=== PATIENT | male | born 1945 | race Caucasian/White ===

== ENCOUNTER 2022-09-16 14:06 | Emergency (ER) | payer OTHER ==
[2022-09-16] MEDS ORDERED: diltiaZEM INJ 5 MG/ML VIAL IVP STA (14:43)
[2022-09-16 14:46] LABS: BASOPHILS # (AUTO) 0.1 10^3/uL (0.0-0.1); BASOPHILS % (AUTO) 0.9 %; EOSINOPHILS # (AUTO) 0.1 10^3/uL (0.0-0.7); EOSINOPHILS % (AUTO) 0.7 %; HCT - HEMATOCRIT 30.3 % (42.0-52.0); HGB - HEMOGLOBIN 8.8 g/dL (14.0-18.0); LYMPHOCYTES # (AUTO) 0.6 10^3/uL (1.5-3.5); LYMPHOCYTES % (AUTO) 5.5 %; MEAN CORPUSCULAR HEMOGLOBIN 25.5 pg (27.0-31.0); MEAN CORPUSCULAR VOLUME 87.8 fL (80.0-94.0); MEAN PLATELET VOLUME 8.8 fL (7.4-11.4); MONOCYTES # (AUTO) 1.8 10^3/uL (0.0-1.0); MONOCYTES % (AUTO) 15.2 %; NEUTROPHILS % (AUTO) 76.7 %; PLT - PLATELET COUNT 378 10^3/uL (130-450); RED BLOOD COUNT 3.45 10^6/uL (4.70-6.10); RED CELL DISTRIBUTION WIDTH 20.2 % (12.0-15.0); WHITE BLOOD COUNT 11.7 x10^3/uL (4.8-10.8)
--- NOTE | 2022-09-16 14:46 | ED Physician Documentation ---
History of Present Illness - Stated complaint Stated Complaint: CP/SOA/ABD PX - Chief complaint Chief Complaint: Resp - Additonal information Additional information: 76-year-old male is brought to the emergency department for evaluation of chest pain and shortness of air. History is limited from the patient due to condition. He does report COPD and states he is always on oxygen. Somewhere between 2 and 6 L a minute. He had run out of oxygen by the time he arrived to the emergency department and his room air saturations were 80%. He was placed on 4 L nasal cannula now having saturations in the high 90s. However he remains labored. He does have with him some discharge paperwork from [facility] in [place]. It appears that he was admitted there from August 03 through August 12. There are some discharge diagnoses that include thrombocytopenia, COPD, heart failure. It also appears that he may have received a palliative care referral. Patient reports that he has been out of his albuterol, Advair and oral medica tions now for about 4 days. It looks to me as though he should be on diltiazem 240 mg daily, Jardiance 10 mg daily, Lasix 80 mg daily as well as albuterol and Advair. Patient denies any recent fevers but states he cannot breathe over the last 4 days. He is gasping for air. Review of Systems Constitutional: denies: Fever Cardiac: reports: Chest pain / pressure Respiratory: reports: Dyspnea, Cough, Wheezing GI: reports: Reviewed and negative : reports: Reviewed and negative PD PAST MEDICAL HISTORY - Present Medications Home Medications: Ambulatory Orders Medication Instructions Recorded Confirmed Albuterol Sulf [Ventolin Hfa 1 - 2 puffs INH Q4HR PRN #1 each 09/16/22 Inhaler] Empagliflozin [Jardiance] 10 mg PO DAILY 09/16/22 09/16/22 Empagliflozin [Jardiance] 10 mg PO DAILY #30 tablet 09/16/22 Fluticasone/Salmeterol [Advair 1 each IH DAILY #1 each 09/16/22 250-50 Diskus] Furosemide [Lasix] 80 mg PO DAILY 09/16/22 09/16/22 Furosemide [Lasix] 80 mg PO DAILY #30 tablet 09/16/22 Potassium Chloride [K-Dur] 20 meq PO DAILY #30 tablet 09/16/22 Potassium Chloride [K-Dur] 20 meq PO ONCE 09/16/22 09/16/22 dilTIAZem HCL [Diltiazem 24Hr ER 240 mg PO DAILY #30 cap 09/16/22 (Xr)] diltiaZEM CD [Cardizem Cd] 240 mg PO DAILY 09/16/22 09/16/22 - Allergies Allergies/Adverse Reactions: Allergies Allergy/AdvReac Type Severity Reaction Status Date / Time Penicillins Allergy Unknown Verified 09/16/22 14:16 PD ED PE EXPANDED - General General: Alert, In distress (Gasping for air. Tachypneic. 2-3 word sentences) - Cardiac Cardiac: Irregularly irregular, Murmur Present, Radial strong equal, Cap refill < 2 sec - Respiratory Respiratory: Other (Diminished breath sounds in the right middle and lower lobes. Generally clear in the left lung [place]. He is tachypneic, labored. On 4 L nasal cannula saturating 100%) - Abdomen Abdomen: Normal Bowel sounds, Distended. No: Tender to palpation - Derm Derm: Normal color, Warm and dry - Neuro Neuro: Alert and Oriented X 3, CNII-XII intact - GCS Eye Opening: Spontaneous Motor: Obeys Commands Verbal: Oriented Total: 15 Results - Vitals Vitals: Vital Signs - 24 hr 09/16/22 09/16/22 09/16/22 14:12 14:44 14:51 Temperature 37.2 C Heart Rate 114 H 113 H 117 H Respiratory 44 H 20 24 Rate Blood Pressure 123/63 117/87 H O2 Saturation 80 L 100 100 If not protocol 2 2 : Oxygen Flow, liters/minute 09/16/22 09/16/22 09/16/22 15:20 15:25 15:53 Temperature Heart Rate 103 H 88 Respiratory 21 22 Rate Blood Pressure 114/79 120/85 H O2 Saturation 100 100 If not protocol 2 2 2 : Oxygen Flow, liters/minute 09/16/22 09/16/22 09/16/22 16:05 16:22 16:54 Temperature Heart Rate 104 H 109 H Respiratory 22 28 H 22 Rate Blood Pressure 137/100 H O2 Saturation 99 If not protocol 2 2 : Oxygen Flow, liters/minute 09/16/22 09/16/22 09/16/22 17:16 18:11 18:33 Temperature Heart Rate 104 H 108 H 113 H Respiratory 32 H 23 18 Rate Blood Pressure 139/95 H 125/73 125/73 O2 Saturation 100 100 100 If not protocol 2 : Oxygen Flow, liters/minute Oxygen O2 Source Room air Oxygen Flow Rate 2 - EKG (time done) 1421 EKG releavant findings:: EKG personally interpreted by author of this note. Relevant findings are: Rate: Rate (enter#) (115) Rhythm: Atrial fibrillation Gamaliel: LAD Intervals: No: Prolonged QT Ischemia: Non specific changes Computer interpretation: Agree with computer - Labs Labs: Laboratory Tests 09/16/22 09/16/22 09/16/22 14:37 14:37 14:37 WBC 11.7 H RBC 3.45 L Hgb 8.8 L Hct 30.3 L MCV 87.8 MCH 25.5 L MCHC 29.0 L RDW 20.2 H Plt Count 378 MPV 8.8 Neut # (Auto) 9.0 H Lymph # (Auto) 0.6 L Douglas # (Auto) 1.8 H Eos # (Auto) 0.1 Baso # (Auto) 0.1 Absolute Nucleated RBC 0.00 Nucleated RBC % 0.0 Sodium 135 Potassium 4.5 Chloride 96 L Carbon Dioxide 30 Anion Gap 9.0 BUN 12 Creatinine 0.8 Estimated GFR (MDRD) 94 Glucose 112 H Calcium 8.7 Total Bilirubin 0.6 AST 24 ALT 15 Alkaline Phosphatase 79 Troponin I High Sens 7.0 B-Natriuretic Peptide Total Protein 7.0 Albumin 3.4 Globulin 3.6 Albumin/Globulin Ratio 0.9 L Lipase 40 Nasal Adenovirus (PCR) Nasal B. parapertussis DNA (PCR) Nasal Coronavir 229E PCR Nasal Coronavir HKU1 PCR Nasal Coronavir NL63 PCR Nasal Coronavir OC43 PCR Nasal Enterovir/Rhinovir PCR Nasal Influenza B PCR Nasal Influenza A PCR Nasal Parainfluen 1 PCR Nasal Parainfluen 2 PCR Nasal Parainfluen 3 PCR Nasal Parainfluen 4 PCR Nasal RSV (PCR) Nasal B.pertussis DNA PCR Nasal C.pneumoniae (PCR) Aj Human Metapneumo PCR Nasal M.pneumoniae (PCR) Nasal SARS-CoV-2 (PCR) 09/16/22 09/16/22 14:37 15:06 WBC RBC Hgb Hct MCV MCH MCHC RDW Plt Count MPV Neut # (Auto) Lymph # (Auto) Douglas # (Auto) Eos # (Auto) Baso # (Auto) Absolute Nucleated RBC Nucleated RBC % Sodium Potassium Chloride Carbon Dioxide Anion Gap BUN Creatinine Estimated GFR (MDRD) Glucose Calcium Total Bilirubin AST ALT Alkaline Phosphatase Troponin I High Sens B-Natriuretic Peptide 411 H Total Protein Albumin Globulin Albumin/Globulin Ratio Lipase Nasal Adenovirus (PCR) NOT DETECTED Nasal B. parapertussis DNA (PCR) NOT DETECTED Nasal Coronavir 229E PCR NOT DETECTED Nasal Coronavir HKU1 PCR NOT DETECTED Nasal Coronavir NL63 PCR NOT DETECTED Nasal Coronavir OC43 PCR NOT DETECTED Nasal Enterovir/Rhinovir PCR NOT DETECTED Nasal Influenza B PCR NOT DETECTED Nasal Influenza A PCR NOT DETECTED Nasal Parainfluen 1 PCR NOT DETECTED Nasal Parainfluen 2 PCR NOT DETECTED Nasal Parainfluen 3 PCR NOT DETECTED Nasal Parainfluen 4 PCR NOT DETECTED Nasal RSV (PCR) NOT DETECTED Nasal B.pertussis DNA PCR NOT DETECTED Nasal C.pneumoniae (PCR) NOT DETECTED Aj Human Metapneumo PCR NOT DETECTED Nasal M.pneumoniae (PCR) NOT DETECTED Nasal SARS-CoV-2 (PCR) NOT DETECTED - Rads (name of study) cxr Relevant Findings:: Final report received (Moderate likely right-sided pleural effusion with right basilar atelectasis, versus consolidation or mass. Given no priors consider CT chest for evaluation) CT chest/abd/pelvis Relevant Findings:: Final report received (Loculated large right pleural effusion without acute CT findings in the abdomen and pelvis.) PD Medical Decision Making - ED course Complexity details: reviewed results, re-evaluated patient, d/w patient ED course: 76-year-old male who has a history of COPD, heart failure, atrial fibrillation not on anticoagulation presents the emergency department for evaluation of shortness of breath. He moved to [facility] 2 weeks ago from the [facility]. He had a hospitalization in late July and early August for COPD and hypoxic respiratory failure. His partner at the bedside Anne-Marie indicates to me at that time he was newly diagnosed with a pleural effusion as well as atrial fibrillation. However he had low platelets during that hospitalization and he was not started on anticoagulation. For reasons that are unclear to me they decided to move to [facility] and the patient has not yet been able to access care. [facility] While in route to the emergency department for shortness of air the patient's oxygen tank ran out. When he arrived to the ER his room air saturations were 80%. Shortly thereafter he was placed on 2 L nasal cannula and after about 15 to 20 minutes his labored breathing appeared to be resolved. The patient stated to me he been out of most of his medications for about 4 to 5 days. I did obtain an initial chest x-ray which is interpreted by the radiologist showed a large right pleural effusion. A mass could not be excluded and based on this imaging a CT of the chest abdomen pelvis with contrast was completed. The only acute finding in any of this imaging was that again of a loculated right pleural effusion. I did obtain a CBC, electrolytes and a troponin all of which showed no worrisome findings though he does have some mild anemia. His BNP is mildly elevated at 400. The patient was administered Lasix IV here in the ER. Respiratory PCR is negative. Clinically it appears the patient is back to his baseline respirations saturating 100% on 2 L nasal cannula. Clinically he does not meet the requirements for admission. He does have a loculated pleural effusion but no acute management is warranted of this today. He initially presented in A-fib with a heart rate of 115. He been out of his diltiazem for several days. He was given a single dose of 10 mg IV and on reevaluation his heart rate is in the 80s but remains A-fib. I discussed with the patient and his partner at the bedside the findings of atrial fibrillation. We discussed his [id number] 2 score of 3 which puts him at about a 6% risk of developing a stroke over the next year but with the previous concerns of thrombocytopenia as well as the concerns of the pleural effusion that may need to be addressed in the upcoming weeks the decision was made not to start him on anticoagulation. His partner expressed difficulty in establishing with [facility] but I have indicated to her that it is critical he have a primary provider to help manage his long-term illnesses. We have also given her the phone number to contact the [facility] to help [facility]. He is going to be discharged home, now back to baseline. I have written a prescription for diltiazem, Jardiance, Lasix, albuterol and Advair. The usual emergent return precautions were discussed for worsening symptoms Departure - Departure Disposition: 01 Home, Self Care Clinical Impression: Pleural effusion, right COPD (chronic obstructive pulmonary disease) Qualifiers: COPD type: unspecified COPD Qualified Code(s): J44.9 - Chronic obstructive pulmonary disease, unspecified Atrial fibrillation Qualifiers: Atrial fibrillation type: unspecified Qualified Code(s): I48.91 - Unspecified atrial fibrillation Condition: Serious Record reviewed to determine appropriate education?: Yes Instructions: Effusion Pleural Prescriptions: Albuterol Sulf [Ventolin Hfa Inhaler] 1 - 2 puffs INH Q4HR PRN #1 each PRN Reason: Shortness Of Air/Wheezing Fluticasone/Salmeterol [Advair 250-50 Diskus] 1 each IH DAILY #1 each dilTIAZem HCL [Diltiazem 24Hr ER (Xr)] 240 mg PO DAILY #30 cap Empagliflozin [Jardiance] 10 mg PO DAILY #30 tablet Potassium Chloride [K-Dur] 20 meq PO DAILY #30 tablet Furosemide [Lasix] 80 mg PO DAILY #30 tablet Comments: Kush came to the emergency department because he has been having some increasing shortness of breath. He has been out of several of his medications for a few days. In route to the emergency department his oxygen tank ran out so he was very hypoxic when he arrived here however shortly after being started on oxygen his breathing improved. 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 This is something that needs to be followed closely by a primary doctor. You must get in contact with the [facility] to establish care as soon as possible. Imaging completed today in the emergency department shows that he has a large right pleural effusion. This is a development of fluid that overlies his lung. It can make breathing more difficult. It is often seen in COPD and atrial fibrillation both of which he has. In the long-term this is something that may need to be drained though it does not need to be drained today. He will be important to talk with his primary care doctor whether he should be placed on anticoagulation for the atrial fibrillation as he is at higher risk for strokes. Today I have refilled his diltiazem a medication to help control his heart rate and atrial fibrillation. I have also refilled his Lasix, a water pill that will help reduce the pleural effusion and improve his heart failure. I have also refilled his Jardiance, albuterol, Advair. These prescriptions have been sent to the [facility] in [place]. He should continue to wear oxygen at all times. Return to the ER if you find his symptoms are worsening
[2022-09-16 14:59] LABS: ALBUMIN 3.4 g/dL (3.2-5.5); ALBUMIN/GLOBULIN RATIO 0.9 (1.0-2.2); BILIRUBIN,TOTAL 0.6 mg/dL (0.2-1.0); CALCIUM 8.7 mg/dL (8.5-10.3); CREATININE 0.8 mg/dL (0.6-1.2); POTASSIUM 4.5 mmol/L (3.5-5.0)
--- NOTE | 2022-09-16 15:00 | XRAY Report ---
PROCEDURE: Chest 1 View X-Ray INDICATIONS: Chest Pain TECHNIQUE: One view of the chest was acquired. COMPARISON: None. FINDINGS: Surgical changes and devices: None. Lungs and pleura: Moderate loculated right-sided pleural effusion with right basilar atelectasis/con solidation/mass. Small left pleural effusion. Mediastinum: Mediastinal contours appear normal. Heart size is normal. Bones and chest wall: No suspicious bony lesions. Overlying soft tissues appear unremarkable. IMPRESSION: Moderate likely right-sided pleural effusion with right basilar atelectasis, versus consolidation or mass. Given no priors, consider chest CT for evaluation. Small left pleural effusion. Reviewed by: Jj Pink on 09/16/2022 2:58 PM PDT Approved by: Jj Pink on 09/16/2022 2:58 PM PDT Station ID: [id number]
[2022-09-16] MEDS ORDERED: methylPREDNISolone SUCCINATE 125 MG/2 ML VIAL IVP STA (15:07)
[2022-09-16] MEDS ORDERED: IPRATROPIUM/ALBUTEROL 3 ML NEB INH STA (15:07)
[2022-09-16] MEDS ORDERED: FUROSEMIDE 40 MG/4 ML VIAL IVP STA (15:37)
[2022-09-16] MEDS ORDERED: iohexoL-300 100 ML VIAL ONE (15:37)
[2022-09-16 17:03] LABS: B. PARAPERTUSSIS- RESP PCR PAN NOT DETECTED; B. PERTUSSIS- RESP PCR PANEL NOT DETECTED; C. PNEUMONIAE- RESP PCR PANEL NOT DETECTED; CORONAVIRUS 229E-RESP PCR NOT DETECTED; CORONAVIRUS HKU1-RESP PCR NOT DETECTED; CORONAVIRUS NL63-RESP PCR NOT DETECTED; CORONAVIRUS OC43-RESP PCR NOT DETECTED; HUMAN METAPNEUMOVIRUS NOT DETECTED; INFLUENZA A- RESP PCR PANEL NOT DETECTED; INFLUENZA B - RESP PCR PANEL NOT DETECTED; M. PNEUMONIAE- RESP PCR PANEL NOT DETECTED; PARAINFLUENZA VIRUS 1 NOT DETECTED; PARAINFLUENZA VIRUS 2 NOT DETECTED; PARAINFLUENZA VIRUS 3 NOT DETECTED; PARAINFLUENZA VIRUS 4 NOT DETECTED; RHINOVIRUS/ENTEROVIRUS NOT DETECTED; RSV- RESP PCR PANEL NOT DETECTED; SARS-CoV-2 -RESP PCR PANEL NOT DETECTED
--- NOTE | 2022-09-16 17:08 | CT Report ---
PROCEDURE: CT abdomen pelvis with contrast INDICATIONS: abd pain CONTRAST: Omni 300 100ml TECHNIQUE: After the administration of contrast, 5 mm thick sections acquired from the diaphragms to the symphys is. 5 mm thick coronal and sagittal reformats were acquired. For radiation dose reduction, the foll owing was used: automated exposure control, adjustment of mA and/or kV according to patient size. COMPARISON: None FINDINGS: Image quality: Excellent. Lung bases and heart: Large right pleural effusion Liver: No solid mass. Gallbladder and biliary tree: Spleen: No splenomegaly. Pancreas: No pancreatic ductal dilation. Adrenals: No adrenal nodule. Kidneys and ureters: No hydronephrosis. No renal cystic lesion which requires follow up. No solid mas s. Bowel and peritoneum: No bowel distension. No pathologic free fluid. Lymph nodes: No central or retroperitoneal adenopathy. Vessels: Aortic atherosclerotic vascular calcification without evidence of aneurysm PELVIS Reproductive organs: Unremarkable. Bladder: No abnormal wall thickening, accounting for underdistension. Pelvic lymph nodes: No pelvic adenopathy by size criteria. Bones: No aggressive osseous abnormality. Other: No significant ventral or inguinal hernia. IMPRESSION: Large right pleural effusion without acute CT findings in the abdomen and pelvis Reviewed by: Yoel Barnard MD on 09/16/2022 4:06 PM [place] Approved by: Yoel Barnard MD on 09/16/2022 4:06 PM [place] Station ID: [id number]
--- NOTE | 2022-09-16 17:13 | CT Report ---
PROCEDURE: CT angiogram chest with contrast INDICATIONS: pleaural effusion; r/o mass; r/o PE CONTRAST: Omni 300 100ml TECHNIQUE: After the administration of intravenous contrast, 2 mm axial images were acquired from the pulmonary apices to the posterior costophrenic angles during the arterial phase. In addition, 1 mm lung kernel and 5 mm soft tissue kernel reconstructions were performed. 3-dimensional coronal oblique maximum int ensity projection (MIP) reformats, 8 mm axial MIP, and 5 mm coronal and sagittal MPR reformats were t hen performed through the thorax. For radiation dose reduction, the following was used: automated exp osure control, adjustment of mA and/or kV according to patient size. COMPARISON: FINDINGS: Image quality: Excellent. Large vessels: No filling defects within the opacified pulmonary arteries, accounting for motion and contrast timing. No evidence of acute aortic syndrome or aortic aneurysm. Lungs and pleura: Moderate right-sided pleural effusion is at least partially loculated. Associated c ompressive atelectasis mild adjacent infiltrative change present as well. Moderate diffuse pulmonary emphysema with apical predominance and septal thickening present apically Mediastinum: Heart size is normal. No pericardial effusions. No mediastinal adenopathy by size criter ia. Chest wall and lower neck: Thyroid is unremarkable. No axillary or supraclavicular adenopathy by size . Bones: No aggressive osseous abnormality. Upper Abdomen: Unremarkable. IMPRESSION: No evidence of pulmonary embolism, aortic dissection or aneurysm. Loculated right-sided pleural effusion. Consider short-term follow-up to exclude developing empyema. Moderate pulmonary emphysema Reviewed by: Yoel Barnard MD on 09/16/2022 4:12 PM [place] Approved by: Yoel Barnard MD on 09/16/2022 4:12 PM [place] Station ID: [id number]
[2022-09-16] MEDS ORDERED: iohexoL-300 100 ML VIAL IVP ONE (17:25)
[2022-09-16 18:13] VITALS: BP 125/73
[2022-09-16] MEDS ORDERED: diltiaZEM CD 120 MG CAPSULE PO STA (18:24)
== END 2022-09-16 18:45 | disposition home or self-care (01) ==
LOC: ED 14:06
DX: J90 Pleural effusion, not elsewhere classified (principal); J44.9 Chronic obstructive pulmonary disease, unspecified; I48.91 Unspecified atrial fibrillation; I50.9 Heart failure, unspecified; Z20.822 Contact with and (suspected) exposure to COVID-19; Z99.81 Dependence on supplemental oxygen; Z79.51 Long term (current) use of inhaled steroids; Z79.899 Other long term (current) drug therapy; Z79.84 Long term (current) use of oral hypoglycemic drugs
CPT/HCPCS: 36415; 71045; 71275; 74177; 80053; 83690; 83880; 84484; 85025; 87633; 93005; 94640; 94664; 96374; 96375; 99284; 99285; A9270; Q9967

== ENCOUNTER 2022-11-25 11:32 | Inpatient (IN) | payer OTHER ==
--- NOTE | 2022-11-25 11:44 | ED Physician Documentation ---
PD HPI ALTERED MENTAL STATUS - Stated complaint Stated Complaint: UNRESPONSIVE - Chief complaint Chief Complaint: Resp - History obtained from History obtained from: EMS - History of Present Illness Timing - onset: Unknown - Additional information Additional information: 77-year-old male with history of COPD on chronic O2, congestive heart failure, cho-gzbbqwy-dclqjslcf diabetes, A-fib on diltiazem presents intubated by EMS from home for altered mental status. History is obtained entirely by EMS. EMS states that called because she could not wake the patient out of bed. She told EMS that the patient went to bed in his usual state of health last night but she could not wake him up today and she called 911. EMS stated that when they arrived the patient was snoring, unresponsive to even painful stimuli and so he was intubated with etomidate and succinylcholine for airway protection. Per EMS patient was given veccuronium for continued sedation en route Patient arrived intubated, paralyzed, sedated. Review of Systems Unable to obtain: Intubated PD PAST MEDICAL HISTORY - Past Medical History Past Medical History: Yes Cardiovascular: Congestive heart failure, Hypertension Respiratory: COPD Neuro: None Endocrine/Autoimmune: None GI: None : Benign prostate hypertrophy HEENT: None Psych: None Musculoskeletal: None Derm: None - Past Surgical History Past Surgical History: Yes General: Other - Present Medications Home Medications: Ambulatory Orders Medication Instructions Recorded Confirmed Albuterol Sulf [Ventolin Hfa 1 - 2 puffs INH Q4HR PRN #1 each 09/16/22 Inhaler] Empagliflozin [Jardiance] 10 mg PO DAILY 09/16/22 09/16/22 Empagliflozin [Jardiance] 10 mg PO DAILY #30 tablet 09/16/22 Fluticasone/Salmeterol [Advair 1 each IH DAILY #1 each 09/16/22 250-50 Diskus] Furosemide [Lasix] 80 mg PO DAILY 09/16/22 09/16/22 Furosemide [Lasix] 80 mg PO DAILY #30 tablet 09/16/22 Potassium Chloride [K-Dur] 20 meq PO DAILY #30 tablet 09/16/22 Potassium Chloride [K-Dur] 20 meq PO ONCE 09/16/22 09/16/22 dilTIAZem HCL [Diltiazem 24Hr ER 240 mg PO DAILY #30 cap 09/16/22 (Xr)] diltiaZEM CD [Cardizem Cd] 240 mg PO DAILY 09/16/22 09/16/22 - Allergies Allergies/Adverse Reactions: Allergies Allergy/AdvReac Type Severity Reaction Status Date / Time Penicillins Allergy Unknown Verified 11/25/22 11:42 - Social History Does the pt smoke?: No Smoking Status: Never smoker Does the pt drink ETOH?: No Does the pt have substance abuse?: No - Immunizations Immunizations are current?: Yes - POLST Patient has POLST: No PD ED PE NORMAL - Vitals Vital signs reviewed: Yes - General General: Other (appears chronically unwell) - HEENT HEENT: Atraumatic, PERRL, EOMI, Other (7.[address]) - Cardiac Cardiac: No murmur, Other (irregularly irregular) - Respiratory Respiratory: Other (intubated, bilateral inspiratory crackles. Decreased breath sounds R lung [place]) - Abdomen Abdomen: Soft, Non tender, Non distended - Derm Derm: Normal color, Warm and dry, No rash - Extremities Extremities: No deformity, Other (trace pitting edema to nknees bilaterally) - Neuro Neuro: Other (intubated, sedated) Results - Vitals Vitals: Vital Signs - 24 hr 11/25/22 11/25/22 11/25/22 11:35 11:42 11:56 Temperature 36.5 C 34.9 C L Heart Rate 101 H 94 92 Respiratory 20 18 Rate Blood Pressure 143/100 H 157/94 H O2 Saturation 90 L 85 L 11/25/22 11/25/22 11/25/22 12:11 12:15 12:30 Temperature 35.6 C L 35.6 C L Heart Rate 112 H 108 H 95 Respiratory 20 20 20 Rate Blood Pressure 150/88 H 141/88 H 151/80 H O2 Saturation 100 98 100 11/25/22 11/25/22 11/25/22 12:45 13:00 13:15 Temperature 35.8 C L 35.8 C L Heart Rate 95 89 93 Respiratory 18 18 18 Rate Blood Pressure 144/95 H 118/79 121/60 O2 Saturation 96 93 94 11/25/22 11/25/22 11/25/22 13:30 13:45 14:00 Temperature 35.8 C L 36 C L 36.5 C Heart Rate 88 85 85 Respiratory 18 18 18 Rate Blood Pressure 106/82 H 83/56 L 88/66 L O2 Saturation 100 100 97 11/25/22 11/25/22 14:15 14:30 Temperature 36.5 C Heart Rate 82 74 Respiratory 18 18 Rate Blood Pressure 77/56 L 86/59 L O2 Saturation 97 Oxygen O2 Source Room air - Labs Labs: Laboratory Tests 11/25/22 11/25/22 11/25/22 11:40 11:40 11:40 WBC 9.9 RBC 3.22 L Hgb 8.7 L Hct 31.7 L MCV 98.4 H MCH 27.0 MCHC 27.4 L RDW 21.9 H Plt Count 162 MPV 9.2 Neut # (Auto) 7.9 H Lymph # (Auto) 0.2 L Mcclain # (Auto) 1.7 H Eos # (Auto) 0.0 Baso # (Auto) 0.0 Absolute Nucleated RBC 0.00 Nucleated RBC % 0.0 Manual Slide Review Indicated PT 12.7 H INR 1.2 Bld Gas Analysis Time Sample Site ABG pH ABG pCO2 ABG pO2 ABG HCO3 ABG Total CO2 ABG O2 Saturation ABG Base Excess Valentin Test Respiration Rate O2 Delivery Device Vent Mode FiO2 Tidal Volume PEEP Pressure Support Vent Sodium 136 Potassium 5.5 H Chloride 95 L Carbon Dioxide 38 H Anion Gap 3.0 L BUN 23 H Creatinine 1.5 H Estimated GFR (MDRD) 46 L Glucose 122 H Lactic Acid Calcium 8.8 Phosphorus 5.8 Magnesium 2.3 Total Bilirubin 0.5 AST 13 ALT < 10 L Alkaline Phosphatase 78 Ammonia Troponin I High Sens Total Protein 6.7 Albumin 3.3 Globulin 3.4 Albumin/Globulin Ratio 1.0 Lipase 13 Urine Color Urine Clarity Urine pH Ur Specific Langley Urine Protein Urine Glucose (UA) Urine Ketones Urine Occult Blood Urine Nitrite Urine Bilirubin Urine Urobilinogen Ur Leukocyte Esterase Ur Microscopic Review Urine Culture Comments Nasal Adenovirus (PCR) Nasal B. parapertussis DNA (PCR) Nasal Coronavir 229E PCR Nasal Coronavir HKU1 PCR Nasal Coronavir NL63 PCR Nasal Coronavir OC43 PCR Nasal Enterovir/Rhinovir PCR Nasal Influenza B PCR Nasal Influenza A PCR Nasal Parainfluen 1 PCR Nasal Parainfluen 2 PCR Nasal Parainfluen 3 PCR Nasal Parainfluen 4 PCR Nasal RSV (PCR) Nasal B.pertussis DNA PCR Nasal C.pneumoniae (PCR) Aj Human Metapneumo PCR Nasal M.pneumoniae (PCR) Nasal SARS-CoV-2 (PCR) Salicylates < 1.5 Urine Opiates Screen Ur Oxycodone Screen Urine Methadone Screen Ur Propoxyphene Screen Acetaminophen 1.0 L Ur Barbiturates Screen Ur Tricyclics Screen Ur Phencyclidine Scrn Ur Amphetamine Screen U Methamphetamines Scrn U Benzodiazepines Scrn Urine Cocaine Screen U Cannabinoids Screen Ethyl Alcohol < 10.0 Blood Type Blood Type Recheck Antibody Screen 11/25/22 11/25/22 11/25/22 11:40 11:40 11:42 WBC RBC Hgb Hct MCV MCH MCHC RDW Plt Count MPV Neut # (Auto) Lymph # (Auto) Mcclain # (Auto) Eos # (Auto) Baso # (Auto) Absolute Nucleated RBC Nucleated RBC % Manual Slide Review PT INR Bld Gas Analysis Time Sample Site ABG pH ABG pCO2 ABG pO2 ABG HCO3 ABG Total CO2 ABG O2 Saturation ABG Base Excess Valentin Test Respiration Rate O2 Delivery Device Vent Mode FiO2 Tidal Volume PEEP Pressure Support Vent Sodium Potassium Chloride Carbon Dioxide Anion Gap BUN Creatinine Estimated GFR (MDRD) Glucose Lactic Acid 1.0 Calcium Phosphorus Magnesium Total Bilirubin AST ALT Alkaline Phosphatase Ammonia 24.9 Troponin I High Sens 11.6 Total Protein Albumin Globulin Albumin/Globulin Ratio Lipase Urine Color Urine Clarity Urine pH Ur Specific [place] Urine Protein Urine Glucose (UA) Urine Ketones Urine Occult Blood Urine Nitrite Urine Bilirubin Urine Urobilinogen Ur Leukocyte Esterase Ur Microscopic Review Urine Culture Comments Nasal Adenovirus (PCR) Nasal B. parapertussis DNA (PCR) Nasal Coronavir 229E PCR Nasal Coronavir HKU1 PCR Nasal Coronavir NL63 PCR Nasal Coronavir OC43 PCR Nasal Enterovir/Rhinovir PCR Nasal Influenza B PCR Nasal Influenza A PCR Nasal Parainfluen 1 PCR Nasal Parainfluen 2 PCR Nasal Parainfluen 3 PCR Nasal Parainfluen 4 PCR Nasal RSV (PCR) Nasal B.pertussis DNA PCR Nasal C.pneumoniae (PCR) Aj Human Metapneumo PCR Nasal M.pneumoniae (PCR) Nasal SARS-CoV-2 (PCR) Salicylates Urine Opiates Screen Ur Oxycodone Screen Urine Methadone Screen Ur Propoxyphene Screen Acetaminophen Ur Barbiturates Screen Ur Tricyclics Screen Ur Phencyclidine Scrn Ur Amphetamine Screen U Methamphetamines Scrn U Benzodiazepines Scrn Urine Cocaine Screen U Cannabinoids Screen Ethyl Alcohol Blood Type A NEGATIVE Blood Type Recheck Antibody Screen NEGATIVE 11/25/22 11/25/22 11/25/22 11:51 11:51 12:32 WBC RBC Hgb Hct MCV MCH MCHC RDW Plt Count MPV Neut # (Auto) Lymph # (Auto) Mcclain # (Auto) Eos # (Auto) Baso # (Auto) Absolute Nucleated RBC Nucleated RBC % Manual Slide Review PT INR Bld Gas Analysis Time 1232 Sample Site RIGHT RADIAL ABG pH 7.46 H ABG pCO2 44 ABG pO2 424 H* ABG HCO3 30.6 H ABG Total CO2 31.9 H ABG O2 Saturation 100 H ABG Base Excess 6.0 H Valentin Test POSITIVE Respiration Rate 20 O2 Delivery Device VENTILATOR Vent Mode SIMV FiO2 100.00 Tidal Volume 500 PEEP 5 Pressure Support Vent 12 Sodium Potassium Chloride Carbon Dioxide Anion Gap BUN Creatinine Estimated GFR (MDRD) Glucose Lactic Acid Calcium Phosphorus Magnesium Total Bilirubin AST ALT Alkaline Phosphatase Ammonia Troponin I High Sens Total Protein Albumin Globulin Albumin/Globulin Ratio Lipase Urine Color DARK YELLOW Urine Clarity CLEAR Urine pH 5.5 Ur Specific [place]y 1.020 Urine Protein TRACE Urine Glucose (UA) >=1000 H Urine Ketones NEGATIVE Urine Occult Blood NEGATIVE Urine Nitrite NEGATIVE Urine Bilirubin NEGATIVE Urine Urobilinogen 0.2 (NORMAL) Ur Leukocyte Esterase NEGATIVE Ur Microscopic Review NOT INDICATED Urine Culture Comments NOT INDICATED Nasal Adenovirus (PCR) NOT DETECTED Nasal B. parapertussis DNA (PCR) NOT DETECTED Nasal Coronavir 229E PCR NOT DETECTED Nasal Coronavir HKU1 PCR NOT DETECTED Nasal Coronavir NL63 PCR NOT DETECTED Nasal Coronavir OC43 PCR NOT DETECTED Nasal Enterovir/Rhinovir PCR NOT DETECTED Nasal Influenza B PCR NOT DETECTED Nasal Influenza A PCR NOT DETECTED Nasal Parainfluen 1 PCR NOT DETECTED Nasal Parainfluen 2 PCR NOT DETECTED Nasal Parainfluen 3 PCR NOT DETECTED Nasal Parainfluen 4 PCR NOT DETECTED Nasal RSV (PCR) NOT DETECTED Nasal B.pertussis DNA PCR NOT DETECTED Nasal C.pneumoniae (PCR) NOT DETECTED Aj Human Metapneumo PCR NOT DETECTED Nasal M.pneumoniae (PCR) NOT DETECTED Nasal SARS-CoV-2 (PCR) NOT DETECTED Salicylates Urine Opiates Screen NEGATIVE Ur Oxycodone Screen NEGATIVE Urine Methadone Screen NEGATIVE Ur Propoxyphene Screen NEGATIVE Acetaminophen Ur Barbiturates Screen NEGATIVE Ur Tricyclics Screen NEGATIVE Ur Phencyclidine Scrn NEGATIVE Ur Amphetamine Screen NEGATIVE U Methamphetamines Scrn NEGATIVE U Benzodiazepines Scrn NEGATIVE Urine Cocaine Screen NEGATIVE U Cannabinoids Screen NEGATIVE Ethyl Alcohol Blood Type Blood Type Recheck Antibody Screen 11/25/22 11/25/22 11/25/22 12:53 13:46 14:01 WBC RBC Hgb Hct MCV MCH MCHC RDW Plt Count MPV Neut # (Auto) Lymph # (Auto) Mcclain # (Auto) Eos # (Auto) Baso # (Auto) Absolute Nucleated RBC Nucleated RBC % Manual Slide Review PT INR Bld Gas Analysis Time Sample Site ABG pH ABG pCO2 ABG pO2 ABG HCO3 ABG Total CO2 ABG O2 Saturation ABG Base Excess Valentin Test Respiration Rate O2 Delivery Device Vent Mode FiO2 Tidal Volume PEEP Pressure Support Vent Sodium Potassium Chloride Carbon Dioxide Anion Gap BUN Creatinine Estimated GFR (MDRD) Glucose Lactic Acid 2.6 H Calcium Phosphorus Magnesium Total Bilirubin AST ALT Alkaline Phosphatase Ammonia Troponin I High Sens Total Protein Albumin Globulin Albumin/Globulin Ratio Lipase Urine Color Urine Clarity Urine pH Ur Specific [place] Urine Protein Urine Glucose (UA) Urine Ketones Urine Occult Blood Urine Nitrite Urine Bilirubin Urine Urobilinogen Ur Leukocyte Esterase Ur Microscopic Review Urine Culture Comments Nasal Adenovirus (PCR) Nasal B. parapertussis DNA (PCR) Nasal Coronavir 229E PCR Nasal Coronavir HKU1 PCR Nasal Coronavir NL63 PCR Nasal Coronavir OC43 PCR Nasal Enterovir/Rhinovir PCR Nasal Influenza B PCR Nasal Influenza A PCR Nasal Parainfluen 1 PCR Nasal Parainfluen 2 PCR Nasal Parainfluen 3 PCR Nasal Parainfluen 4 PCR Nasal RSV (PCR) Nasal B.pertussis DNA PCR Nasal C.pneumoniae (PCR) Aj Human Metapneumo PCR Nasal M.pneumoniae (PCR) Nasal SARS-CoV-2 (PCR) Salicylates Urine Opiates Screen Ur Oxycodone Screen Urine Methadone Screen Ur Propoxyphene Screen Acetaminophen Ur Barbiturates Screen Ur Tricyclics Screen Ur Phencyclidine Scrn Ur Amphetamine Screen U Methamphetamines Scrn U Benzodiazepines Scrn Urine Cocaine Screen U Cannabinoids Screen Ethyl Alcohol < 10.0 Blood Type Blood Type Recheck A NEGATIVE Antibody Screen PD Medical Decision Making - ED course Complexity details: reviewed old records, reviewed results, re-evaluated payton ent, considered differential, d/w family, d/w client support consultant Reviewed Lab Results: reviewed ED course: Respiratory failure at home requiring intubation by EMS. Patient arrived intubated, on ventilator. Patient previously at [facility] in September 2022 for shortness of breath, found to have right-sided pleural effusion. Will continue sedation with propofol. Grant, restraints, NG tube placement ordered. Laboratory work reviewed. Patient has chronic anemia, relatively unchanged from baseline. ABG reviewed and ventilator settings adjusted accordingly. CXR wtih vascular congestion, cannot rule out infectious/inflammatory etiology. Due to patient's presentation and normal wbc count suspect pulmonary edema, however will empirically cover with rocephin/azithromycin. Will diurese with lasix. Patient remains intubated, sedated. head CT normal. Will admit to ICU for further treatment. Departure - Departure Disposition: 66 [facility] DC/Xfer Condition: Serious
[2022-11-25 11:57] LABS: BASOPHILS % (AUTO) 0.3 %; EOSINOPHILS % (AUTO) 0.4 %; HCT - HEMATOCRIT 31.7 % (42.0-52.0); HGB - HEMOGLOBIN 8.7 g/dL (14.0-18.0); LYMPHOCYTES # (AUTO) 0.2 10^3/uL (1.5-3.5); LYMPHOCYTES % (AUTO) 1.6 %; MEAN CORPUSCULAR HGB CONC 27.4 g/dL (32.0-36.0); MEAN CORPUSCULAR VOLUME 98.4 fL (80.0-94.0); MEAN PLATELET VOLUME 9.2 fL (7.4-11.4); MONOCYTES # (AUTO) 1.7 10^3/uL (0.0-1.0); NEUTROPHILS # (AUTO) 7.9 10^3/uL (1.5-6.6); NEUTROPHILS % (AUTO) 79.8 %; PLT - PLATELET COUNT 162 10^3/uL (130-450); RED BLOOD COUNT 3.22 10^6/uL (4.70-6.10); RED CELL DISTRIBUTION WIDTH 21.9 % (12.0-15.0); WHITE BLOOD COUNT 9.9 x10^3/uL (4.8-10.8)
[2022-11-25 11:58] LABS: MUDS CUTOFF CONCENTRATIONS CUTOFF CONC BELOW:
[2022-11-25 11:58] LABS: SLIDE REVIEW? Indicated
[2022-11-25 12:00] LABS: INR 1.2 (0.8-1.2); PT - PROTHROMBIN TIME 12.7 secs (9.9-12.6)
[2022-11-25 12:04] LABS: BILIRUBIN,URINE NEGATIVE (NEGATIVE); GLUCOSE, URINE (UA) >=1000 mg/dL (NEGATIVE); KETONES,URINE (UA) NEGATIVE (NEGATIVE); LEUKOCYTE ESTERASE, URINE NEGATIVE (NEGATIVE); NITRITE,URINE NEGATIVE (NEGATIVE); OCCULT BLOOD,URINE NEGATIVE (NEGATIVE); PH,URINE 5.5 PH (5.0-7.5); PROTEIN,URINE TRACE mg/dL (NEGATIVE); UROBILINOGEN,URINE 0.2 (NORMAL) E.U./dL (NORMAL)
[2022-11-25 12:05] LABS: CLARITY,URINE CLEAR (CLEAR)
--- NOTE | 2022-11-25 12:07 | XRAY Report ---
PROCEDURE: Chest 1 View X-Ray INDICATIONS: AMS/RESPIRATORY FAILURE S/P INTUBATION TECHNIQUE: One view of the chest was acquired. COMPARISON: Chest x-ray 09/16/22 FINDINGS: Surgical changes and devices: Endotracheal tube is present approximately 3.8 cm superior to the elida na. Nasogastric tube is present with distal tip not included within the [id number]. Lungs and pleura: Significant diffuse increased pulmonary vascularity. Mild bilateral effusions. Mediastinum: Mediastinal contours appear normal. Heart size is enlarged Bones and chest wall: No s uspicious bony lesions. Overlying soft tissues appear unremarkable. IMPRESSION: Significant increased vascularity and effusions consistent with edema. Underlying areas of airspace d isease such as pneumonia and/or atelectasis cannot be excluded. Reviewed by: Marion Mcdonnell MD on 11/25/2022 12:05 PM PDT Approved by: Marion Mcdonnell MD on 11/25/2022 12:05 PM PDT Station ID: [id number]
[2022-11-25 12:14] LABS: TROPONIN I HIGH SENSITIVITY 11.6 ng/L (2.3-19.7)
[2022-11-25 12:18] LABS: AMPHETAMINE SCREEN,URINE NEGATIVE (NEGATIVE); BARBITURATE SCREEN,UR NEGATIVE (NEGATIVE); BENZODIAZEPINES SCREEN, URINE NEGATIVE (NEGATIVE); COCAINE SCREEN URINE NEGATIVE (NEGATIVE); METHADONE SCREEN, URINE NEGATIVE (NEGATIVE); METHAMPHETAMINES SCREEN, URINE NEGATIVE (NEGATIVE); OPIATE SCREEN, URINE NEGATIVE (NEGATIVE); OXYCODONE SCREEN, URINE NEGATIVE (NEGATIVE); PROPOXYPHENE SCREEN, URINE NEGATIVE (NEGATIVE); THC CANNABINOID SCREEN, URINE NEGATIVE (NEGATIVE); TRICYCLIC ANTIDEPRESSANT,URINE NEGATIVE (NEGATIVE)
[2022-11-25] MEDS ORDERED: PROPOFOL 1000 MG/100 ML 1,000 MG/100 ML BOTTLE IV ONE (12:32)
[2022-11-25 12:34] LABS: ALBUMIN 3.3 g/dL (3.2-5.5); ALKALINE PHOSPHATASE 78 IU/L (42-121); ALT ALANINE AMINOTRANSFERASE < 10 IU/L (10-60); AST ASPARTATE AMINOTRANSFERASE 13 IU/L (10-42); BILIRUBIN,TOTAL 0.5 mg/dL (0.2-1.0); BUN - BLOOD UREA NITROGEN 23 mg/dL (6-20); CALCIUM 8.8 mg/dL (8.5-10.3); CARBON DIOXIDE - CO2 38 mmol/L (21-32); CHLORIDE 95 mmol/L (101-111); CREATININE 1.5 mg/dL (0.6-1.3); GFR - MDRD 46 (>89); GLUCOSE 122 mg/dL (74-104); LIPASE 13 U/L (11-82); MAGNESIUM 2.3 mg/dL (1.7-2.3); PHOSPHORUS 5.8 mg/dL (3.7-7.2); POTASSIUM 5.5 mmol/L (3.5-4.5); SODIUM 136 mmol/L (135-145); TOTAL PROTEIN 6.7 g/dL (6.4-8.9)
[2022-11-25 12:35] LABS: AMMONIA 24.9 umol/L (7-35); SALICYLATE < 1.5 mg/dL
[2022-11-25 12:41] LABS: ABG PCO2 44 mmHg (34-45); ABG PH 7.46 (7.35-7.45)
[2022-11-25 12:42] LABS: ABG HCO3 30.6 mmol/L (22.0-26.0); ABG MODE OF VENTILATION SIMV; ABG OXYGEN SATURATION 100 % (94-98); ABG RESPIRATORY RATE 20 b/min; ABG TCO2 31.9 MMOL/L (21.0-29.0); ALLEN TEST POSITIVE
[2022-11-25 12:43] LABS: ABG PO2 424 mmHg (80-100)
[2022-11-25] MEDS ORDERED: AZITHROMYCIN INJ 500 MG in SODIUM CHLORIDE 0.9% 250 ML IV STA (12:43)
[2022-11-25] MEDS ORDERED: cefTRIAXone 1 GM in SODIUM CHLORIDE 0.9% MINIBAG 100 ML IV STA (12:43)
[2022-11-25] MEDS ORDERED: FUROSEMIDE 40 MG/4 ML VIAL IVP STA (12:47)
--- NOTE | 2022-11-25 12:51 | CT Report ---
PROCEDURE: HEAD WO INDICATIONS: AMS TECHNIQUE: Noncontrast 4.5 mm thick angled axial sections acquired from the foramen magnum to the vertex. For r adiation dose reduction, the following was used: automated exposure control, adjustment of mA and/or kV according to patient size. COMPARISON: None. FINDINGS: Image quality: Excellent. The ventricular system and cortical sulci demonstrate atrophy, consistent for patient's stated age. There are areas of hypodensity in the periventricular and subcortical white matter. There is no acut e intra or extra-axial fluid collection. No acute hemorrhage, mass lesion or midline shift. Brainst em is unremarkable. Globes are symmetrical. Sinuses demonstrate mucosal thickening. Osseous structures are intact. IMPRESSION: 1. No acute intracranial process. 2. Moderate atrophy and chronic microvascular ischemic changes. Reviewed by: Marion Mcdonnell MD on 11/25/2022 12:50 PM PDT Approved by: Marion Mcdonnell MD on 11/25/2022 12:50 PM PDT Station ID: [id number]
[2022-11-25 12:59] LABS: B. PARAPERTUSSIS- RESP PCR PAN NOT DETECTED; B. PERTUSSIS- RESP PCR PANEL NOT DETECTED; C. PNEUMONIAE- RESP PCR PANEL NOT DETECTED; CORONAVIRUS 229E-RESP PCR NOT DETECTED; CORONAVIRUS HKU1-RESP PCR NOT DETECTED; CORONAVIRUS NL63-RESP PCR NOT DETECTED; CORONAVIRUS OC43-RESP PCR NOT DETECTED; HUMAN METAPNEUMOVIRUS NOT DETECTED; INFLUENZA A- RESP PCR PANEL NOT DETECTED; INFLUENZA B - RESP PCR PANEL NOT DETECTED; M. PNEUMONIAE- RESP PCR PANEL NOT DETECTED; PARAINFLUENZA VIRUS 1 NOT DETECTED; PARAINFLUENZA VIRUS 2 NOT DETECTED; PARAINFLUENZA VIRUS 3 NOT DETECTED; PARAINFLUENZA VIRUS 4 NOT DETECTED; RHINOVIRUS/ENTEROVIRUS NOT DETECTED; RSV- RESP PCR PANEL NOT DETECTED; SARS-CoV-2 -RESP PCR PANEL NOT DETECTED
[2022-11-25] MEDS ORDERED: PROPOFOL 1000 MG/100 ML 1,000 MG/100 ML BOTTLE IV SCH (13:00)
[2022-11-25] MEDS ORDERED: ONDANSETRON 4 MG/2 ML VIAL IVP PRN (14:33)
[2022-11-25 14:53] LABS: ETOH - ETHANOL < 10.0 mg/dL
[2022-11-25] MEDS: PROPOFOL 1000 MG/100 ML 1,000 MG/100 ML BOTTLE IV SCH ×2 (16:06→21:02)
[2022-11-25] MEDS: DEXMEDETOMIDINE 400 MCG/100 ML 100 ML IV SCH ×2 (16:07→23:28)
--- NOTE | 2022-11-25 16:26 | HISTORY & PHYSICAL EXAMINATION ---
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 The patient lived on [facility] many years ago then moved to [place] for several years then to [facility] for several years, and just moved back to [facility] about 8 weeks ago. He presented to our ER 6 weeks ago with complaints of severe shortness of breath, he was gasping for air, he said he had run out of his COPD medications, and had run out of his oxygen in the tank. He brought with him some discharge paperwork from [facility] in [place]. It appears that he was admitted there from August 03 through August 12, 2022. There were some discharge diagnoses that included thrombocytopenia, COPD, and heart failure. It also appears that he may have received a Palliative Care referral. In our ER, he was stabilized then, all his meds were refilled and he was able to be discharged home. He was strongly urged to establish care with a primary care provider and because of being a he wanted [facility] be with [facility]. He did have a visit with his new PCP: Dr. Suhas Francois at the [facility] about a month ago. His medications were adjusted then, according to his significant other, and he has been compliant with his medicines. He also wears his oxygen 2 L/min continuously, increases it only slightly if there is worsening shortness of breath. His significant other reports to me that for the last 1 month he has been very immobile from feeling weak, stays in bed all day, watches TV or sleeps and only gets up to go to the bathroom. She now brings him his meals in bed. He was his usual self last night. This morning she went to wake him and heard him snoring, but he did not respond to her voice or to touch. An ambulance was called. The ambulance run sheet shows that he had a heart rate of 70 and a blood pressure of 137/69, and he was "snoring" but no respiratory rate was documented. EMS told our ER that the pt had O2 saturations at the scene of 30 to 60%. He was intubated at the scene using succinylcholine. In the ER, he was put on the ventilator and iv Propofol was started. His ABG shows a pH of 7.4, PCO2 44, PO2 420. White blood count normal, hemoglobin 8.7, lactic acid 2.6. He had a chest x-ray showing CHF. Sputum culture was obtained. He was given IV Lasix, IV Ceftriaxone and IV Zithromax. The ER provider called me and we spoke about this patient. He will be admitted to the ICU, intubated, on the ventilator, for treating acute respiratory failure. I reached out to the patient's significant other, Anne-Marie, and she gave me all the above information. She says that he is a DNR and that Dr. Francois has a POLST form at the [facility]. Anne-Marie said that she and Kin talk freely about their poor medical conditions and that they are becoming older and closer to end-of-life and they realized this. The patient has voiced recently that he has a poor quality of life and does not want to live like this. I questioned Anne-Marie whether he would have wanted to be on the ventilator and she said they never talked about that. History - Past Medical History Cardiovascular: reports: Congestive heart failure, Hypertension, Atrial fibrillation Respiratory: reports: COPD Neuro: reports: None Endocrine/Autoimmune: reports: None GI: reports: None : reports: Benign prostate hypertrophy HEENT: reports: None Psych: reports: None Musculoskeletal: reports: None Derm: reports: None MRSA Hx?: No - Family & Social History Family History Comment/Other: He has a brother in [place] and a daughter in [facility]. His significant other Anne-Marie has been with him for 11 years. The pt has said that he wants Anne-Marie to "speak for him", but she is not the DPOA. Anne-Marie does not know if there is a DPOA. Living arrangement: At home (He lives in a trailer) Living Situation: With spouse/s.o. Social History Notes: He was a smoker from age 19 to age 75. He quit smoking 2 years ago. He has been on oxygen continuously for managing his COPD, for unknown amount of years. He hardly ever drinks alcohol, is SO said. - Substance History Use: Uses substance without health or social issues: NONE - POLST Patient has POLST: No Meds/Allgy - Home Medications Home Medications: Ambulatory Orders Medication Instructions Recorded Confirmed Furosemide [Lasix] 80 mg PO DAILY #30 tablet 09/16/22 11/25/22 Potassium Chloride [K-Dur] 20 meq PO DAILY #30 tablet 09/16/22 11/25/22 diltiaZEM CD [Cardizem Cd] 240 mg PO DAILY 09/16/22 11/25/22 Albuterol Sulf [Ventolin Hfa 2 puffs INH QID PRN 11/25/22 11/25/22 Inhaler] Empagliflozin [Jardiance] 1 tab PO DAILY 11/25/22 11/25/22 Ferrous Sulfate 2 tab PO DAILY 11/25/22 11/25/22 Fluticasone Propion/Salmeterol 1 puffs PO BID 11/25/22 11/25/22 [Wixela 500-50 Inhub] Tiotropium Sullivan [Spiriva 2 puffs PO DAILY 11/25/22 11/25/22 Respimat] - Allergies Allergies/Adverse Reactions: Allergies Allergy/AdvReac Type Severity Reaction Status Date / Time Penicillins Allergy Unknown Verified 11/25/22 11:42 Review of Systems - Constitutional Constitutional: reports: Fatigue, Weakness - Eyes Eyes: reports: Vision loss - Respiratory Respiratory: reports: Cough, Sputum production, SOB at rest, SOB with exertion - Neurological Neurological: reports: General weakness - All Other Systems All Other Systems: reports: Reviewed and negative (I asked Anne-Marie, his signi ficant other, by phone the ROS re: the pt.) Exam - Vital Signs Reviewed Vital Signs: Yes Vital Signs: Vital Signs x48h Temp Pulse Resp BP Pulse Ox 11/25/22 15:00 36.8 C 86 18 93/57 L 100 11/25/22 14:45 36.6 C 92 18 101/77 99 11/25/22 14:30 36.5 C 74 18 86/59 L 97 11/25/22 14:15 82 18 77/56 L 11/25/22 14:00 36.5 C 85 18 88/66 L 97 11/25/22 13:45 36 C L 85 18 83/56 L 100 11/25/22 13:30 35.8 C L 88 18 106/82 H 100 11/25/22 13:15 35.8 C L 93 18 121/60 94 11/25/22 13:00 89 18 118/79 93 11/25/22 12:45 35.8 C L 95 18 144/95 H 96 11/25/22 12:30 35.6 C L 95 20 151/80 H 100 11/25/22 12:15 108 H 20 141/88 H 98 11/25/22 12:11 35.6 C L 112 H 20 150/88 H 100 11/25/22 11:56 34.9 C L 92 18 157/94 H 85 L 11/25/22 11:42 94 11/25/22 11:35 36.5 C 101 H 20 143/100 H 90 L - Physical Exam General Appearance: positive: Other (Sedated, on the vent, has NG tube in place. Has long hair and long arredondo, is poorly kempt.) Eyes Bilateral: positive: No lid inflammation ENT: positive: No signs of dehydration Neck: positive: Nml inspection, No JVD Respiratory: positive: Wheezes (wheezes heard in all lung rowland), Rhonchi Cardiovascular: positive: Irregularly irregular, Other (Distant heart sounds (due to air trapping from COPD). Has barrel-shaped chest and prominent ribs.) Abdomen: positive: No distention Skin: positive: Warm, Dry, Pallor Extremities: positive: Other (2+ pitting edema to the upper thighs) Neurologic/Psychiatric: positive: Other (Currently sedated on IV sedatives) Conclusion/Plan - Problem List (1) Acute respiratory failure with hypoxia Conclusion/Plan: The patient is on chronic O2 at home at 2 L/min, to treat his COPD. There was no recent progression of his typical shortness of breath and he always has a cough. This morning he was "snoring" but would not awaken and ambulance found him to have saturations of 30 to 60% when they arrived at the scene. He was intubated. Plan: Continue with supplemental O2 and ventilator support. I will order scheduled nebulizer treatments We will continue with empiric IV antibiotics Will order continued iv Propofol and add iv Precedex for sedation while he is on the ventilator. Pepcid 20 mg IV twice daily will be ordered for stress ulcer prophylaxis. NG tube for administering meds or suction will be ordered and Grant will be ordered for closely monitoring his I's and O's I updated Anne-Marie about his diagnoses and my plans by phone today (2) On mechanically assisted ventilation Conclusion/Plan: Plan: Continue with IV sedatives while he is on the ventilator We will treat CHF and COPD and then begin titrating down the sedatives to assess his ventilation on CPAP before he will be tried to be extubated (3) COPD exacerbation Conclusion/Plan: According to his significant other, he has been extremely debilitated for the last month, too short of breath to get out of bed except to go to the bathroom. He wears his oxygen 30/11 Plan: We will use scheduled nebs, IV steroids, continue with O2 and ventilator support, mechanically assisted Target O2 sats can be 89% or above for the COPD-er We will cont empiric IV antibiotics (4) CHF exacerbation Conclusion/Plan: CHF is as per history, obtained from our ED providers and chart review. We do not know if he has systolic or diastolic heart failure. His medication list shows that he is on diuretics and [id number], no B- jessee, MILA or Spironolactone. His blood pressure is "soft" in the ICU, around 90 systolic, after getting iv Lasix in the ER. Plan: I will obtain a set of troponins to rule out an acute AZ We will obtain an Echocardiogram to evaluate LV and RV function which will help determine proper IV fluid administration vs diuretic use (5) Atrial fibrillation Conclusion/Plan: His admission EKG shows atrial fib, rate 115. The old records do indicate that he has a Hx of A-fib and that no antiplatelet or anticoagulant was used during his admission in [facility] due to thrombocytopenia then. All labs were reviewed. He is not currently thrombocytopenic and he was not thrombocytopenic 2 months ago. His [facility] doctor does not have him on an anticoagulant or aspirin for unknown reason. Plan: Remain on telemetry We will resume any meds he is on for rate control, once the medication list is reconciled by pharmacy If he is now on anticoagulants, now that his platelet count is normal, these will be resumed as well, for stroke prophylaxis. Until his meds are reconciled, will use SCDs for DVT prophylaxis. We will ask for his office visit record [facility]. Qualifiers: Atrial fibrillation type: unspecified Qualified Code(s): I48.91 - Unspecified atrial fibrillation (6) Anemia Conclusion/Plan: His admission hemoglobin is 8.7. 2 months ago at the ER visit the hemoglobin was 8.8. This anemia produces even more stress regarding his LV function and pulmonary status, since he is does not have the typical compensatory increased hemoglobin that is seen in COPD-ers. Of note, he no longer has the thrombocytopenia that was reported when he was hospitalized in [facility] this Spring. Plan: I will order a check of his B12 level, folate level, and iron stores and replace if low Follow hemoglobin daily, plan would be for transfusion if hemoglobin goes under 8 in this patient with acute pulmonary symptoms/CHF and COPDS exacerbation (7) CLARK (acute kidney injury) Conclusion/Plan: His admission creatinine is 1.5 (all labs were reviewed). 2 months ago he had a creatinine of 0.9. He also has mild hyperkalemia with a K of 5.5. His med list shows that he was taking a diuretic and also potassium replacement. Unknown if this is CLARK from prerenal azotemia or from venous overload due to his heart failure. In addition, his blood pressure is "soft" in the ICU, around 90 systolic after getting iv Lasix in the ER. Plan: Avoid nephrotoxins Follow BMP daily We have yet to confirm if he needs fluids for hydration, or whether he needs diuresis, for treating his renal dysfunction. - Lab Results Fish Bones: 11/25/22 11:40 11/25/22 11:40 - Diagnostic Imaging Results Diagnostic Imaging Results: positive: Final report reviewed - Other Other Results/Comments: Attestation: This patient is expected to be hospitalized for greater than 2 midnights, and is expected to be discharged or transferred to another facility within 96 hours: Yes.
[2022-11-25] MEDS ORDERED: SODIUM CHLORIDE 0.9% 500 ML IV ONE (16:43)
--- NOTE | 2022-11-25 16:55 | PHARMACY PROGRESS NOTE ---
- Best Possible Medication History Admit Date and Time: 11/25/22 1430 Processed by: Pharmacy Medication History completed: Yes Patient Interview: Completed Secondary Source(s): Spouse/Significant other, Pharmacy records As the person ultimately responsible for medication therapy, providers are able to order a medication from an existing home medication list in [facility] via the "Reconcile Routine" prior to Confirmation of that medication by media production support manager. Such practice is discouraged except when the physician, in their clinical judgment, deems that a medical need exists for a medication without regard to previous use.
[2022-11-25] MEDS: SODIUM CHLORIDE FLUSH 0.9% 10 ML SYRINGE IVP SCH ×2 (17:01→23:12)
[2022-11-25] MEDS: diltiaZEM 30 MG TABLET PO SCH ×2 (17:49→23:12)
[2022-11-25] MEDS: IPRATROPIUM/ALBUTEROL 3 ML NEB INH SCH (19:00)
--- NOTE | 2022-11-25 19:02 | XRAY Report ---
PROCEDURE: Chest for Line Placement INDICATIONS: check ng tube placement TECHNIQUE: One view of the chest was acquired. COMPARISON: Films performed earlier the same day. FINDINGS: Surgical changes and devices: Nasogastric tube is present. The tip and sidehole are just below the l eft hemidiaphragm. The endotracheal tube appears a bit low with the tip at the arslan. Lungs and pleura: Diffuse interstitial thickening and lateral the right lung opacity has seen previo usly. Small left pleural effusion. No pneumothorax. Mediastinum: Stable cardiomediastinal contour with congested central vasculature. Bones and chest wall: No suspicious bony lesions. Overlying soft tissues appear unremarkable. IMPRESSION: 1. The NG tube sidehole is now below the level of the diaphragm. 2. There is been interval advancement of endotracheal tube which is now at the level of the arslan an d could be withdrawn about 2 cm. 3. Stable findings of diffuse interstitial thickening, central vascular congestion, and bilateral ple ural effusions. There is likely right sided atelectasis. Underlying infection cannot be excluded. Reviewed by: Lady Velasquez MD on 11/25/2022 7:00 PM PDT Approved by: Lady Velasquez MD on 11/25/2022 7:00 PM PDT Station ID: [id number]
[2022-11-25] MEDS: CHLORHEXIDINE GLUCONATE 15 ML UDC PO SCH (20:20)
[2022-11-25] MEDS: FAMOTIDINE 20 MG/2 ML VIAL IVP SCH (20:20)
[2022-11-25] MEDS: methylPREDNISolone SUCCINATE 40 MG/ML VIAL IVP SCH (21:02)
--- NOTE | 2022-11-25 21:32 | XRAY Report ---
PROCEDURE: Chest for Line Placement INDICATIONS: ET tube repositioned TECHNIQUE: One view of the chest was acquired. COMPARISON: Prior study from 11/25/2022. FINDINGS: The left hemithorax is incompletely included on the current study. Surgical changes and devices: There is interval withdrawal of the endotracheal tube with the tip drew roximately 3.5 cm from the arslan. A nasogastric tube is redemonstrated extending to the stomach. Lungs and pleura: There is a persistent moderate right pleural effusion with loculation laterally. P ersistent pulmonary edema demonstrated in the visualized lungs. Bibasilar opacities consistent with a telectasis or consolidation. Mediastinum: Mediastinal contours appear unchanged. Heart is incompletely included. Bones and chest wall: No suspicious bony lesions. Overlying soft tissues appear unremarkable. IMPRESSION: 1. Interval withdrawal of the endotracheal tube with the tip 3.5 cm from the arslan. 2. Moderate loculated right pleural effusion. 3. Persistent pulmonary edema and bibasilar atelectasis or consolidation. Reviewed by: Edward Shannon MD on 11/25/2022 9:31 PM PDT Approved by: Edward Shannon MD on 11/25/2022 9:31 PM PDT Station ID: [id number]
[2022-11-26] MEDS: DEXMEDETOMIDINE 400 MCG/100 ML 100 ML IV SCH (04:54)
[2022-11-26] MEDS: PROPOFOL 1000 MG/100 ML 1,000 MG/100 ML BOTTLE IV SCH ×2 (04:54→09:56)
[2022-11-26 05:09] LABS: BASOPHILS % (AUTO) 0.2 %; HCT - HEMATOCRIT 32.1 % (42.0-52.0); HGB - HEMOGLOBIN 9.1 g/dL (14.0-18.0); LYMPHOCYTES # (AUTO) 0.2 10^3/uL (1.5-3.5); LYMPHOCYTES % (AUTO) 1.8 %; MEAN CORPUSCULAR HEMOGLOBIN 26.1 pg (27.0-31.0); MEAN CORPUSCULAR HGB CONC 28.3 g/dL (32.0-36.0); MEAN CORPUSCULAR VOLUME 92.2 fL (80.0-94.0); MEAN PLATELET VOLUME 10.2 fL (7.4-11.4); MONOCYTES # (AUTO) 0.2 10^3/uL (0.0-1.0); MONOCYTES % (AUTO) 2.1 %; NEUTROPHILS # (AUTO) 7.8 10^3/uL (1.5-6.6); NEUTROPHILS % (AUTO) 95.3 %; PLT - PLATELET COUNT 160 10^3/uL (130-450); RED BLOOD COUNT 3.48 10^6/uL (4.70-6.10); RED CELL DISTRIBUTION WIDTH 22.5 % (12.0-15.0); WHITE BLOOD COUNT 8.2 x10^3/uL (4.8-10.8)
[2022-11-26 05:12] LABS: SLIDE REVIEW? Indicated
[2022-11-26 05:13] LABS: CALCIUM, IONIZED 1.06 mmol/L (1.15-1.33); VBG PH 7.467 (7.31-7.41)
[2022-11-26 05:21] LABS: MAGNESIUM 2.1 mg/dL (1.7-2.3); PHOSPHORUS 3.8 mg/dL (3.7-7.2)
[2022-11-26 05:28] LABS: RBC MORPHOLOGY (MULTIPLE) 2+ ANISOCYTOSIS (NORMAL)
[2022-11-26 05:29] LABS: PLATELET ESTIMATE, MANUAL NORMAL (130-450,000) (NORMAL); PLATELET MORPHOLOGY NORMAL APPEARANCE (NORMAL); WBC MORPHOLOGY (MULTIPLE) NORMAL APPEARANCE (NORMAL)
[2022-11-26 05:45] LABS: CALCIUM 8.7 mg/dL (8.5-10.3); CREATININE 1.4 mg/dL (0.6-1.3)
[2022-11-26] MEDS: diltiaZEM 30 MG TABLET PO SCH ×4 (05:51→23:12)
[2022-11-26] MEDS: methylPREDNISolone SUCCINATE 40 MG/ML VIAL IVP SCH ×3 (05:52→21:41)
[2022-11-26] MEDS: IPRATROPIUM/ALBUTEROL 3 ML NEB INH SCH ×4 (05:55→19:00)
[2022-11-26 06:17] LABS: ABG BASE EXCESS 5.6 mmol/L (-2.0-3.0); ABG HCO3 28.1 mmol/L (22.0-26.0); ABG MODE OF VENTILATION SIMV; ABG OXYGEN SATURATION 99 % (94-98); ABG PCO2 33 mmHg (34-45); ABG PH 7.54 (7.35-7.45); ABG PO2 105 mmHg (80-100); ABG RESPIRATORY RATE 18 b/min; ABG TCO2 29.1 MMOL/L (21.0-29.0); ALLEN TEST POSITIVE
[2022-11-26] MEDS: cefTRIAXone 2 GM in SODIUM CHLORIDE 0.9% MINIBAG 100 ML IV SCH (08:20)
[2022-11-26] MEDS: AZITHROMYCIN INJ 500 MG in SODIUM CHLORIDE 0.9% 250 ML IV SCH (09:02)
[2022-11-26] MEDS: FAMOTIDINE 20 MG/2 ML VIAL IVP SCH ×2 (09:06→21:41)
[2022-11-26] MEDS: FERROUS SULFATE 325 MG TABLET PO SCH (09:06)
[2022-11-26] MEDS: CHLORHEXIDINE GLUCONATE 15 ML UDC PO SCH ×2 (09:06→20:28)
[2022-11-26] MEDS: SODIUM CHLORIDE FLUSH 0.9% 10 ML SYRINGE IVP SCH ×2 (09:07→17:30)
--- NOTE | 2022-11-26 11:02 | XRAY Report ---
PROCEDURE: Chest 1 View X-Ray INDICATIONS: F/U CHF TECHNIQUE: One view of the chest was acquired. COMPARISON: None. FINDINGS: Surgical changes and devices: Endotracheal tube tip projects over the midthoracic trachea. Feeding t ube tip and side-port project over the stomach. Lungs and pleura: Stable loculated moderate right-sided pleural effusion. Stable diffuse interstitia l opacities. Stable layering left pleural effusion, which is small. Mediastinum: Mediastinal contours appear normal. Heart size is normal. Bones and chest wall: No suspicious bony lesions. Overlying soft tissues appear unremarkable. IMPRESSION: Devices project over the appropriate positions. Stable moderate to severe pulmonary edema. Stable moderate loculated right and small layering left pleural effusions. Reviewed by: Jj Pink on 11/26/2022 11:01 AM PDT Approved by: Jj Pink on 11/26/2022 11:01 AM PDT Station ID: [id number]
[2022-11-26 12:00] LABS: ESTIMATED AVERAGE GLUCOSE 108 mg/dL (70-100); HEMOGLOBIN A1c% 5.4 % (4.27-6.07)
[2022-11-26] MEDS: CALCIUM CARBONATE CHEW 500 MG TABLET PO SCH ×2 (12:03→14:32)
[2022-11-26 13:38] LABS: % IRON SATURATION 9 % (20-50); IRON 25 ug/dL (45-182); TOTAL IRON BINDING CAPACITY 263 ug/dL (250-450); TRANSFERRIN 188 mg/dL (180-329)
--- NOTE | 2022-11-26 13:54 | PROVIDER PROGRESS NOTE ---
Subjective - Subjective Pt reports feeling: Improved (I saw the patient several times during the day. In the morning he was having a CPAP trial, was able to follow nurses commands. He was then put back on the vent, afternoon CPAP trial went well and he was extubated) Objective - Vital Signs/Intake & Output Vital Signs: Vital Signs Temp Pulse Pulse Resp BP BP Pulse Ox 11/26/22 13:00 37.1 C 95 17 81/53 L 100 11/26/22 12:30 90/58 L 11/26/22 12:21 96 18 11/26/22 12:00 37.1 C 90 18 90/58 L 100 11/26/22 11:22 98 11/26/22 11:00 37.1 C 98 31 H 102/60 100 11/26/22 10:52 95 18 11/26/22 10:23 94 11/26/22 10:00 36.9 C 18 104/59 L 100 11/26/22 09:52 72 Intake & Output: Intake & Output 11/23/22 11/24/22 11/25/22 11/26/22 23:59 23:59 23:59 23:59 Intake Total 1061.798 812.603 Output Total 590 405 Balance 471.798 407.603 - Objective General Appearance: positive: No acute distress, Other (Long kumar hair and long poorly kempt arredondo and mustache) Eyes Bilateral: positive: Normal inspection, EOMI ENT: positive: No signs of dehydration, Other (Edentulous. His long mustache covers upper and lower lips) Neck: positive: Other (Positive JVP at an 80 degree upright angle and positive large V waves) Respiratory: positive: Other (Patient on the vent, had wheezing this morning, clear lung rowland later, tolerated CPAP, was extubated in the afternoon) Cardiovascular: positive: No murmur, Irregularly irregular Abdomen: positive: Nml bowel sounds, No distention Skin: positive: Warm, Dry Extremities: positive: Non-tender, No pedal edema Neurologic/Psychiatric: positive: Other (Sedated this morning, following directions in the afternoon as he was extubated) - Lab Results Fish Bones: 11/26/22 04:48 11/26/22 04:48 Other Labs: Lab Results x24hrs 11/26/22 11/26/22 11/26/22 Range/Units 12:01 11:15 11:15 WBC (4.8-10.8) x10^3/uL RBC (4.70-6.10) 10^6/uL Hgb (14.0-18.0) g/dL Hct (42.0-52.0) % MCV (80.0-94.0) fL MCH (27.0-31.0) pg MCHC (32.0-36.0) g/dL RDW (12.0-15.0) % Plt Count (130-450) 10^3/uL MPV (7.4-11.4) fL Neut # (Auto) (1.5-6.6) 10^3/uL Lymph # (Auto) (1.5-3.5) 10^3/uL [place] # (Auto) (0.0-1.0) 10^3/uL Eos # (Auto) (0.0-0.7) 10^3/uL Baso # (Auto) (0.0-0.1) 10^3/uL Absolute Nucleated RBC x10^3/uL Nucleated RBC % /100WBC Manual Slide Review WBC Morphology (NORMAL) Platelet Estimate (NORMAL) Platelet Morphology (NORMAL) RBC Morph Micro Appear (NORMAL) Bld Gas Analysis Time Sample Site ABG pH (7.35-7.45) ABG pCO2 (34-45) mmHg ABG pO2 (80-100) mmHg ABG HCO3 (22.0-26.0) mmol/L ABG Total CO2 (21.0-29.0) MMOL/L ABG O2 Saturation (94-98) % ABG Base Excess (-2.0-3.0) mmol/L Valentin Test VBG pH (7.31-7.41) Ionized Calcium (1.15-1.33) mmol/L Respiration Rate b/min O2 Delivery Device Vent Mode FiO2 Tidal Volume mL PEEP cmH2O Pressure Support Vent cmH2O Sodium (135-145) mmol/L Potassium (3.5-4.5) mmol/L Chloride (101-111) mmol/L Carbon Dioxide (21-32) mmol/L Anion Gap (6-13) BUN (6-20) mg/dL Creatinine (0.6-1.3) mg/dL Estimated GFR (MDRD) (>89) Glucose (74-104) mg/dL POC Whole Bld Glucose 106 H (70 - 100) mg/dL Estimat Average Glucose 108 H (70-100) mg/dL Hemoglobin A1c % 5.4 (4.27-6.07) % Lactic Acid (0.5-2.2) mmol/L Calcium (8.5-10.3) mg/dL Phosphorus (3.7-7.2) mg/dL Magnesium (1.7-2.3) mg/dL Iron (45-182) ug/dL TIBC (250-450) ug/dL % Saturation (20-50) % Transferrin (180-329) mg/dL Troponin I High Sens (2.3-19.7) ng/L Folate 8.3 (5.90 - >24.8) ng/mL Nasal Screen MRSA (PCR) (NEGATIVE) Ethyl Alcohol mg/dL Blood Type Recheck 11/26/22 11/26/22 11/26/22 Range/Units 11:15 05:55 04:48 WBC (4.8-10.8) x10^3/uL RBC (4.70-6.10) 10^6/uL Hgb (14.0-18.0) g/dL Hct (42.0-52.0) % MCV (80.0-94.0) fL MCH (27.0-31.0) pg MCHC (32.0-36.0) g/dL RDW (12.0-15.0) % Plt Count (130-450) 10^3/uL MPV (7.4-11.4) fL Neut # (Auto) (1.5-6.6) 10^3/uL Lymph # (Auto) (1.5-3.5) 10^3/uL [place] # (Auto) (0.0-1.0) 10^3/uL Eos # (Auto) (0.0-0.7) 10^3/uL Baso # (Auto) (0.0-0.1) 10^3/uL Absolute Nucleated RBC x10^3/uL Nucleated RBC % /100WBC Manual Slide Review WBC Morphology (NORMAL) Platelet Estimate (NORMAL) Platelet Morphology (NORMAL) RBC Morph Micro Appear (NORMAL) Bld Gas Analysis Time 0608 Sample Site RIGHT RADIAL ABG pH 7.54 H (7.35-7.45) ABG pCO2 33 L (34-45) mmHg ABG pO2 105 H (80-100) mmHg ABG HCO3 28.1 H (22.0-26.0) mmol/L ABG Total CO2 29.1 H (21.0-29.0) MMOL/L ABG O2 Saturation 99 H (94-98) % ABG Base Excess 5.6 H (-2.0-3.0) mmol/L Valentin Test POSITIVE VBG pH 7.467 H (7.31-7.41) Ionized Calcium 1.06 L (1.15-1.33) mmol/L Respiration Rate 18 b/min O2 Delivery Device VENTILATOR Vent Mode SIMV FiO2 40.00 Tidal Volume 400 mL PEEP 5 cmH2O Pressure Support Vent 12 cmH2O Sodium (135-145) mmol/L Potassium (3.5-4.5) mmol/L Chloride (101-111) mmol/L Carbon Dioxide (21-32) mmol/L Anion Gap (6-13) BUN (6-20) mg/dL Creatinine (0.6-1.3) mg/dL Estimated GFR (MDRD) (>89) Glucose (74-104) mg/dL POC Whole Bld Glucose (70 - 100) mg/dL Estimat Average Glucose (70-100) mg/dL Hemoglobin A1c % (4.27-6.07) % Lactic Acid (0.5-2.2) mmol/L Calcium (8.5-10.3) mg/dL Phosphorus (3.7-7.2) mg/dL Magnesium (1.7-2.3) mg/dL Iron 25 L (45-182) ug/dL TIBC 263 (250-450) ug/dL % Saturation 9 L (20-50) % Transferrin 188 (180-329) mg/dL Troponin I High Sens (2.3-19.7) ng/L Folate (5.90 - >24.8) ng/mL Nasal Screen MRSA (PCR) (NEGATIVE) Ethyl Alcohol mg/dL Blood Type Recheck 11/26/22 11/26/22 11/25/22 Range/Units 04:48 04:48 23:33 WBC 8.2 (4.8-10.8) x10^3/uL RBC 3.48 L (4.70-6.10) 10^6/uL Hgb 9.1 L (14.0-18.0) g/dL Hct 32.1 L (42.0-52.0) % MCV 92.2 (80.0-94.0) fL MCH 26.1 L (27.0-31.0) pg MCHC 28.3 L (32.0-36.0) g/dL RDW 22.5 H (12.0-15.0) % Plt Count 160 (130-450) 10^3/uL MPV 10.2 (7.4-11.4) fL Neut # (Auto) 7.8 H (1.5-6.6) 10^3/uL Lymph # (Auto) 0.2 L (1.5-3.5) 10^3/uL [place] # (Auto) 0.2 (0.0-1.0) 10^3/uL Eos # (Auto) 0.0 (0.0-0.7) 10^3/uL Baso # (Auto) 0.0 (0.0-0.1) 10^3/uL Absolute Nucleated RBC 0.00 x10^3/uL Nucleated RBC % 0.0 /100WBC Manual Slide Review Indicated WBC Morphology NORMAL APPEARANCE (NORMAL) Platelet Estimate NORMAL (130-450,000) (NORMAL) Platelet Morphology NORMAL APPEARANCE (NORMAL) RBC Morph Micro Appear 2+ ANISOCYTOSIS (NORMAL) Bld Gas Analysis Time Sample Site ABG pH (7.35-7.45) ABG pCO2 (34-45) mmHg ABG pO2 (80-100) mmHg ABG HCO3 (22.0-26.0) mmol/L ABG Total CO2 (21.0-29.0) MMOL/L ABG O2 Saturation (94-98) % ABG Base Excess (-2.0-3.0) mmol/L Valentin Test VBG pH (7.31-7.41) Ionized Calcium (1.15-1.33) mmol/L Respiration Rate b/min O2 Delivery Device Vent Mode FiO2 Tidal Volume mL PEEP cmH2O Pressure Support Vent cmH2O Sodium 138 (135-145) mmol/L Potassium 5.0 H (3.5-4.5) mmol/L Chloride 97 L (101-111) mmol/L Carbon Dioxide 30 (21-32) mmol/L Anion Gap 11.0 (6-13) BUN 27 H (6-20) mg/dL Creatinine 1.4 H (0.6-1.3) mg/dL Estimated GFR (MDRD) 49 L (>89) Glucose 101 (74-104) mg/dL POC Whole Bld Glucose 99 (70 - 100) mg/dL Estimat Average Glucose (70-100) mg/dL Hemoglobin A1c % (4.27-6.07) % Lactic Acid (0.5-2.2) mmol/L Calcium 8.7 (8.5-10.3) mg/dL Phosphorus 3.8 (3.7-7.2) mg/dL Magnesium 2.1 (1.7-2.3) mg/dL Iron (45-182) ug/dL TIBC (250-450) ug/dL % Saturation (20-50) % Transferrin (180-329) mg/dL Troponin I High Sens (2.3-19.7) ng/L Folate (5.90 - >24.8) ng/mL Nasal Screen MRSA (PCR) (NEGATIVE) Ethyl Alcohol mg/dL Blood Type Recheck 11/25/22 11/25/22 11/25/22 Range/Units 17:36 17:35 16:12 WBC (4.8-10.8) x10^3/uL RBC (4.70-6.10) 10^6/uL Hgb (14.0-18.0) g/dL Hct (42.0-52.0) % MCV (80.0-94.0) fL MCH (27.0-31.0) pg MCHC (32.0-36.0) g/dL RDW (12.0-15.0) % Plt Count (130-450) 10^3/uL MPV (7.4-11.4) fL Neut # (Auto) (1.5-6.6) 10^3/uL Lymph # (Auto) (1.5-3.5) 10^3/uL [place] # (Auto) (0.0-1.0) 10^3/uL Eos # (Auto) (0.0-0.7) 10^3/uL Baso # (Auto) (0.0-0.1) 10^3/uL Absolute Nucleated RBC x10^3/uL Nucleated RBC % /100WBC Manual Slide Review WBC Morphology (NORMAL) Platelet Estimate (NORMAL) Platelet Morphology (NORMAL) RBC Morph Micro Appear (NORMAL) Bld Gas Analysis Time Sample Site ABG pH (7.35-7.45) ABG pCO2 (34-45) mmHg ABG pO2 (80-100) mmHg ABG HCO3 (22.0-26.0) mmol/L ABG Total CO2 (21.0-29.0) MMOL/L ABG O2 Saturation (94-98) % ABG Base Excess (-2.0-3.0) mmol/L Valentin Test VBG pH (7.31-7.41) Ionized Calcium (1.15-1.33) mmol/L Respiration Rate b/min O2 Delivery Device Vent Mode FiO2 Tidal Volume mL PEEP cmH2O Pressure Support Vent cmH2O Sodium (135-145) mmol/L Potassium (3.5-4.5) mmol/L Chloride (101-111) mmol/L Carbon Dioxide (21-32) mmol/L Anion Gap (6-13) BUN (6-20) mg/dL Creatinine (0.6-1.3) mg/dL Estimated GFR (MDRD) (>89) Glucose (74-104) mg/dL POC Whole Bld Glucose 91 (70 - 100) mg/dL Estimat Average Glucose (70-100) mg/dL Hemoglobin A1c % (4.27-6.07) % Lactic Acid (0.5-2.2) mmol/L Calcium (8.5-10.3) mg/dL Phosphorus (3.7-7.2) mg/dL Magnesium (1.7-2.3) mg/dL Iron (45-182) ug/dL TIBC (250-450) ug/dL % Saturation (20-50) % Transferrin (180-329) mg/dL Troponin I High Sens 11.7 (2.3-19.7) ng/L Folate (5.90 - >24.8) ng/mL Nasal Screen MRSA (PCR) NEGATIVE (NEGATIVE) Ethyl Alcohol mg/dL Blood Type Recheck 11/25/22 11/25/22 11/25/22 Range/Units 14:01 13:46 11:40 WBC (4.8-10.8) x10^3/uL RBC (4.70-6.10) 10^6/uL Hgb (14.0-18.0) g/dL Hct (42.0-52.0) % MCV (80.0-94.0) fL MCH (27.0-31.0) pg MCHC (32.0-36.0) g/dL RDW (12.0-15.0) % Plt Count (130-450) 10^3/uL MPV (7.4-11.4) fL Neut # (Auto) (1.5-6.6) 10^3/uL Lymph # (Auto) (1.5-3.5) 10^3/uL [place] # (Auto) (0.0-1.0) 10^3/uL Eos # (Auto) (0.0-0.7) 10^3/uL Baso # (Auto) (0.0-0.1) 10^3/uL Absolute Nucleated RBC x10^3/uL Nucleated RBC % /100WBC Manual Slide Review WBC Morphology (NORMAL) Platelet Estimate (NORMAL) Platelet Morphology (NORMAL) RBC Morph Micro Appear (NORMAL) Bld Gas Analysis Time Sample Site ABG pH (7.35-7.45) ABG pCO2 (34-45) mmHg ABG pO2 (80-100) mmHg ABG HCO3 (22.0-26.0) mmol/L ABG Total CO2 (21.0-29.0) MMOL/L ABG O2 Saturation (94-98) % ABG Base Excess (-2.0-3.0) mmol/L Valentin Test VBG pH (7.31-7.41) Ionized Calcium (1.15-1.33) mmol/L Respiration Rate b/min O2 Delivery Device Vent Mode FiO2 Tidal Volume mL PEEP cmH2O Pressure Support Vent cmH2O Sodium (135-145) mmol/L Potassium (3.5-4.5) mmol/L Chloride (101-111) mmol/L Carbon Dioxide (21-32) mmol/L Anion Gap (6-13) BUN (6-20) mg/dL Creatinine (0.6-1.3) mg/dL Estimated GFR (MDRD) (>89) Glucose (74-104) mg/dL POC Whole Bld Glucose (70 - 100) mg/dL Estimat Average Glucose (70-100) mg/dL Hemoglobin A1c % (4.27-6.07) % Lactic Acid 2.6 H (0.5-2.2) mmol/L Calcium (8.5-10.3) mg/dL Phosphorus (3.7-7.2) mg/dL Magnesium (1.7-2.3) mg/dL Iron (45-182) ug/dL TIBC (250-450) ug/dL % Saturation (20-50) % Transferrin (180-329) mg/dL Troponin I High Sens (2.3-19.7) ng/L Folate (5.90 - >24.8) ng/mL Nasal Screen MRSA (PCR) (NEGATIVE) Ethyl Alcohol < 10.0 mg/dL Blood Type Recheck A NEGATIVE Assessment/Plan - Problem List (1) Acute respiratory failure with hypoxia Impression: The patient is on chronic O2 at home at 2 L/min, to treat his COPD. There was no description of recent worsening symptoms, then on the morning of 11/25, he was "snoring" but would not awaken when his SO tried to awaken him. The ambulance personnel found him to have O2 saturations of 30-60% when they arrived at the scene. He was intubated at the scene. He was admitted to our ICU. Plan: Continue with supplemental O2 and will try weaning him off the ventilator support. Cont scheduled nebulizer treatments, As he is awakening I can hear more wheezing so I will also add as needed nebs We will continue with empiric IV antibiotics. Treat the pulm edema Cont Pepcid 20 mg IV twice daily for stress ulcer prophylaxis. Cont Rudy for closely monitoring his I's and O's (2) On mechanically assisted ventilation Conclusion/Plan: Plan: Continue with IV sedatives while he is on the ventilator. I ordered 2 CPAP trials today, in anticipation of extubation, if parameters are good. He was extubated at 1550 today Cont to treat CHF and COPD (3) COPD exacerbation Conclusion/Plan: According to his significant other, he has been extremely debilitated for the last month, too short of breath to get out of bed except to go to the bathroom. He wears his oxygen 24/ Plan: We will use scheduled nebs, IV steroids, continue with O2 suppl Target O2 sats can be 89% or above for the COPD-er We will cont empiric IV antibiotics (4) CHF exacerbation Conclusion/Plan: CHF is as per history, obtained from our ED providers and chart review. We do not know if he has systolic or diastolic heart failure. His medication list shows that he is on diuretics and [id number], no B- jessee, MILA or Spironolactone. His blood pressure is "soft" in the ICU, around 90 systolic, after getting iv Lasix in the ER. Two troponins were "flat, so he ruled out for acute MD He had an Echocardiogram done 11/25, this showed a small LV, invaginated by a large RV. LV function normal, severely depressed RV function. Plan: We will continue his IV Lasix to treat the pulmonary edema (5) Cor Pulmonale He had an Echocardiogram done 11/25, which a showed a small LV, invaginated by a large RV. LV function normal, severely depressed RV function. Plan: He needs IV Lasix to treat his pulmonary edema but that Lasix decreases his blood pressure. This will be a difficult management where the patient has a very narrow perfect volume, where he will not be overloaded to create pulmonary edema, but not volume depleted to create RV collapse and hypotension. (6) Chronic Atrial fibrillation Conclusion/Plan: His admission EKG shows atrial fib, rate 115. Today we obtained records from the [facility], CARLA Lyons is his PCP. Records show a Hx of A-fib and that no antiplatelet or anticoagulant was used during his admission in [facility] due to thrombocytopenia then, plt count was 50. All labs were reviewed. He is not currently thrombocytopenic and he was not thrombocytopenic 2 months ago. [facility] does not have him on an antic oagulant or aspirin for unknown reason. Plan: Remain on telemetry He was on Cardizem CD 240 mg daily, that dose is too excessive to use now because his blood pressure is "soft" running 90 systolic. I ordered Cardizem 30 mg per NG every 6 hours. After extubation, HR still > 100, will order a gentle Cardizem drip. I will discuss w/ SO why he is not on ASA or anticoagulants now. I suspect it is because the thrombocytopenia was so recent (4 mos ago). (7) Anemia Conclusion/Plan: His admission hemoglobin is 8.7. 2 months ago at the ER visit the hemoglobin wa s 8.8. This anemia produces even more stress regarding his LV function and pulmonary status, since he is does not have the typical compensatory increased hemoglobin that is seen in COPD-ers. [facility] CARLA Lyons is his PCP. Records show he has an iron deficiency anemia and was supposed to be on twice daily iron. Of note, he no longer has the thrombocytopenia that was reported when he was hospitalized in [facility] this [facility]. Plan: I will resume his iron replacement Follow hemoglobin daily, plan would be for transfusion if hemoglobin goes under 8 in this patient with acute pulmonary symptoms/CHF and COPD exacerbation (8) CLARK (acute kidney injury) Conclusion/Plan: His admission creatinine is 1.5 (all labs were reviewed). 2 months ago he had a creatinine of 0.9. He also has mild hyperkalemia with a K of 5.5. His med list shows that he was taking a diuretic and also potassium replacement. In addition, his blood pressure is "soft" in the ICU, around 90 systolic after getting iv Lasix in the ER. Plan: Avoid nephrotoxins Follow BMP daily Unknown if this is CLARK from prerenal azotemia or from venous overload due to his heart failure. Clinically he is volume overloaded with tense leg edema and pulmonary edema seen on chest x-ray therefore will continue with IV Lasix.
[2022-11-26] MEDS ORDERED: FUROSEMIDE 40 MG/4 ML VIAL IVP SCH (14:00)
[2022-11-26] MEDS: FUROSEMIDE 40 MG/4 ML VIAL IVP SCH (15:19)
[2022-11-26] MEDS: diltiaZEM INJ 125 MG in DEXTROSE 5% 100 ML IV SCH (17:30)
[2022-11-26 18:05] LABS: CALCIUM, IONIZED 0.99 mmol/L (1.15-1.33); VBG PH 7.478 (7.31-7.41)
[2022-11-26] MEDS ORDERED: CALCIUM GLUCONATE IN NS 0.9% 2,000 MG/100 ML BAG IV ONE (18:22)
[2022-11-27] MEDS: diltiaZEM INJ 125 MG in DEXTROSE 5% 100 ML IV SCH (01:51)
[2022-11-27] MEDS ORDERED: DEXTROSE 5% 100 ML IV ONE (01:55)
[2022-11-27] MEDS ORDERED: diltiaZEM INJ 5 MG/ML VIAL ONE (01:56)
[2022-11-27] MEDS ORDERED: IPRATROPIUM/ALBUTEROL 3 ML NEB INH PRN (02:10)
--- NOTE | 2022-11-27 02:13 | PROVIDER PROGRESS NOTE ---
Tie Bucker Note - Tie Bucker Note Tie Bucker Note: RN paged to report patient tachypneic and tachycardic. Just extubated cover with B[facility] and prn diana Schumacher Ma DO Internal Medicine [employer] B[employer]
[2022-11-27 04:55] LABS: MONOCYTES % (AUTO) 9.3 %; PLT - PLATELET COUNT 216 10^3/uL (130-450)
[2022-11-27 04:57] LABS: BASOPHILS % (AUTO) 0.1 %; HCT - HEMATOCRIT 29.4 % (42.0-52.0); HGB - HEMOGLOBIN 8.8 g/dL (14.0-18.0); LYMPHOCYTES # (AUTO) 0.1 10^3/uL (1.5-3.5); LYMPHOCYTES % (AUTO) 0.9 %; MEAN CORPUSCULAR HEMOGLOBIN 27.2 pg (27.0-31.0); MEAN CORPUSCULAR HGB CONC 29.9 g/dL (32.0-36.0); MEAN CORPUSCULAR VOLUME 90.7 fL (80.0-94.0); MEAN PLATELET VOLUME 9.9 fL (7.4-11.4); MONOCYTES # (AUTO) 1.1 10^3/uL (0.0-1.0); NEUTROPHILS # (AUTO) 10.5 10^3/uL (1.5-6.6); NEUTROPHILS % (AUTO) 88.9 %; RED BLOOD COUNT 3.24 10^6/uL (4.70-6.10); RED CELL DISTRIBUTION WIDTH 22.6 % (12.0-15.0); WHITE BLOOD COUNT 11.8 x10^3/uL (4.8-10.8)
[2022-11-27 05:00] LABS: SLIDE REVIEW? Indicated
[2022-11-27 05:01] LABS: CALCIUM, IONIZED 1.09 mmol/L (1.15-1.33); VBG PH 7.481 (7.31-7.41)
[2022-11-27 05:07] LABS: CALCIUM 9.1 mg/dL (8.5-10.3); CREATININE 1.8 mg/dL (0.6-1.3); MAGNESIUM 2.2 mg/dL (1.7-2.3); PHOSPHORUS 4.9 mg/dL (3.7-7.2); POTASSIUM 4.7 mmol/L (3.5-4.5)
[2022-11-27 05:41] LABS: PLATELET ESTIMATE, MANUAL NORMAL (130-450,000) (NORMAL); RBC MORPHOLOGY (MULTIPLE) 2+ ANISOCYTOSIS (NORMAL)
[2022-11-27] MEDS: diltiaZEM 30 MG TABLET PO SCH ×5 (05:51→23:07)
[2022-11-27] MEDS: SODIUM CHLORIDE FLUSH 0.9% 10 ML SYRINGE IVP SCH ×3 (06:12→17:26)
[2022-11-27] MEDS: FUROSEMIDE 40 MG/4 ML VIAL IVP SCH ×2 (06:13→14:23)
[2022-11-27] MEDS: methylPREDNISolone SUCCINATE 40 MG/ML VIAL IVP SCH ×3 (06:13→21:06)
[2022-11-27] MEDS: IPRATROPIUM/ALBUTEROL 3 ML NEB INH SCH ×4 (06:17→20:25)
[2022-11-27] MEDS ORDERED: CALCIUM GLUC 1,000MG/50ML-NACL 1,000 MG/50 ML BAG IV ONE (07:28)
--- NOTE | 2022-11-27 08:49 | PROVIDER PROGRESS NOTE ---
Subjective - Subjective Pt reports feeling: Improved Subjective: He was extubated yesterday afternoon. Overnight he went from being on nasal cannula to Oxymizer to BiPAP when respiratory rate was in the 40s. This morning he is not tachypneic on BIPAP, then de-escalated back to oxymizer. He was able to swallow a.m. meds. Objective - Vital Signs/Intake & Output Vital Signs: Vital Signs Temp Pulse Pulse Resp BP BP Pulse Ox 11/27/22 08:00 37.2 C 103 H 18 122/75 96 11/27/22 07:42 11/27/22 07:38 130/91 H 11/27/22 07:27 93 11/27/22 07:00 37.2 C 100 30 H 126/69 93 11/27/22 06:00 37.4 C 91 104 H 32 H 113/77 100 11/27/22 05:00 37.5 C 85 23 120/78 98 O2 Flow Rate 11/27/22 08:00 11/27/22 07:42 4 11/27/22 07:38 11/27/22 07:27 11/27/22 07:00 11/27/22 06:00 11/27/22 05:00 Intake & Output: Intake & Output 11/24/22 11/25/22 11/26/22 11/27/22 23:59 23:59 23:59 23:59 Intake Total 1061.798 930.322 480.0 Output Total 590 785 330 Balance 471.798 145.322 150.0 - Objective General Appearance: positive: No acute distress, Alert Eyes Bilateral: positive: Normal inspection, EOMI ENT: positive: No signs of dehydration, Other (Wearing Oxymizer nasal cannula, is edentulous, voice is normal today (was whispering with hoarseness yesterday after extubation)) Neck: positive: Other (Has a large arredondo that makes evaluation of his neck difficult. He has positive JVD. He has positive V waves, while sitting at 80 degrees upright in bed.) Respiratory: positive: No respiratory distress, Wheezes, Rales, Other (Increased AP diameter. Thin, with prominent ribs.) Cardiovascular: positive: Regular rate & rhythm, No murmur Abdomen: positive: Non-tender, No distention Skin: positive: Warm, Dry, Pallor Extremities: positive: Non-tender, Other (3+ edema to the mid thighs) Neurologic/Psychiatric: positive: Motor nml, Disoriented to place, Disoriented to time - Lab Results Fish Bones: 11/27/22 04:25 11/27/22 04:25 Other Labs: Lab Results x24hrs 11/27/22 11/27/22 11/27/22 Range/Units 06:12 04:25 04:25 WBC (4.8-10.8) x10^3/uL RBC (4.70-6.10) 10^6/uL Hgb (14.0-18.0) g/dL Hct (42.0-52.0) % MCV (80.0-94.0) fL MCH (27.0-31.0) pg MCHC (32.0-36.0) g/dL RDW (12.0-15.0) % Plt Count (130-450) 10^3/uL MPV (7.4-11.4) fL Neut # (Auto) (1.5-6.6) 10^3/uL Lymph # (Auto) (1.5-3.5) 10^3/uL Kenedy # (Auto) (0.0-1.0) 10^3/uL Eos # (Auto) (0.0-0.7) 10^3/uL Baso # (Auto) (0.0-0.1) 10^3/uL Absolute Nucleated RBC x10^3/uL Nucleated RBC % /100WBC Manual Slide Review Platelet Estimate (NORMAL) RBC Morph Micro Appear (NORMAL) VBG pH 7.481 H (7.31-7.41) Ionized Calcium 1.09 L (1.15-1.33) mmol/L Sodium (135-145) mmol/L Potassium (3.5-4.5) mmol/L Chloride (101-111) mmol/L Carbon Dioxide (21-32) mmol/L Anion Gap (6-13) BUN (6-20) mg/dL Creatinine (0.6-1.3) mg/dL Estimated GFR (MDRD) (>89) Glucose (74-104) mg/dL POC Whole Bld Glucose 160 H (70 - 100) mg/dL Estimat Average Glucose (70-100) mg/dL Hemoglobin A1c % (4.27-6.07) % Calcium (8.5-10.3) mg/dL Phosphorus 4.9 (3.7-7.2) mg/dL Magnesium 2.2 (1.7-2.3) mg/dL Iron (45-182) ug/dL TIBC (250-450) ug/dL % Saturation (20-50) % Transferrin (180-329) mg/dL Vitamin B12 (180-914) pg/mL Folate (5.90 - >24.8) ng/mL 11/27/22 11/27/22 11/27/22 Range/Units 04:25 04:25 00:05 WBC 11.8 H (4.8-10.8) x10^3/uL RBC 3.24 L (4.70-6.10) 10^6/uL Hgb 8.8 L (14.0-18.0) g/dL Hct 29.4 L (42.0-52.0) % MCV 90.7 (80.0-94.0) fL MCH 27.2 (27.0-31.0) pg MCHC 29.9 L (32.0-36.0) g/dL RDW 22.6 H (12.0-15.0) % Plt Count 216 (130-450) 10^3/uL MPV 9.9 (7.4-11.4) fL Neut # (Auto) 10.5 H (1.5-6.6) 10^3/uL Lymph # (Auto) 0.1 L (1.5-3.5) 10^3/uL Kenedy # (Auto) 1.1 H (0.0-1.0) 10^3/uL Eos # (Auto) 0.0 (0.0-0.7) 10^3/uL Baso # (Auto) 0.0 (0.0-0.1) 10^3/uL Absolute Nucleated RBC 0.00 x10^3/uL Nucleated RBC % 0.0 /100WBC Manual Slide Review Indicated Platelet Estimate NORMAL (130-450,000) (NORMAL) RBC Morph Micro Appear 2+ ANISOCYTOSIS (NORMAL) VBG pH (7.31-7.41) Ionized Calcium (1.15-1.33) mmol/L Sodium 137 (135-145) mmol/L Potassium 4.7 H (3.5-4.5) mmol/L Chloride 96 L (101-111) mmol/L Carbon Dioxide 32 (21-32) mmol/L Anion Gap 9.0 (6-13) BUN 44 H (6-20) mg/dL Creatinine 1.8 H (0.6-1.3) mg/dL Estimated GFR (MDRD) 37 L (>89) Glucose 175 H (74-104) mg/dL POC Whole Bld Glucose 140 H (70 - 100) mg/dL Estimat Average Glucose (70-100) mg/dL Hemoglobin A1c % (4.27-6.07) % Calcium 9.1 (8.5-10.3) mg/dL Phosphorus (3.7-7.2) mg/dL Magnesium (1.7-2.3) mg/dL Iron (45-182) ug/dL TIBC (250-450) ug/dL % Saturation (20-50) % Transferrin (180-329) mg/dL Vitamin B12 (180-914) pg/mL Folate (5.90 - >24.8) ng/mL 11/26/22 11/26/22 11/26/22 Range/Units 18:48 17:59 12:01 WBC (4.8-10.8) x10^3/uL RBC (4.70-6.10) 10^6/uL Hgb (14.0-18.0) g/dL Hct (42.0-52.0) % MCV (80.0-94.0) fL MCH (27.0-31.0) pg MCHC (32.0-36.0) g/dL RDW (12.0-15.0) % Plt Count (130-450) 10^3/uL MPV (7.4-11.4) fL Neut # (Auto) (1.5-6.6) 10^3/uL Lymph # (Auto) (1.5-3.5) 10^3/uL Kenedy # (Auto) (0.0-1.0) 10^3/uL Eos # (Auto) (0.0-0.7) 10^3/uL Baso # (Auto) (0.0-0.1) 10^3/uL Absolute Nucleated RBC x10^3/uL Nucleated RBC % /100WBC Manual Slide Review Platelet Estimate (NORMAL) RBC Morph Micro Appear (NORMAL) VBG pH 7.478 H (7.31-7.41) Ionized Calcium 0.99 L (1.15-1.33) mmol/L Sodium (135-145) mmol/L Potassium (3.5-4.5) mmol/L Chloride (101-111) mmol/L Carbon Dioxide (21-32) mmol/L Anion Gap (6-13) BUN (6-20) mg/dL Creatinine (0.6-1.3) mg/dL Estimated GFR (MDRD) (>89) Glucose (74-104) mg/dL POC Whole Bld Glucose 97 106 H (70 - 100) mg/dL Estimat Average Glucose (70-100) mg/dL Hemoglobin A1c % (4.27-6.07) % Calcium (8.5-10.3) mg/dL Phosphorus (3.7-7.2) mg/dL Magnesium (1.7-2.3) mg/dL Iron (45-182) ug/dL TIBC (250-450) ug/dL % Saturation (20-50) % Transferrin (180-329) mg/dL Vitamin B12 (180-914) pg/mL Folate (5.90 - >24.8) ng/mL 11/26/22 11/26/22 11/26/22 Range/Units 11:15 11:15 11:15 WBC (4.8-10.8) x10^3/uL RBC (4.70-6.10) 10^6/uL Hgb (14.0-18.0) g/dL Hct (42.0-52.0) % MCV (80.0-94.0) fL MCH (27.0-31.0) pg MCHC (32.0-36.0) g/dL RDW (12.0-15.0) % Plt Count (130-450) 10^3/uL MPV (7.4-11.4) fL Neut # (Auto) (1.5-6.6) 10^3/uL Lymph # (Auto) (1.5-3.5) 10^3/uL Kenedy # (Auto) (0.0-1.0) 10^3/uL Eos # (Auto) (0.0-0.7) 10^3/uL Baso # (Auto) (0.0-0.1) 10^3/uL Absolute Nucleated RBC x10^3/uL Nucleated RBC % /100WBC Manual Slide Review Platelet Estimate (NORMAL) RBC Morph Micro Appear (NORMAL) VBG pH (7.31-7.41) Ionized Calcium (1.15-1.33) mmol/L Sodium (135-145) mmol/L Potassium (3.5-4.5) mmol/L Chloride (101-111) mmol/L Carbon Dioxide (21-32) mmol/L Anion Gap (6-13) BUN (6-20) mg/dL Creatinine (0.6-1.3) mg/dL Estimated GFR (MDRD) (>89) Glucose (74-104) mg/dL POC Whole Bld Glucose (70 - 100) mg/dL Estimat Average Glucose 108 H (70-100) mg/dL Hemoglobin A1c % 5.4 (4.27-6.07) % Calcium (8.5-10.3) mg/dL Phosphorus (3.7-7.2) mg/dL Magnesium (1.7-2.3) mg/dL Iron 25 L (45-182) ug/dL TIBC 263 (250-450) ug/dL % Saturation 9 L (20-50) % Transferrin 188 (180-329) mg/dL Vitamin B12 509 (180-914) pg/mL Folate 8.3 (5.90 - >24.8) ng/mL - Diagnostic Imaging Diagnostic Imaging Results: positive: Final report reviewed Assessment/Plan - Problem List (1) Acute and chronic respiratory failure with hypoxia Impression: The patient is on chronic O2 at home at 2 L/min, to treat his COPD. There was no description of recent worsening symptoms, then on the morning of 11/25, he was "snoring" but would not awaken when his SO tried to awaken him. The ambulance personnel found him to have O2 saturations of 30-60% when they arrived at the scene. He was intubated at the scene. He was admitted to our ICU. He was started on treatment for a COPD exacerbation and treated for pulmonary edema. His vent settings were decreased, he had several CPAP trials and then was successfully extubated yesterday 11/26/22. After extubation, overnight his respiratory rate went from 28-30 up to 40-48. His nasal cannula was changed to oxymizer nasal cannula and FiO2 was increased to 30%. Then the telemedicine night doctor ordered him to be put on BiPAP. With that he is tachypnea improved slowly and this morning respiratory rate is 18. On FiO2 of 30%, he is saturating 99%. Back on oximizer, sats are also 99%. Today he is talkative but confused, said that he was at the [facility]. He did not recall any recent new events, no fever, and said he was compliant with meds and inhalers and O2 use. Plan: Continue with supplemental O2 Remain in the ICU. Cont scheduled and prn nebulizer bronchodilator treatments. Continue IV steroids, Solu-Medrol 80 mg IV 3 times daily. I will also add nebulized Pulmicort twice daily We will continue with empiric IV antibiotics. Continue IV Lasix to treat the pulm edema (2) Pleural effusion, right Conclusion/Plan: His chest x-ray showed a moderate pleural effusion on the right side, small on the left. This is adding to his dyspnea I ordered a thoracentesis be done by IR under ultrasound guidance. 1100 cc was removed by IR. The post-tap CXR showed a small pneumothorax, and a repeat CXR was advised to be done in 2 hours>> unchanged size of PTX. Plan: Remain in ICU We will order PT and OT after the pneumothorax resolves (3) Pneumothorax Conclusion/Plan: The Interventional Radiologist called me after the 2nd CXR, which was read as having unchanged PTX size, along the R lateral rib cage. He advised to monitor resps and repeat CXR tomorrow. Plan: Will not start PT and OT today. Will get CXR tomorrow a.m., or get a CXR sooner if he has worsening resp distress. (4) CHF exacerbation Conclusion/Plan: CHF is as per history. His medication list shows that he was on Lasix and [id number], no B-jessee, MILA or Spironolactone. Two troponins were "flat, so he ruled out for acute AL He had an Echocardiogram done 11/25, this showed a small LV, invaginated by a large RV. LV function was normal, but he has severely depressed RV function. I suspect that either A-fib with RVR put him in a heart failure exacerbation, or dietary indiscretion caused his leg edema and pulmonary edema. Today he is communicative and I asked him if he uses salt and he said he does. I told him salt is not allowed and he said he has "heard that before". He asked if pepper was okay which it is. Plan: Continue IV Lasix to treat the pulmonary edema We will assure he is on a low-salt diet. We will order nutrition consult for CHF teaching for him and his SO>> Economic Development Coordinator Lisa spoke to the SO by phone and SO said she thought he needed salt because his "blood tests showed low sodium". Lisa said she instructed her that pt is actually waterlogged when his serum sodium is low. He and she need more CHF education. Continue to work on rate control of his A-fib Cont Grant for closely monitoring his I's and O's (5) Atrial fibrillation with RVR Conclusion/Plan: His admission EKG showed atrial fib, rate 115. When he was sedated on the vent the heart rate was improved. After extubation yesterday heart rate was as high as 1 28-1 30. He was put on a Cardizem drip briefly for rate control. This morning he can swallow and he took an oral Cardizem dose; I changes Cardizem CD 240 daily to spread out due to "soft BPs and ordered Cardizem 30 mg p.o. every 6 hours. We obtained records yesterday from the [place] [facility], CARLA Lyons is his PCP, which I reviewed. Records show a Hx of A-fib and that he was on Cardizem CD 240 mg daily, but no antiplatelet or anticoagulant was being used. Also, during his Spring admission in [facility], the summary said no anticoags were being used due to thrombocytopenia then, plt count was 50. Today he was able to give me some details that he had 2 severe nosebleeds which happened around the time that he had those low platelets. All labs were reviewed. He is not currently thrombocytopenic and he was not thrombocytopenic 2 months ago when in our ER. [facility] does not have him o n an anticoagulant or aspirin now, for unknown reason. I suspect it is because the thrombocytopenia and nose bleeds were so recent (4 mos ago). Plan: Remain on telemetry Cont Cardizem 30 mg po 6 hours. I will cancel the iv Cardizem drip. I will start check a stool guaic and if neg, I will offer to him to start on Eliquis (6) CLARK (acute kidney injury) Conclusion/Plan: His admission creatinine was 1.5 (all labs were reviewed). 2 months ago he had a creatinine of 0.9. I have him on IV Lasix here because of pulmonary edema on chest x-ray. All labs were reviewed. On Lasix, his creatinine has risen from 1.5>> 1.4 yesterday>>< 1.8 today. He also had mild hyperkalemia on admission, with a K of 5.5. And his med list shows that he was taking a potassium replacement. That K is on hold. Plan: Clinically he is volume overloaded with tense leg edema and pulmonary edema seen on chest x-ray, therefore will continue with IV Lasix. Avoid any other nephrotoxins Remain off suppl KCl Follow BMP daily (7) COPD exacerbation Conclusion/Plan: According to his significant other, he has been extremely debilitated for the last month, too weak to get out of bed except to go to the bathroom. He wears his oxygen 30/11. She had to bring him his meals in his bed. Today he is communicative and tells me that the reason he was not getting OOB was because he was "told not to get out of bed on his own. at the last hospitalization" which was at [facility] 4 mos ago, not 1 mo ago. Plan: Cont scheduled and prn nebulizer bronchodilator treatments. Continue IV steroids, Solu-Medrol 80 mg IV 3 times daily. I will also add nebulized Pulmicort twice daily Target O2 sats can be 89% or above for the COPD-er We will cont empiric IV antibiotics (8) Cor Pulmonale He had an Echocardiogram done here on 11/25, which a showed a small LV, invaginated by a large RV. LV function normal. Severely depressed RV function. Cor pulmonale with "soft" BPs, bodes very poor prognosis for him, less than 1 year to live. He already is so debilitated that he is mostly bedbound at home. Plan: He needs IV Lasix to treat his pulmonary edema but that Lasix decreases his blood pressure and may be adding to CLARK. This will be a difficult management situation, where the patient has a very narrow perfect volume to achieve where h e will not be volume overloaded to create pulmonary edema, but not volume depleted to create RV collapse and hypotension. The records stated that palliative care was ordered to see him when he was in [facility] hospitalized in the spring. I discussed with him about ordering Hospice to meet him, and he agreed. (9) History of alcohol abuse In the [facility] records it said that he used to be an alcoholic but has stopped drinking. Today he told his nurse that he drinks 1 shot per day. Plan: Start po Thiamine and pre-lizzette vit daily Today is day 3 of hospitalization, so no CIWA protocol needed (10) Anemia Conclusion/Plan: His admission hemoglobin is 8.7. 2 months ago at the ER visit the hemoglobin was 8.8. This anemia produces even more stress regarding his LV function and pulmonary status, since he is does not have the typical compensatory increased hemoglobin that is seen in COPD-ers. The records we obtained from the [facility], and [employer] [facility], which I reviewed, show he has an iron deficiency anemia and was supposed to be on twice daily iron. His med list here showed he was taking iron just once daily. Of note, he no longer has the thrombocytopenia that was reported when he was hospitalized in [facility] this Spring. Plan: I will increase his iron replacement from daily to BID. Watch for constipation. Follow hemoglobin daily, plan would be for transfusion, followed by iv Lasix, if hemoglobin goes under 8, in this patient with acute pulmonary edema and COPD exacerbation (11) Poor memory Today he is awake and alert and we spoke and he thought he was in a hospital in [facility] on [facility]. He thought he was admitted here due to a nose bleed. He claimed the reason he did not get OOB for the last 1 month was that the rehab ladies told him not to get OOB alone. (Since the hospitalization at [facility], he was ambulating and [place] jenna pearson told that). I suspect he may have some lingering effects of the IV sedatives that were used while he was on a ventilator Or this may be his baseline poor memory, given his history of alcohol abuse Plan: I will confirm what his baseline is, with his SO, Anne-Marie, when we are next in contact. (12) On mechanically assisted ventilation Conclusion/Plan: RESOLVED The patient was extubated successfully yesterday 11/26 around 1500 The told me that the patient and she never talked about what he would want as far as being on a vent. He has stated many times however he wants no CPR or resuscitation. Today I spoke to the patient who said he would agree to go back on the ventilator if needed again Plan: I will order a diet to start and change Pepcid 20 mg IV twice daily to oral doses
[2022-11-27] MEDS: AZITHROMYCIN INJ 500 MG in SODIUM CHLORIDE 0.9% 250 ML IV SCH (08:51)
[2022-11-27] MEDS: FERROUS SULFATE 325 MG TABLET PO SCH ×2 (09:12→17:26)
[2022-11-27] MEDS: FAMOTIDINE 20 MG TABLET PO SCH ×2 (09:13→21:04)
[2022-11-27] MEDS: guaiFENesin 600 MG TABLET PO SCH ×2 (09:13→21:04)
[2022-11-27] MEDS: polyethylene glycoL 3350 17 GM PACKET PO SCH (09:25)
[2022-11-27] MEDS ORDERED: MIN OIL/DIMETHICON/COCONUT OIL 92 GM TUBE TOP PRN (09:40)
[2022-11-27] MEDS: BUDESONIDE 0.5 MG/2 ML NEB INH SCH ×2 (09:51→20:25)
[2022-11-27] MEDS: cefTRIAXone 2 GM in SODIUM CHLORIDE 0.9% MINIBAG 100 ML IV SCH (09:55)
[2022-11-27] MEDS ORDERED: LIDOCAINE-MPF 1% 5 ML VIAL ONE (10:25)
--- NOTE | 2022-11-27 11:21 | XRAY Report ---
PROCEDURE: Post Thoracentesis 1V CXR INDICATIONS: POST THORACENTESIS TECHNIQUE: One view of the chest was acquired. COMPARISON: 11/26/2022 FINDINGS: Surgical changes and devices: None. Lungs and pleura: Post thoracentesis x-ray demonstrates a right pneumothorax at the costophrenic ang le. Diffuse interstitial opacities are seen. Mediastinum: Mediastinal contours appear normal. Heart size is enlarged. Bones and chest wall: No suspicious bony lesions. Overlying soft tissues appear unremarkable. IMPRESSION: Post thoracentesis x-ray demonstrates a right pneumothorax at the costophrenic angle. Rec ommend repeat x-ray in 2 hours. Reviewed by: Donato Soni on 11/27/2022 11:19 AM PDT Approved by: Donato Soni on 11/27/2022 11:19 AM PDT Station ID: [id number]
--- NOTE | 2022-11-27 11:22 | Ultrasound Report ---
PROCEDURE: Thoracentesis Puncture INDICATIONS: Therapeutic thoracentesis TECHNIQUE: The indications, alternatives, benefits, risks, and complications of the procedure were explained to the patient. Written informed consent was obtained and placed in the chart. The chest was examined sonographically, and an appropriate site was chosen for thoracentesis. The skin was prepared and elizabeth ped in the usual sterile fashion, and 1% lidocaine was infiltrated from the skin down through the ple ural surface. A 19-gauge catheter-covered needle was then introduced into the pleural space, the cat heter was advanced and the needle was withdrawn, and thereafter pleural fluid was aspirated. The cat heter was then removed and a dressing was applied. COMPARISON: None. FINDINGS: Access site: Right hemithorax. Needle: One-Step centesis catheter with introducer needle. Fluid volume and description: 1000 mL Fluid sent for diagnostic testing: No Medications: 1% lidocaine for local anaesthesia. Complications: Postprocedure x-ray demonstrates a pneumothorax. IMPRESSION: Thoracentesis was performed with 1000 mL of evacuate it. Postprocedure x-ray demonstrates a pneumothorax. Repeat x-ray will be performed in 2 hours. Reviewed by: Donato Soni on 11/27/2022 11:20 AM PDT Approved by: Donato Soni on 11/27/2022 11:20 AM PDT Station ID: [id number]
[2022-11-27] MEDS: ACETAMINOPHEN 325 MG TABLET PO PRN ×3 (12:16→21:04)
[2022-11-27 13:14] LABS: CALCIUM, IONIZED 1.12 mmol/L (1.15-1.33); VBG PH 7.343 (7.31-7.41)
--- NOTE | 2022-11-27 13:16 | XRAY Report ---
PROCEDURE: Post Thoracentesis 1V CXR INDICATIONS: F/U pneumothorax from thoracentesis TECHNIQUE: One view of the chest was acquired. COMPARISON: 11/26/2022 FINDINGS: Surgical changes and devices: None. Lungs and pleura: Post thoracentesis x-ray demonstrates a right pneumothorax at the costophrenic ang le. Diffuse interstitial opacities are seen. Mediastinum: Mediastinal contours appear normal. Heart size is enlarged. Bones and chest wall: No suspicious bony lesions. Overlying soft tissues appear unremarkable. IMPRESSION: Post thoracentesis x-ray demonstrates a right pneumothorax at the costophrenic angle. Thi s is unchanged compared to the prior x-ray 2 hours ago. Recommend follow-up x-ray tomorrow unless cli nical change. Reviewed by: Donato Soni on 11/27/2022 1:14 PM PDT Approved by: Donato Soni on 11/27/2022 1:14 PM PDT Station ID: [id number]
[2022-11-27] MEDS: PRENATAL VITAMIN TABLET PO SCH (14:23)
[2022-11-27] MEDS ORDERED: LIDOCAINE-MPF 1% 5 ML VIAL TD ONE (17:00)
[2022-11-27] MEDS: INSULIN LISPRO 300 UNIT/3 ML PEN SUBQ SCH ×4 (17:25→21:07)
[2022-11-27] MEDS ORDERED: COD LIVER OIL/ZINC OXIDE 113 GM TUBE TOP PRN (22:20)
[2022-11-28] MEDS: ACETAMINOPHEN 325 MG TABLET PO PRN ×2 (03:47→16:34)
[2022-11-28] MEDS: SODIUM CHLORIDE FLUSH 0.9% 10 ML SYRINGE IVP SCH ×4 (03:48→23:53)
[2022-11-28] MEDS ORDERED: ZINC OXIDE 20% OINT 30 GM TUBE TOP PRN (03:52)
[2022-11-28 05:53] LABS: BASOPHILS % (AUTO) 0.1 %; HCT - HEMATOCRIT 28.9 % (42.0-52.0); HGB - HEMOGLOBIN 8.5 g/dL (14.0-18.0); LYMPHOCYTES # (AUTO) 0.1 10^3/uL (1.5-3.5); LYMPHOCYTES % (AUTO) 1.3 %; MEAN CORPUSCULAR HGB CONC 29.4 g/dL (32.0-36.0); MEAN CORPUSCULAR VOLUME 91.7 fL (80.0-94.0); MEAN PLATELET VOLUME 9.7 fL (7.4-11.4); MONOCYTES # (AUTO) 0.7 10^3/uL (0.0-1.0); MONOCYTES % (AUTO) 6.6 %; NEUTROPHILS # (AUTO) 9.5 10^3/uL (1.5-6.6); NEUTROPHILS % (AUTO) 91.5 %; PLT - PLATELET COUNT 182 10^3/uL (130-450); RED BLOOD COUNT 3.15 10^6/uL (4.70-6.10); RED CELL DISTRIBUTION WIDTH 21.8 % (12.0-15.0); WHITE BLOOD COUNT 10.4 x10^3/uL (4.8-10.8)
[2022-11-28 06:05] LABS: SLIDE REVIEW? Indicated
[2022-11-28 06:06] LABS: CREATININE 1.9 mg/dL (0.6-1.3); MAGNESIUM 2.2 mg/dL (1.7-2.3); PHOSPHORUS 5.5 mg/dL (3.7-7.2); POTASSIUM 4.6 mmol/L (3.5-4.5)
[2022-11-28 06:25] LABS: CALCIUM, IONIZED 1.11 mmol/L (1.15-1.33); VBG PH 7.376 (7.31-7.41)
[2022-11-28 06:31] LABS: PLATELET ESTIMATE, MANUAL NORMAL (130-450,000) (NORMAL)
[2022-11-28] MEDS: diltiaZEM 30 MG TABLET PO SCH ×4 (06:50→23:51)
[2022-11-28] MEDS: methylPREDNISolone SUCCINATE 40 MG/ML VIAL IVP SCH ×3 (06:54→22:22)
[2022-11-28] MEDS: FUROSEMIDE 40 MG/4 ML VIAL IVP SCH (06:54)
[2022-11-28] MEDS: BUDESONIDE 0.5 MG/2 ML NEB INH SCH ×2 (07:06→19:11)
[2022-11-28] MEDS: IPRATROPIUM/ALBUTEROL 3 ML NEB INH SCH ×4 (07:06→19:11)
--- NOTE | 2022-11-28 08:04 | XRAY Report ---
PROCEDURE: Chest 1 View X-Ray INDICATIONS: F/U PTX post-thoracentesis done 11/27/22 TECHNIQUE: One view of the chest was acquired. COMPARISON: Chest radiographs dated 11/27/2022 FINDINGS: Surgical changes and devices: None. Lungs and pleura: Previously seen small right pneumothorax at the right costophrenic angle now appea rs to be fluid-filled. There may be trace residual apical pneumothorax. Diffuse bilateral reticular o pacities that appear significantly changed. Small left pleural effusion. Mediastinum: Mild enlargement of the cardiac silhouette. Bones and chest wall: No suspicious bony lesions. Overlying soft tissues appear unremarkable. IMPRESSION: 1.Recurrent small right pleural effusion. Previously seen right pneumothorax has significantly decrea sed in size, with possible trace residual pneumothorax at the right lung apex. 2.Cardiomegaly and bilateral reticular opacities are suspicious for pulmonary edema. 3.Small left pleural effusion. Reviewed by: Eric Ly MD on 11/28/2022 8:03 AM PDT Approved by: Eric Ly MD on 11/28/2022 8:03 AM PDT Station ID: [id number]
[2022-11-28] MEDS: INSULIN LISPRO 300 UNIT/3 ML PEN SUBQ SCH ×4 (08:15→20:41)
[2022-11-28] MEDS: PRENATAL VITAMIN TABLET PO SCH (08:19)
[2022-11-28] MEDS: FERROUS SULFATE 325 MG TABLET PO SCH ×2 (08:19→16:34)
[2022-11-28] MEDS: guaiFENesin 600 MG TABLET PO SCH ×2 (08:19→20:41)
[2022-11-28] MEDS: PANTOPRAZOLE 40 MG TABLET PO SCH ×2 (08:19→20:41)
[2022-11-28] MEDS: cefTRIAXone 2 GM in SODIUM CHLORIDE 0.9% MINIBAG 100 ML IV SCH (08:20)
[2022-11-28] MEDS: polyethylene glycoL 3350 17 GM PACKET PO SCH (08:20)
--- NOTE | 2022-11-28 08:43 | PROVIDER PROGRESS NOTE ---
Assessment/Plan - Problem List (1) Acute and chronic respiratory failure with hypoxia Assessment/Plan: The patient is on chronic O2 at home at 2 L/min, to treat his COPD. There was no description of recent worsening symptoms, then on the morning of 11/25, he was "snoring" but would not awaken when his SO tried to awaken him. The ambulance personnel found him to have O2 saturations of 30-60% when they arrived at the scene. He was intubated at the scene. He was admitted to our ICU. He was started on treatment for a COPD exacerbation and treated for pulmonary edema. He was extubatedon 11/26. After extubation, he needed BiPAP then oxymizer. For a day, he has now been back on his O2 via nasal cannula, sats are also 99%. Today he is again talkative but confused about the last 3-4 mos. Plan: Continue with supplemental O2 Transfer out of the ICU today to [facility] telemetry. Cont to treat his COPD, bronchitis, and CHF (2) CLARK (acute kidney injury) Conclusion/Plan: His admission creatinine was 1.5 (all labs were reviewed). 2 months ago he had a creatinine of 0.9. He is on iv Lasix to treat his pulmonary edema. All labs were reviewed. His creatinine has risen from 1.5>> 1.4>> 1.8>> 1.9 today. Plan: Clinically he is still somewhat volume overloaded with some leg edema and the CHF on CXR, and got a dose of IV Lasix this morning. But I will stop iv Lasix, change to p o LAsix starting tomorrow. Avoid any other nephrotoxins Remain off suppl [facility] Follow BMP daily (3) Infection due to Enterobacter cloacae Given his COPD exacerbation, a sputum culture was sent off and he was started on empiric Zithromax and Ceftriaxone. He is already finished Zithromax. The sputum culture is growing Enterobacter. The sensitivities are available and it is not sensitive to ceftriaxone. He likely had bronchitis, but no one here met him before he was intubated, which was done by paramedics at the scene. Plan: We will stop iv Ceftriaxone. I will start him on oral Levaquin, not IV Levaquin, in order to decrease fluids. I will plan a 5-day course of Levaquin (4) Pleural effusion, right Conclusion/Plan: His chest x-ray showed a moderate pleural effusion on the right side, small on the left. This is adding to his dyspnea I ordered a thoracentesis be done by IR under ultrasound guidance. 1100 cc was removed by IR yesterday 11/27. The post-tap CXR showed a small pneumothorax, and a repeat CXR unchanged size of PTX. Plan: Continue gentle diuresis (5) Pneumothorax Conclusion/Plan: IMPROVED The Interventional Radiologist called me after the 2nd CXR, which was read as having unchanged PTX size, along the R lateral rib cage. He advised to monitor resps and repeat CXR tomorrow. Plan: Will start PT and OT today. (6) CHF exacerbation Conclusion/Plan: CHF is as per history. His medication list shows that he was on Lasix and [id number]-tugvrwbo, no B-jessee, MILA or Spironolactone. Two troponins were "flat, so he ruled out for acute SD He had an Echocardiogram done 11/25, this showed a small LV, invaginated by a large RV. LV function was normal, but he has severely depressed RV function. I suspect that either A-fib with RVR put him in a heart failure exacerbation, or dietary indiscretion caused his leg edema and pulmonary edema. Since yesterday he is communicative and when I told him salt is not allowed and he said he has "heard that before". Morning Show Host Lisa spoke to the SO by phone and SO said she thought he needed salt because his "blood tests showed low sodium". Lisa said she instructed her that pt is actually waterlogged when his serum sodium is low. Plan: Will change IV to PO Lasix to treat the pulmonary edema Continue to work on rate control of his A-fib Will D/C the Rudy (7) COPD exacerbation with bronchitis Conclusion/Plan: According to his significant other, he has been extremely debilitated for the last month, too weak to get out of bed except to go to the bathroom. He wears his oxygen 24/. She had to bring him his meals in his bed. Since yesterday he has been communicative and told me that the reason he was not getting OOB was because he was "told not to get out of bed on his own. at the last hospitalization" which was at [facility] 4 mos ago, not 1 mo ago. Plan: Given his COPD exacerbation, sputum culture is growing Enterobacter, so will change his empiric antibx to oral Levaquin. Cont suppl O2, with target O2 sats can be 89% or above for the COPD-er Cont iv steroids and I will start tapering the dose down. Cont nebs. (8) Heme pos stool Because of his anemia, guaiac stool was sent off. It came back positive Plan: I will stop his Pepcid BID ulcer prophylaxis med, and change it to Protonix 40 twice daily. He will need W/U of this after DCh (9) Anemia, iron deficiency Conclusion/Plan: His admission hemoglobin is 8.7. 2 months ago at the ER visit the hemoglobin was 8.8. This anemia produces even more stress regarding his LV function and pulmonary status, since he is does not have the typical compensatory increased hemoglobin that is seen in COPD-ers. The records we obtained from the [facility], and CARLA Lyons, which I reviewed, show he has an iron deficiency anemia and was supposed to be on twice daily iron. His med list here showed he was taking iron just once daily. Of note, he no longer has the thrombocytopenia that was reported when he was hospitalized in [facility] this Spring. Plan: Cont his iron replacement BID. Watch for constipation. Follow hemoglobin daily, plan would be for transfusion, followed by iv Lasix, if hemoglobin goes under 8, in this patient with acute pulmonary edema and COPD exacerbation (10) Atrial fibrillation with RVR Conclusion/Plan: IMPROVING His admission EKG showed atrial fib, rate 115. When he was sedated on the vent the heart rate was improved. After extubation yesterday heart rate was as high as 1 28-1 30. He was put on a Cardizem drip briefly for rate control. This morning he can swallow and he took an oral Cardizem dose; I changes Cardizem CD 240 daily to spread out due to "soft BPs and ordered Cardizem 30 mg p.o. every 6 hours. We obtained records yesterday from the [facility], CARLA Lyons is his PCP, which I reviewed. Records show a Hx of A-fib and that he was on Cardizem CD 240 mg daily, but no antiplatelet or anticoagulant was being used. Also, during his Spring admission in [facility], the summary said no anticoags were being used due to thrombocytopenia then, plt count was 50. Today he was able to give me some details that he had 2 severe nosebleeds which happened around the time that he had those low platelets. All labs were reviewed. He is not currently thrombocytopenic and he was not thrombocytopenic 2 months ago when in our ER. His [facility] doctor does not have him on an anticoagulant or aspirin now, for unknown reason. I suspect it is because the thrombocytopenia and nose bleeds were recent (4 mos ago). Plan: Remain on telemetry Cont Cardizem 30 mg po 6 hours. Since his stool is guaic pos, I will not start him on Eliquis I would discussed with him and the SRO whether there were any contraindications to using antiplatelet agents (11) Cor Pulmonale He had an Echocardiogram done here on 11/25, which a showed a small LV, invaginated by a large RV. LV function normal. Severely depressed RV function. Cor pulmonale with "soft" BPs, bodes very poor prognosis for him, less than 1 year to live. He already is so debilitated that he is mostly bedbound at home. His leg edema has decreased significant since getting iv Lasix Plan: He needs IV Lasix to treat his pulmonary edema but that Lasix decreases his blood pressure and may be adding to CLARK. This will be a difficult management situation, where the patient has a very narrow perfect volume to achieve where he will not be volume overloaded to create pulmonary edema, but not volume depleted to create RV collapse and hypotension. The records stated that palliative care was ordered to see him when he was in [facility] hospitalized in the spring. I discussed with him on 11/27 about ordering Hospice to meet him, and he agreed. (12) Hyperglycemia Patient's medication list showed that he was on Jardiance. Unknown if he was put on this 1 month ago by the [facility] provider to decrease cardiac risk in a patient with known CAD or if he has DM. His glucose values by fingersticks have risen over 200, ever since IV steroids and high-dose have been started. I think the steroids are causing the current hyperglycemia. His A1c came back at 5.4, possibly this is so low from having been on Jardiance The records that I reviewed from the [place] [facility], Paul Lyons NP, do not describe him as being a diabetic Plan: I will start a sliding scale insulin coverage order for him, institute hypoglycemia protocol I will ask his SO Anne-Marie, about his history when we are next in contact (13) History of alcohol abuse In the [facility] records it said that he used to be an alcoholic but has stopped drinking. Today he told his nurse that he drinks 1 shot per day. Plan: Start po Thiamine and pre- vit daily Today is day 4 of hospitalization, so no CIWA protocol needed (11) Poor memory Today he is awake and alert and we spoke and he thought he was in a hospital in [facility] on [facility]. He thought he was admitted here due to a nose bleed. He claimed the reason he did not get OOB for the last 1 month was that the rehab ladies told him not to get OOB alone. (Since the hospitalization at [facility], he was ambulating and [place] being told that[place] I suspect he may have some lingering effects of the IV sedatives that were used while he was on a ventilator Or this may be his baseline poor memory, given his history of alcohol abuse Plan: I will confirm what his baseline is, with his SO, Anne-Marie, when we are next in contact. (14) On mechanically assisted ventilation Conclusion/Plan: RESOLVED The patient was extubated successfully on 11/26 around 1500 The SO told me that the patient and she never talked about being on a vent. He has stated repeatedly to her, that he wants no CPR or resuscitation. I spoke to the patient regarding being on a vent, on 11/27, and he said he would go back on the ventilator if needed - Current Meds Current Meds: Current Medications Generic Name Dose Route Start Last Admin Trade Name Freq PRN Reason Stop Dose Admin Acetaminophen 650 mg 11/27/22 11:13 11/28/22 03:47 Acetaminophen 325 Mg Tablet PO 650 mg Q4HR PRN Administration Pain or Fever > 38C (100.4F) Albuterol/Ipratropium 3 ml 11/25/22 19:00 11/28/22 07:06 Ipratropium/Albuterol 3 Ml Neb INH 3 ml RTQID FRANCISCO Administration Albuterol/Ipratropium 3 ml 11/27/22 02:10 11/27/22 02:43 Ipratropium/Albuterol 3 Ml Neb INH 3 ml Q4HR PRN Administration Shortness of Air/Wheezing Budesonide 0.5 mg 11/27/22 08:48 11/28/22 07:06 Budesonide 0.5 Mg/2 Ml Neb INH 0.5 mg RTBID FRANCISCO Administration Diltiazem HCl 30 mg 11/25/22 18:00 11/28/22 06:50 Diltiazem 30 Mg Tablet PO 30 mg Q6HR FRANCISCO Administration Ferrous Sulfate 650 mg 11/27/22 17:00 11/28/22 08:19 Ferrous Sulfate 325 Mg Tablet PO 650 mg BIDWM FRANCISCO Administration Guaifenesin 600 mg 11/27/22 09:00 11/28/22 08:19 Guaifenesin 600 Mg Tablet PO 600 mg BID FRANCISCO Administration Insulin Human Lispro 1 - 5 unit 11/27/22 15:20 11/28/22 08:15 Insulin Lispro 300 Unit/3 Ml Pen SUBQ 1 unit 0800,1200,1700,2100 FRANCISCO Administration Protocol Methylprednisolone 80 mg 11/25/22 22:00 11/28/22 06:54 Methylprednisolone Succinate 40 Mg/Ml Vial IVP 80 mg TID FRANCISCO Administration Mineral Oil 1 applic 11/27/22 09:40 11/27/22 10:21 Min Oil/Dimethicon/Coconut Oil 92 Gm Tube TOP 1 applic PRN PRN Administration Skin Care Pantoprazole Sodium 40 mg 11/28/22 09:00 11/28/22 08:19 Pantoprazole 40 Mg Tablet PO 40 mg BID FRANCISCO Administration Polyethylene Glycol 17 gm 11/27/22 10:00 11/28/22 08:20 Polyethylene Glycol 3350 17 Gm Packet PO 17 gm DAILY FRANCISCO Administration Multivit/Folic Acid/Iron 1 tab 11/27/22 13:00 11/28/22 08:19 Vitamin Tablet PO 1 tab DAILYWM FRANCISCO Administration Sodium Chloride 10 ml 11/25/22 17:00 11/28/22 08:29 Sodium Chloride Flush 0.9% 10 Ml Syringe IVP 10 ml 0100,0900,1700 FRANCISCO Administration - Lab Result Fish Bone Diagrams: 11/28/22 05:14 11/28/22 05:14 - Additional Planning My Orders: My Active Orders 11/27/22 08:48 Resp Teach Nebulizer/MDI [RC] .ONCE Budesonide [Pulmicort] 0.5 mg INH RTBID 11/27/22 09:00 guaiFENesin [Mucinex] 600 mg PO BID 11/27/22 09:40 Min Oil/Dimeth/Coconut Oil Crm [Cavilon] 1 applic TOP PRN PRN 11/27/22 10:00 polyethylene glycoL 3350 [Miralax] 17 gm PO DAILY 11/27/22 11:13 Acetaminophen [Tylenol] 650 mg PO Q4HR PRN 11/27/22 11:56 Miscellaenous Nursing Order [RC] QSHIFT 11/27/22 12:55 Nutrition Consult [CONS] Routine 11/27/22 13:00 Vitamin [Trinatal Rx 1] 1 tab PO DAILYWM 11/27/22 15:20 Insulin Lispro [Humalog Kwikpen U-100] 1 - 5 unit SUBQ 0800,1200,1700,2100 11/27/22 Dinner Dysphagia - Minced and Moist [DIET] 11/27/22 17:00 Ferrous Sulfate [Feosol] 650 mg PO BIDWM 11/27/22 17:04 Blood Glucose Checks - Eating [RC] 0800,1200,1700,2100 Initiate Hypoglycemia Protocol [RC] .protocol 11/27/22 22:20 Cod Liver Oil/Zinc Oxide [Desitin] 113 gm TOP PRN PRN 11/28/22 Evaluate and Treat OT [OT] Routine Evaluate and Treat PT [PT] Routine 11/28/22 03:52 Zinc Oxide 20% Oint [Zinc Oxide] 1 applic TOP PRN PRN 11/28/22 08:08 Miscellaenous Nursing Order [RC] QSHIFT 11/28/22 08:25 Transfer [Admit \\ Transfer \\ Status] [RC] .ONCE 11/28/22 08:26 Telemetry- [RC] Q4HR 11/28/22 08:27 Shower [RC] ONCE 11/28/22 09:00 Pantoprazole [Protonix] 40 mg PO BID levoFLOXacin [Levaquin] 750 mg PO DAILY polyethylene glycoL 3350 [Miralax] 17 gm PO DAILY 11/29/22 05:00 BMP - BASIC METABOLIC PANEL [CHEM] DAILYLAB CBC - COMP BLD CT W/AUTO DIFF [HEME] DAILYLAB 11/30/22 05:00 BMP - BASIC METABOLIC PANEL [CHEM] DAILYLAB CBC - COMP BLD CT W/AUTO DIFF [HEME] DAILYLAB 12/01/22 05:00 BMP - BASIC METABOLIC PANEL [CHEM] DAILYLAB HGB - HEMOGLOBIN [HEME] DAILYLAB 12/02/22 05:00 BMP - BASIC METABOLIC PANEL [CHEM] DAILYLAB HGB - HEMOGLOBIN [HEME] DAILYLAB 12/03/22 05:00 HGB - HEMOGLOBIN [HEME] DAILYLAB 12/04/22 05:00 HGB - HEMOGLOBIN [HEME] DAILYLAB Subjective - Subjective Patient Reports: Feeling Better (He is alert, talkative, reports that his leg edema has significantly decreased. He is comfortable on his supplemental O2 via nasal cannula) Objective Vital Signs: Vital Signs - 24 hr 11/27/22 11/27/22 11/27/22 09:00 09:52 10:00 Temperature 37.2 C Heart Rate 78 Heart Rate [ 106 H 109 H Monitoring electrodes] Respiratory 34 H 18 18 Rate Blood Pressure Blood Pressure 128/77 121/72 [Right Brachial artery] O2 Saturation 93 95 If not protocol 4 4 4 : Oxygen Flow, liters/minute 11/27/22 11/27/22 11/27/22 10:36 10:42 10:48 Temperature 37.2 C 37.2 C Heart Rate Heart Rate [ 98 98 100 Monitoring electrodes] Respiratory 24 18 18 Rate Blood Pressure Blood Pressure 96/74 117/66 110/76 [Right Brachial artery] O2 Saturation 93 97 100 If not protocol 4 4 4 : Oxygen Flow, liters/minute 11/27/22 11/27/22 11/27/22 10:55 11:04 11:13 Temperature 37.2 C 37.2 C Heart Rate 78 Heart Rate [ 95 94 Monitoring electrodes] Respiratory 20 19 28 H Rate Blood Pressure Blood Pressure 107/70 107/75 [Right Brachial artery] O2 Saturation 92 100 If not protocol 4 4 4 : Oxygen Flow, liters/minute 11/27/22 11/27/22 11/27/22 12:00 12:15 13:00 Temperature 37.1 C 37.2 C Heart Rate Heart Rate [ 106 H 98 Monitoring electrodes] Respiratory 20 24 Rate Blood Pressure 117/67 Blood Pressure 102/85 H [Right Brachial artery] O2 Saturation 93 95 If not protocol 2 2 : Oxygen Flow, liters/minute 11/27/22 11/27/22 11/27/22 14:00 15:00 15:48 Temperature 37.1 C 37 C Heart Rate 101 H Heart Rate [ 90 93 Monitoring electrodes] Respiratory 26 H 29 H 19 Rate Blood Pressure Blood Pressure 117/71 120/82 H [Right Brachial artery] O2 Saturation 97 95 If not protocol 2 2 3 : Oxygen Flow, liters/minute 11/27/22 11/27/22 11/27/22 16:00 17:00 17:26 Temperature 36.8 C Heart Rate Heart Rate [ 126 H 116 H Monitoring electrodes] Respiratory 22 30 H Rate Blood Pressure 121/78 Blood Pressure 122/84 H 121/75 [Right Brachial artery] O2 Saturation 86 L 92 If not protocol 2 2 : Oxygen Flow, liters/minute 11/27/22 11/27/22 11/27/22 18:00 19:00 20:00 Temperature 37.0 C 37.0 C 36.9 C Heart Rate Heart Rate [ 101 H 97 107 H Monitoring electrodes] Respiratory 28 H 33 H 36 H Rate Blood Pressure Blood Pressure 129/91 H 138/81 H 126/87 H [Right Brachial artery] O2 Saturation 94 94 97 If not protocol 3 3 3 : Oxygen Flow, liters/minute 11/27/22 11/27/22 11/27/22 20:25 20:33 21:00 Temperature 37.0 C Heart Rate 99 Heart Rate [ 107 H Monitoring electrodes] Respiratory 20 32 H Rate Blood Pressure Blood Pressure 153/91 H [Right Brachial artery] O2 Saturation 96 If not protocol 4 4 3 : Oxygen Flow, liters/minute 11/27/22 11/27/22 11/27/22 22:00 23:00 23:07 Temperature 36.7 C Heart Rate Heart Rate [ 112 H 98 Monitoring electrodes] Respiratory 26 H 29 H Rate Blood Pressure 131/84 H Blood Pressure 131/84 H 127/85 H [Right Brachial artery] O2 Saturation 96 97 If not protocol 3 3 : Oxygen Flow, liters/minute 11/28/22 11/28/22 11/28/22 00:00 01:00 02:00 Temperature 36.7 C 36.6 C 36.6 C Heart Rate Heart Rate [ 104 H 104 H 109 H Monitoring electrodes] Respiratory 23 22 29 H Rate Blood Pressure Blood Pressure 130/86 H 153/95 H 130/84 H [Right Brachial artery] O2 Saturation 97 95 95 If not protocol 3 3 2 : Oxygen Flow, liters/minute 11/28/22 11/28/22 11/28/22 03:00 04:00 05:00 Temperature 36.3 C L 36.2 C L 36.1 C L Heart Rate Heart Rate [ 93 92 100 Monitoring electrodes] Respiratory 20 24 22 Rate Blood Pressure Blood Pressure 129/83 H 121/88 H 130/83 H [Right Brachial artery] O2 Saturation 92 95 92 If not protocol 2 2 2 : Oxygen Flow, liters/minute 11/28/22 11/28/22 11/28/22 06:00 06:50 07:00 Temperature 36.2 C L 36.3 C L Heart Rate Heart Rate [ 92 105 H Monitoring electrodes] Respiratory 22 26 H Rate Blood Pressure 136/92 H Blood Pressure 136/92 H 126/79 [Right Brachial artery] O2 Saturation 94 94 If not protocol 4 3 : Oxygen Flow, liters/minute 11/28/22 11/28/22 07:07 08:00 Temperature 36.3 C L Heart Rate 98 Heart Rate [ 106 H Monitoring electrodes] Respiratory 18 24 Rate Blood Pressure Blood Pressure 108/61 [Right Brachial artery] O2 Saturation 91 L If not protocol 3 3 : Oxygen Flow, liters/minute Oxygen O2 Source Nasal cannula I&O (Last 24 Hrs): Intake and Output Totals x24h 11/26/22 11/27/22 11/28/22 23:59 23:59 23:59 Intake Total 038.242 1548.0 Output Total 785 3290 735 Balance 145.322 -1650.0 -735 General: Alert, Oriented x3, No acute distress, Other (Thin elderly male. His long arredondo has been shaved off, he got a haircut in the shower, appears clean and well kempt) HEENT: Mucous membr. moist/pink, Other (Edentulous. Wearing O2 via an. See) Neck: Supple, No JVD Neuro: Alert, Non Focal, Other (Poor memory) Cardiovascular: No murmurs Respiratory: No respiratory distress, Breath sounds nml (Poor air mvm, but no wheezing or rales.) Abdomen: Normal bowel sounds, Soft Extremities: No clubbing, Other (1+ edema to above the knees, no longer tense) - Results Results: Laboratory Results WBC 10.4 x10^3/uL (4.8-10.8) 11/28/22 05:14 RBC 3.15 10^6/uL (4.70-6.10) L 11/28/22 05:14 Hgb 8.5 g/dL (14.0-18.0) L 11/28/22 05:14 Hct 28.9 % (42.0-52.0) L 11/28/22 05:14 MCV 91.7 fL (80.0-94.0) 11/28/22 05:14 MCH 27.0 pg (27.0-31.0) 11/28/22 05:14 MCHC 29.4 g/dL (32.0-36.0) L 11/28/22 05:14 RDW 21.8 % (12.0-15.0) H 11/28/22 05:14 Plt Count 182 10^3/uL (130-450) 11/28/22 05:14 MPV 9.7 fL (7.4-11.4) 11/28/22 05:14 Neut # (Auto) 9.5 10^3/uL (1.5-6.6) H 11/28/22 05:14 Lymph # (Auto) 0.1 10^3/uL (1.5-3.5) L 11/28/22 05:14 [place] # (Auto) 0.7 10^3/uL (0.0-1.0) 11/28/22 05:14 Eos # (Auto) 0.0 10^3/uL (0.0-0.7) 11/28/22 05:14 Baso # (Auto) 0.0 10^3/uL (0.0-0.1) 11/28/22 05:14 Absolute Nucleated RBC 0.00 x10^3/uL 11/28/22 05:14 Nucleated RBC % 0.0 /100WBC 11/28/22 05:14 Manual Slide Review Indicated 11/28/22 05:14 WBC Morphology NORMAL APPEARANCE (NORMAL) 11/26/22 04:48 Platelet Estimate NORMAL (130-450,000) (NORMAL) 11/28/22 05:14 Platelet Morphology NORMAL APPEARANCE (NORMAL) 11/26/22 04:48 RBC Morph Micro Appear 1+ ANISOCYTOSIS (NORMAL) 1+ HYPOCHROMASIA (NORMAL) 1+ OVALOCYTES (NORMAL) 11/28/22 05:14 RBC Morph Micro Appear 1+ ANISOCYTOSIS (NORMAL) 1+ HYPOCHROMASIA (NORMAL) 1+ OVALOCYTES (NORMAL) 11/28/22 05:14 RBC Morph Micro Appear 1+ ANISOCYTOSIS (NORMAL) 1+ HYPOCHROMASIA (NORMAL) 1+ OVALOCYTES (NORMAL) 11/28/22 05:14 PT 12.7 secs (9.9-12.6) H 11/25/22 11:40 INR 1.2 (0.8-1.2) 11/25/22 11:40 Bld Gas Analysis Time 0608 11/26/22 05:55 Sample Site RIGHT RADIAL 11/26/22 05:55 ABG pH 7.54 (7.35-7.45) H 11/26/22 05:55 ABG pCO2 33 mmHg (34-45) L 11/26/22 05:55 ABG pO2 105 mmHg (80-100) H 11/26/22 05:55 ABG HCO3 28.1 mmol/L (22.0-26.0) H 11/26/22 05:55 ABG Total CO2 29.1 MMOL/L (21.0-29.0) H 11/26/22 05:55 ABG O2 Saturation 99 % (94-98) H 11/26/22 05:55 ABG Base Excess 5.6 mmol/L (-2.0-3.0) H 11/26/22 05:55 Valentin Test POSITIVE 11/26/22 05:55 VBG pH 7.376 (7.31-7.41) 11/28/22 05:14 Ionized Calcium 1.11 mmol/L (1.15-1.33) L 11/28/22 05:14 Respiration Rate 18 b/min 11/26/22 05:55 O2 Delivery Device VENTILATOR 11/26/22 05:55 Vent Mode SIMV 11/26/22 05:55 FiO2 40.00 11/26/22 05:55 Tidal Volume 400 mL 11/26/22 05:55 PEEP 5 cmH2O 11/26/22 05:55 Pressure Support Vent 12 cmH2O 11/26/22 05:55 Sodium 135 mmol/L (135-145) 11/28/22 05:14 Potassium 4.6 mmol/L (3.5-4.5) H 11/28/22 05:14 Chloride 95 mmol/L (101-111) L 11/28/22 05:14 Carbon Dioxide 33 mmol/L (21-32) H 11/28/22 05:14 Anion Gap 7.0 (6-13) 11/28/22 05:14 BUN 56 mg/dL (6-20) H 11/28/22 05:14 Creatinine 1.9 mg/dL (0.6-1.3) H 11/28/22 05:14 Estimated GFR (MDRD) 35 (>89) L 11/28/22 05:14 Glucose 168 mg/dL (74-104) H 11/28/22 05:14 POC Whole Bld Glucose 170 mg/dL (70 - 100) H 11/28/22 07:41 Estimat Average Glucose 108 mg/dL (70-100) H 11/26/22 11:15 Hemoglobin A1c % 5.4 % (4.27-6.07) 11/26/22 11:15 Lactic Acid 2.6 mmol/L (0.5-2.2) H 11/25/22 14:01 Calcium 9.0 mg/dL (8.5-10.3) 11/28/22 05:14 Phosphorus 5.5 mg/dL (3.7-7.2) 11/28/22 05:14 Magnesium 2.2 mg/dL (1.7-2.3) 11/28/22 05:14 Iron 25 ug/dL (45-182) L 11/26/22 11:15 TIBC 263 ug/dL (250-450) 11/26/22 11:15 % Saturation 9 % (20-50) L 11/26/22 11:15 Transferrin 188 mg/dL (180-329) 11/26/22 11:15 Total Bilirubin 0.5 mg/dL (0.2-1.0) 11/25/22 11:40 AST 13 IU/L (10-42) 11/25/22 11:40 ALT < 10 IU/L (10-60) L 11/25/22 11:40 Alkaline Phosphatase 78 IU/L (42-121) 11/25/22 11:40 Ammonia 24.9 umol/L (7-35) 11/25/22 11:40 Troponin I High Sens 11.7 ng/L (2.3-19.7) 11/25/22 17:35 Total Protein 6.7 g/dL (6.4-8.9) 11/25/22 11:40 Albumin 3.3 g/dL (3.2-5.5) 11/25/22 11:40 Globulin 3.4 g/dL (2.1-4.2) 11/25/22 11:40 Albumin/Globulin Ratio 1.0 (1.0-2.2) 11/25/22 11:40 Lipase 13 U/L (11-82) 11/25/22 11:40 Vitamin B12 509 pg/mL (180-914) 11/26/22 11:15 Folate 8.3 ng/mL (5.90 - >24.8) 11/26/22 11:15 Urine Color DARK YELLOW 11/25/22 11:51 Urine Clarity CLEAR (CLEAR) 11/25/22 11:51 Urine pH 5.5 PH (5.0-7.5) 11/25/22 11:51 Ur Specific [place] 1.020 (1.002-1.030) 11/25/22 11:51 Urine Protein TRACE mg/dL (NEGATIVE) 11/25/22 11:51 Urine Glucose (UA) >=1000 mg/dL (NEGATIVE) H 11/25/22 11:51 Urine Ketones NEGATIVE mg/dL (NEGATIVE) 11/25/22 11:51 Urine Occult Blood NEGATIVE (NEGATIVE) 11/25/22 11:51 Urine Nitrite NEGATIVE (NEGATIVE) 11/25/22 11:51 Urine Bilirubin NEGATIVE (NEGATIVE) 11/25/22 11:51 Urine Urobilinogen 0.2 (NORMAL) E.U./dL (NORMAL) 11/25/22 11:51 Ur Leukocyte Esterase NEGATIVE (NEGATIVE) 11/25/22 11:51 Ur Microscopic Review NOT INDICATED 11/25/22 11:51 Urine Culture Comments NOT INDICATED 11/25/22 11:51 Nasal Adenovirus (PCR) NOT DETECTED 11/25/22 11:51 Nasal B. parapertussis DNA (PCR) NOT DETECTED 11/25/22 11:51 Nasal Coronavir 229E PCR NOT DETECTED 11/25/22 11:51 Nasal Coronavir HKU1 PCR NOT DETECTED 11/25/22 11:51 Nasal Coronavir NL63 PCR NOT DETECTED 11/25/22 11:51 Nasal Coronavir OC43 PCR NOT DETECTED 11/25/22 11:51 Nasal Enterovir/Rhinovir PCR NOT DETECTED 11/25/22 11:51 Nasal Influenza B PCR NOT DETECTED 11/25/22 11:51 Nasal Influenza A PCR NOT DETECTED 11/25/22 11:51 Nasal Parainfluen 1 PCR NOT DETECTED 11/25/22 11:51 Nasal Parainfluen 2 PCR NOT DETECTED 11/25/22 11:51 Nasal Parainfluen 3 PCR NOT DETECTED 11/25/22 11:51 Nasal Parainfluen 4 PCR NOT DETECTED 11/25/22 11:51 Nasal RSV (PCR) NOT DETECTED 11/25/22 11:51 Nasal Screen MRSA (PCR) NEGATIVE (NEGATIVE) 11/25/22 16:12 Nasal B.pertussis DNA PCR NOT DETECTED 11/25/22 11:51 Nasal C.pneumoniae (PCR) NOT DETECTED 11/25/22 11:51 Aj Human Metapneumo PCR NOT DETECTED 11/25/22 11:51 Nasal M.pneumoniae (PCR) NOT DETECTED 11/25/22 11:51 Nasal SARS-CoV-2 (PCR) NOT DETECTED 11/25/22 11:51 Salicylates < 1.5 mg/dL 11/25/22 11:40 Urine Opiates Screen NEGATIVE (NEGATIVE) 11/25/22 11:51 Ur Oxycodone Screen NEGATIVE (NEGATIVE) 11/25/22 11:51 Urine Methadone Screen NEGATIVE (NEGATIVE) 11/25/22 11:51 Ur Propoxyphene Screen NEGATIVE (NEGATIVE) 11/25/22 11:51 Acetaminophen 1.0 ug/mL (10-30) L 11/25/22 11:40 Ur Barbiturates Screen NEGATIVE (NEGATIVE) 11/25/22 11:51 Ur Tricyclics Screen NEGATIVE (NEGATIVE) 11/25/22 11:51 Ur Phencyclidine Scrn NEGATIVE (NEGATIVE) 11/25/22 11:51 Ur Amphetamine Screen NEGATIVE (NEGATIVE) 11/25/22 11:51 U Methamphetamines Scrn NEGATIVE (NEGATIVE) 11/25/22 11:51 U Benzodiazepines Scrn NEGATIVE (NEGATIVE) 11/25/22 11:51 Urine Cocaine Screen NEGATIVE (NEGATIVE) 11/25/22 11:51 U Cannabinoids Screen NEGATIVE (NEGATIVE) 11/25/22 11:51 Ethyl Alcohol < 10.0 mg/dL 11/25/22 12:53 Blood Type A NEGATIVE 11/25/22 11:42 Blood Type Recheck A NEGATIVE 11/25/22 13:46 Antibody Screen NEGATIVE 11/25/22 11:42
[2022-11-28] MEDS: levoFLOXacin 250 MG TABLET PO SCH (08:53)
[2022-11-28] MEDS ORDERED: polyethylene glycoL 3350 17 GM PACKET PO SCH (09:00)
[2022-11-28] MEDS: THIAMINE 100 MG TABLET PO SCH (14:13)
[2022-11-28] MEDS: SODIUM CHLORIDE FLUSH 0.9% 10 ML SYRINGE IVP PRN (22:22)
[2022-11-29] MEDS: ACETAMINOPHEN 325 MG TABLET PO PRN ×2 (02:08→11:05)
[2022-11-29 05:19] LABS: BASOPHILS % (AUTO) 0.1 %; HGB - HEMOGLOBIN 8.3 g/dL (14.0-18.0); LYMPHOCYTES # (AUTO) 0.1 10^3/uL (1.5-3.5); LYMPHOCYTES % (AUTO) 0.9 %; MEAN CORPUSCULAR HEMOGLOBIN 26.7 pg (27.0-31.0); MEAN CORPUSCULAR HGB CONC 28.6 g/dL (32.0-36.0); MEAN CORPUSCULAR VOLUME 93.2 fL (80.0-94.0); MEAN PLATELET VOLUME 9.6 fL (7.4-11.4); MONOCYTES # (AUTO) 0.6 10^3/uL (0.0-1.0); MONOCYTES % (AUTO) 5.8 %; NEUTROPHILS # (AUTO) 9.9 10^3/uL (1.5-6.6); NEUTROPHILS % (AUTO) 92.6 %; PLT - PLATELET COUNT 149 10^3/uL (130-450); RED BLOOD COUNT 3.11 10^6/uL (4.70-6.10); RED CELL DISTRIBUTION WIDTH 21.5 % (12.0-15.0); WHITE BLOOD COUNT 10.7 x10^3/uL (4.8-10.8)
[2022-11-29] MEDS: diltiaZEM 30 MG TABLET PO SCH (05:25)
[2022-11-29] MEDS: methylPREDNISolone SUCCINATE 40 MG/ML VIAL IVP SCH ×3 (05:26→21:22)
[2022-11-29 05:27] LABS: SLIDE REVIEW? Indicated
[2022-11-29 05:34] LABS: CREATININE 1.6 mg/dL (0.6-1.3)
[2022-11-29 06:18] LABS: PLATELET ESTIMATE, MANUAL NORMAL (130-450,000) (NORMAL)
[2022-11-29] MEDS: BUDESONIDE 0.5 MG/2 ML NEB INH SCH ×2 (07:07→19:25)
[2022-11-29] MEDS: IPRATROPIUM/ALBUTEROL 3 ML NEB INH SCH ×4 (07:07→19:25)
--- NOTE | 2022-11-29 07:59 | PROVIDER PROGRESS NOTE ---
Assessment/Plan - Problem List (1) Acute and chronic respiratory failure with hypoxia Assessment/Plan: The patient is on chronic O2 at home at 2 L/min, to treat his COPD. There was no description of recent worsening symptoms, then on the morning of 11/25, he was "snoring" but would not awaken when his SO tried to awaken him. The ambulance personnel found him to have O2 saturations of 30-60% when they arrived at the scene. He was intubated at the scene. He was admitted to our ICU. He was started on treatment for a COPD exacerbation and treated for pulmonary edema. He was extubated on 11/26. After extubation, he needed BiPAP then oxymizer for a day. He has now been back on his O2 via nasal cannula, sats are >90%. He is now talkative and not SOB at rest, back on his suppl O2 at 2L Plan: Continue with supplemental O2 Cont to treat his COPD, bronchitis, and CHF (2) CLARK (acute kidney injury) Conclusion/Plan: His admission creatinine was 1.5 (all labs were reviewed). 2 months ago he had a creatinine of 0.9. He is on iv Lasix to treat his pulmonary edema. All labs were reviewed. His creatinine has risen from 1.5>> 1.4>> 1.8>> 1.9 yesterday, and I stopped his iv Lasix. Today creat improved to 1.6. Plan: Clinically he is still somewhat volume overloaded with some leg edema and the CHF on CXR, continue daily po Lasix, which started today. Avoid any other nephrotoxins Remain off suppl KCl Follow BMP daily (3) Infection due to Enterobacter cloacae Given his COPD exacerbation, a sputum culture was sent off and he was started on empiric Zithromax and Ceftriaxone. He is already finished Zithromax. The sputum culture is growing Enterobacter. The sensitivities are available and it is not sensitive to Ceftriaxone. He likely had bronchitis, but no one here met him before he was intubated, to get a description of his cough. yesterday I stopped the iv Ceftriaxone and started him on oral Levaquin, not IV Levaquin, in order to decrease fluids. Plan: Cont po Levaquin. I will plan a 5-day course of Levaquin (4) CHF exacerbation Conclusion/Plan: CHF is as per history. His medication list shows that he was on Lasix and Kj-sgxmuks-rnctzifr, no B-jessee, MILA or Spironolactone. Two troponins were "flat, so he ruled out for acute [place] He had an Echocardiogram done 11/25, this showed a small LV, invaginated by a large RV. LV function was normal, but he has severely depressed RV function. I suspect that either A-fib with RVR put him in a heart failure exacerbation, or dietary indiscretion caused his leg edema and pulmonary edema. He is communicative and when I told him salt is not allowed and he said he "has heard that before". General Freight Agent Lisa spoke to the SO by phone and SO said she thought he needed salt because his "blood tests showed low sodium". Lisa said she instructed her that pt is actually waterlogged when his serum sodium is low. Plan: Cont PO Lasix to treat the pulmonary edema and leg edema Continue Cardizem for rate control of his A-fib (5) COPD exacerbation with bronchitis Conclusion/Plan: According to his significant other, he has been extremely debilitated for the last month, too weak to get out of bed except to go to the bathroom. He wears his oxygen 24/7. She had to bring him his meals in his bed. He has been communicative and told me that the reason he was not getting OOB was because he was "told not to get out of bed on his own at the last hospitalization" which was at [facility] 4 mos ago, not 1 mo ago. Given his COPD exacerbation, a spt was sent for cx and his sputum culture is growing Enterobacter, so I changed his empiric antibx to oral Levaquin, based on sensitivities. Plan: Cont suppl O2, with target O2 sats can be 89% or above for the COPD-er Cont iv steroids and I will cont tapering the steroid dose down. Cont antibx Cont nebs. (6) Heme pos stool Because of his anemia, guaiac stool was sent off. It came back positive I stopped his Pepcid BID ulcer prophylaxis med, and changed it to Protonix 40 twice daily. Plan: Cont new Protonix He will need W/U of this after [facility] (7) Anemia, iron deficiency Conclusion/Plan: His admission hemoglobin is 8.7. 2 months ago at the ER visit the hemoglobin was 8.8. This anemia produces even more stress regarding his LV function and pulmonary status, since he is does not have the typical compensatory increased hemoglobin that is seen in COPD-ers. The records we obtained from the [facility], and [facility] Lyons, which I reviewed, show he has an iron deficiency anemia and was supposed to be on twice daily iron. His med list here showed he was taking iron just once daily. Of note, he no longer has the thrombocytopenia that was reported when he was hospitalized in [facility] this Spring. Plan: Cont his iron replacement BID. Watch for constipation. Follow hemoglobin daily, plan would be for transfusion, followed by iv Lasix, if hemoglobin goes under 8, in this patient with acute pulmonary edema and COPD exacerbation (8) Atrial fibrillation with RVR Conclusion/Plan: IMPROVING His admission EKG showed atrial fib, rate 115. When he was sedated on the vent the heart rate was improved. After extubation yesterday heart rate was as high as 128-130. He was put on a Cardizem drip briefly for rate control. This morning he can swallow and he took an oral Cardizem dose; I changes Cardizem CD 240 daily to spread out due to "soft" BPs and ordered Cardizem 30 mg p.o. every 6 hours. [facility] is his [facility], which I reviewed. Records show a Hx of A-fib and that he was on Cardizem CD 240 mg daily, but no antiplatelet or anticoagulant was being used. Also, during his Spring admission in [facility], the summary said no anticoags were being used due to thrombocytopenia then, plt count was 50. He was able to give me some details that he had 2 severe nosebleeds which happened around the time that he had those low platelets. All labs were reviewed. He is not currently thrombocytopenic and he was not thrombocytopenic 2 months ago when in our ER. His CT doctor does not have him on an anticoagulant or aspirin now, for unknown reason. I suspect it is because the thrombocytopenia and nose bleeds were recent (4 mos ago). Plan: Remain on telemetry I will change the Cardizem 30 mg po 6 hours to Cardizem CD 120 mg BID Since his stool is guaic pos, I will not start him on Eliquis. Since he had recent thrombocytopenia, I will not start him on ASA (9) Cor Pulmonale He had an Echocardiogram done here on 11/25, which a showed a small LV, invaginated by a large RV. LV function normal. Severely depressed RV function. Cor pulmonale with "soft" BPs, bodes very poor prognosis for him, less than 1 year to live. He already is so debilitated that he is mostly bedbound at home. His leg edema has decreased significant since getting iv Lasix Plan: He needs IV Lasix to treat his pulmonary edema but that Lasix decreases his blood pressure and may be adding to CLARK. This will be a difficult management situation, where the patient has a very narrow perfect volume to achieve where he will not be volume overloaded to create pulmonary edema, but not volume depleted to create RV collapse and hypotension. The records stated that palliative care was ordered to see him when he was in [facility] hospitalized in the spring. I discussed with him on 11/27 about ordering Hospice to meet him, and he agreed. (10) Hyperglycemia Patient's medication list showed that he was on Jardiance. Unknown if he was put on this [facility] by the [facility] to decrease cardiac risk in a patient with possible CHF or CAD, or if he has DM. His glucose values by fingersticks have risen over 200, ever since IV steroids at high-doses have been started. I think the steroids are causing the current hyperglycemia. His A1c came back at 5.4, possibly this is so low from having been on Jardiance The records that I reviewed from the [facility] [place], Paul Lyons, CARLA, do not describe him as being a diabetic. Yesterday Anne-Marie confirmed that he is on Jardiance for "cardiac protection" not because of being a diabetic. She said "Dr. Francois started Jardiance because he was diagnosed with A-fib". Plan: Cont sliding scale insulin coverage order for him, institute hypoglycemia protocol. Remain off Jardiance. This patient does not have an indication to be on Jardiance, since he does not have an LVEF less than 40%, nor is he a type 2 diabetic with known cardiovascular disease (CAD, PVD). (11) History of alcohol abuse In the [facility] records it said that he used to be an alcoholic but has stopped drinking. He stated that he drinks 1 shot of whiskey per day now. Plan: Cont po Thiamine and pre- vit daily (12) Poor memory After extubation and his sedatives wore off, we spoke and he thought he was in a hospital in [facility] on [facility]. He thought he was admitted here due to a nose bleed. He claimed the reason he did not get OOB for the last 1 month was that the rehab ladies told him not to get OOB alone. (Since the hospitalization at [facility], he was ambulating and [place] since being told that). I first suspected he had some lingering effects of the IV sedatives that were used while he was on a ventilator The SO thinks he is so forgetful regarding the last 4 months is that he was probably chronically hypoxic: when driving through the [employer] [place],000 [place] elevation in August, he was hypoxic, because whenever the car was turned off there was no power to go to his oxygen generator, that caused hypoxia. He had the other documented episode of hypoxia when his tank ran out and he came to this ER 1 month. Or this may be his baseline poor memory, given his history of alcohol abuse. Plan: Continue to work with PT and OT (13) Pleural effusion, right Conclusion/Plan: At admission his chest x-ray showed a moderate pleural effusion on the right side, small on the left. This was adding to his dyspnea I ordered a thoracentesis be done by IR under ultrasound guidance. 1100 cc was removed by IR on 11/27. The post-tap CXR showed a small pneumothorax, and a 2-hour repeat CXR unchanged size of PTX. By the following day that PTX had resolved. Plan: Continue gentle diuresis (14) Pneumothorax Conclusion/Plan: RESOLVED The Interventional Radiologist called me after the 2nd CXR, which was read as having unchanged PTX size, along the R lateral rib cage. He advised to monitor resps and repeat CXR tomorrow. Plan: Will start PT and OT today. (15) On mechanically assisted ventilation Conclusion/Plan: RESOLVED Extubated on 11/26 - Current Meds Current Meds: Current Medications Generic Name Dose Route Start Last Admin Trade Name Freq PRN Reason Stop Dose Admin Acetaminophen 650 mg 11/27/22 11:13 11/29/22 02:08 Acetaminophen 325 Mg Tablet PO 650 mg Q4HR PRN Administration Pain or Fever > 38C (100.4F) Albuterol/Ipratropium 3 ml 11/25/22 19:00 11/29/22 07:07 Ipratropium/Albuterol 3 Ml Neb INH 3 ml RTQID FRANCISCO Administration Albuterol/Ipratropium 3 ml 11/27/22 02:10 11/27/22 02:43 Ipratropium/Albuterol 3 Ml Neb INH 3 ml Q4HR PRN Administration Shortness of Air/Wheezing Budesonide 0.5 mg 11/27/22 08:48 11/29/22 07:07 Budesonide 0.5 Mg/2 Ml Neb INH 0.5 mg RTBID FRANCISCO Administration Ferrous Sulfate 650 mg 11/27/22 17:00 11/28/22 16:34 Ferrous Sulfate 325 Mg Tablet PO 650 mg BIDWM FRANCISCO Administration Guaifenesin 600 mg 11/27/22 09:00 11/28/22 20:41 Guaifenesin 600 Mg Tablet PO 600 mg BID FRANCISCO Administration Insulin Human Lispro 1 - 5 unit 11/27/22 15:20 11/28/22 20:41 Insulin Lispro 300 Unit/3 Ml Pen SUBQ 1 unit 0800,1200,1700,2100 FRANCISCO Administration Protocol Levofloxacin 750 mg 11/28/22 09:00 11/28/22 08:53 Levofloxacin 250 Mg Tablet PO 750 mg DAILY FRANCISCO Administration Methylprednisolone 80 mg 11/25/22 22:00 11/29/22 05:26 Methylprednisolone Succinate 40 Mg/Ml Vial IVP 80 mg TID FRANCISCO Administration Mineral Oil 1 applic 11/27/22 09:40 11/27/22 10:21 Min Oil/Dimethicon/Coconut Oil 92 Gm Tube TOP 1 applic PRN PRN Administration Skin Care Pantoprazole Sodium 40 mg 11/28/22 09:00 11/28/22 20:41 Pantoprazole 40 Mg Tablet PO 40 mg BID FRANCISCO Administration Polyethylene Glycol 17 gm 11/27/22 10:00 11/28/22 08:20 Polyethylene Glycol 3350 17 Gm Packet PO 17 gm DAILY FRANCISCO Administration Polyethylene Glycol 17 gm 11/28/22 09:00 11/28/22 11:29 Polyethylene Glycol 3350 17 Gm Packet PO Not Given DAILY FRANCISCO Multivit/Folic Acid/Iron 1 tab 11/27/22 13:00 11/28/22 08:19 Vitamin Tablet PO 1 tab DAILYWM FRANCISCO Administration Sodium Chloride 10 ml 11/25/22 17:00 11/28/22 23:53 Sodium Chloride Flush 0.9% 10 Ml Syringe IVP 10 ml 0100,0900,1700 FRANCISCO Administration Sodium Chloride 10 ml 11/25/22 14:33 11/28/22 22:22 Sodium Chloride Flush 0.9% 10 Ml Syringe IVP 10 ml PRN PRN Administration NEEDED PER PROVIDER ORDERS Thiamine HCl 100 mg 11/28/22 13:00 11/28/22 14:13 Thiamine 100 Mg Tablet PO 100 mg DAILY FRANCISCO Administration - Lab Result Fish Bone Diagrams: 11/29/22 04:31 11/29/22 04:31 - Additional Planning My Orders: My Active Orders 11/28/22 08:08 Miscellaenous Nursing Order [RC] QSHIFT 11/28/22 09:00 Pantoprazole [Protonix] 40 mg PO BID levoFLOXacin [Levaquin] 750 mg PO DAILY polyethylene glycoL 3350 [Miralax] 17 gm PO DAILY 11/28/22 13:00 Thiamine [Vitamin B-1] 100 mg PO DAILY 11/29/22 09:00 [id number] CD [Cardizem Cd] 120 mg PO DAILY 11/30/22 05:00 BMP - BASIC METABOLIC PANEL [CHEM] DAILYLAB CBC - COMP BLD CT W/AUTO DIFF [HEME] DAILYLAB 12/01/22 05:00 BMP - BASIC METABOLIC PANEL [CHEM] DAILYLAB HGB - HEMOGLOBIN [HEME] DAILYLAB 12/02/22 05:00 BMP - BASIC METABOLIC PANEL [CHEM] DAILYLAB HGB - HEMOGLOBIN [HEME] DAILYLAB 12/03/22 05:00 HGB - HEMOGLOBIN [HEME] DAILYLAB 12/04/22 05:00 HGB - HEMOGLOBIN [HEME] DAILYLAB Subjective - Subjective Patient Reports: Feeling Better, No Complaints Objective Vital Signs: Vital Signs - 24 hr 11/28/22 11/28/22 11/28/22 08:00 09:00 11:19 Temperature 36.3 C L Heart Rate 106 H Heart Rate [ Activity] Heart Rate [ Brachial] Heart Rate [ 106 H 96 Monitoring electrodes] Heart Rate [ Sitting] Respiratory 24 28 H 22 Rate Blood Pressure Blood Pressure [Activity] Blood Pressure 108/61 126/77 [Right Brachial artery] Blood Pressure [Sitting] O2 Saturation 91 L 91 L If not protocol 3 3 2 : Oxygen Flow, liters/minute 11/28/22 11/28/22 11/28/22 12:01 12:43 13:00 Temperature Heart Rate Heart Rate [ 106 H Activity] Heart Rate [ Brachial] Heart Rate [ 102 H Monitoring electrodes] Heart Rate [ 110 H Sitting] Respiratory 22 Rate Blood Pressure 109/93 H Blood Pressure 114/64 [Activity] Blood Pressure 114/64 [Right Brachial artery] Blood Pressure 129/87 H [Sitting] O2 Saturation 98 If not protocol 2 : Oxygen Flow, liters/minute 11/28/22 11/28/22 11/28/22 15:56 16:03 18:11 Temperature 36.3 C L Heart Rate 90 Heart Rate [ Activity] Heart Rate [ 97 Brachial] Heart Rate [ Monitoring electrodes] Heart Rate [ Sitting] Respiratory 20 20 Rate Blood Pressure 117/65 Blood Pressure [Activity] Blood Pressure 142/76 H [Right Brachial artery] Blood Pressure [Sitting] O2 Saturation 98 If not protocol 3 : Oxygen Flow, liters/minute 11/28/22 11/28/22 11/28/22 19:12 20:32 23:51 Temperature 36.4 C L Heart Rate 100 Heart Rate [ Activity] Heart Rate [ 95 Brachial] Heart Rate [ Monitoring electrodes] Heart Rate [ Sitting] Respiratory 16 24 Rate Blood Pressure 116/75 Blood Pressure [Activity] Blood Pressure 133/74 H [Right Brachial artery] Blood Pressure [Sitting] O2 Saturation 98 If not protocol 3.5 4 : Oxygen Flow, liters/minute 11/29/22 11/29/22 11/29/22 00:05 05:20 05:25 Temperature 36.9 C 36.9 C Heart Rate Heart Rate [ Activity] Heart Rate [ 97 Brachial] Heart Rate [ 110 H Monitoring electrodes] Heart Rate [ Sitting] Respiratory 16 18 Rate Blood Pressure 134/82 H Blood Pressure [Activity] Blood Pressure 116/75 134/82 H [Right Brachial artery] Blood Pressure [Sitting] O2 Saturation 97 92 If not protocol 2 2 : Oxygen Flow, liters/minute 11/29/22 11/29/22 07:09 07:25 Temperature 36.5 C Heart Rate 98 Heart Rate [ Activity] Heart Rate [ 89 Brachial] Heart Rate [ Monitoring electrodes] Heart Rate [ Sitting] Respiratory 18 20 Rate Blood Pressure Blood Pressure [Activity] Blood Pressure 130/84 H [Right Brachial artery] Blood Pressure [Sitting] O2 Saturation 97 If not protocol 3 4 : Oxygen Flow, liters/minute Oxygen O2 Source Nasal cannula I&O (Last 24 Hrs): Intake and Output Totals x24h 11/27/22 11/28/22 11/29/22 23:59 23:59 23:59 Intake Total 1640.0 988.01 Output Total 3290 2385 600 Balance -1650.0 -1396.99 -600 General: Alert, Oriented x3 HEENT: Mucous membr. moist/pink, Other (Edentulous) Neck: Supple, Other ((+) JVD) Neuro: Alert, Non Focal, Other (Poor memory) Cardiovascular: No murmurs (Distant heart sounds) Respiratory: No respiratory distress, Other (Poor air mvm in all lung firlds) Abdomen: Soft, No tenderness Extremities: No clubbing, Other (1+ edema to knees) - Results Results: Laboratory Results WBC 10.7 x10^3/uL (4.8-10.8) 11/29/22 04:31 RBC 3.11 10^6/uL (4.70-6.10) L 11/29/22 04:31 Hgb 8.3 g/dL (14.0-18.0) L 11/29/22 04:31 Hct 29.0 % (42.0-52.0) L 11/29/22 04:31 MCV 93.2 fL (80.0-94.0) 11/29/22 04:31 MCH 26.7 pg (27.0-31.0) L 11/29/22 04:31 MCHC 28.6 g/dL (32.0-36.0) L 11/29/22 04:31 RDW 21.5 % (12.0-15.0) H 11/29/22 04:31 Plt Count 149 10^3/uL (130-450) 11/29/22 04:31 MPV 9.6 fL (7.4-11.4) 11/29/22 04:31 Neut # (Auto) 9.9 10^3/uL (1.5-6.6) H 11/29/22 04:31 Lymph # (Auto) 0.1 10^3/uL (1.5-3.5) L 11/29/22 04:31 [place] # (Auto) 0.6 10^3/uL (0.0-1.0) 11/29/22 04:31 Eos # (Auto) 0.0 10^3/uL (0.0-0.7) 11/29/22 04:31 Baso # (Auto) 0.0 10^3/uL (0.0-0.1) 11/29/22 04:31 Absolute Nucleated RBC 0.00 x10^3/uL 11/29/22 04:31 Nucleated RBC % 0.0 /100WBC 11/29/22 04:31 Manual Slide Review Indicated 11/29/22 04:31 WBC Morphology NORMAL APPEARANCE (NORMAL) 11/26/22 04:48 Platelet Estimate NORMAL (130-450,000) (NORMAL) 11/29/22 04:31 Platelet Morphology NORMAL APPEARANCE (NORMAL) 11/26/22 04:48 RBC Morph Micro Appear 1+ ANISOCYTOSIS (NORMAL) 1+ HYPOCHROMASIA (NORMAL) 1+ OVALOCYTES (NORMAL) 11/29/22 04:31 RBC Morph Micro Appear 1+ ANISOCYTOSIS (NORMAL) 1+ HYPOCHROMASIA (NORMAL) 1+ OVALOCYTES (NORMAL) 11/29/22 04:31 RBC Morph Micro Appear 1+ ANISOCYTOSIS (NORMAL) 1+ HYPOCHROMASIA (NORMAL) 1+ OVALOCYTES (NORMAL) 11/29/22 04:31 PT 12.7 secs (9.9-12.6) H 11/25/22 11:40 INR 1.2 (0.8-1.2) 11/25/22 11:40 Bld Gas Analysis Time 0608 11/26/22 05:55 Sample Site RIGHT RADIAL 11/26/22 05:55 ABG pH 7.54 (7.35-7.45) H 11/26/22 05:55 ABG pCO2 33 mmHg (34-45) L 11/26/22 05:55 ABG pO2 105 mmHg (80-100) H 11/26/22 05:55 ABG HCO3 28.1 mmol/L (22.0-26.0) H 11/26/22 05:55 ABG Total CO2 29.1 MMOL/L (21.0-29.0) H 11/26/22 05:55 ABG O2 Saturation 99 % (94-98) H 11/26/22 05:55 ABG Base Excess 5.6 mmol/L (-2.0-3.0) H 11/26/22 05:55 Valentin Test POSITIVE 11/26/22 05:55 VBG pH 7.376 (7.31-7.41) 11/28/22 05:14 Ionized Calcium 1.11 mmol/L (1.15-1.33) L 11/28/22 05:14 Respiration Rate 18 b/min 11/26/22 05:55 O2 Delivery Device VENTILATOR 11/26/22 05:55 Vent Mode SIMV 11/26/22 05:55 FiO2 40.00 11/26/22 05:55 Tidal Volume 400 mL 11/26/22 05:55 PEEP 5 cmH2O 11/26/22 05:55 Pressure Support Vent 12 cmH2O 11/26/22 05:55 Sodium 135 mmol/L (135-145) 11/29/22 04:31 Potassium 5.0 mmol/L (3.5-4.5) H 11/29/22 04:31 Chloride 95 mmol/L (101-111) L 11/29/22 04:31 Carbon Dioxide 35 mmol/L (21-32) H 11/29/22 04:31 Anion Gap 5.0 (6-13) L 11/29/22 04:31 BUN 54 mg/dL (6-20) H 11/29/22 04:31 Creatinine 1.6 mg/dL (0.6-1.3) H 11/29/22 04:31 Estimated GFR (MDRD) 42 (>89) L 11/29/22 04:31 Glucose 162 mg/dL (74-104) H 11/29/22 04:31 POC Whole Bld Glucose 143 mg/dL (70 - 100) H 11/29/22 07:24 Estimat Average Glucose 108 mg/dL (70-100) H 11/26/22 11:15 Hemoglobin A1c % 5.4 % (4.27-6.07) 11/26/22 11:15 Lactic Acid 2.6 mmol/L (0.5-2.2) H 11/25/22 14:01 Calcium 9.0 mg/dL (8.5-10.3) 11/29/22 04:31 Phosphorus 5.5 mg/dL (3.7-7.2) 11/28/22 05:14 Magnesium 2.2 mg/dL (1.7-2.3) 11/28/22 05:14 Iron 25 ug/dL (45-182) L 11/26/22 11:15 TIBC 263 ug/dL (250-450) 11/26/22 11:15 % Saturation 9 % (20-50) L 11/26/22 11:15 Transferrin 188 mg/dL (180-329) 11/26/22 11:15 Total Bilirubin 0.5 mg/dL (0.2-1.0) 11/25/22 11:40 AST 13 IU/L (10-42) 11/25/22 11:40 ALT < 10 IU/L (10-60) L 11/25/22 11:40 Alkaline Phosphatase 78 IU/L (42-121) 11/25/22 11:40 Ammonia 24.9 umol/L (7-35) 11/25/22 11:40 Troponin I High Sens 11.7 ng/L (2.3-19.7) 11/25/22 17:35 Total Protein 6.7 g/dL (6.4-8.9) 11/25/22 11:40 Albumin 3.3 g/dL (3.2-5.5) 11/25/22 11:40 Globulin 3.4 g/dL (2.1-4.2) 11/25/22 11:40 Albumin/Globulin Ratio 1.0 (1.0-2.2) 11/25/22 11:40 Lipase 13 U/L (11-82) 11/25/22 11:40 Vitamin B12 509 pg/mL (180-914) 11/26/22 11:15 Folate 8.3 ng/mL (5.90 - >24.8) 11/26/22 11:15 Urine Color DARK YELLOW 11/25/22 11:51 Urine Clarity CLEAR (CLEAR) 11/25/22 11:51 Urine pH 5.5 PH (5.0-7.5) 11/25/22 11:51 Ur Specific [place] 1.020 (1.002-1.030) 11/25/22 11:51 Urine Protein TRACE mg/dL (NEGATIVE) 11/25/22 11:51 Urine Glucose (UA) >=1000 mg/dL (NEGATIVE) H 11/25/22 11:51 Urine Ketones NEGATIVE mg/dL (NEGATIVE) 11/25/22 11:51 Urine Occult Blood NEGATIVE (NEGATIVE) 11/25/22 11:51 Urine Nitrite NEGATIVE (NEGATIVE) 11/25/22 11:51 Urine Bilirubin NEGATIVE (NEGATIVE) 11/25/22 11:51 Urine Urobilinogen 0.2 (NORMAL) E.U./dL (NORMAL) 11/25/22 11:51 Ur Leukocyte Esterase NEGATIVE (NEGATIVE) 11/25/22 11:51 Ur Microscopic Review NOT INDICATED 11/25/22 11:51 Urine Culture Comments NOT INDICATED 11/25/22 11:51 Nasal Adenovirus (PCR) NOT DETECTED 11/25/22 11:51 Nasal B. parapertussis DNA (PCR) NOT DETECTED 11/25/22 11:51 Nasal Coronavir 229E PCR NOT DETECTED 11/25/22 11:51 Nasal Coronavir HKU1 PCR NOT DETECTED 11/25/22 11:51 Nasal Coronavir NL63 PCR NOT DETECTED 11/25/22 11:51 Nasal Coronavir OC43 PCR NOT DETECTED 11/25/22 11:51 Nasal Enterovir/Rhinovir PCR NOT DETECTED 11/25/22 11:51 Nasal Influenza B PCR NOT DETECTED 11/25/22 11:51 Nasal Influenza A PCR NOT DETECTED 11/25/22 11:51 Nasal Parainfluen 1 PCR NOT DETECTED 11/25/22 11:51 Nasal Parainfluen 2 PCR NOT DETECTED 11/25/22 11:51 Nasal Parainfluen 3 PCR NOT DETECTED 11/25/22 11:51 Nasal Parainfluen 4 PCR NOT DETECTED 11/25/22 11:51 Nasal RSV (PCR) NOT DETECTED 11/25/22 11:51 Nasal Screen MRSA (PCR) NEGATIVE (NEGATIVE) 11/25/22 16:12 Nasal B.pertussis DNA PCR NOT DETECTED 11/25/22 11:51 Nasal C.pneumoniae (PCR) NOT DETECTED 11/25/22 11:51 Aj Human Metapneumo PCR NOT DETECTED 11/25/22 11:51 Nasal M.pneumoniae (PCR) NOT DETECTED 11/25/22 11:51 Nasal SARS-CoV-2 (PCR) NOT DETECTED 11/25/22 11:51 Salicylates < 1.5 mg/dL 11/25/22 11:40 Urine Opiates Screen NEGATIVE (NEGATIVE) 11/25/22 11:51 Ur Oxycodone Screen NEGATIVE (NEGATIVE) 11/25/22 11:51 Urine Methadone Screen NEGATIVE (NEGATIVE) 11/25/22 11:51 Ur Propoxyphene Screen NEGATIVE (NEGATIVE) 11/25/22 11:51 Acetaminophen 1.0 ug/mL (10-30) L 11/25/22 11:40 Ur Barbiturates Screen NEGATIVE (NEGATIVE) 11/25/22 11:51 Ur Tricyclics Screen NEGATIVE (NEGATIVE) 11/25/22 11:51 Ur Phencyclidine Scrn NEGATIVE (NEGATIVE) 11/25/22 11:51 Ur Amphetamine Screen NEGATIVE (NEGATIVE) 11/25/22 11:51 U Methamphetamines Scrn NEGATIVE (NEGATIVE) 11/25/22 11:51 U Benzodiazepines Scrn NEGATIVE (NEGATIVE) 11/25/22 11:51 Urine Cocaine Screen NEGATIVE (NEGATIVE) 11/25/22 11:51 U Cannabinoids Screen NEGATIVE (NEGATIVE) 11/25/22 11:51 Ethyl Alcohol < 10.0 mg/dL 11/25/22 12:53 Blood Type A NEGATIVE 11/25/22 11:42 Blood Type Recheck A NEGATIVE 11/25/22 13:46 Antibody Screen NEGATIVE 11/25/22 11:42
[2022-11-29] MEDS: polyethylene glycoL 3350 17 GM PACKET PO SCH (08:09)
[2022-11-29] MEDS: PANTOPRAZOLE 40 MG TABLET PO SCH ×2 (08:09→21:20)
[2022-11-29] MEDS: levoFLOXacin 250 MG TABLET PO SCH (08:09)
[2022-11-29] MEDS: THIAMINE 100 MG TABLET PO SCH (08:10)
[2022-11-29] MEDS: INSULIN LISPRO 300 UNIT/3 ML PEN SUBQ SCH ×4 (08:10→21:20)
[2022-11-29] MEDS: guaiFENesin 600 MG TABLET PO SCH ×2 (08:10→21:20)
[2022-11-29] MEDS: FERROUS SULFATE 325 MG TABLET PO SCH ×2 (08:10→17:01)
[2022-11-29] MEDS: PRENATAL VITAMIN TABLET PO SCH (08:10)
[2022-11-29] MEDS: SODIUM CHLORIDE FLUSH 0.9% 10 ML SYRINGE IVP SCH ×2 (08:11→17:01)
[2022-11-29] MEDS ORDERED: diltiaZEM CD 120 MG CAPSULE PO SCH (09:00)
[2022-11-29] MEDS: SACCHAROMYCES BOULARDII 250 MG CAPSULE PO SCH (17:01)
[2022-11-29] MEDS: diltiaZEM CD 120 MG CAPSULE PO SCH (18:06)
[2022-11-29] MEDS: SODIUM CHLORIDE FLUSH 0.9% 10 ML SYRINGE IVP PRN (21:21)
[2022-11-29] MEDS ORDERED: SIMETHICONE CHEW 80 MG TABLET PO ONE (21:23)
[2022-11-29] MEDS: SIMETHICONE CHEW 80 MG TABLET PO PRN (23:42)
[2022-11-30] MEDS: ACETAMINOPHEN 325 MG TABLET PO PRN ×3 (00:09→18:29)
[2022-11-30] MEDS: SODIUM CHLORIDE FLUSH 0.9% 10 ML SYRINGE IVP SCH ×3 (00:15→17:01)
[2022-11-30 05:33] LABS: BASOPHILS % (AUTO) 0.1 %; HGB - HEMOGLOBIN 8.5 g/dL (14.0-18.0); LYMPHOCYTES # (AUTO) 0.1 10^3/uL (1.5-3.5); LYMPHOCYTES % (AUTO) 0.9 %; MEAN CORPUSCULAR HGB CONC 29.3 g/dL (32.0-36.0); MEAN CORPUSCULAR VOLUME 92.1 fL (80.0-94.0); MEAN PLATELET VOLUME 10.1 fL (7.4-11.4); MONOCYTES # (AUTO) 0.6 10^3/uL (0.0-1.0); MONOCYTES % (AUTO) 5.3 %; NEUTROPHILS # (AUTO) 10.8 10^3/uL (1.5-6.6); NEUTROPHILS % (AUTO) 93.1 %; PLT - PLATELET COUNT 152 10^3/uL (130-450); RED BLOOD COUNT 3.15 10^6/uL (4.70-6.10); RED CELL DISTRIBUTION WIDTH 21.3 % (12.0-15.0); WHITE BLOOD COUNT 11.6 x10^3/uL (4.8-10.8)
[2022-11-30 05:48] LABS: SLIDE REVIEW? Indicated
[2022-11-30 05:50] LABS: CALCIUM 8.9 mg/dL (8.5-10.3); CREATININE 1.3 mg/dL (0.6-1.3); POTASSIUM 4.8 mmol/L (3.5-4.5)
[2022-11-30 06:07] LABS: PLATELET ESTIMATE, MANUAL NORMAL (130-450,000) (NORMAL); PLATELET MORPHOLOGY NORMAL APPEARANCE (NORMAL); WBC MORPHOLOGY (MULTIPLE) NORMAL APPEARANCE (NORMAL)
[2022-11-30] MEDS: methylPREDNISolone SUCCINATE 40 MG/ML VIAL IVP SCH ×3 (06:13→21:21)
[2022-11-30] MEDS: IPRATROPIUM/ALBUTEROL 3 ML NEB INH SCH ×4 (07:41→18:20)
[2022-11-30] MEDS: BUDESONIDE 0.5 MG/2 ML NEB INH SCH ×2 (07:41→18:20)
[2022-11-30] MEDS: INSULIN LISPRO 300 UNIT/3 ML PEN SUBQ SCH ×4 (07:43→21:22)
[2022-11-30] MEDS: FERROUS SULFATE 325 MG TABLET PO SCH (08:22)
[2022-11-30] MEDS: SACCHAROMYCES BOULARDII 250 MG CAPSULE PO SCH ×2 (08:22→17:01)
[2022-11-30] MEDS: diltiaZEM CD 120 MG CAPSULE PO SCH ×2 (08:22→18:19)
[2022-11-30] MEDS: PRENATAL VITAMIN TABLET PO SCH (08:22)
[2022-11-30] MEDS: polyethylene glycoL 3350 17 GM PACKET PO SCH (09:30)
[2022-11-30] MEDS: THIAMINE 100 MG TABLET PO SCH (09:30)
[2022-11-30] MEDS: levoFLOXacin 250 MG TABLET PO SCH (09:30)
[2022-11-30] MEDS: guaiFENesin 600 MG TABLET PO SCH ×2 (09:30→21:21)
[2022-11-30] MEDS ORDERED: MORPHINE 2 MG/ML CARPUJECT IVP PRN (14:40)
--- NOTE | 2022-11-30 14:59 | XRAY Report ---
PROCEDURE: Chest 1 View X-Ray INDICATIONS: Worsening of shortness of breath x1 day TECHNIQUE: One view of the chest was acquired. COMPARISON: None. FINDINGS: Moderate right pleural effusion present. Heart size is enlarged, there is aortic vascular consults ca lcification and moderate vascular congestion. Osseous structures demineralized. IMPRESSION: Cardiomegaly, moderate vascular congestion and right pleural effusion Reviewed by: Yoel Barnard MD on 11/30/2022 1:58 PM AKDT Approved by: Yoel Barnard MD on 11/30/2022 1:58 PM AKDT Station ID: [id number]
--- NOTE | 2022-11-30 15:10 | PROVIDER PROGRESS NOTE ---
Assessment/Plan - Problem List (1) Acute and chronic respiratory failure with hypoxia Assessment/Plan: The patient is on chronic O2 at home at 2 L/min, to treat his COPD. There was no description of recent worsening symptoms, then on the morning of 11/25, he was "snoring" but would not awaken when his SO tried to awaken him. The ambulance personnel found him to have O2 saturations of 30-60% when they arrived at the scene. He was intubated at the scene. He was admitted to our ICU. He was started on treatment for a COPD exacerbation and treated for pulmonary edema. He was extubated on 11/26. After extubation, he needed BiPAP then oxymizer for a day. He has now been back on his O2 via nasal cannula, sats are >90%. He has been transferred out of the ICU. He is now talkative and not SOB at rest, back on his suppl O2 at 2L Plan: Continue with supplemental O2 Cont to treat his COPD, bronchitis, CHF and will re-tap the reaccumulated pleural fluid (see #2) (2) Pleural effusion, right Conclusion/Plan: At admission, his chest x-ray showed a moderate pleural effusion on the right side, likely adding to his dyspnea. Thoracentesis was done on 11/27, and 1.1 L wa s removed Today he had more tachypnea at rest per the RT, and a repeat chest x-ray was done. This again shows a moderate pleural effusion on the right Plan: I will order another thoracentesis under ultrasound guidance. With this pleural fluid tap, I will send it off for culture and for cytology (Lab was called) Continue gentle diuresis (3) CLARK (acute kidney injury) Conclusion/Plan: His admission creatinine was 1.5 (all labs were reviewed). 2 months ago he had a creatinine of 0.9. He is on iv Lasix to treat his pulmonary edema. All labs were reviewed. His creatinine has risen from 1.5>> 1.4>> 1.8>> 1.9 yesterday, and I changed his iv Lasix to po Lasix, then creat improved to 1.6 yesterday. Today creat improved to 1.3. Plan: Continue daily po Lasix Avoid any other nephrotoxins Remain off suppl KCl Follow BMP daily (4) Infection due to Enterobacter cloacae Given his COPD exacerbation, a sputum culture was sent off and he was started on empiric Zithromax and Ceftriaxone. He is already finished Zithromax. The sputum culture is growing Enterobacter. The sensitivities are available and it is not sensitive to Ceftriaxone. He likely had bronchitis, but no one here met him before he was intubated, to get a description of his cough. yesterday I stopped the iv Ceftriaxone and started him on oral Levaquin, not IV Levaquin, in order to decrease fluids. Plan: Cont po Levaquin. I will plan a 5-day course of Levaquin (5) CHF exacerbation Conclusion/Plan: CHF is as per history. His medication list shows that he was on Lasix and Fl-[id number], no B-jessee, MILA or Spironolactone. Two troponins were "flat, so he ruled out for acute TX He had an Echocardiogram done 11/25, this showed a small LV, invaginated by a large RV. LV function was normal, but he has severely depressed RV function. I suspect that either A-fib with RVR put him in a heart failure exacerbation, or dietary indiscretion caused his leg edema and pulmonary edema. He is communicative and when I told him salt is not allowed and he said he "has heard that before". Roller Leveler Lisa spoke to the SO by phone and SO said she thought he needed salt because his "blood tests showed low sodium". Lisa said she instructed her that pt is actually waterlogged when his serum sodium is low. Plan: Cont PO Lasix to treat the pulmonary edema and leg edema Continue Cardizem for rate control of his A-fib (6) COPD exacerbation with bronchitis Conclusion/Plan: According to his significant other, he has been extremely debilitated for the last month, too weak to get out of bed except to go to the bathroom. He wears his oxygen 24/. She had to bring him his meals in his bed. He has been communicative and told me that the reason he was not getting OOB was because he was "told not to get out of bed on his own at the last hospitalization" which was at [facility] [place] 4 mos ago, not 1 mo ago. Given his COPD exacerbation, a spt was sent for cx and his sputum culture is growing Enterobacter, so I changed his empiric antibx to oral Levaquin, based on sensitivities. Plan: Cont suppl O2, with target O2 sats can be 89% or above for the COPD-er Cont iv steroids and I will cont tapering the steroid dose down. Cont antibx Cont nebs. (7) Heme pos stool Because of his anemia, guaiac stool was sent off. It came back positive I stopped his Pepcid BID ulcer prophylaxis med, and changed it to Protonix 40 twice daily. Plan: Cont new Protonix He will need W/U of this after DCh (8) Anemia, iron deficiency Conclusion/Plan: His admission hemoglobin is 8.7. 2 months ago at the ER visit the hemoglobin was 8.8. This anemia produces even more stress regarding his LV function and pulmonary status, since he is does not have the typical compensatory increased hemoglobin that is seen in COPD-ers. [facility] and [facility]LA Lyons, which I reviewed, show he has an iron deficiency anemia and was supposed to be on twice daily iron. His med list here showed he was taking iron just once daily. Of note, he no longer has the thrombocytopenia that was reported when he was hospitalized in [facility] [place] this Spring. Plan: Cont his iron replacement BID. Watch for constipation. Follow hemoglobin daily, plan would be for transfusion, followed by iv Lasix, if hemoglobin goes under 8, in this patient with acute pulmonary edema and COPD exacerbation (9) Atrial fibrillation with RVR Conclusion/Plan: IMPROVING His admission EKG showed atrial fib, rate 115. When he was sedated on the vent the heart rate was improved. After extubation yesterday heart rate was as high as 128-130. He was put on a Cardizem drip briefly for rate control. This morning he can swallow and he took an oral Cardizem dose; I changes Cardizem CD 240 daily to spread out due to "soft" BPs and ordered Cardizem 30 mg p.o. every 6 hours. [facility] Ly[facility] is his [facility]CP, which I reviewed. Records show a Hx of A-fib and that he was on Cardizem CD 240 mg daily, but no antiplatelet or anticoagulant was being used. Also, during his Spring admission in [facility] [place], the summary said no anticoags were being used due to thrombocytopenia then, plt count was 50. He was able to give me some details that he had 2 severe nosebleeds which happened around the time that he had those low platelets. All labs were reviewed. He is not currently thrombocytopenic and he was not thrombocytopenic 2 months ago when in our ER. His [facility] doctor does not have him on an anticoagulant or aspirin now, for unknown reason. I suspect it is because the thrombocytopenia and nose bleeds were recent (4 mos ago). I changed the Cardizem 30 mg po 6 hours to Cardizem CD 120 mg BID, which has his HR under better control (90-100). Plan: Remain on telemetry Since his stool is guaic pos, I will not start him on Eliquis. Since he had recent thrombocytopenia, I will not start him on ASA (10) Cor Pulmonale He had an Echocardiogram done here on 11/25, which a showed a small LV, invaginated by a large RV. LV function normal. Severely depressed RV function. Cor pulmonale with "soft" BPs, bodes very poor prognosis for him, less than 1 year to live. He already is so debilitated that he is mostly bedbound at home. His leg edema has decreased significant since getting iv Lasix Plan: He needs IV Lasix to treat his pulmonary edema but that Lasix decreases his blood pressure and may be adding to CLARK. This will be a difficult management situation, where the patient has a very narrow perfect volume to achieve where he will not be volume overloaded to create pulmonary edema, but not volume depleted to create RV collapse and hypotension. The records stated that palliative care was ordered to see him when he was in [facility] [place] hospitalized in the spring. I discussed with him on 11/27 about ordering Hospice to meet him in the future, and he agreed. (11) Hyperglycemia Patient's medication list showed that he was on Jardiance. Unknown if he was put on this 1 month ago by the [facility] provider to decrease cardiac risk in a patient with possible CHF or CAD, or if he has DM. His glucose values by fingersticks have risen over 200, ever since IV steroids at high-doses have been started. I think the steroids are causing the current hyperglycemia. His A1c came back at 5.4, possibly this is so low from having been on Jardiance The records that I reviewed from the [place] [facility], Paul Lyons NP, do not describe him as being a diabetic. Yesterday Anne-Marie confirmed that he is on Jardiance for "cardiac protection" not because of being a diabetic. She said "Dr. Francois started Jardiance because he was diagnosed with A-fib". Plan: Cont sliding scale insulin coverage order for him, institute hypoglycemia protocol. Remain off Jardiance. This patient does not have an indication to be on Jardiance, since he does not have an LVEF less than 40%, nor is he a type 2 diabetic with known cardiovascular disease (CAD, PVD). (12) History of alcohol abuse In the [facility] [place] records it said that he used to be an alcoholic but has stopped drinking. He stated that he drinks 1 shot of whiskey per day now. Plan: Cont po Thiamine and pre-lizzette vit daily (13) Poor memory After extubation and his sedatives wore off, we spoke and he thought he was in a hospital in [facility] [place] on [facility]. He thought he was admitted here due to a nose bleed. He claimed the reason he did not get OOB for the last 1 month was that the rehab ladies told him not to get OOB alone. (Since the hospitalization at [facility], he was ambulating and he even moved [place] since being told that). I first suspected he had some lingering effects of the IV sedatives that were used while he was on a ventilator The SO thinks he is so forgetful regarding the last 4 months is that he was probably chronically hypoxic: when driving [place] the [place], he was hypoxic, because whenever the car was turned off there was no power to go to his oxygen generator, that caused hypoxia. He had the other documented episode of hypoxia when his tank ran out and he came to this ER 1 month. Or this may be his baseline poor memory, given his history of alcohol abuse. Plan: Continue to work with PT and OT (14) Pneumothorax Conclusion/Plan: RESOLVED The Interventional Radiologist called me after the 2nd CXR, which was read as having unchanged PTX size, along the R lateral rib cage. He advised to monitor resps and repeat CXR the next day, when the PTX was nearly resolved. (15) On mechanically assisted ventilation Conclusion/Plan: RESOLVED. He was extubated on 11/26 - Current Meds Current Meds: Current Medications Generic Name Dose Route Start Last Admin Trade Name Freq PRN Reason Stop Dose Admin Acetaminophen 650 mg 11/27/22 11:13 11/30/22 10:18 Acetaminophen 325 Mg Tablet PO 650 mg Q4HR PRN Administration Pain or Fever > 38C (100.4F) Albuterol/Ipratropium 3 ml 11/25/22 19:00 11/30/22 14:32 Ipratropium/Albuterol 3 Ml Neb INH 3 ml RTQID FRANCISCO Administration Albuterol/Ipratropium 3 ml 11/27/22 02:10 11/27/22 02:43 Ipratropium/Albuterol 3 Ml Neb INH 3 ml Q4HR PRN Administration Shortness of Air/Wheezing Budesonide 0.5 mg 11/27/22 08:48 11/30/22 07:41 Budesonide 0.5 Mg/2 Ml Neb INH 0.5 mg RTBID FRANCISCO Administration Diltiazem HCl 120 mg 11/29/22 18:00 11/30/22 08:22 Diltiazem Cd 120 Mg Capsule PO 120 mg 0800,1800 FRANCISCO Administration Guaifenesin 600 mg 11/27/22 09:00 11/30/22 09:30 Guaifenesin 600 Mg Tablet PO 600 mg BID FRANCISCO Administration Insulin Human Lispro 1 - 5 unit 11/27/22 15:20 11/30/22 11:56 Insulin Lispro 300 Unit/3 Ml Pen SUBQ 1 unit 0800,1200,1700,2100 FRANCISCO Administration Protocol Levofloxacin 750 mg 11/28/22 09:00 11/30/22 09:30 Levofloxacin 250 Mg Tablet PO 12/03/22 00:01 750 mg DAILY FRANCISCO Administration Methylprednisolone 40 mg 11/29/22 14:10 11/30/22 14:36 Methylprednisolone Succinate 40 Mg/Ml Vial IVP 40 mg TID FRANCISCO Administration Mineral Oil 1 applic 11/27/22 09:40 11/27/22 10:21 Min Oil/Dimethicon/Coconut Oil 92 Gm Tube TOP 1 applic PRN PRN Administration Skin Care Polyethylene Glycol 17 gm 11/27/22 10:00 11/30/22 09:30 Polyethylene Glycol 3350 17 Gm Packet PO 17 gm DAILY FRANCISCO Administration Multivit/Folic Acid/Iron 1 tab 11/27/22 13:00 11/30/22 08:22 Vitamin Tablet PO 1 tab DAILYWM FRANCISCO Administration Saccharomyces Boulardii 250 mg 11/29/22 17:00 11/30/22 08:22 Saccharomyces Boulardii 250 Mg Capsule PO 250 mg BIDWM FRANCISCO Administration Simethicone 80 mg 11/29/22 21:46 11/29/22 23:42 Simethicone Chew 80 Mg Tablet PO 80 mg Q6HR PRN Administration Gas Sodium Chloride 10 ml 11/25/22 17:00 11/30/22 09:30 Sodium Chloride Flush 0.9% 10 Ml Syringe IVP 10 ml 0100,0900,1700 FRANCISCO Administration Sodium Chloride 10 ml 11/25/22 14:33 11/29/22 21:21 Sodium Chloride Flush 0.9% 10 Ml Syringe IVP 10 ml PRN PRN Administration NEEDED PER PROVIDER ORDERS Thiamine HCl 100 mg 11/28/22 13:00 11/30/22 09:30 Thiamine 100 Mg Tablet PO 100 mg DAILY FRANCISCO Administration Zinc Oxide 113 gm 11/27/22 22:20 11/29/22 21:23 Cod Liver Oil/Zinc Oxide 113 Gm Tube TOP 1 applic PRN PRN Administration Skin Care - Lab Result Fish Bone Diagrams: 11/30/22 04:56 11/30/22 04:56 - Additional Planning My Orders: My Active Orders 11/29/22 14:10 methylPREDNISolone SUCCINATE [SOLU-Medrol (40MG VIAL)] 40 mg IVP TID 11/29/22 17:00 Saccharomyces Boulardii [Florastor] 250 mg PO BIDWM 11/29/22 18:00 diltiaZEM CD [Cardizem Cd] 120 mg PO 0800,1800 11/30/22 CUL,BODY FLUID(AEROBIC) [RM] Stat 11/30/22 14:40 Morphine Inj (Carpuject) [Morphine (Carpuject)] 2 mg IVP Q4HR PRN 11/30/22 15:03 Thoracentesis Puncture [US] Stat 11/30/22 15:05 Miscellaneous Laboratory Order [LAB] Urgent 11/30/22 22:00 Pantoprazole [Protonix] 40 mg PO 0700,2200 12/01/22 05:00 BMP - BASIC METABOLIC PANEL [CHEM] DAILYLAB HGB - HEMOGLOBIN [HEME] DAILYLAB 12/01/22 08:00 Ferrous Sulfate [Feosol] 325 mg PO BIDWM 12/02/22 05:00 BMP - BASIC METABOLIC PANEL [CHEM] DAILYLAB HGB - HEMOGLOBIN [HEME] DAILYLAB 12/03/22 05:00 HGB - HEMOGLOBIN [HEME] DAILYLAB 12/04/22 05:00 HGB - HEMOGLOBIN [HEME] DAILYLAB Subjective - Subjective Patient Reports: Resting Comfortably, No Complaints Objective Vital Signs: Vital Signs - 24 hr 11/29/22 11/29/22 11/29/22 15:44 16:02 19:25 Temperature 36.6 C Heart Rate 92 123 H Heart Rate [ Activity] Heart Rate [ 100 Brachial] Heart Rate [ Monitoring electrodes] Heart Rate [ Sitting] Respiratory 18 20 20 Rate Blood Pressure [Activity] Blood Pressure 129/84 H [Right Brachial artery] Blood Pressure [Sitting] O2 Saturation 98 If not protocol 2 2 2 : Oxygen Flow, liters/minute 11/29/22 11/30/22 11/30/22 20:38 00:17 06:19 Temperature 36.8 C 36.6 C 36.8 C Heart Rate Heart Rate [ Activity] Heart Rate [ 109 H 95 Brachial] Heart Rate [ 110 H Monitoring electrodes] Heart Rate [ Sitting] Respiratory 24 12 20 Rate Blood Pressure [Activity] Blood Pressure 133/71 H 126/76 135/89 H [Right Brachial artery] Blood Pressure [Sitting] O2 Saturation 94 93 93 If not protocol 2 2 2 : Oxygen Flow, liters/minute 11/30/22 11/30/22 11/30/22 07:23 07:42 08:22 Temperature 36.3 C L Heart Rate 96 Heart Rate [ Activity] Heart Rate [ 94 110 H Brachial] Heart Rate [ Monitoring electrodes] Heart Rate [ Sitting] Respiratory 24 20 18 Rate Blood Pressure [Activity] Blood Pressure 130/75 [Right Brachial artery] Blood Pressure [Sitting] O2 Saturation 94 82 L If not protocol 2 2 : Oxygen Flow, liters/minute 11/30/22 11/30/22 11/30/22 11:03 12:57 14:35 Temperature 36.4 C L Heart Rate 96 Heart Rate [ 106 H Activity] Heart Rate [ 104 H Brachial] Heart Rate [ Monitoring electrodes] Heart Rate [ 110 H Sitting] Respiratory 20 22 Rate Blood Pressure 114/64 [Activity] Blood Pressure 124/71 [Right Brachial artery] Blood Pressure 129/87 H [Sitting] O2 Saturation 91 L If not protocol 2 : Oxygen Flow, liters/minute Oxygen O2 Source Nasal cannula I&O (Last 24 Hrs): Intake and Output Totals x24h 11/28/22 11/29/22 11/30/22 23:59 23:59 23:59 Intake Total 988.01 2178 1100 Output Total 2385 850 Balance -1396.99 1328 1100 General: Alert, Oriented x3 HEENT: EOMI, Mucous membr. moist/pink, Other (wearing O2 via n.c.) Neuro: Alert, Non Focal, Other (LOWER ELWHA. Poor memory) Cardiovascular: No murmurs (Distant heart sounds due to COPD) Respiratory: Other (Diminished breath sounds in all lung [place]) Abdomen: Soft, No tenderness Extremities: No clubbing, Other (1+ edema to above the knee) - Results Results: Laboratory Results WBC 11.6 x10^3/uL (4.8-10.8) H 11/30/22 04:56 RBC 3.15 10^6/uL (4.70-6.10) L 11/30/22 04:56 Hgb 8.5 g/dL (14.0-18.0) L 11/30/22 04:56 Hct 29.0 % (42.0-52.0) L 11/30/22 04:56 MCV 92.1 fL (80.0-94.0) 11/30/22 04:56 MCH 27.0 pg (27.0-31.0) 11/30/22 04:56 MCHC 29.3 g/dL (32.0-36.0) L 11/30/22 04:56 RDW 21.3 % (12.0-15.0) H 11/30/22 04:56 Plt Count 152 10^3/uL (130-450) 11/30/22 04:56 MPV 10.1 fL (7.4-11.4) 11/30/22 04:56 Neut # (Auto) 10.8 10^3/uL (1.5-6.6) H 11/30/22 04:56 Lymph # (Auto) 0.1 10^3/uL (1.5-3.5) L 11/30/22 04:56 [place] # (Auto) 0.6 10^3/uL (0.0-1.0) 11/30/22 04:56 Eos # (Auto) 0.0 10^3/uL (0.0-0.7) 11/30/22 04:56 Baso # (Auto) 0.0 10^3/uL (0.0-0.1) 11/30/22 04:56 Absolute Nucleated RBC 0.00 x10^3/uL 11/30/22 04:56 Nucleated RBC % 0.0 /100WBC 11/30/22 04:56 Manual Slide Review Indicated 11/30/22 04:56 WBC Morphology NORMAL APPEARANCE (NORMAL) 11/30/22 04:56 Platelet Estimate NORMAL (130-450,000) (NORMAL) 11/30/22 04:56 Platelet Morphology NORMAL APPEARANCE (NORMAL) 11/30/22 04:56 RBC Morph Micro Appear 1+ ANISOCYTOSIS (NORMAL) 1+ HYPOCHROMASIA (NORMAL) 1+ OVALOCYTES (NORMAL) 11/30/22 04:56 RBC Morph Micro Appear 1+ ANISOCYTOSIS (NORMAL) 1+ HYPOCHROMASIA (NORMAL) 1+ OVALOCYTES (NORMAL) 11/30/22 04:56 RBC Morph Micro Appear 1+ ANISOCYTOSIS (NORMAL) 1+ HYPOCHROMASIA (NORMAL) 1+ OVALOCYTES (NORMAL) 11/30/22 04:56 PT 12.7 secs (9.9-12.6) H 11/25/22 11:40 INR 1.2 (0.8-1.2) 11/25/22 11:40 Bld Gas Analysis Time 0608 11/26/22 05:55 Sample Site RIGHT RADIAL 11/26/22 05:55 ABG pH 7.54 (7.35-7.45) H 11/26/22 05:55 ABG pCO2 33 mmHg (34-45) L 11/26/22 05:55 ABG pO2 105 mmHg (80-100) H 11/26/22 05:55 ABG HCO3 28.1 mmol/L (22.0-26.0) H 11/26/22 05:55 ABG Total CO2 29.1 MMOL/L (21.0-29.0) H 11/26/22 05:55 ABG O2 Saturation 99 % (94-98) H 11/26/22 05:55 ABG Base Excess 5.6 mmol/L (-2.0-3.0) H 11/26/22 05:55 Valentin Test POSITIVE 11/26/22 05:55 VBG pH 7.376 (7.31-7.41) 11/28/22 05:14 Ionized Calcium 1.11 mmol/L (1.15-1.33) L 11/28/22 05:14 Respiration Rate 18 b/min 11/26/22 05:55 O2 Delivery Device VENTILATOR 11/26/22 05:55 Vent Mode SIMV 11/26/22 05:55 FiO2 40.00 11/26/22 05:55 Tidal Volume 400 mL 11/26/22 05:55 PEEP 5 cmH2O 11/26/22 05:55 Pressure Support Vent 12 cmH2O 11/26/22 05:55 Sodium 136 mmol/L (135-145) 11/30/22 04:56 Potassium 4.8 mmol/L (3.5-4.5) H 11/30/22 04:56 Chloride 96 mmol/L (101-111) L 11/30/22 04:56 Carbon Dioxide 36 mmol/L (21-32) H 11/30/22 04:56 Anion Gap 4.0 (6-13) L 11/30/22 04:56 BUN 43 mg/dL (6-20) H 11/30/22 04:56 Creatinine 1.3 mg/dL (0.6-1.3) 11/30/22 04:56 Estimated GFR (MDRD) 54 (>89) L 11/30/22 04:56 Glucose 130 mg/dL (74-104) H 11/30/22 04:56 POC Whole Bld Glucose 152 mg/dL (70 - 100) H 11/30/22 11:43 Estimat Average Glucose 108 mg/dL (70-100) H 11/26/22 11:15 Hemoglobin A1c % 5.4 % (4.27-6.07) 11/26/22 11:15 Lactic Acid 2.6 mmol/L (0.5-2.2) H 11/25/22 14:01 Calcium 8.9 mg/dL (8.5-10.3) 11/30/22 04:56 Phosphorus 5.5 mg/dL (3.7-7.2) 11/28/22 05:14 Magnesium 2.2 mg/dL (1.7-2.3) 11/28/22 05:14 Iron 25 ug/dL (45-182) L 11/26/22 11:15 TIBC 263 ug/dL (250-450) 11/26/22 11:15 % Saturation 9 % (20-50) L 11/26/22 11:15 Transferrin 188 mg/dL (180-329) 11/26/22 11:15 Total Bilirubin 0.5 mg/dL (0.2-1.0) 11/25/22 11:40 AST 13 IU/L (10-42) 11/25/22 11:40 ALT < 10 IU/L (10-60) L 11/25/22 11:40 Alkaline Phosphatase 78 IU/L (42-121) 11/25/22 11:40 Ammonia 24.9 umol/L (7-35) 11/25/22 11:40 Troponin I High Sens 11.7 ng/L (2.3-19.7) 11/25/22 17:35 Total Protein 6.7 g/dL (6.4-8.9) 11/25/22 11:40 Albumin 3.3 g/dL (3.2-5.5) 11/25/22 11:40 Globulin 3.4 g/dL (2.1-4.2) 11/25/22 11:40 Albumin/Globulin Ratio 1.0 (1.0-2.2) 11/25/22 11:40 Lipase 13 U/L (11-82) 11/25/22 11:40 Vitamin B12 509 pg/mL (180-914) 11/26/22 11:15 Folate 8.3 ng/mL (5.90 - >24.8) 11/26/22 11:15 Urine Color DARK YELLOW 11/25/22 11:51 Urine Clarity CLEAR (CLEAR) 11/25/22 11:51 Urine pH 5.5 PH (5.0-7.5) 11/25/22 11:51 Ur Specific [place] 1.020 (1.002-1.030) 11/25/22 11:51 Urine Protein TRACE mg/dL (NEGATIVE) 11/25/22 11:51 Urine Glucose (UA) >=1000 mg/dL (NEGATIVE) H 11/25/22 11:51 Urine Ketones NEGATIVE mg/dL (NEGATIVE) 11/25/22 11:51 Urine Occult Blood NEGATIVE (NEGATIVE) 11/25/22 11:51 Urine Nitrite NEGATIVE (NEGATIVE) 11/25/22 11:51 Urine Bilirubin NEGATIVE (NEGATIVE) 11/25/22 11:51 Urine Urobilinogen 0.2 (NORMAL) E.U./dL (NORMAL) 11/25/22 11:51 Ur Leukocyte Esterase NEGATIVE (NEGATIVE) 11/25/22 11:51 Ur Microscopic Review NOT INDICATED 11/25/22 11:51 Urine Culture Comments NOT INDICATED 11/25/22 11:51 Nasal Adenovirus (PCR) NOT DETECTED 11/25/22 11:51 Nasal B. parapertussis DNA (PCR) NOT DETECTED 11/25/22 11:51 Nasal Coronavir 229E PCR NOT DETECTED 11/25/22 11:51 Nasal Coronavir HKU1 PCR NOT DETECTED 11/25/22 11:51 Nasal Coronavir NL63 PCR NOT DETECTED 11/25/22 11:51 Nasal Coronavir OC43 PCR NOT DETECTED 11/25/22 11:51 Nasal Enterovir/Rhinovir PCR NOT DETECTED 11/25/22 11:51 Nasal Influenza B PCR NOT DETECTED 11/25/22 11:51 Nasal Influenza A PCR NOT DETECTED 11/25/22 11:51 Nasal Parainfluen 1 PCR NOT DETECTED 11/25/22 11:51 Nasal Parainfluen 2 PCR NOT DETECTED 11/25/22 11:51 Nasal Parainfluen 3 PCR NOT DETECTED 11/25/22 11:51 Nasal Parainfluen 4 PCR NOT DETECTED 11/25/22 11:51 Nasal RSV (PCR) NOT DETECTED 11/25/22 11:51 Nasal Screen MRSA (PCR) NEGATIVE (NEGATIVE) 11/25/22 16:12 Nasal B.pertussis DNA PCR NOT DETECTED 11/25/22 11:51 Nasal C.pneumoniae (PCR) NOT DETECTED 11/25/22 11:51 Aj Human Metapneumo PCR NOT DETECTED 11/25/22 11:51 Nasal M.pneumoniae (PCR) NOT DETECTED 11/25/22 11:51 Nasal SARS-CoV-2 (PCR) NOT DETECTED 11/25/22 11:51 Salicylates < 1.5 mg/dL 11/25/22 11:40 Urine Opiates Screen NEGATIVE (NEGATIVE) 11/25/22 11:51 Ur Oxycodone Screen NEGATIVE (NEGATIVE) 11/25/22 11:51 Urine Methadone Screen NEGATIVE (NEGATIVE) 11/25/22 11:51 Ur Propoxyphene Screen NEGATIVE (NEGATIVE) 11/25/22 11:51 Acetaminophen 1.0 ug/mL (10-30) L 11/25/22 11:40 Ur Barbiturates Screen NEGATIVE (NEGATIVE) 11/25/22 11:51 Ur Tricyclics Screen NEGATIVE (NEGATIVE) 11/25/22 11:51 Ur Phencyclidine Scrn NEGATIVE (NEGATIVE) 11/25/22 11:51 Ur Amphetamine Screen NEGATIVE (NEGATIVE) 11/25/22 11:51 U Methamphetamines Scrn NEGATIVE (NEGATIVE) 11/25/22 11:51 U Benzodiazepines Scrn NEGATIVE (NEGATIVE) 11/25/22 11:51 Urine Cocaine Screen NEGATIVE (NEGATIVE) 11/25/22 11:51 U Cannabinoids Screen NEGATIVE (NEGATIVE) 11/25/22 11:51 Ethyl Alcohol < 10.0 mg/dL 11/25/22 12:53 Blood Type A NEGATIVE 11/25/22 11:42 Blood Type Recheck A NEGATIVE 11/25/22 13:46 Antibody Screen NEGATIVE 11/25/22 11:42
[2022-11-30] MEDS: SIMETHICONE CHEW 80 MG TABLET PO PRN (19:41)
[2022-11-30] MEDS ORDERED: SIMETHICONE CHEW 80 MG TABLET PO PRN (21:02)
[2022-11-30] MEDS: PANTOPRAZOLE 40 MG TABLET PO SCH (21:21)
[2022-12-01] MEDS: SODIUM CHLORIDE FLUSH 0.9% 10 ML SYRINGE IVP SCH ×3 (00:05→17:05)
[2022-12-01] MEDS: ACETAMINOPHEN 325 MG TABLET PO PRN ×3 (00:44→21:20)
[2022-12-01] MEDS: SIMETHICONE CHEW 80 MG TABLET PO PRN ×4 (00:45→21:20)
[2022-12-01] MEDS: methylPREDNISolone SUCCINATE 40 MG/ML VIAL IVP SCH ×3 (05:16→21:20)
[2022-12-01] MEDS: PANTOPRAZOLE 40 MG TABLET PO SCH ×2 (05:16→21:20)
[2022-12-01] MEDS: BUDESONIDE 0.5 MG/2 ML NEB INH SCH ×2 (06:01→19:06)
[2022-12-01] MEDS: IPRATROPIUM/ALBUTEROL 3 ML NEB INH SCH ×4 (06:02→19:06)
[2022-12-01 06:24] LABS: CALCIUM 9.2 mg/dL (8.5-10.3); CREATININE 1.3 mg/dL (0.6-1.3); POTASSIUM 5.5 mmol/L (3.5-4.5)
[2022-12-01] MEDS: INSULIN LISPRO 300 UNIT/3 ML PEN SUBQ SCH ×4 (07:43→21:20)
[2022-12-01] MEDS: FERROUS SULFATE 325 MG TABLET PO SCH ×2 (07:55→17:05)
[2022-12-01] MEDS: diltiaZEM CD 120 MG CAPSULE PO SCH ×2 (07:55→17:05)
[2022-12-01] MEDS: SACCHAROMYCES BOULARDII 250 MG CAPSULE PO SCH ×2 (07:55→17:05)
[2022-12-01] MEDS: PRENATAL VITAMIN TABLET PO SCH (07:55)
[2022-12-01] MEDS: guaiFENesin 600 MG TABLET PO SCH ×2 (07:56→21:20)
[2022-12-01] MEDS: THIAMINE 100 MG TABLET PO SCH (07:56)
[2022-12-01] MEDS: levoFLOXacin 250 MG TABLET PO SCH (07:56)
[2022-12-01] MEDS: polyethylene glycoL 3350 17 GM PACKET PO SCH (07:56)
[2022-12-01] MEDS ORDERED: LIDOCAINE-MPF 1% 5 ML VIAL ONE (09:52)
--- NOTE | 2022-12-01 11:04 | XRAY Report ---
PROCEDURE: Post Thoracentesis 1V CXR INDICATIONS: POST THORACENTESIS TECHNIQUE: One view of the chest was acquired. COMPARISON: Multiple prior chest radiographs, most recently 11/30/2022 FINDINGS: Surgical changes and devices: None. Lungs and pleura: Small right pneumothorax at the location of the prior pleural effusion. This is si milar compared to post thoracentesis radiograph from 11/27/2022. Mild diffuse lung disease persists. Mediastinum: Heart size is at the upper limit of normal. Bones and chest wall: Unchanged degenerative and chronic findings. IMPRESSION: Small right pneumothorax at the location of prior pleural effusion, similar compared to postthoracent esis radiograph from 11/27/2022. Findings are compatible with trapped lung. This is expected to occur in future thoracentesis attempts due to inability for pleura to reexpand. Reviewed by: Philipp Alonso MD on 12/01/2022 11:03 AM PDT Approved by: Philipp Alonso MD on 12/01/2022 11:03 AM PDT Station ID: [id number]
--- NOTE | 2022-12-01 11:05 | Ultrasound Report ---
PROCEDURE: Thoracentesis Puncture INDICATIONS: Reaccumulated R pleural effusion TECHNIQUE: The indications, alternatives, benefits, risks, and complications of the procedure were explained to the patient. Written informed consent was obtained and placed in the chart. The chest was examined sonographically, and an appropriate site was chosen for thoracentesis. The skin was prepared and elizabeth ped in the usual sterile fashion, and 1% lidocaine was infiltrated from the skin down through the ple ural surface. A 19-gauge catheter-covered needle was then introduced into the pleural space, the cat heter was advanced and the needle was withdrawn, and thereafter pleural fluid was aspirated. The cat heter was then removed and a dressing was applied. COMPARISON: None. FINDINGS: Access site: Right hemithorax. Needle: One-Step centesis catheter with introducer needle. Fluid volume and description: Serous Fluid sent for diagnostic testing: Yes Medications: 1% lidocaine for local anaesthesia. Complications: None; post-procedural chest radiograph is pending to assess for pneumothorax. IMPRESSION: Successful ultrasound-guided thoracentesis. Post thoracentesis radiograph separately di ctated. Reviewed by: Philipp Alonso MD on 12/01/2022 11:03 AM PDT Approved by: Philipp Alonso MD on 12/01/2022 11:03 AM PDT Station ID: [id number]
[2022-12-01] MEDS ORDERED: LIDOCAINE-MPF 1% 5 ML VIAL TD ONE (15:25)
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
[2022-12-02] MEDS: SODIUM CHLORIDE FLUSH 0.9% 10 ML SYRINGE IVP SCH ×2 (00:15→09:05)
[2022-12-02 05:59] LABS: CALCIUM 8.9 mg/dL (8.5-10.3); POTASSIUM 5.3 mmol/L (3.5-4.5)
[2022-12-02] MEDS: BUDESONIDE 0.5 MG/2 ML NEB INH SCH (06:02)
[2022-12-02] MEDS: IPRATROPIUM/ALBUTEROL 3 ML NEB INH SCH ×2 (06:03→11:50)
[2022-12-02] MEDS: diltiaZEM CD 120 MG CAPSULE PO SCH (07:12)
[2022-12-02] MEDS: PRENATAL VITAMIN TABLET PO SCH (07:12)
[2022-12-02] MEDS: FERROUS SULFATE 325 MG TABLET PO SCH (07:12)
[2022-12-02] MEDS: SACCHAROMYCES BOULARDII 250 MG CAPSULE PO SCH (07:12)
[2022-12-02] MEDS: PANTOPRAZOLE 40 MG TABLET PO SCH (07:12)
[2022-12-02] MEDS: INSULIN LISPRO 300 UNIT/3 ML PEN SUBQ SCH ×2 (07:43→12:55)
[2022-12-02] MEDS ORDERED: methylPREDNISolone SUCCINATE 40 MG/ML VIAL IVP SCH (09:00)
[2022-12-02] MEDS: guaiFENesin 600 MG TABLET PO SCH (09:04)
[2022-12-02] MEDS: levoFLOXacin 250 MG TABLET PO SCH (09:05)
[2022-12-02] MEDS: THIAMINE 100 MG TABLET PO SCH (09:05)
[2022-12-02] MEDS: polyethylene glycoL 3350 17 GM PACKET PO SCH (09:05)
--- NOTE | 2022-12-02 12:34 | Discharge Plan ---
"Discharge Plan for SNF / [facility] - Discharge Plan And Transition Orders Problem Reviewed?: Yes Disposition: 03 SNF DC/Xfer Condition: Serious Allergies and Adverse Reactions: Allergies Allergy/AdvReac Type Severity Reaction Status Date / Time Penicillins Allergy Unknown Verified 11/25/22 11:42 Plan of Treatment: Continue COPD Treatment and management - SNF / [facility] Transition Orders Admit to (Facility): [facility] Medicare Certification Statement: I certify that [facility] nursing home care is medically necessary on a continuing basis for any of the conditions for which she/he is receiving care during hospitalization. Notify PCP of admission and forward orders to primary provider for signature. Weight on admission and: Weekly Other Notification Orders: Call PCP immediately if patient develops dyspnea, chest pain/tightness or edema. House Bowel Program: Yes Additional Bowel Program Orders: If no BM after 2 days, nurse may give M.O.M. 30ml PO PRN and/or ducolax Supp 1 MS and/or BEBE 250mg P.O., and/or senna 1-2 tabs PO. On day 3 nurse may give repeat above order until residents constipation is resolved. Annual Influenza Vaccine (between Jan 08 and August 07): Yes Two-step PPD per [facility] [phone] or approved exception documents: Yes Oxygen Orders: Maintain Oxygen > 88%, Currently 2L NC Medication Orders: PLEASE REFER TO THE DISCHARGE MEDICATION LIST. Insulin Orders?: Yes - Medications New Prescriptions: diltiaZEM CD [Cardizem Cd] 120 mg PO 0800,1800 #60 cap Potassium Chloride [K-Tab ER] 10 meq PO DAILY #30 tab Furosemide [Lasix] 40 mg PO DAILY #30 tablet predniSONE [Prednisone 21-tab dose pack] 5 mg PO UD #1 packet Pantoprazole [Protonix] 40 mg PO 0700,2200 #30 tab Thiamine [Vitamin B-1] 100 mg PO DAILY #30 tab - Diet Texture: Dysphagia [facility] May have monthly special meal: Yes - Therapies | Activity Therapy: Evaluation | Treat if indicated: PT, OT Rehabilitation Potential: Maximize functional status Activity: Activity as Tolerated Weight Bearing: Full Weight Insulin Orders - SNF Basal | Correction | Custom Orders: Diagnosis: Diabetes Initiate hypo and hyperglycemia protocols for BG <70 and BG >375. May check BG PRN for signs/symptoms of dysglycemia. Frequency of BG checks: [AC/Meal/HS] Basal Insulin: [] Lantus 100 units / ml inject subq as follows: [] [] Other: [] Correction Insulin: - Select the type of insulin below [Choose: Novolog/Humalog]100 units /ml insulin inject subq per orders indicate below [] LOW DOSE [] MODERATE DOSE [] MODERATE/HIGH DOSE [] HIGH DOSE GB UNITS GB UNITS GB UNITS GB UNITS 61-140 0 UNITS 61-140 0 UNITS 61-140 0 UNITS 61-140 0 UNITS 141-175 1 UNITS 141-175 1 UNITS 141-175 2 UNITS 141-175 3 UNITS 176-225 2 UNITS 176-225 3 UNITS 176-225 4 UNITS 176-225 5 UNITS 226-275 3 UNITS 226-275 5 UNITS 226-275 6 UNITS 226-275 7 UNITS 276-325 4 UNITS 276-325 7 UNITS 276-325 8 UNITS 276-325 9 UNITS 326-375 5 UNITS 326-375 9 UNITS 326-375 10 UNITS 326-375 11 UNITS >375 CONTACT MD >375 CONTACT MD >375 CONTACT MD >375 CONTACT MD Custom Dosing: [Choose: Novolog/Humalog] 100 units/ml Insulin inject subq as follows: GB Units 61-140 [] Units 141-175 [] Units 176-225 [] Units 226-275 [] Units 276-325 []Units 326-375 [] Units >375 Contact MD"
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
[2022-12-02 15:15] VITALS: BP 123/70
== END 2022-12-02 15:20 | DRG 208 ==
LOC: EDBD → EDUNIT# → ED 11:32 → ICU 14:33 → MS2 11-28 15:50
PROVIDERS: ADMIT Internal Medicine; ATTEND Family Medicine Sports Medicine
PROC: 5A1945Z Respiratory Ventilation, 24-96 Consecutive Hours (ICD-10-PCS; principal; 2022-11-25)
PROC: 0W993ZZ Drainage of Right Pleural Cavity, Percutaneous Approach (ICD-10-PCS; 2022-11-27)
DX: J96.21 Acute and chronic respiratory failure with hypoxia (principal); J90 Pleural effusion, not elsewhere classified; J44.1 Chronic obstructive pulmonary disease with (acute) exacerbation; K92.1 Melena; N17.9 Acute kidney failure, unspecified; I48.20 Chronic atrial fibrillation, unspecified; J95.811 Postprocedural pneumothorax; R41.3 Other amnesia; R53.1 Weakness; I50.9 Heart failure, unspecified; Z66 Do not resuscitate; I11.0 Hypertensive heart disease with heart failure; N40.0 Benign prostatic hyperplasia without lower urinary tract symptoms; E87.5 Hyperkalemia; I27.81 Cor pulmonale (chronic); D50.9 Iron deficiency anemia, unspecified; R00.0 Tachycardia, unspecified; J40 Bronchitis, not specified as acute or chronic; B96.89 Other specified bacterial agents as the cause of diseases classified elsewhere; I25.10 Atherosclerotic heart disease of native coronary artery without angina pectoris; R73.9 Hyperglycemia, unspecified; Z99.81 Dependence on supplemental oxygen; Z87.891 Personal history of nicotine dependence
CPT/HCPCS: 32555; 36415; 36600; 70450; 71045; 80048; 80053; 80306; 80307; 80320; 80329; 81003; 82140; 82272; 82330; 82607; 82746; 82803; 83036; 83540; 83605; 83690; 83735; 84100; 84466; 84484; 85018; 85025; 85610; 86850; 86900; 86901; 87040; 87070; 87077; 87150; 87181; 87205; 87633; 93005; 93306; 94002; 94003; 94640; 94660; 97163; 97166; 97530; 99285; A6250; A9270; J7626; 81001; 81599; 87086; 94770

== ENCOUNTER 2022-12-08 10:17 | Outpatient (CLI) | payer OTHER ==
[2022-12-08 10:23] LABS: BASOPHILS % (AUTO) 0.1 %; EOSINOPHILS # (AUTO) 0.2 10^3/uL (0.0-0.7); EOSINOPHILS % (AUTO) 1.1 %; HCT - HEMATOCRIT 32.1 % (42.0-52.0); LYMPHOCYTES # (AUTO) 0.5 10^3/uL (1.5-3.5); LYMPHOCYTES % (AUTO) 2.6 %; MEAN CORPUSCULAR HEMOGLOBIN 26.9 pg (27.0-31.0); MEAN CORPUSCULAR VOLUME 96.1 fL (80.0-94.0); MEAN PLATELET VOLUME 9.5 fL (7.4-11.4); MONOCYTES # (AUTO) 1.6 10^3/uL (0.0-1.0); MONOCYTES % (AUTO) 8.9 %; NEUTROPHILS # (AUTO) 15.1 10^3/uL (1.5-6.6); NEUTROPHILS % (AUTO) 86.3 %; PLT - PLATELET COUNT 443 10^3/uL (130-450); RED BLOOD COUNT 3.34 10^6/uL (4.70-6.10); RED CELL DISTRIBUTION WIDTH 20.4 % (12.0-15.0); SLIDE REVIEW? Indicated; WHITE BLOOD COUNT 17.5 x10^3/uL (4.8-10.8)
[2022-12-08 10:24] LABS: RBC MORPHOLOGY (MULTIPLE) 3+ ANISOCYTOSIS (NORMAL)
[2022-12-08 10:33] LABS: ALBUMIN 3.3 g/dL (3.2-5.5)
[2022-12-08 10:53] LABS: ALBUMIN/GLOBULIN RATIO 1.2 (1.0-2.2); BILIRUBIN,TOTAL 0.4 mg/dL (0.2-1.0); CALCIUM 8.3 mg/dL (8.5-10.3); CREATININE 0.8 mg/dL (0.6-1.3); POTASSIUM 4.1 mmol/L (3.5-4.5)
== END 2022-12-08 10:18 | disposition home or self-care (01) ==
LOC: LAB.R 10:17
PROVIDERS: ATTEND Registered Nurse
DX: R79.9 Abnormal finding of blood chemistry, unspecified (principal); Z13.228 Encounter for screening for other metabolic disorders
CPT/HCPCS: 80053; 85025

== ENCOUNTER 2022-12-09 11:49 | Outpatient (CLI) | payer MEDICARE, OTHER ==
--- NOTE | 2022-12-09 13:31 | XRAY Report ---
PROCEDURE: Chest 2 View X-Ray INDICATIONS: PNEUMONIA TECHNIQUE: 2 views of the chest were acquired. COMPARISON: 12/01/2022 FINDINGS: Surgical changes and devices: None. Lungs and pleura: Heart size enlarged, there is moderate vascular congestion present. Obscuration dirk th hemidiaphragms with blunting the costophrenic angles. Atherosclerotic vascular calcification noted in the aortic arch. Patient's mandible obscures the lung apices noted. No pneumothorax. Bones and chest wall: No suspicious bony lesions. Overlying soft tissues appear unremarkable. IMPRESSION: Cardiomegaly, moderate vascular congestion and lateral pleural effusions greater on the right. No res idual pneumothorax Reviewed by: Yoel Barnard MD on 12/09/2022 12:30 PM AKDT Approved by: Yoel Barnard MD on 12/09/2022 12:30 PM AKDT Station ID: [id number]
== END 2022-12-09 11:50 | disposition home or self-care (01) ==
LOC: DI 11:49
PROVIDERS: ATTEND Registered Nurse
DX: J90 Pleural effusion, not elsewhere classified (principal); I51.7 Cardiomegaly

== ENCOUNTER 2022-12-10 08:00 | Outpatient (CLI) | payer MEDICARE, OTHER ==
[2022-12-10 20:42] LABS: BILIRUBIN,URINE NEGATIVE (NEGATIVE); GLUCOSE, URINE (UA) NEGATIVE (NEGATIVE); KETONES,URINE (UA) NEGATIVE (NEGATIVE); LEUKOCYTE ESTERASE, URINE LARGE (NEGATIVE); NITRITE,URINE NEGATIVE (NEGATIVE); OCCULT BLOOD,URINE MODERATE (NEGATIVE); PH,URINE 6.5 PH (5.0-7.5); PROTEIN,URINE NEGATIVE (NEGATIVE); UROBILINOGEN,URINE 0.2 (NORMAL) E.U./dL (NORMAL)
[2022-12-10 20:52] LABS: CLARITY,URINE HAZY (CLEAR)
[2022-12-10 21:06] LABS: BACTERIA,URINE Moderate /HPF (None Seen); SQUAMOUS EPITHELIAL CELL,UR MOD Squamous (<= Few)
[2022-12-10 21:07] LABS: YEAST,URINE PRESENT
== END 2022-12-10 23:59 | disposition home or self-care (01) ==
LOC: LAB.R 08:00
PROVIDERS: ATTEND Registered Nurse
DX: N40.0 Benign prostatic hyperplasia without lower urinary tract symptoms (principal)
CPT/HCPCS: 81001; 87086

== ENCOUNTER 2022-12-11 08:00 | Outpatient (CLI) | payer MEDICARE, OTHER ==
[2022-12-11 19:03] LABS: BILIRUBIN,URINE NEGATIVE (NEGATIVE); GLUCOSE, URINE (UA) NEGATIVE (NEGATIVE); KETONES,URINE (UA) NEGATIVE (NEGATIVE); LEUKOCYTE ESTERASE, URINE TRACE (NEGATIVE); NITRITE,URINE NEGATIVE (NEGATIVE); OCCULT BLOOD,URINE NEGATIVE (NEGATIVE); PH,URINE 7.5 PH (5.0-7.5); PROTEIN,URINE NEGATIVE (NEGATIVE); UROBILINOGEN,URINE 0.2 (NORMAL) E.U./dL (NORMAL)
[2022-12-11 19:05] LABS: CLARITY,URINE CLEAR (CLEAR)
[2022-12-11 19:27] LABS: BACTERIA,URINE Rare /HPF (None Seen); RBC,URINE 0-5 /HPF (0-5); SQUAMOUS EPITHELIAL CELL,UR FEW Squamous (<= Few); YEAST,URINE PRESENT
== END 2022-12-11 23:59 | disposition home or self-care (01) ==
LOC: LAB.R 08:00
PROVIDERS: ATTEND Registered Nurse
DX: N39.0 Urinary tract infection, site not specified (principal)
CPT/HCPCS: 81001; 81003; 87077; 87086; 87181

== ENCOUNTER 2022-12-13 08:00 | Outpatient (CLI) | payer MEDICARE, OTHER ==
[2022-12-13 17:25] LABS: BASOPHILS % (AUTO) 0.4 %; EOSINOPHILS # (AUTO) 0.2 10^3/uL (0.0-0.7); EOSINOPHILS % (AUTO) 2.1 %; HCT - HEMATOCRIT 32.6 % (42.0-52.0); HGB - HEMOGLOBIN 9.1 g/dL (14.0-18.0); LYMPHOCYTES # (AUTO) 0.4 10^3/uL (1.5-3.5); LYMPHOCYTES % (AUTO) 3.7 %; MEAN CORPUSCULAR HEMOGLOBIN 27.1 pg (27.0-31.0); MEAN CORPUSCULAR HGB CONC 27.9 g/dL (32.0-36.0); MONOCYTES % (AUTO) 9.7 %; NEUTROPHILS # (AUTO) 8.4 10^3/uL (1.5-6.6); NEUTROPHILS % (AUTO) 83.6 %; PLT - PLATELET COUNT 236 10^3/uL (130-450); RED BLOOD COUNT 3.36 10^6/uL (4.70-6.10); RED CELL DISTRIBUTION WIDTH 20.1 % (12.0-15.0); WHITE BLOOD COUNT 10.1 x10^3/uL (4.8-10.8)
[2022-12-13 18:04] LABS: PLATELET ESTIMATE, MANUAL NORMAL (130-450,000) (NORMAL); PLATELET MORPHOLOGY NORMAL APPEARANCE (NORMAL); WBC MORPHOLOGY (MULTIPLE) NORMAL APPEARANCE (NORMAL)
== END 2022-12-13 23:59 | disposition home or self-care (01) ==
LOC: LAB.R 08:00
PROVIDERS: ATTEND Registered Nurse
DX: I10 Essential (primary) hypertension (principal); I48.20 Chronic atrial fibrillation, unspecified; D50.9 Iron deficiency anemia, unspecified
CPT/HCPCS: 80053; 85025

== ENCOUNTER 2022-12-17 01:54 | Outpatient (CLI) | payer OTHER | END 2022-12-17 01:55 | disposition critical access hospital (66) | LOC: EMS 01:54 | DX: R06.00 Dyspnea, unspecified (principal); Z99.81 Dependence on supplemental oxygen | CPT/HCPCS: A0425; A0429 ==

== ENCOUNTER 2022-12-17 01:59 | Inpatient (IN) | payer MEDICARE, OTHER ==
[2022-12-17 02:18] LABS: BASOPHILS % (AUTO) 0.4 %; EOSINOPHILS # (AUTO) 0.2 10^3/uL (0.0-0.7); EOSINOPHILS % (AUTO) 2.6 %; HCT - HEMATOCRIT 28.4 % (42.0-52.0); HGB - HEMOGLOBIN 8.2 g/dL (14.0-18.0); LYMPHOCYTES # (AUTO) 0.3 10^3/uL (1.5-3.5); LYMPHOCYTES % (AUTO) 4.3 %; MEAN CORPUSCULAR HEMOGLOBIN 27.7 pg (27.0-31.0); MEAN CORPUSCULAR HGB CONC 28.9 g/dL (32.0-36.0); MEAN CORPUSCULAR VOLUME 95.9 fL (80.0-94.0); MEAN PLATELET VOLUME 9.6 fL (7.4-11.4); MONOCYTES # (AUTO) 1.2 10^3/uL (0.0-1.0); MONOCYTES % (AUTO) 15.4 %; NEUTROPHILS % (AUTO) 76.9 %; PLT - PLATELET COUNT 136 10^3/uL (130-450); RED BLOOD COUNT 2.96 10^6/uL (4.70-6.10); RED CELL DISTRIBUTION WIDTH 19.9 % (12.0-15.0); WHITE BLOOD COUNT 7.8 x10^3/uL (4.8-10.8)
[2022-12-17] MEDS ORDERED: FUROSEMIDE 40 MG/4 ML VIAL IVP STA (02:33)
--- NOTE | 2022-12-17 02:34 | ED Physician Documentation ---
PD HPI DYSPNEA - Stated complaint Stated Complaint: SOA,WHEEZING - Chief complaint Chief Complaint: Resp - History obtained from History obtained from: Patient, EMS - Additional information Additional information: 77-year-old male with history of CHF, COPD, chronic oxygen dependence presents by EMS from his rehab facility for shortness of breath. Patient normally wears 2 L of oxygen, however EMS reports that he was saturating 85% on 4 L when they arrived. Discharged 2 weeks ago from the hospital for volume overload. Patient states that his shortness of breath is actually little bit better than it normally is today. Requesting pillows for his legs. Review of Systems Constitutional: denies: Fever, Chills PD PAST MEDICAL HISTORY - Past Medical History Cardiovascular: Congestive heart failure, Hypertension, Atrial fibrillation Respiratory: COPD Neuro: None Endocrine/Autoimmune: None GI: None : Benign prostate hypertrophy HEENT: None Psych: None Musculoskeletal: None Derm: None - Past Surgical History Past Surgical History: Yes General: Other - Present Medications Home Medications: Ambulatory Orders Medication Instructions Recorded Confirmed Albuterol Sulf [Ventolin Hfa 2 puffs INH QID PRN 11/25/22 12/17/22 Inhaler] Ferrous Sulfate 2 tab PO DAILY 11/25/22 12/17/22 Fluticasone Propion/Salmeterol 1 puffs PO BID 11/25/22 12/17/22 [Wixela 500-50 Inhub] Tiotropium [place] [Spiriva 2 puffs PO BID 11/25/22 12/17/22 Respimat] Acetaminophen [Tylenol] 650 mg PO Q4HR PRN tab 12/02/22 12/17/22 Budesonide [Pulmicort] 0.5 mg INH RTBID ml 12/02/22 12/17/22 Pantoprazole [Protonix] 40 mg PO 0700,2200 #30 tab 12/02/22 12/17/22 Potassium Chloride [K-Tab ER] 10 meq PO DAILY #30 tab 12/02/22 12/17/22 Thiamine [Vitamin B-1] 100 mg PO DAILY #30 tab 12/02/22 12/17/22 diltiaZEM CD [Cardizem Cd] 120 mg PO 0800,1800 #60 cap 12/02/22 12/17/22 Aspirin [Aspirin Regimen] 81 mg PO DAILY 12/17/22 12/17/22 Calcium Carb (Oyster Shell) 500 mg PO DAILY 12/17/22 12/17/22 [Oysco-500] Ipratropium/Albuterol [Duoneb] 3 ml INH Q4HR PRN 12/17/22 12/17/22 Miconazole Nitrate 1 applic TOP BID 12/17/22 12/17/22 Saccharomyces Boulardii 1 each PO DAILY 12/17/22 12/17/22 [Resistance Formula Probiotic] guaiFENesin [Guaifenesin ER] 600 mg PO BID 12/17/22 12/17/22 - Allergies Allergies/Adverse Reactions: Allergies Allergy/AdvReac Type Severity Reaction Status Date / Time Penicillins Allergy Unknown Verified 12/17/22 02:28 - Social History Does the pt smoke?: No Smoking Status: Never smoker Does the pt drink ETOH?: No Does the pt have substance abuse?: No - Immunizations Immunizations are current?: Yes - POLST Patient has POLST: No Results - Vitals Vitals: Vital Signs - 24 hr 12/17/22 12/17/22 12/17/22 02:20 02:30 03:00 Temperature 36.4 C L Heart Rate 91 90 85 Respiratory 40 H 32 H 30 H Rate Blood Pressure 130/75 126/72 121/74 O2 Saturation 93 93 99 If not protocol 4 4 : Oxygen Flow, liters/minute 12/17/22 12/17/22 04:41 05:00 Temperature Heart Rate 93 96 Respiratory 24 26 H Rate Blood Pressure 125/76 118/69 O2 Saturation 92 94 If not protocol 4 4 : Oxygen Flow, liters/minute Oxygen O2 Source Nasal cannula Oxygen Flow Rate 4 - Labs Labs: Laboratory Tests 12/17/22 12/17/22 12/17/22 02:14 02:14 02:14 WBC 7.8 RBC 2.96 L Hgb 8.2 L Hct 28.4 L MCV 95.9 H MCH 27.7 MCHC 28.9 L RDW 19.9 H Plt Count 136 MPV 9.6 Neut # (Auto) 6.0 Lymph # (Auto) 0.3 L Wilkin # (Auto) 1.2 H Eos # (Auto) 0.2 Baso # (Auto) 0.0 Absolute Nucleated RBC 0.00 Nucleated RBC % 0.0 Bld Gas Analysis Time Sample Site ABG pH ABG pCO2 ABG pO2 ABG HCO3 ABG Total CO2 ABG O2 Saturation ABG Base Excess Valentin Test O2 Delivery Device O2 Liters/Min FiO2 Sodium 144 Potassium 4.3 Chloride 103 Carbon Dioxide 37 H Anion Gap 4.0 L BUN 13 Creatinine 0.9 Estimated GFR (MDRD) 82 L Glucose 94 Calcium 8.8 Total Bilirubin 0.4 AST 16 ALT 11 Alkaline Phosphatase 67 Troponin I High Sens 10.2 B-Natriuretic Peptide Total Protein 6.1 L Albumin 3.4 Globulin 2.7 Albumin/Globulin Ratio 1.3 12/17/22 12/17/22 02:14 02:35 WBC RBC Hgb Hct MCV MCH MCHC RDW Plt Count MPV Neut # (Auto) Lymph # (Auto) Wilkin # (Auto) Eos # (Auto) Baso # (Auto) Absolute Nucleated RBC Nucleated RBC % Bld Gas Analysis Time 0241 Sample Site LEFT RADIAL ABG pH 7.41 ABG pCO2 53 H ABG pO2 67 L ABG HCO3 33.4 H ABG Total CO2 35.0 H ABG O2 Saturation 93 L ABG Base Excess 7.7 H Valentin Test POSITIVE O2 Delivery Device NASAL CANNULA O2 Liters/Min 4.00 FiO2 36.00 Sodium Potassium Chloride Carbon Dioxide Anion Gap BUN Creatinine Estimated GFR (MDRD) Glucose Calcium Total Bilirubin AST ALT Alkaline Phosphatase Troponin I High Sens B-Natriuretic Peptide 494 H Total Protein Albumin Globulin Albumin/Globulin Ratio PD Medical Decision Making - ED course Complexity details: reviewed old records, reviewed results, re-evaluated patient, considered differential, d/w patient ED course: Very chronically unwell appearing gentleman presenting for worsening oxygen saturations despite supplemental nasal cannula. Patient is on 4.5 L O2 saturating 93% on room air. No wheezing auscultated, record review shows that on patient's previous hospital stay he had recurrent pleural effusions that required thoracentesis. Suspect that patient might be volume overloaded again based on clinical presentation. No peripheral edema present at this time. Laboratory work is reviewed, no significant acute abnormalities. Patient has chronic anemia, this is roughly at his baseline. Troponins negative, BNP moderately elevated. Chest x-ray shows volume overload and reaccumulation of pleural effusion. X-ray is concerning for possible loculation of pleural effusion, will order CT scan for evaluation. Preliminary review of CT shows no loculations, however reaccumulation of pleural effusion. Patient resting comfortably in bed, his oxygen saturations are stable when patient is at rest, however even with speaking or minor exertion patient saturations dropped to the 80s. Will admit for further diuresis and treatment. Departure - Departure Disposition: [facility] Clinical Impression: Volume overload, Acute on chronic respiratory failure with hypoxemia Condition: Stable Discharge Date/Time: 12/17/22 06:15
[2022-12-17 02:35] LABS: ALBUMIN 3.4 g/dL (3.2-5.5)
[2022-12-17 02:40] LABS: ABG PCO2 53 mmHg (34-45); ABG PH 7.41 (7.35-7.45)
[2022-12-17 02:40] LABS: ALBUMIN/GLOBULIN RATIO 1.3 (1.0-2.2); BILIRUBIN,TOTAL 0.4 mg/dL (0.2-1.0); CALCIUM 8.8 mg/dL (8.5-10.3); CREATININE 0.9 mg/dL (0.6-1.3); POTASSIUM 4.3 mmol/L (3.5-4.5); TOTAL PROTEIN 6.1 g/dL (6.4-8.9)
[2022-12-17 02:41] LABS: ABG BASE EXCESS 7.7 mmol/L (-2.0-3.0); ABG HCO3 33.4 mmol/L (22.0-26.0); ABG OXYGEN SATURATION 93 % (94-98); ABG PO2 67 mmHg (80-100); ALLEN TEST POSITIVE
[2022-12-17] MEDS ORDERED: iohexoL-300 100 ML VIAL IVP ONE (04:40)
[2022-12-17] MEDS ORDERED: SODIUM CHLORIDE FLUSH 0.9% 10 ML SYRINGE IVP PRN (05:12)
[2022-12-17] MEDS ORDERED: IPRATROPIUM/ALBUTEROL 3 ML NEB INH PRN (05:18)
[2022-12-17] MEDS ORDERED: ALBUTEROL NEB 2.5 MG/3 ML INH PRN (05:56)
[2022-12-17] MEDS: PANTOPRAZOLE 40 MG TABLET PO SCH ×2 (06:12→21:45)
[2022-12-17] MEDS: FUROSEMIDE 40 MG/4 ML VIAL IVP SCH ×2 (06:12→14:40)
--- NOTE | 2022-12-17 06:15 | HISTORY & PHYSICAL EXAMINATION ---
History and Physical - History and Physical chief complaintI couldn't breathe HPI this is a 77 year old male history of heart failure and COPD hypertension atrial fibrillation who presented to the emergency room with chief complaint of shortness of breath dyspnea on exertion. Patient stated that this has been worsening he does take medications furosemide he had a recent admission known to have pleural effusion had thoracentesis apparently the previous admission it was very challenging to diuresis him. Patient also reports orthopnea and PND. Clinical patients on oxygen therapy at home with 2 L nasal cannula why he came he also showed of breath he was requiring over 4 L nasal cannula when I saw him patient appeared comfortable [place] was much better because he had received IV Lasix times one in the emergency room.patient denies any chest pain denies any palpitations no nausea no vomiting no headaches note dizziness he does report significant swelling in his lower extremities and vocational he does get swelling on the left upper extremity which is likely second to underlining procedure he had previously. He couldn't tell me how much weight he had gained recently. He stated that he does get significantly winded when he attempts to go today bathroom or walk around he does walk okay but yours requiring a walker.persistent of symptoms prompted the patient to seek medical attention came to the emergency room where he was evaluated patient was noted to be in volume overload was given diuresis patient improved and will quarter admitted for further management and diagnostic workup.in the emergency room he was noted to be hypertensive, hypoxic. Past medical history include, hypertension, congestive heart failure likely diastolic dysfunction,atrial fibrillation COPD former smoker surgical history hearts hernia surgery and blood clot removal family history father was born with a hole in the heart, hypertension hyp erlipidemia coronary artery disease Jennifer also had multiple medical issues. Social patient is an ex-smoker Marcelo spoke about one pack a day's last smoke was a year ago he does actively drink alcohol he states one drink of whiskey every day no other illicit medications. Review of systems total offenses and reviewed all negative other than those mentioned above. Medication list please review medication is in the chart physical exam general appearance patient appeared comfortable laying in bed awake and alert to speak in full sentences does not appear to be in any acute distress. HEENT normocephalic atraumatic lungs difficult to exam through the video appear to diminish was noted to be slightly wheezing no use of accessory muscles. Cardiovascular regular rate and rhythm G.I. soft no tenderness no distention extremities 2+ edema Skin he does have bedsore at the bottom which is superficial likely stage one neurological exam patient is awake and alert not confuse not agitated very clear in communication assessment and plan acute on chronic hypoxia make respiratory failure Acute on chronic bladder diastolic heart failure COPD Nettles exacerbation Hypertension Plan this is a 77 year old gentleman with above-mentioned medical problems as enumerated present awards shortness of breath volume overload hypoxia be admitted to medical service. Patient will be admitted and the hospital is team to [facility] with telemetry monitoring for acute on chronic heart failure exacerbation. Patients oral Lasix and start patient on Lasix 40 mg IV b.i.d. monitor i/o, daily weight patient may need another thoracentesis will deferred to the data team monitor electrolytes and replace accordingly currently on oxygen therapy with 4 L will continue and adjust accordingly and we into his baseline. Patient may need wound care evaluation PT OT evaluation case management as he may need some rehab or outpatients home health DVT prophylaxis with Lovenox 40 mg of acute acute day GI prophylaxis not clinical indicated that patient was ordered on Protonix at home which is being continued. ADVANCE CARE PLANNING DISCUSS PATIENT IS A FOUR CODE HIS STATEMENT WASN'T VERY CLEAR HIS po A [place] plan of care discussed the patient answered all his questions to the best of our ability the dating with [facility] care of this patient.
[2022-12-17] MEDS ORDERED: IPRATROPIUM 0.2 MG/ML NEB INH SCH (07:00)
--- NOTE | 2022-12-17 08:20 | XRAY Report ---
PROCEDURE: Chest 1 View X-Ray INDICATIONS: DYSPNEA TECHNIQUE: One view of the chest was acquired. COMPARISON: Same day chest CT. FINDINGS: Surgical changes and devices: None. Lungs and pleura: Stable loculated pleural effusions. Smooth interstitial thickening and peribronchi al cuffing. Mediastinum: Cardiomegaly. Bones and chest wall: No suspicious bony lesions. Overlying soft tissues appear unremarkable. IMPRESSION: Stable moderate pulmonary edema. Stable loculated pleural effusions. Reviewed by: Jj Pink on 12/17/2022 8:19 AM PDT Approved by: Jj Pink on 12/17/2022 8:19 AM PDT Station ID: [id number]
--- NOTE | 2022-12-17 08:23 | CT Report ---
PROCEDURE: CHEST W INDICATIONS: R PLEURAL EFFUSION EVALUATION CONTRAST: Omni 300 100ml TECHNIQUE: After the administration of intravenous contrast, 1 mm axial images were acquired from the pulmonary apices through the posterior costophrenic angles. Axial 5 mm soft tissue kernel reconstructions were performed as well as 8 mm axial MIP and coronal and sagittal 5 mm reformations. For radiation dose reduction, the following was used: automated exposure control, adjustment of mA and/or kV according to patient size. COMPARISON: None. FINDINGS: Image quality: Excellent. Lungs and pleura: Moderate to large loculated right-sided pleural effusion and small loculated left-s ided pleural effusion. Diffuse smooth interstitial thickening and peribronchial cuffing. Mediastinum: Heart size is enlarged. No pericardial effusion. No large vessel abnormality. No mediast inal adenopathy by size criteria. Chest wall and lower neck: Thyroid is unremarkable. No axillary or supraclavicular adenopathy by size . Bones: No aggressive osseous abnormality. Upper Abdomen: Small kidneys. IMPRESSION: Moderate to severe pulmonary edema. Moderate to large loculated right-sided pleural effusion and small loculated left-sided pleural effus ion. Findings are concordant with preliminary interpretation provided by [facility]. Reviewed by: Jj Pink on 12/17/2022 8:21 AM PDT Approved by: Jj Pink on 12/17/2022 8:21 AM PDT Station ID: [id number]
[2022-12-17] MEDS: IPRATROPIUM/ALBUTEROL 3 ML NEB INH SCH ×2 (08:42→15:23)
[2022-12-17] MEDS: BUDESONIDE 0.5 MG/2 ML NEB INH SCH (08:42)
[2022-12-17] MEDS ORDERED: FORMOTEROL FUMARATE NEB 20 MCG/2 ML INH SCH (09:00)
[2022-12-17] MEDS ORDERED: FERROUS SULFATE 325 MG TABLET PO SCH (09:00)
[2022-12-17] MEDS ORDERED: SACCHAROMYCES BOULARDII PO SCH (09:00)
[2022-12-17] MEDS ORDERED: BUDESONIDE 0.5 MG/2 ML NEB INH SCH (09:00)
[2022-12-17] MEDS: THIAMINE 100 MG TABLET PO SCH (09:08)
[2022-12-17] MEDS: POTASSIUM CHLORIDE 10 MEQ CAPSULE PO SCH (09:08)
[2022-12-17] MEDS: ACETAMINOPHEN 325 MG TABLET PO PRN ×3 (09:08→23:41)
[2022-12-17] MEDS: guaiFENesin 600 MG TABLET PO SCH ×2 (09:08→21:45)
[2022-12-17] MEDS: SODIUM CHLORIDE FLUSH 0.9% 10 ML SYRINGE IVP SCH ×2 (09:09→17:44)
[2022-12-17] MEDS: ASPIRIN EC 81 MG TABLET PO SCH (09:09)
[2022-12-17] MEDS: diltiaZEM CD 120 MG CAPSULE PO SCH ×2 (09:09→17:44)
[2022-12-17] MEDS: CHOLECALCIFEROL 25 MCG TABLET PO SCH (09:09)
[2022-12-17] MEDS: CALCIUM CARBONATE CHEW 500 MG TABLET PO SCH (09:09)
[2022-12-17] MEDS ORDERED: ZINC OXIDE 20% OINT 30 GM TUBE TOP PRN (09:31)
--- NOTE | 2022-12-17 12:03 | PHARMACY PROGRESS NOTE ---
- Best Possible Medication History Admit Date and Time: 12/17/22511 Processed by: Pharmacy Medication History completed: Yes Patient Interview: Pt unable to participate Secondary Source(s): Facility MAR as ONLY source As the person ultimately responsible for medication therapy, providers are able to order a medication from an existing home medication list in [facility] via the "Reconcile Routine" prior to Confirmation of that medication by senior administrative support. Such practice is discouraged except when the physician, in their clinical judgment, deems that a medical need exists for a medication without regard to previous use.
--- NOTE | 2022-12-17 14:38 | Ultrasound Report ---
PROCEDURE: Thoracentesis Puncture INDICATIONS: Large R pleural effusion, SOB TECHNIQUE: The indications, alternatives, benefits, risks, and complications of the procedure were explained to the patient. Written informed consent was obtained and placed in the chart. The chest was examined sonographically, and an appropriate site was chosen for thoracentesis. The skin was prepared and elizabeth ped in the usual sterile fashion, and 1% lidocaine was infiltrated from the skin down through the ple ural surface. A 19-gauge catheter-covered needle was then introduced into the pleural space, the cat heter was advanced and the needle was withdrawn, and thereafter pleural fluid was aspirated. The cat heter was then removed and a dressing was applied. COMPARISON: None. FINDINGS: Access site: Right hemithorax. Needle: One-Step centesis catheter with introducer needle. Fluid volume and description: 1000 mL Fluid sent for diagnostic testing: No Medications: 1% lidocaine for local anaesthesia. Complications: Chest x-ray performed after the procedure demonstrates a small pneumothorax. IMPRESSION: Successful ultrasound-guided thoracentesis. Postprocedural pneumothorax is noted. A rep eat x-ray will be performed in 2 hours again. Reviewed by: Donato Soni on 12/17/2022 2:37 PM PDT Approved by: Donato Soni on 12/17/2022 2:37 PM PDT Station ID: [id number]
[2022-12-17] MEDS: NYSTATIN POWDER 15 GM TOP SCH ×2 (14:40→21:45)
--- NOTE | 2022-12-17 14:40 | XRAY Report ---
PROCEDURE: Post Thoracentesis 1V CXR INDICATIONS: Right Sided Pleural Effusion/ Post Thoracentesis TECHNIQUE: One view of the chest was acquired. COMPARISON: 12/17/2022 FINDINGS: Surgical changes and devices: None. Lungs and pleura: A pneumothorax is seen. The volume of pneumothorax is less than previously seen pl eural effusion. Mediastinum: No mediastinal shift. Bones and chest wall: No suspicious bony lesions. Overlying soft tissues appear unremarkable. IMPRESSION: Post thoracentesis pneumothorax with the appearance of trapped lung. Repeat chest x-ray w ill be performed in 2 hours. Reviewed by: Donato Soni on 12/17/2022 2:38 PM PDT Approved by: Donato Soni on 12/17/2022 2:38 PM PDT Station ID: [id number]
--- NOTE | 2022-12-17 17:11 | XRAY Report ---
PROCEDURE: Post Thoracentesis 1V CXR INDICATIONS: POST THORACENTSIS TECHNIQUE: One view of the chest was acquired. COMPARISON: 12/01/2022 FINDINGS: Surgical changes and devices: None. Lungs and pleura: Right pneumothorax is smaller compared to the prior x-ray consistent with trapped lung. Diffuse airspace opacities bilaterally are unchanged. Mediastinum: No midline shift. Bones and chest wall: No suspicious bony lesions. Overlying soft tissues appear unremarkable. IMPRESSION: Pneumothorax is decreased in size. The appearance is consistent with trapped lung. Recomm end consideration for not performing thoracentesis in the future unless the pleural effusion is signi ficantly larger. Reviewed by: Donato Soni on 12/17/2022 5:10 PM PDT Approved by: Donato Soni on 12/17/2022 5:10 PM PDT Station ID: [id number]
[2022-12-18 05:05] LABS: BASOPHILS % (AUTO) 0.5 %; EOSINOPHILS # (AUTO) 0.3 10^3/uL (0.0-0.7); EOSINOPHILS % (AUTO) 4.3 %; HCT - HEMATOCRIT 27.4 % (42.0-52.0); LYMPHOCYTES # (AUTO) 0.4 10^3/uL (1.5-3.5); LYMPHOCYTES % (AUTO) 6.4 %; MEAN CORPUSCULAR HEMOGLOBIN 27.6 pg (27.0-31.0); MEAN CORPUSCULAR HGB CONC 29.2 g/dL (32.0-36.0); MEAN CORPUSCULAR VOLUME 94.5 fL (80.0-94.0); MEAN PLATELET VOLUME 9.5 fL (7.4-11.4); MONOCYTES # (AUTO) 1.1 10^3/uL (0.0-1.0); MONOCYTES % (AUTO) 17.5 %; NEUTROPHILS # (AUTO) 4.4 10^3/uL (1.5-6.6); NEUTROPHILS % (AUTO) 70.8 %; PLT - PLATELET COUNT 140 10^3/uL (130-450); RED CELL DISTRIBUTION WIDTH 20.1 % (12.0-15.0); WHITE BLOOD COUNT 6.2 x10^3/uL (4.8-10.8)
[2022-12-18 05:13] LABS: SLIDE REVIEW? Indicated
[2022-12-18 05:29] LABS: MAGNESIUM 1.7 mg/dL (1.7-2.3)
[2022-12-18 05:31] LABS: CALCIUM 8.5 mg/dL (8.5-10.3); POTASSIUM 3.4 mmol/L (3.5-4.5)
[2022-12-18 05:40] LABS: PLATELET ESTIMATE, MANUAL NORMAL (130-450,000) (NORMAL)
[2022-12-18] MEDS: FUROSEMIDE 40 MG/4 ML VIAL IVP SCH (06:16)
[2022-12-18] MEDS: PANTOPRAZOLE 40 MG TABLET PO SCH ×2 (06:16→20:16)
[2022-12-18] MEDS: SODIUM CHLORIDE FLUSH 0.9% 10 ML SYRINGE IVP SCH ×3 (06:17→17:47)
[2022-12-18] MEDS: BUDESONIDE 0.5 MG/2 ML NEB INH SCH ×3 (07:35→18:55)
[2022-12-18] MEDS: IPRATROPIUM/ALBUTEROL 3 ML NEB INH SCH ×5 (07:35→18:55)
[2022-12-18] MEDS: FERROUS SULFATE 325 MG TABLET PO SCH ×2 (08:34→17:47)
[2022-12-18] MEDS: POTASSIUM CHLORIDE 10 MEQ CAPSULE PO SCH (08:34)
[2022-12-18] MEDS: ASPIRIN EC 81 MG TABLET PO SCH (08:34)
[2022-12-18] MEDS: CALCIUM CARBONATE CHEW 500 MG TABLET PO SCH (08:35)
[2022-12-18] MEDS: CHOLECALCIFEROL 25 MCG TABLET PO SCH (08:35)
[2022-12-18] MEDS: guaiFENesin 600 MG TABLET PO SCH ×2 (08:35→20:12)
[2022-12-18] MEDS: diltiaZEM CD 120 MG CAPSULE PO SCH ×2 (08:35→17:46)
[2022-12-18] MEDS: THIAMINE 100 MG TABLET PO SCH (08:35)
[2022-12-18] MEDS: NYSTATIN POWDER 15 GM TOP SCH ×2 (08:35→20:12)
[2022-12-18] MEDS: PRENATAL VITAMIN TABLET PO SCH (08:35)
[2022-12-18] MEDS: ACETAMINOPHEN 325 MG TABLET PO PRN ×3 (08:42→20:12)
--- NOTE | 2022-12-18 14:46 | PROVIDER PROGRESS NOTE ---
Assessment/Plan - Problem List (1) Acute on chronic respiratory failure with hypoxemia Assessment/Plan: This was partly from volume overload (acute on chronic diastolic heart failure)since he was not on Lasix after the discharge 2 weeks ago. But mostly he had worsened hypoxia from reaccumulation of a large right pleural effusion. This was tapped yesterday. Plan: Continue with diuretics Continue with his supplemental oxygen which is now at 4 L/min continuously 24/7, not at 2L/min which he was on at home before the last admission. (2) Acute on chronic diastolic heart failure Assessment/Plan: As per Echo done on the last hospitalization just 3 weeks ago. Plan: Continue him on his usual cardiac meds Reiterating a low-salt diet is needed I will put him on daily Lasix now (3) Recurrent pleural effusion on right Assessment/Plan: He underwent thoracentesis yesterday. 1000 cc was removed. The IR indicated not to repeat this unless it is very large again. Plan: Continue with diuretics (4) COPD, severe Assessment/Plan: The patient did not have a COPD exacerbation this admission, does not have acute bronchitis. Plan: Continue on his usual inhalers and other meds Continue on supplemental O2 I will put him on nightly Montelukast now (5) Chronic atrial fibrillation Assessment/Plan: The heart rate has been controlled during this admission, on his meds Plan: Continue with present HR-meds When he left here 2 weeks ago he was not on aspirin or anticoagulants because of the heme positive stool and anemia. At admission now, he was on 1 baby aspirin daily, apparently started when he was a [facility]. He needs a work-up for a GI source of anemia before resuming his aspirin (6) Cor pulmonale Assessment/Plan: He had an Echocardiogram done here on 11/25, during the last admission, which a showed a small LV, invaginated by a large RV. LV function normal. Severely depressed RV function. Cor pulmonale with "soft" BPs, bodes very poor prognosis for him, less than 1 year to live. He already is so debilitated that he is mostly bedbound at home. (7) Anemia Qualifiers: Anemia type: iron deficiency Assessment/Plan: He had heme me pos stool on his last recent admission and needs an outpt Plan: I will stop the daily aspirin Cont Iron suppl (8) History of alcohol abuse He stated that he drank 1 shot of whiskey per day now, when he was ere at the last admission. Unknown if he gets any alcohol while he is at SNF Plan: Cont po Thiamine and pre-lizzette vit daily (9) Poor memory As per Hx - Current Meds Current Meds: Current Medications Generic Name Dose Route Start Last Admin Trade Name Cari PRN Reason Stop Dose Admin Acetaminophen 650 mg 12/17/22 05:18 12/18/22 12:55 Acetaminophen 325 Mg Tablet PO 650 mg Q4HR PRN Administration Pain or Fever > 38C (100.4F) Albuterol/Ipratropium 3 ml 12/17/22 11:00 12/18/22 11:42 Ipratropium/Albuterol 3 Ml Neb INH 3 ml RTQID FRANCISCO Administration Aspirin 81 mg 12/17/22 09:00 12/18/22 08:34 Aspirin Ec 81 Mg Tablet PO 81 mg DAILY FRANCISCO Administration Budesonide 0.5 mg 12/17/22 07:00 12/18/22 08:16 Budesonide 0.5 Mg/2 Ml Neb INH Not Given RTBID FRANCISCO Calcium Carbonate/Glycine 500 mg 12/17/22 09:00 12/18/22 08:35 Calcium Carbonate Chew 500 Mg Tablet PO 500 mg DAILY FRANCISCO Administration Cholecalciferol 25 mcg 12/17/22 09:00 12/18/22 08:35 Cholecalciferol 25 Mcg Tablet PO 25 mcg DAILY FRANCISCO Administration Diltiazem HCl 120 mg 12/17/22 08:00 12/18/22 08:35 Diltiazem Cd 120 Mg Capsule PO 120 mg 0800,1800 FRANCISCO Administration Ferrous Sulfate 325 mg 12/18/22 08:00 12/18/22 08:34 Ferrous Sulfate 325 Mg Tablet PO 325 mg BIDWM FRANCISCO Administration Guaifenesin 600 mg 12/17/22 09:00 12/18/22 08:35 Guaifenesin 600 Mg Tablet PO 600 mg BID FRANCISCO Administration Nystatin 1 applic 12/17/22 09:00 12/18/22 08:35 Nystatin Powder 15 Gm TOP 1 applic BID FRANCISCO Administration Pantoprazole Sodium 40 mg 12/17/22 07:00 12/18/22 06:16 Pantoprazole 40 Mg Tablet PO 40 mg 0700,2200 FRANCISCO Administration Potassium Chloride 10 meq 12/17/22 09:00 12/18/22 08:34 Potassium Chloride 10 Meq Capsule PO 10 meq DAILY FRANCISCO Administration Multivit/Folic Acid/Iron 1 tab 12/18/22 08:00 12/18/22 08:35 Vitamin Tablet PO 1 tab DAILYWM FRANCISCO Administration Sodium Chloride 10 ml 12/17/22 09:00 12/18/22 08:35 Sodium Chloride Flush 0.9% 10 Ml Syringe IVP 10 ml 0100,0900,1700 FRANCISCO Administration Thiamine HCl 100 mg 12/17/22 09:00 12/18/22 08:35 Thiamine 100 Mg Tablet PO 100 mg DAILY RFANCISCO Administration - Lab Result Fish Bone Diagrams: 12/18/22 04:44 12/18/22 04:44 - Additional Planning My Orders: My Active Orders 12/18/22 Evaluate and Treat OT [OT] Routine Evaluate and Treat PT [PT] Routine 12/18/22 08:00 Ferrous Sulfate [Feosol] 325 mg PO BIDWM Vitamin [Trinatal Rx 1] 1 tab PO DAILYWM 12/19/22 09:00 FUROSEMIDE INJ 40mg VIAL [LASIX INJ 40 mg VIAL] 40 mg IVP DAILY Subjective - Subjective Patient Reports: Feeling Better, Resting Comfortably Objective Vital Signs: Vital Signs - 24 hr 12/17/22 12/17/22 12/17/22 15:23 15:45 18:40 Temperature 36.6 C Heart Rate 86 100 Heart Rate [ 94 Brachial] Respiratory 12 24 20 Rate Blood Pressure 107/54 L [Left Brachial artery] Blood Pressure [Right Brachial artery] O2 Saturation 94 If not protocol 4 4 2 : Oxygen Flow, liters/minute 12/17/22 12/17/22 12/18/22 20:06 23:38 05:00 Temperature 36.7 C 36.6 C 36.6 C Heart Rate Heart Rate [ 93 90 91 Brachial] Respiratory 24 20 18 Rate Blood Pressure 108/55 L [Left Brachial artery] Blood Pressure 103/62 99/55 L [Right Brachial artery] O2 Saturation 99 94 96 If not protocol 4 4 4 : Oxygen Flow, liters/minute 12/18/22 12/18/22 12/18/22 07:17 07:20 07:37 Temperature 36.7 C Heart Rate 88 Heart Rate [ 92 Brachial] Respiratory 20 22 Rate Blood Pressure [Left Brachial artery] Blood Pressure 105/57 L [Right Brachial artery] O2 Saturation 94 If not protocol 4 4 4 : Oxygen Flow, liters/minute 12/18/22 12/18/22 11:25 11:43 Temperature Heart Rate 90 Heart Rate [ 90 Brachial] Respiratory 21 20 Rate Blood Pressure [Left Brachial artery] Blood Pressure 95/56 L [Right Brachial artery] O2 Saturation 90 L If not protocol 4 4 : Oxygen Flow, liters/minute Oxygen O2 Source Nasal cannula Oxygen Flow Rate 4 I&O (Last 24 Hrs): Intake and Output Totals x24h 12/16/22 12/17/22 12/18/22 23:59 23:59 23:59 Intake Total 1289 400 Output Total 2375 850 Balance -1086 -450 General: Alert, Oriented x3 HEENT: Mucous membr. moist/pink, Other (Edentulous) Neck: Supple, No JVD Neuro: Alert, Non Focal, Other (poor memory) Cardiovascular: Other (Irreg) Respiratory: No respiratory distress (on suppl O2 via n.c.) Abdomen: Soft Extremities: Other (Trace edema) - Results Results: Laboratory Results WBC 6.2 x10^3/uL (4.8-10.8) 12/18/22 04:44 RBC 2.90 10^6/uL (4.70-6.10) L 12/18/22 04:44 Hgb 8.0 g/dL (14.0-18.0) L 12/18/22 04:44 Hct 27.4 % (42.0-52.0) L 12/18/22 04:44 MCV 94.5 fL (80.0-94.0) H 12/18/22 04:44 MCH 27.6 pg (27.0-31.0) 12/18/22 04:44 MCHC 29.2 g/dL (32.0-36.0) L 12/18/22 04:44 RDW 20.1 % (12.0-15.0) H 12/18/22 04:44 Plt Count 140 10^3/uL (130-450) 12/18/22 04:44 MPV 9.5 fL (7.4-11.4) 12/18/22 04:44 Neut # (Auto) 4.4 10^3/uL (1.5-6.6) 12/18/22 04:44 Lymph # (Auto) 0.4 10^3/uL (1.5-3.5) L 12/18/22 04:44 Cassia # (Auto) 1.1 10^3/uL (0.0-1.0) H 12/18/22 04:44 Eos # (Auto) 0.3 10^3/uL (0.0-0.7) 12/18/22 04:44 Baso # (Auto) 0.0 10^3/uL (0.0-0.1) 12/18/22 04:44 Absolute Nucleated RBC 0.00 x10^3/uL 12/18/22 04:44 Nucleated RBC % 0.0 /100WBC 12/18/22 04:44 Manual Slide Review Indicated 12/18/22 04:44 Platelet Estimate NORMAL (130-450,000) (NORMAL) 12/18/22 04:44 RBC Morph Micro Appear 1+ ANISOCYTOSIS (NORMAL) 1+ HYPOCHROMASIA (NORMAL) 1+ OVALOCYTES (NORMAL) 12/18/22 04:44 RBC Morph Micro Appear 1+ ANISOCYTOSIS (NORMAL) 1+ HYPOCHROMASIA (NORMAL) 1+ OVALOCYTES (NORMAL) 12/18/22 04:44 RBC Morph Micro Appear 1+ ANISOCYTOSIS (NORMAL) 1+ HYPOCHROMASIA (NORMAL) 1+ OVALOCYTES (NORMAL) 12/18/22 04:44 Bld Gas Analysis Time 0241 12/17/22 02:35 Sample Site LEFT RADIAL 12/17/22 02:35 ABG pH 7.41 (7.35-7.45) 12/17/22 02:35 ABG pCO2 53 mmHg (34-45) H 12/17/22 02:35 ABG pO2 67 mmHg (80-100) L 12/17/22 02:35 ABG HCO3 33.4 mmol/L (22.0-26.0) H 12/17/22 02:35 ABG Total CO2 35.0 MMOL/L (21.0-29.0) H 12/17/22 02:35 ABG O2 Saturation 93 % (94-98) L 12/17/22 02:35 ABG Base Excess 7.7 mmol/L (-2.0-3.0) H 12/17/22 02:35 Valentin Test POSITIVE 12/17/22 02:35 O2 Delivery Device NASAL CANNULA 12/17/22 02:35 O2 Liters/Min 4.00 LPM 12/17/22 02:35 FiO2 36.00 12/17/22 02:35 Sodium 141 mmol/L (135-145) 12/18/22 04:44 Potassium 3.4 mmol/L (3.5-4.5) L 12/18/22 04:44 Chloride 97 mmol/L (101-111) L 12/18/22 04:44 Carbon Dioxide 39 mmol/L (21-32) H* 12/18/22 04:44 Anion Gap 5.0 (6-13) L 12/18/22 04:44 BUN 16 mg/dL (6-20) 12/18/22 04:44 Creatinine 1.0 mg/dL (0.6-1.3) 12/18/22 04:44 Estimated GFR (MDRD) 73 (>89) L 12/18/22 04:44 Glucose 107 mg/dL (74-104) H 12/18/22 04:44 Calcium 8.5 mg/dL (8.5-10.3) 12/18/22 04:44 Magnesium 1.7 mg/dL (1.7-2.3) 12/18/22 04:44 Total Bilirubin 0.4 mg/dL (0.2-1.0) 12/17/22 02:14 AST 16 IU/L (10-42) 12/17/22 02:14 ALT 11 IU/L (10-60) 12/17/22 02:14 Alkaline Phosphatase 67 IU/L (42-121) 12/17/22 02:14 Troponin I High Sens 10.2 ng/L (2.3-19.7) 12/17/22 02:14 B-Natriuretic Peptide 340 pg/mL (5-100) H 12/18/22 04:44 Total Protein 6.1 g/dL (6.4-8.9) L 12/17/22 02:14 Albumin 3.4 g/dL (3.2-5.5) 12/17/22 02:14 Globulin 2.7 g/dL (2.1-4.2) 12/17/22 02:14 Albumin/Globulin Ratio 1.3 (1.0-2.2) 12/17/22 02:14 - Procedures Procedures: Procedures DRAINAGE OF RIGHT PLEURAL CAVITY, PERCUTANEOUS APPROACH (11/25/22) RESPIRATORY VENTILATION, 24-96 CONSECUTIVE HOURS (11/25/22)
--- NOTE | 2022-12-18 14:49 | Discharge Plan ---
"Discharge Plan for SNF / [facility] - Discharge Plan And Transition Orders Problem Reviewed?: Yes Disposition: 03 [facility] DC/Xfer Condition: Fair Allergies and Adverse Reactions: Allergies Allergy/AdvReac Type Severity Reaction Status Date / Time Penicillins Allergy Unknown Verified 12/17/22 02:28 Health Concerns: The patient was hospitalized due to respiratory distress, from volume overload (CHF), and recurrence of a right pleural effusion. He was started on IV diuretics. He underwent right-sided thoracentesis (again). One L was removed. He was restarted with PT and OT. He is returning back to [facility] for further PT and OT rehab. Closer monitoring of his fluid intake is needed to prevent volume overload. Plan of Treatment: Resume PT and OT. Resume his supplemental O2, which she needs 30/11. Care Goals: Improvement in symptoms and stabilization are the goals. Assessment: Patient understands the plan. - SNF / [facility] Transition Orders Admit to (Facility): [facility] Under the care of (Name): Dr Beard Discharge Diagnosis: (1) Acute on chronic respiratory failure with hypoxemia (2) Acute on chronic diastolic heart failure (3) Recurrent pleural effusion on right S/P thoracentesis of 1L (4) COPD, severe Continue on supplemental O2 (5) Chronic atrial fibrillation When he left here 2 weeks ago he was not on aspirin or anticoagulants because of the heme positive stool and anemia. At admission now, he was on 1 baby aspirin daily, apparently started when he was a [facility] SN[facility]. He needs a work-up for a GI source of anemia before resuming his aspirin (6) Cor pulmonale He had an Echocardiogram done here on 11/25, during the last admission, which a showed a small LV, invaginated by a large RV. LV function normal. Severely depressed RV function. (7) Anemia, iron deficiency He had heme pos stool on his last recent admission and needs an outpt W/u with GI (8) History of alcohol abuse He stated that he drank 1 shot of whiskey per day now, before being at SNF. Plan: Cont po Thiamine and pre- vit daily (9) Poor memory As per Medicare Certification Statement: I certify that [facility] care is medically necessary on a continuing basis for any of the conditions for which she/he is receiving care during hospitalization. Notify PCP of admission and forward orders to primary provider for signature. Weight on admission and: Daily Call PCP immediately if weight increases by: 4 kg Other Notification Orders: Call PCP immediately if patient develops dyspnea, chest pain/tightness or edema. House Bowel Program: Yes Additional Bowel Program Orders: If no BM after 2 days, nurse may give M.O.M. 30ml PO PRN and/or ducolax Supp 1 MI and/or BEBE 250mg P.O., and/or senna 1-2 tabs PO. On day 3 nurse may give repeat above order until residents constipation is resolved. Annual Influenza Vaccine (between Jan 08 and August 07): Yes Two-step PPD per [facility] [id number] or approved exception documents: Yes Oxygen Orders: 4L/min continuously Medication Orders: PLEASE REFER TO THE DISCHARGE MEDICATION LIST. Insulin Orders?: No - Medications New Prescriptions: guaiFENesin [Guaifenesin ER] 600 mg PO BID PRN #10 tab PRN Reason: Cough Furosemide [Lasix] 40 mg PO DAILY #30 tablet - Diet Type: No added salt Texture: Mech soft Liquids: Thin May have monthly special meal: Yes - Therapies | Activity Therapy: Evaluation | Treat if indicated: PT, OT Rehabilitation Potential: Maximize functional status Activity: Activity as Tolerated Weight Bearing: Full Weight Assistance Devices: Walker Follow Up: See PCP after discharge from SNF."
[2022-12-19] MEDS: SODIUM CHLORIDE FLUSH 0.9% 10 ML SYRINGE IVP SCH ×3 (01:07→09:15)
[2022-12-19] MEDS: PANTOPRAZOLE 40 MG TABLET PO SCH (05:32)
[2022-12-19] MEDS: IPRATROPIUM/ALBUTEROL 3 ML NEB INH SCH (07:36)
[2022-12-19] MEDS: BUDESONIDE 0.5 MG/2 ML NEB INH SCH (07:36)
[2022-12-19] MEDS: ACETAMINOPHEN 325 MG TABLET PO PRN (08:02)
--- NOTE | 2022-12-19 08:33 | DISCHARGE SUMMARY ---
Discharge Summary Admit Date: 12/17/22 Discharge Date: 12/19/22 Discharging Provider: Dr Jess Rojas Primary Care Provider: Dr Jericho Beard Condition at Discharge: Fair Discharge Disposition: [address] [facility] DC/Xfer - HPI History of Present Illness: This is a 77 year old male history of diastolic heart failure, COPD hypertension, atrial fibrillation who presented to the emergency room with chief complaint of shortness of breath & dyspnea on exertion. Patient stated that this has been worsening for several days. He thought he was taking medication furosemide. He had a recent admission, is known to have pleural effusion, had thoracentesis and apparently the previous admission it was very challenging to diuresis him. Patient also reports orthopnea and PND. Clinically the patient is on oxygen therapy at home with 2 L nasal cannula. He came with marked shortness of breath he was requiring over 4 L nasal cannula. When I saw him patient appeared comfortable, felt much better because he had received IV Lasix times one in the emergency room. Patient denies any chest pain denies any palpitations no nausea no vomiting no headaches note dizziness, he does report significant swelling in his lower extremities and occasionally he does get swelling on the left upper extremity which is likely second to underlining procedure he had previously. He couldn't tell me how much weight he had gained recently. He stated that he does get significantly winded when he attempts to go to bathroom or walk around, he does walk okay but is requiring a walker. His persistence of symptoms prompted the patient to seek medical attention and he came to the emergency room where he was evaluated and was noted to be in volume overload. He was given diuresis and patient improved. We will admit him for further management and diagnostic workup. In the emergency room he was noted to be hypertensive, hypoxic. - HOSPITAL COURSE Hospital Course: (1) Acute on chronic respiratory failure with hypoxemia This was partly from volume overload (acute on chronic diastolic heart failure) since he was not on Lasix at the SNF. But mostly he had worsened hypoxia from reaccumulation of a large right pleural effusion. We continue with his s upplemental oxygen which is now set at 4 L/min continuously 24/, not at 2L/min which he was on at home before the last admission. (2) Acute on chronic diastolic heart failure As per Echo done on the last hospitalization just 3 weeks ago. We kept him on his usual cardiac meds and started new daily Lasix now. This gave him "soft" BPs of 90-100 systolic. Cor pulmonale with "soft" BPs, bodes a very poor prognosis for him, with less than 1 year to live. (3) Recurrent pleural effusion on right He underwent thoracentesis and 1000 cc was removed. His respiratory distress quickly improved. The Interventional Radiologist indicated not to repeat this again unless it is very large. (4) COPD, severe The patient did not have a COPD exacerbation this admission. We kept him on his scheduled and prn bronchodilators and inhaled steroids, and his suppl O2, now needing 4 L/min continuously. He was started on new nightly Montelukast and discharged on this (5) Chronic atrial fibrillation The heart rate was controlled during this admission, we kept him on his heart rate-slowing meds. When he left here 2 weeks ago, he was not on aspirin or anticoagulants because of the heme positive stool and anemia. At admission now, he was on 1 baby aspirin daily, apparently started at [facility]. The aspirin was stopped. He needs a work-up for a GI source of anemia before resuming his aspirin (6) Cor pulmonale He had an Echocardiogram done here on 11/25, during the last admission, which a showed a small LV, invaginated by a large RV. LV function normal. Severely depressed RV function. Cor pulmonale with "soft" BPs, bodes very poor prognosis for him, less than 1 year to live. He already is so debilitated that he was mostly bedbound at home, now is getting PT and OT rehab at [facility]. He does agree he needs to be connected with Hospice. (7) Anemia : iron deficiency Hgb was 8.2 at admission. He had heme pos stool at his last recent admission and needs an outpt work-up. Thus his daily baby aspirin was stopped. His iron suppl was continued. (8) History of alcohol abuse He drank 1 shot of whiskey per day at the last admission. Unknown if he gets any alcohol while he is at SNF. We continued his po Thiamine and pre- vit daily (9) Poor memory As per Hx - ALLERGIES Allergies/Adverse Reactions: Allergies Allergy/AdvReac Type Severity Reaction Status Date / Time Penicillins Allergy Unknown Verified 12/17/22 02:28 - MEDICATIONS Home Medications: Ambulatory Orders Medication Instructions Recorded Confirmed Albuterol Sulf [Ventolin Hfa 2 puffs INH QID PRN 11/25/22 12/17/22 Inhaler] Ferrous Sulfate 2 tab PO DAILY 11/25/22 12/17/22 Fluticasone Propion/Salmeterol 1 puffs PO BID 11/25/22 12/17/22 [Wixela 500-50 Inhub] Tiotropium Lorton [Spiriva 2 puffs PO BID 11/25/22 12/17/22 Respimat] Acetaminophen [Tylenol] 650 mg PO Q4HR PRN tab 12/02/22 12/17/22 Budesonide [Pulmicort] 0.5 mg INH RTBID ml 12/02/22 12/17/22 Pantoprazole [Protonix] 40 mg PO 0700,2200 #30 tab 12/02/22 12/17/22 Potassium Chloride [K-Tab ER] 10 meq PO DAILY #30 tab 12/02/22 12/17/22 Thiamine [Vitamin B-1] 100 mg PO DAILY #30 tab 12/02/22 12/17/22 diltiaZEM CD [Cardizem Cd] 120 mg PO 0800,1800 #60 cap 12/02/22 12/17/22 Calcium Carb (Oyster Shell) 500 mg PO DAILY 12/17/22 12/17/22 [Oysco-500] Ipratropium/Albuterol [Duoneb] 3 ml INH Q4HR PRN 12/17/22 12/17/22 Miconazole Nitrate 1 applic TOP BID 12/17/22 12/17/22 Furosemide [Lasix] 40 mg PO DAILY #30 tablet 12/18/22 guaiFENesin [Guaifenesin ER] 600 mg PO BID PRN #10 tab 12/18/22 Montelukast [Singulair] 10 mg PO QPM #30 tablet 12/19/22 methylPREDNISolone [Medrol Dose 1 each PO .PACKAGEINSTRUCTIONS 6 12/19/22 Pack] Days #1 each - PHYSICAL EXAM AT DISCHARGE General Appearance: positive: No acute distress, Other (Cushingoid appearing) Eyes Bilateral: positive: Normal inspection, No lid inflammation ENT: positive: No signs of dehydration, Other (Edentulous. Wearing O2 by nasal cannula.) Neck: positive: Other ((+) JVD) Respiratory: positive: Rhonchi (Right base rhonchi. Left base has clear lung sounds. No audible wheezing.) Cardiovascular: positive: Irregularly irregular (Distant heart sounds due to COPD) Abdomen: positive: Non-tender, Nml bowel sounds, No distention Skin: positive: Warm, Dry Extremities: positive: Non-tender, Other (1+ pretibial edema.) Neurologic/Psychiatric: positive: Oriented x3, Motor nml, Other (oor memory.) - LABS Result Diagrams: 12/18/22 04:44 12/18/22 04:44 - DIAGNOSTIC IMAGING Diagnostic Imaging Results: Final report reviewed - TIME SPENT Time Spent in Discharge (Minutes): 35
[2022-12-19] MEDS: PRENATAL VITAMIN TABLET PO SCH (08:49)
[2022-12-19] MEDS: ASPIRIN EC 81 MG TABLET PO SCH (08:49)
[2022-12-19] MEDS: CALCIUM CARBONATE CHEW 500 MG TABLET PO SCH (08:49)
[2022-12-19] MEDS: guaiFENesin 600 MG TABLET PO SCH (08:50)
[2022-12-19] MEDS: THIAMINE 100 MG TABLET PO SCH (08:50)
[2022-12-19] MEDS: FERROUS SULFATE 325 MG TABLET PO SCH (08:50)
[2022-12-19] MEDS: CHOLECALCIFEROL 25 MCG TABLET PO SCH (08:50)
[2022-12-19] MEDS: POTASSIUM CHLORIDE 10 MEQ CAPSULE PO SCH (08:50)
[2022-12-19] MEDS: NYSTATIN POWDER 15 GM TOP SCH (08:57)
[2022-12-19] MEDS ORDERED: polyethylene glycoL 3350 17 GM PACKET PO SCH (09:00)
[2022-12-19] MEDS ORDERED: FUROSEMIDE 40 MG/4 ML VIAL IVP SCH (09:00)
[2022-12-19] MEDS ORDERED: methylPREDNISolone SUCCINATE 40 MG/ML VIAL IVP STA (09:01)
[2022-12-19] MEDS ORDERED: diltiaZEM CD 120 MG CAPSULE PO SCH (10:02)
[2022-12-19 10:21] VITALS: BP 107/63; O2SAT 93
== END 2022-12-19 11:15 | DRG 291 ==
LOC: EDUNIT# → ED 01:59 → MS2 05:12
PROVIDERS: ADMIT Internal Medicine; ATTEND Internal Medicine
PROC: 0W993ZZ Drainage of Right Pleural Cavity, Percutaneous Approach (ICD-10-PCS; principal; 2022-12-17)
DX: I11.0 Hypertensive heart disease with heart failure (principal); I50.33 Acute on chronic diastolic (congestive) heart failure; J96.21 Acute and chronic respiratory failure with hypoxia; J90 Pleural effusion, not elsewhere classified; I48.20 Chronic atrial fibrillation, unspecified; J44.9 Chronic obstructive pulmonary disease, unspecified; I27.81 Cor pulmonale (chronic); D50.9 Iron deficiency anemia, unspecified; L89.301 Pressure ulcer of unspecified buttock, stage 1; R41.3 Other amnesia; Z87.891 Personal history of nicotine dependence; Z87.898 Personal history of other specified conditions
CPT/HCPCS: 32555; 36415; 36600; 71045; 71260; 80048; 80053; 82803; 83735; 83880; 84484; 85025; 93005; 94640; 96374; 97162; 97166; 97530; 99284; 99285; A9270; J7626; Q9967

== ENCOUNTER 2022-12-21 16:32 | Outpatient (CLI) | payer OTHER | END 2022-12-21 23:59 | disposition critical access hospital (66) | LOC: EMS 16:32 | DX: R06.02 Shortness of breath (principal); R53.1 Weakness | CPT/HCPCS: A0425; A0427 ==

== ENCOUNTER 2022-12-21 16:38 | Inpatient (IN) | payer OTHER ==
--- NOTE | 2022-12-21 17:04 | ED Physician Documentation ---
History of Present Illness - Stated complaint Stated Complaint: SOA - Chief complaint Chief Complaint: Resp - History obtained from History obtained from: Patient, EMS - History of Present Illness Timing: Today Pain level max: 0 Pain level now: 0 - Additonal information Additional information: Patient is a 77-year-old male longstanding history of COPD, steroid and oxygen dependent. Uses 2 L of home O2, now on 5L. Increased work of breathing today. 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 No fevers. No chills. EMS gave the patient 1 DuoNeb treatment. No chest pain. Does have shortness of breath. No nausea or vomiting. Review of Systems Constitutional: denies: Fever, Chills Cardiac: denies: Palpitations Respiratory: reports: Dyspnea, Cough, Wheezing GI: denies: Vomiting, Diarrhea Skin: denies: Rash Musculoskeletal: denies: Neck pain, Back pain Neurologic: denies: Headache PD PAST MEDICAL HISTORY - Past Medical History Cardiovascular: Congestive heart failure, Hypertension, Atrial fibrillation Respiratory: COPD Neuro: None Endocrine/Autoimmune: None GI: None : Benign prostate hypertrophy HEENT: None Psych: None Musculoskeletal: None Derm: None - Past Surgical History Past Surgical History: Yes General: Other - Present Medications Home Medications: Ambulatory Orders Medication Instructions Recorded Confirmed Albuterol Sulf [Ventolin Hfa 2 puffs INH QID PRN 11/25/22 12/17/22 Inhaler] Ferrous Sulfate 2 tab PO DAILY 11/25/22 12/17/22 Fluticasone Propion/Salmeterol 1 puffs PO BID 11/25/22 12/17/22 [Wixela 500-50 Inhub] Tiotropium [place] [Spiriva 2 puffs PO BID 11/25/22 12/17/22 Respimat] Acetaminophen [Tylenol] 650 mg PO Q4HR PRN tab 12/02/22 12/17/22 Budesonide [Pulmicort] 0.5 mg INH RTBID ml 12/02/22 12/17/22 Pantoprazole [Protonix] 40 mg PO 0700,2200 #30 tab 12/02/22 12/17/22 Potassium Chloride [K-Tab ER] 10 meq PO DAILY #30 tab 12/02/22 12/17/22 Thiamine [Vitamin B-1] 100 mg PO DAILY #30 tab 12/02/22 12/17/22 diltiaZEM CD [Cardizem Cd] 120 mg PO 0800,1800 #60 cap 12/02/22 12/17/22 Calcium Carb (Oyster Shell) 500 mg PO DAILY 12/17/22 12/17/22 [Oysco-500] Ipratropium/Albuterol [Duoneb] 3 ml INH Q4HR PRN 12/17/22 12/17/22 Miconazole Nitrate 1 applic TOP BID 12/17/22 12/17/22 Furosemide [Lasix] 40 mg PO DAILY #30 tablet 12/18/22 guaiFENesin [Guaifenesin ER] 600 mg PO BID PRN #10 tab 12/18/22 Montelukast [Singulair] 10 mg PO QPM #30 tablet 12/19/22 methylPREDNISolone [Medrol Dose 1 each PO .PACKAGEINSTRUCTIONS 6 12/19/22 Pack] Days #1 each - Allergies Allergies/Adverse Reactions: Allergies Allergy/AdvReac Type Severity Reaction Status Date / Time Penicillins Allergy Unknown Verified 12/21/22 16:47 - Social History Does the pt smoke?: No Smoking Status: Never smoker Does the pt drink ETOH?: No Does the pt have substance abuse?: No - Immunizations Immunizations are current?: Yes - POLST Patient has POLST: No PD ED PE NORMAL - Vitals Vital signs reviewed: Yes - General General: Alert and oriented X 3, Other (Patient is only able to speak in 1 word sentences at a time.) - HEENT HEENT: PERRL, Moist mucous membranes - Neck Neck: Supple, no meningeal sign - Cardiac Cardiac: RRR - Respiratory Respiratory: Other (Diminished breath sounds bilaterally with wheezing. Mild respiratory distress.) - Abdomen Abdomen: Soft, Non tender, Non distended - Derm Derm: Warm and dry, No rash - Extremities Extremities: No edema, No calf tenderness / cord - Neuro Neuro: Alert and oriented X 3 - Psych Psych: Normal mood, Normal affect Results - Vitals Vitals: Vital Signs - 24 hr 12/21/22 12/21/22 12/21/22 16:44 17:28 17:30 Temperature 36.7 C Heart Rate 102 H 96 102 H Respiratory 20 24 20 Rate Blood Pressure 125/95 H 145/95 H O2 Saturation 96 100 If not protocol : Oxygen Flow, liters/minute 12/21/22 12/21/22 12/21/22 18:27 18:46 19:27 Temperature Heart Rate 105 H 99 110 H Respiratory 18 18 22 Rate Blood Pressure 134/87 H 126/77 O2 Saturation 96 91 L If not protocol 4 : Oxygen Flow, liters/minute Oxygen O2 Source Nasal cannula Oxygen Flow Rate 8 - Labs Labs: Laboratory Tests 12/21/22 12/21/22 12/21/22 17:33 17:33 17:33 WBC 9.0 RBC 3.05 L Hgb 8.4 L Hct 29.1 L MCV 95.4 H MCH 27.5 MCHC 28.9 L RDW 19.1 H Plt Count 327 MPV 9.5 Neut # (Auto) 7.4 H Lymph # (Auto) 0.4 L [place] # (Auto) 1.0 Eos # (Auto) 0.0 Baso # (Auto) 0.0 Absolute Nucleated RBC 0.00 Nucleated RBC % 0.0 Sodium 134 L Potassium 5.0 H Chloride 92 L Carbon Dioxide 39 H* Anion Gap 3.0 L BUN 24 H Creatinine 0.9 Estimated GFR (MDRD) 82 L Glucose 101 Calcium 9.3 Phosphorus 2.6 Magnesium 2.0 Total Bilirubin 0.3 AST 17 ALT 19 Alkaline Phosphatase 73 Troponin I High Sens 10.1 B-Natriuretic Peptide Total Protein 7.1 Albumin 3.8 Globulin 3.3 Albumin/Globulin Ratio 1.2 Nasal Adenovirus (PCR) Nasal B. parapertussis DNA (PCR) Nasal Coronavir 229E PCR Nasal Coronavir HKU1 PCR Nasal Coronavir NL63 PCR Nasal Coronavir OC43 PCR Nasal Enterovir/Rhinovir PCR Nasal Influenza B PCR Nasal Influenza A PCR Nasal Parainfluen 1 PCR Nasal Parainfluen 2 PCR Nasal Parainfluen 3 PCR Nasal Parainfluen 4 PCR Nasal RSV (PCR) Nasal B.pertussis DNA PCR Nasal C.pneumoniae (PCR) Aj Human Metapneumo PCR Nasal M.pneumoniae (PCR) Nasal SARS-CoV-2 (PCR) 12/21/22 12/21/22 17:33 17:44 WBC RBC Hgb Hct MCV MCH MCHC RDW Plt Count MPV Neut # (Auto) Lymph # (Auto) [place] # (Auto) Eos # (Auto) Baso # (Auto) Absolute Nucleated RBC Nucleated RBC % Sodium Potassium Chloride Carbon Dioxide Anion Gap BUN Creatinine Estimated GFR (MDRD) Glucose Calcium Phosphorus Magnesium Total Bilirubin AST ALT Alkaline Phosphatase Troponin I High Sens B-Natriuretic Peptide 385 H Total Protein Albumin Globulin Albumin/Globulin Ratio Nasal Adenovirus (PCR) NOT DETECTED Nasal B. parapertussis DNA (PCR) NOT DETECTED Nasal Coronavir 229E PCR NOT DETECTED Nasal Coronavir HKU1 PCR NOT DETECTED Nasal Coronavir NL63 PCR NOT DETECTED Nasal Coronavir OC43 PCR NOT DETECTED Nasal Enterovir/Rhinovir PCR NOT DETECTED Nasal Influenza B PCR NOT DETECTED Nasal Influenza A PCR NOT DETECTED Nasal Parainfluen 1 PCR NOT DETECTED Nasal Parainfluen 2 PCR NOT DETECTED Nasal Parainfluen 3 PCR NOT DETECTED Nasal Parainfluen 4 PCR NOT DETECTED Nasal RSV (PCR) NOT DETECTED Nasal B.pertussis DNA PCR NOT DETECTED Nasal C.pneumoniae (PCR) NOT DETECTED Aj Human Metapneumo PCR NOT DETECTED Nasal M.pneumoniae (PCR) NOT DETECTED Nasal SARS-CoV-2 (PCR) NOT DETECTED - Rads (name of study) cxr Relevant Findings:: Final report received, See rad report PD Medical Decision Making - ED course Complexity details: reviewed results, re-evaluated patient, considered differential, d/w patient ED course: 77-year-old male with a history of COPD and CHF. He was given Lasix for elevated BNP with some mild pulmonary edema. Also given Solu-Medrol, albuterol and DuoNeb treatment. He is breathing easier, down to 4 L via nasal cannula. He is able to speak several words at the time but does become short of breath with movement. No fevers, no evidence of overt pneumonia, therefore antibiotics were held. The patient will require further care, therefore we will admit the patient for further care. Discussed the case with Dr. Garcia, hospitalist who accepts This document was made in part using voice recognition software. While efforts are made to proofread this document, sound alike and grammatical errors may occur. Patient's last echocardiogram was November 25 of this year. Mildly concentric LVH with normal systolic EF of 60%. Moderately dilated right ventricle with pulmonary pressures that are moderately elevated. Mildly sclerotic aortic and mitral valve. IMPRESSION: 1.Small right apical pneumothorax appears minimally decreased in size when compared to the radiographs from 12/17/2022. 2.Trace bilateral pleural effusions. 3.Mild diffuse interstitial prominence suggesting pulmonary edema. 4.Stable cardiomegaly. Departure - Departure Disposition: 66 [facility] DC/Xfer Clinical Impression: COPD exacerbation CHF (congestive heart failure) Qualifiers: Heart failure type: unspecified Heart failure chronicity: acute on chronic Qualified Code(s): I50.9 - Heart failure, unspecified Condition: Stable Discharge Date/Time: 12/21/22 20:57
[2022-12-21] MEDS ORDERED: methylPREDNISolone SUCCINATE 125 MG/2 ML VIAL IVP STA (17:15)
[2022-12-21] MEDS: ALBUTEROL NEB 2.5 MG/3 ML INH STA ×2 (17:18→18:46)
[2022-12-21 17:40] LABS: BASOPHILS % (AUTO) 0.2 %; EOSINOPHILS % (AUTO) 0.4 %; HCT - HEMATOCRIT 29.1 % (42.0-52.0); HGB - HEMOGLOBIN 8.4 g/dL (14.0-18.0); LYMPHOCYTES # (AUTO) 0.4 10^3/uL (1.5-3.5); LYMPHOCYTES % (AUTO) 4.2 %; MEAN CORPUSCULAR HEMOGLOBIN 27.5 pg (27.0-31.0); MEAN CORPUSCULAR HGB CONC 28.9 g/dL (32.0-36.0); MEAN CORPUSCULAR VOLUME 95.4 fL (80.0-94.0); MEAN PLATELET VOLUME 9.5 fL (7.4-11.4); MONOCYTES % (AUTO) 11.6 %; NEUTROPHILS # (AUTO) 7.4 10^3/uL (1.5-6.6); NEUTROPHILS % (AUTO) 82.5 %; PLT - PLATELET COUNT 327 10^3/uL (130-450); RED BLOOD COUNT 3.05 10^6/uL (4.70-6.10); RED CELL DISTRIBUTION WIDTH 19.1 % (12.0-15.0)
[2022-12-21 18:00] LABS: ALBUMIN 3.8 g/dL (3.2-5.5); PHOSPHORUS 2.6 mg/dL (2.5-5.0)
[2022-12-21 18:04] LABS: ALBUMIN/GLOBULIN RATIO 1.2 (1.0-2.2); BILIRUBIN,TOTAL 0.3 mg/dL (0.2-1.0); CALCIUM 9.3 mg/dL (8.5-10.3); CREATININE 0.9 mg/dL (0.6-1.3); TOTAL PROTEIN 7.1 g/dL (6.4-8.9)
--- NOTE | 2022-12-21 18:16 | XRAY Report ---
PROCEDURE: Chest 1 View X-Ray INDICATIONS: dyspnea TECHNIQUE: One view of the chest was acquired. COMPARISON: Chest radiographs from 12/17/2022 FINDINGS: Surgical changes and devices: None. Lungs and pleura: Diffuse interstitial prominence. Trace bilateral pleural effusions are suspected. A small right pneumothorax is seen that appears minimally decreased in size when compared with radiog raphs 09/17/2019 3o'clock PM Mediastinum: Cardiac silhouette is enlarged. Bones and chest wall: No suspicious bony lesions. Overlying soft tissues appear unremarkable. IMPRESSION: 1.Small right apical pneumothorax appears minimally decreased in size when compared to the radiograph s from 12/17/2022. 2.Trace bilateral pleural effusions. 3.Mild diffuse interstitial prominence suggesting pulmonary edema. 4.Stable cardiomegaly. Reviewed by: Eric Ly MD on 12/21/2022 6:15 PM PDT Approved by: Eric Ly MD on 12/21/2022 6:15 PM PDT Station ID: [id number]
[2022-12-21] MEDS ORDERED: FUROSEMIDE 20 MG/2 ML VIAL IVP STA (18:29)
[2022-12-21 18:46] LABS: B. PARAPERTUSSIS- RESP PCR PAN NOT DETECTED; B. PERTUSSIS- RESP PCR PANEL NOT DETECTED; C. PNEUMONIAE- RESP PCR PANEL NOT DETECTED; CORONAVIRUS 229E-RESP PCR NOT DETECTED; CORONAVIRUS HKU1-RESP PCR NOT DETECTED; CORONAVIRUS NL63-RESP PCR NOT DETECTED; CORONAVIRUS OC43-RESP PCR NOT DETECTED; HUMAN METAPNEUMOVIRUS NOT DETECTED; INFLUENZA A- RESP PCR PANEL NOT DETECTED; INFLUENZA B - RESP PCR PANEL NOT DETECTED; M. PNEUMONIAE- RESP PCR PANEL NOT DETECTED; PARAINFLUENZA VIRUS 1 NOT DETECTED; PARAINFLUENZA VIRUS 2 NOT DETECTED; PARAINFLUENZA VIRUS 3 NOT DETECTED; PARAINFLUENZA VIRUS 4 NOT DETECTED; RHINOVIRUS/ENTEROVIRUS NOT DETECTED; RSV- RESP PCR PANEL NOT DETECTED; SARS-CoV-2 -RESP PCR PANEL NOT DETECTED
[2022-12-21] MEDS ORDERED: ALBUTEROL NEB 2.5 MG/3 ML INH STA (19:10)
--- NOTE | 2022-12-21 19:29 | HISTORY & PHYSICAL EXAMINATION ---
Chief Complaint - Chief Complaint Chief Complaint: Shortness of breath History of Present Illness - Admitted From Admitted From:: ER - History Obtained From Records Reviewed: Yes History obtained from: Patient, staff, chart Exam Limitations: Virtual Exam - History of Present Illness HPI Comment/Other: H&P was conducted via video remotely, using Access Cart. [place] is in [place] Physician is in [place]. RN is at bedside. 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 Pt was hospitalized at [facility] from 12/17/22-12/19/22 for COPD and CHF Exacerbation. He was discharged to SNF. Pt says that he has c/o Shortness of breath x weeks, but it increased today. They increased his O2 from 2L to 5L NC O2 at the [facility] prior to calling EMS. +cough, no sputum. No F/C. No CP. No N/V/D. No Dizziness. No swelling of ankles. Pt has not been able to do much PT since he arrived at the [facility] d/t his Shortness of breath. He uses a walker at baseline. In the ER, BP 145/95, HR 102, RR 24, SpO2 93% on 4L NC O2, Na 134, K 5.0, CO2 39, BNP 385, Iron nl, Hgb 8.4, MCV 95.4, Resp panel neg. CXR: Small apical Pneumothorax decreased from 12/17/22, trace B/L pleural effusion, mild diffuse interstitial prominence, CMG. Pt was given Duonebs, Albuterol, SoluMedrol, Lasix 20 mg IV in the ER. History - Past Medical History Cardiovascular: reports: Congestive heart failure, Hypertension, Atrial fibrillation Respiratory: reports: COPD Neuro: reports: None Endocrine/Autoimmune: reports: None GI: reports: None : reports: Benign prostate hypertrophy HEENT: reports: None Psych: reports: None Musculoskeletal: reports: None Derm: reports: None MRSA Hx?: No - Past Surgical History General: reports: Other - Family & Social History Family History Comment/Other: He has a brother in [place] and a daughter in [place]. His significant other Anne-Marie has been with him for 11 years. The pt has said that he wants Anne-Marie to "speak for him", but she is not the DPOA. Anne-Marie does not know if there is a DPOA. Living Situation: With spouse/s.o. Social History Notes: He was a smoker from age 19 to age 75. He quit smoking 2 years ago. He has been on oxygen continuously for managing his COPD, for unknown amount of years. He hardly ever drinks alcohol, is SO said. - Substance History Use: Uses substance without health or social issues: NONE - POLST Patient has POLST: No Meds/Allgy - Home Medications Home Medications: Ambulatory Orders Medication Instructions Recorded Confirmed Albuterol Sulf [Ventolin Hfa 2 puffs INH QID PRN 11/25/22 12/17/22 Inhaler] Ferrous Sulfate 2 tab PO DAILY 11/25/22 12/17/22 Fluticasone Propion/Salmeterol 1 puffs PO BID 11/25/22 12/17/22 [Wixela 500-50 Inhub] Tiotropium [place] [Spiriva 2 puffs PO BID 11/25/22 12/17/22 Respimat] Acetaminophen [Tylenol] 650 mg PO Q4HR PRN tab 12/02/22 12/17/22 Budesonide [Pulmicort] 0.5 mg INH RTBID ml 12/02/22 12/17/22 Pantoprazole [Protonix] 40 mg PO 0700,2200 #30 tab 12/02/22 12/17/22 Potassium Chloride [K-Tab ER] 10 meq PO DAILY #30 tab 12/02/22 12/17/22 Thiamine [Vitamin B-1] 100 mg PO DAILY #30 tab 12/02/22 12/17/22 diltiaZEM CD [Cardizem Cd] 120 mg PO 0800,1800 #60 cap 12/02/22 12/17/22 Calcium Carb (Oyster Shell) 500 mg PO DAILY 12/17/22 12/17/22 [Oysco-500] Ipratropium/Albuterol [Duoneb] 3 ml INH Q4HR PRN 12/17/22 12/17/22 Miconazole Nitrate 1 applic TOP BID 12/17/22 12/17/22 Furosemide [Lasix] 40 mg PO DAILY #30 tablet 12/18/22 guaiFENesin [Guaifenesin ER] 600 mg PO BID PRN #10 tab 12/18/22 Montelukast [Singulair] 10 mg PO QPM #30 tablet 12/19/22 methylPREDNISolone [Medrol Dose 1 each PO .PACKAGEINSTRUCTIONS 6 12/19/22 Pack] Days #1 each - Allergies Allergies/Adverse Reactions: Allergies Allergy/AdvReac Type Severity Reaction Status Date / Time Penicillins Allergy Unknown Verified 12/21/22 16:47 Review of Systems - All Other Systems All Other Systems: reports: Reviewed and negative Exam - Vital Signs Reviewed Vital Signs: Yes Vital Signs: Vital Signs x48h Temp Pulse Resp BP Pulse Ox 12/21/22 18:46 99 18 126/77 91 L 12/21/22 18:27 105 H 18 134/87 H 96 12/21/22 17:30 102 H 20 145/95 H 100 12/21/22 17:28 96 24 12/21/22 16:44 36.7 C 102 H 20 125/95 H 96 - Physical Exam General Appearance: positive: Alert, Mild distress (Mild Respiratory distress) Eyes Bilateral: positive: EOMI, No scleral icterus ENT: positive: No signs of dehydration Respiratory: positive: Other (Access cart stethoscope not working; per ER Provider: decreased BS, +diffuse wheezing) Cardiovascular: positive: Other (RR, Tachy, no murmurs) Abdomen: positive: Other (per ER Provider: non-distended, NT, Soft) Neurologic/Psychiatric: positive: Oriented x3, CN's nml (2-12), Mood/affect nml Conclusion/Plan - Problem List (1) Acute and chronic respiratory failure with hypoxia Conclusion/Plan: Acute on Chronic Respiratory Failure with Hypoxia COPD Exacerbation End-stage COPD, on home O2 2L NC Chronic Hypercapnia Tachypnea Shortness of breath Apical Pneumothorax -RR 24, SpO2 93% on 4L NC O2, CO2 39, Resp panel neg. -CXR: Small apical Pneumothorax decreased from 12/17/22, trace B/L pleural effusion, mild diffuse interstitial prominence, CMG. -Pt was given Duonebs, Albuterol, SoluMedrol, Lasix 20 mg IV in the ER. -admit to Med tele -continue O2 support -Duonebs PRN -continue home meds: steroid MDI, Singulair, Spiriva -SoluMedrol 40 mg IV daily, Levofloxacin for COPD Exac -recheck CXR prior to D/C to re-eval Pneumothorax Acute on Chronic Diastolic Heart Failure HFpEF Cor Pulmonale HTN Paroxysmal Atrial Fibrillation Tachycardia H/o thoracentesis for Pleural Effusion -BP 145/95, HR 102, BNP 385 -CXR: Small apical Pneumothorax decreased from 12/17/22, trace B/L pleural effusion, mild diffuse interstitial prominence, CMG. -Echo 11/25/22: LVH, EF 60%, Dilated RV -not on AC or ASA for AFib d/t h/o GI Bleed -continue home medications: Diltiazem -strict Is/Os, 2gm Na diet, daily wts -Lasix 20 mg IV BID Hyperkalemia -K 5.0 -hold home medications: KCl -monitor Hyponatremia -Na 134 -monitor on diuretics Anemia, macrocytic H/o ROBERTO -Iron nl, Hgb 8.4, MCV 95.4 -B12/Folate levels nl in 11/2022 -continue home medications: iron, MVI supplements Decreased Memory -complicates care -supportive care H/o ETOH Abuse -remote -continue counseling against ETOH use Weakness Deconditioning -Pt has not been able to do much PT since he arrived at the SNF d/t his Shortness of breath. He uses a walker at baseline. -PT/OT/SW consults VTE Prophylaxis: SCDs only d/t Anemia Code Status: D/W pt. He is DNR/DNI. ~Coby Garcia MD Hospitalist - Lab Results Fish Bones: 12/21/22 17:33 12/21/22 17:33
[2022-12-21] MEDS ORDERED: guaiFENesin 600 MG TABLET PO PRN (19:40)
[2022-12-21] MEDS ORDERED: IPRATROPIUM/ALBUTEROL 3 ML NEB INH PRN ×2 (19:40→19:48)
[2022-12-21] MEDS ORDERED: ONDANSETRON ODT 4 MG TABLET TL PRN (19:44)
[2022-12-21] MEDS ORDERED: SODIUM CHLORIDE FLUSH 0.9% 10 ML SYRINGE IVP PRN (19:44)
[2022-12-21] MEDS ORDERED: ONDANSETRON 4 MG/2 ML VIAL IVP PRN (19:44)
[2022-12-21] MEDS ORDERED: levoFLOXacin 750 MG/150 ML 750 MG/150 ML BAG IV SCH (20:00)
[2022-12-21] MEDS ORDERED: ALBUTEROL NEB 2.5 MG/3 ML INH PRN (20:26)
[2022-12-21] MEDS ORDERED: MICONAZOLE NITRATE TOP SCH (21:00)
[2022-12-21] MEDS ORDERED: HEPARIN 5,000 UNIT/ML VIAL SUBQ SCH (21:00)
[2022-12-21] MEDS: PANTOPRAZOLE 40 MG TABLET PO SCH (21:54)
[2022-12-21] MEDS: ACETAMINOPHEN 325 MG TABLET PO PRN (21:54)
[2022-12-21] MEDS: MONTELUKAST 10 MG TABLET PO SCH (21:54)
[2022-12-21] MEDS: SODIUM CHLORIDE FLUSH 0.9% 10 ML SYRINGE IVP SCH (21:55)
[2022-12-21] MEDS: IPRATROPIUM 0.2 MG/ML NEB INH SCH (22:01)
[2022-12-22] MEDS: PANTOPRAZOLE 40 MG TABLET PO SCH ×2 (06:24→22:09)
[2022-12-22] MEDS ORDERED: BUDESONIDE 0.5 MG/2 ML NEB INH SCH ×2 (07:00)
[2022-12-22] MEDS: IPRATROPIUM 0.2 MG/ML NEB INH SCH (07:24)
[2022-12-22] MEDS: FORMOTEROL FUMARATE NEB 20 MCG/2 ML INH SCH ×2 (07:24→19:35)
[2022-12-22] MEDS: BUDESONIDE 0.5 MG/2 ML NEB INH SCH ×2 (07:25→19:35)
[2022-12-22] MEDS: THIAMINE 100 MG TABLET PO SCH (08:29)
[2022-12-22] MEDS: SODIUM CHLORIDE FLUSH 0.9% 10 ML SYRINGE IVP SCH ×2 (08:30→16:57)
[2022-12-22] MEDS: diltiaZEM CD 120 MG CAPSULE PO SCH ×2 (08:30→18:00)
[2022-12-22] MEDS ORDERED: methylPREDNISolone SUCCINATE 40 MG/ML VIAL IVP STA (08:49)
[2022-12-22] MEDS ORDERED: CALCIUM CARB (OYSTER SHELL) 500 MG TABLET PO SCH (09:00)
[2022-12-22] MEDS ORDERED: FUROSEMIDE 20 MG/2 ML VIAL IVP SCH (09:00)
[2022-12-22] MEDS ORDERED: FERROUS SULFATE 325 MG TABLET PO SCH (09:00)
[2022-12-22] MEDS ORDERED: POTASSIUM CHLORIDE 10 MEQ PO SCH (09:00)
[2022-12-22] MEDS ORDERED: methylPREDNISolone SUCCINATE 40 MG/ML VIAL IVP SCH (09:00)
[2022-12-22] MEDS: guaiFENesin 600 MG TABLET PO SCH ×2 (09:05→22:09)
[2022-12-22] MEDS: ZINC OXIDE 20% OINT 30 GM TUBE TOP PRN ×2 (09:05→13:32)
[2022-12-22] MEDS: SACCHAROMYCES BOULARDII 250 MG CAPSULE PO SCH ×2 (09:05→16:55)
[2022-12-22] MEDS: ACETAMINOPHEN 325 MG TABLET PO PRN ×2 (10:06→22:16)
[2022-12-22] MEDS: IPRATROPIUM/ALBUTEROL 3 ML NEB INH SCH ×3 (11:31→19:35)
[2022-12-22] MEDS: MICONAZOLE NITRATE TOP SCH ×2 (13:31→22:09)
[2022-12-22] MEDS: methylPREDNISolone SUCCINATE 40 MG/ML VIAL IVP SCH ×2 (13:32→22:10)
--- NOTE | 2022-12-22 15:36 | PHARMACY PROGRESS NOTE ---
- Best Possible Medication History Admit Date and Time: 12/21/221944 Processed by: Pharmacy Medication History completed: Yes Secondary Source(s): Facility MAR as ONLY source As the person ultimately responsible for medication therapy, providers are able to order a medication from an existing home medication list in [facility] via the "Reconcile Routine" prior to Confirmation of that medication by academic support assistant. Such practice is discouraged except when the physician, in their clinical judgment, deems that a medical need exists for a medication without regard to previous use.
[2022-12-22] MEDS: FERROUS SULFATE 325 MG TABLET PO SCH (16:55)
--- NOTE | 2022-12-22 17:27 | PROVIDER PROGRESS NOTE ---
Assessment/Plan - Problem List (1) COPD exacerbation Assessment/Plan: He has end-stage COPD, was on home O2 2L NC, then 4 L/min at the last [facility] to SNF from here 2 weeks ago Plan: I will increase the IV Solumedrol from 40 TID to 80 TID I will change the albuterol inhaled neb to DuoNeb inhaled neb and order it schedule 4 times daily plus every 4 hours as needed. I will change the IV empiric Levaquin to p.o. Levaquin, to decrease his fluid loading Continue with montelukast at night I will put in a referral for hospice care after discharge, the patient and I discussed that in the past, and now that he is needing re-hospitalization for end-stage COPD, Hospice referral is appropriate. (2) Acute on Chronic Diastolic Heart Failure CXR showed mild diffuse interstitial prominence, Cardiomegaly. He has HFpEF, the last Echo was done <1 mo ago. The first time he went to SNF he was discharged on no Lasix due to low BP and CLARK. Then when he left 2 weeks ago, he was on Lasix daily. Plan: Continue with IV twice daily Lasix Follow I's and O's and daily weights Continue his meds for rate control I will add low salt to his diet restriction and he needs minced and moist diet since he has many lost teeth (3) Cor Pulmonale As per Echo done <1 mo ago. Without dilated and weak RV, he will be very sensitive to fluid status, if he is over diuresed he will drop his pressure. If he is under diuresed he will have pulmonary edema. Plan: Continue with meds as a #2 watching for low BP (4) Apical Pneumothorax Patient has now had about 3 thoracentesis. They have given him a small pneumothorax. CXR: Small apical Pneumothorax decreased from 12/17/22, trace B/L pleural effusion, Plan: I discussed this situation with hospice medical staff credentialing coordinator, Dr. Saenz today. She was advised that when his pleural effusion reaccumulates he needs considered for a Pleurex, placed by IR. (5) Acute on chronic respiratory failure with hypoxia Plan: Continue O2 support, target O2 sat 88% or above in a COPDer (6) Chronic Atrial Fibrillation He presented tachycardic due to resp distress. Plan: Continue with his usual heart rate-slowing med Diltiazem. He cannot be on aspirin or anticoagulation given the heme positive stool that was found when he was first admitted at the first hospitalization 2 months ago. (7) Hyperkalemia K 5.0 at admission Plan: Cont to hold home medications: KCl Monitor BMP daily (8) Anemia, macrocytic -Iron nl, Hgb 8.4, MCV 95.4 -B12/Folate levels nl in 11/2022 Plan: Continue home medications: iron, MVI supplements (9) Poor Memory This complicates his care (10) Weakness and Deconditioning Pt reported he has not been able to do much PT since he arrived at the SNF d/t his shortness of breath. He uses a walker at baseline. Plan: PT/OT/SW consults Referral to Hospice - Current Meds Current Meds: Current Medications Generic Name Dose Route Start Last Admin Trade Name Freq PRN Reason Stop Dose Admin Acetaminophen 650 mg 12/21/22 19:40 12/22/22 10:06 Acetaminophen 325 Mg Tablet PO 650 mg Q4HR PRN Administration Pain or Fever > 38C (100.4F) Albuterol/Ipratropium 3 ml 12/21/22 19:40 12/21/22 22:00 Ipratropium/Albuterol 3 Ml Neb INH 3 ml Q4HR PRN Administration Shortness of Air/Wheezing Albuterol/Ipratropium 3 ml 12/22/22 11:00 12/22/22 15:44 Ipratropium/Albuterol 3 Ml Neb INH 3 ml RTQID FRANCISCO Administration Budesonide 0.5 mg 12/22/22 07:00 12/22/22 07:25 Budesonide 0.5 Mg/2 Ml Neb INH 0.5 mg RTBID FRANCISCO Administration Diltiazem HCl 120 mg 12/22/22 08:00 12/22/22 08:30 Diltiazem Cd 120 Mg Capsule PO 120 mg 0800,1800 FRANCISCO Administration Ferrous Sulfate 325 mg 12/22/22 17:00 12/22/22 16:55 Ferrous Sulfate 325 Mg Tablet PO 325 mg BIDWM FRANCISCO Administration Formoterol Fumarate 20 mcg 12/22/22 07:00 12/22/22 07:24 Formoterol Fumarate Neb 20 Mcg/2 Ml INH 20 mcg RTBID FRANCISCO Administration Furosemide 20 mg 12/22/22 09:00 12/22/22 08:30 Furosemide 20 Mg/2 Ml Vial IVP 20 mg BID FRANCISCO Administration Guaifenesin 600 mg 12/22/22 09:00 12/22/22 09:05 Guaifenesin 600 Mg Tablet PO 600 mg BID FRANCISCO Administration Methylprednisolone 80 mg 12/22/22 14:00 12/22/22 13:32 Methylprednisolone Succinate 40 Mg/Ml Vial IVP 80 mg TID FRANCISCO Administration Montelukast Sodium 10 mg 12/21/22 21:00 12/21/22 21:54 Montelukast 10 Mg Tablet PO 10 mg QPM FRANCISCO Administration Multi-Ingredient Ointment 1 applic 12/22/22 08:09 12/22/22 13:32 Zinc Oxide 20% Oint 30 Gm Tube TOP 1 applic PRN PRN Administration Skin Care Pantoprazole Sodium 40 mg 12/21/22 22:00 12/22/22 06:24 Pantoprazole 40 Mg Tablet PO 40 mg 0700,2200 FRANCISCO Administration Miconazole Nitrate 1 each 12/22/22 09:00 12/22/22 13:31 [Miconazole Nitrate TOP Not Given ] 10 Gm Powder BID FRANCISCO Saccharomyces Boulardii 250 mg 12/22/22 09:00 12/22/22 16:55 Saccharomyces Boulardii 250 Mg Capsule PO 250 mg BIDWM FRANCICSO Administration Sodium Chloride 10 ml 12/22/22 01:00 12/22/22 16:57 Sodium Chloride Flush 0.9% 10 Ml Syringe IVP 10 ml 0100,0900,1700 FRANCISCO Administration Thiamine HCl 100 mg 12/22/22 09:00 12/22/22 08:29 Thiamine 100 Mg Tablet PO 100 mg DAILY FRANCISCO Administration - Lab Result Fish Bone Diagrams: 12/21/22 17:33 12/21/22 17:33 - Additional Planning My Orders: My Active Orders 12/22/22 Hospice Referral for Post-Discharge Services [CONS] Routine 12/22/22 08:09 Zinc Oxide 20% Oint [Zinc Oxide] 1 applic TOP PRN PRN 12/22/22 09:00 Saccharomyces Boulardii [Florastor] 250 mg PO BIDWM guaiFENesin [Mucinex] 600 mg PO BID 12/22/22 11:00 Ipratropium/Albuterol [Duoneb] 3 ml INH RTQID 12/22/22 Lunch Dysphagia - Minced and Moist [DIET] 12/22/22 14:00 methylPREDNISolone SUCCINATE [SOLU-Medrol (40MG VIAL)] 80 mg IVP TID 12/22/22 17:00 Ferrous Sulfate [Feosol] 325 mg PO BIDWM 12/22/22 21:00 Nystatin [Nystop] 1 applic TOP BID 12/23/22 05:00 BMP - BASIC METABOLIC PANEL [CHEM] DAILYLAB BNP - B-NATRIURETIC PEPTIDE [CHEM] DAILYLAB CBC - COMP BLD CT W/AUTO DIFF [HEME] DAILYLAB MAGNESIUM [CHEM] DAILYLAB PHOSPHORUS [CHEM] DAILYLAB 12/23/22 09:00 levoFLOXacin [Levaquin] 750 mg PO DAILY 12/24/22 05:00 BMP - BASIC METABOLIC PANEL [CHEM] DAILYLAB CBC - COMP BLD CT W/AUTO DIFF [HEME] DAILYLAB 12/25/22 05:00 BMP - BASIC METABOLIC PANEL [CHEM] DAILYLAB CBC - COMP BLD CT W/AUTO DIFF [HEME] DAILYLAB Subjective - Subjective Patient Reports: Feeling Better, Shortness of Breath (He is short of breath just moving in bed or sitting up to dangle, despite suppl O2) Objective Vital Signs: Vital Signs - 24 hr 12/21/22 12/21/22 12/21/22 17:28 17:30 18:27 Temperature Heart Rate 96 102 H 105 H Heart Rate [ Apical] Heart Rate [ Brachial] Heart Rate [ Monitoring electrodes] Respiratory 24 20 18 Rate Blood Pressure 145/95 H 134/87 H Blood Pressure [Right Brachial artery] O2 Saturation 100 96 If not protocol : Oxygen Flow, liters/minute 12/21/22 12/21/22 12/21/22 18:46 19:27 21:00 Temperature 36.7 C Heart Rate 99 110 H Heart Rate [ 96 Apical] Heart Rate [ Brachial] Heart Rate [ Monitoring electrodes] Respiratory 18 22 22 Rate Blood Pressure 126/77 Blood Pressure 130/78 [Right Brachial artery] O2 Saturation 91 L 96 If not protocol 4 4 : Oxygen Flow, liters/minute 12/21/22 12/21/22 12/21/22 21:22 22:12 22:14 Temperature Heart Rate 115 H Heart Rate [ Apical] Heart Rate [ Brachial] Heart Rate [ Monitoring electrodes] Respiratory 17 Rate Blood Pressure Blood Pressure [Right Brachial artery] O2 Saturation If not protocol 4 3 3 : Oxygen Flow, liters/minute 12/22/22 12/22/22 12/22/22 00:50 04:00 07:05 Temperature 36.7 C 36.8 C Heart Rate Heart Rate [ 98 Apical] Heart Rate [ Brachial] Heart Rate [ 110 H Monitoring electrodes] Respiratory 20 20 Rate Blood Pressure Blood Pressure 115/65 119/69 [Right Brachial artery] O2 Saturation 96 97 If not protocol 3 3 3 : Oxygen Flow, liters/minute 12/22/22 12/22/22 12/22/22 07:19 07:26 11:31 Temperature 36.6 C Heart Rate 100 110 H Heart Rate [ Apical] Heart Rate [ 102 H Brachial] Heart Rate [ Monitoring electrodes] Respiratory 19 18 22 Rate Blood Pressure Blood Pressure 122/69 [Right Brachial artery] O2 Saturation 95 If not protocol 3 3 2 : Oxygen Flow, liters/minute 12/22/22 12/22/22 15:28 15:45 Temperature 36.8 C Heart Rate 90 Heart Rate [ Apical] Heart Rate [ 95 Brachial] Heart Rate [ Monitoring electrodes] Respiratory 20 20 Rate Blood Pressure Blood Pressure 122/79 [Right Brachial artery] O2 Saturation 96 If not protocol 2 2 : Oxygen Flow, liters/minute Oxygen O2 Source Nasal cannula Oxygen Flow Rate 8 I&O (Last 24 Hrs): Intake and Output Totals x24h 12/20/22 12/21/22 12/22/22 23:59 23:59 23:59 Intake Total 150 1057 Output Total 150 150 Balance 0 907 General: Alert, Oriented x3 HEENT: Mucous membr. moist/pink, Other (Appears Cushingoid) Neck: Supple Neuro: Alert, Other (Poor memory) Cardiovascular: Other (Irregular, distant heart sounds due to COPD) Respiratory: Other (Poor air movement in all lung [place] but no wheezes or rales) Abdomen: Soft, No tenderness Extremities: No clubbing, Other (1+ edema) - Results Results: Laboratory Results WBC 9.0 x10^3/uL (4.8-10.8) 12/21/22 17:33 RBC 3.05 10^6/uL (4.70-6.10) L 12/21/22 17:33 Hgb 8.4 g/dL (14.0-18.0) L 12/21/22 17:33 Hct 29.1 % (42.0-52.0) L 12/21/22 17: MCV 95.4 fL (80.0-94.0) H 12/21/22 17: MCH 27.5 pg (27.0-31.0) 12/21/22 17: MCHC 28.9 g/dL (32.0-36.0) L 12/21/22 17: RDW 19.1 % (12.0-15.0) H 12/21/22 17: Plt Count 327 10^3/uL (130-450) 12/21/22 17: MPV 9.5 fL (7.4-11.4) 12/21/22 17: Neut # (Auto) 7.4 10^3/uL (1.5-6.6) H 12/21/22 17: Lymph # (Auto) 0.4 10^3/uL (1.5-3.5) L 12/21/22 17: Whitley # (Auto) 1.0 10^3/uL (0.0-1.0) 12/21/22 17: Eos # (Auto) 0.0 10^3/uL (0.0-0.7) 12/21/22 17: Baso # (Auto) 0.0 10^3/uL (0.0-0.1) 12/21/22 17: Absolute Nucleated RBC 0.00 x10^3/uL 12/21/22 17: Nucleated RBC % 0.0 /100WBC 12/21/22 17: Sodium 134 mmol/L (135-145) L 12/21/22 17: Potassium 5.0 mmol/L (3.5-4.5) H 12/21/22 17: Chloride 92 mmol/L (101-111) L 12/21/22 17: Carbon Dioxide 39 mmol/L (21-32) H* 12/21/22 17: Anion Gap 3.0 (6-13) L 12/21/22 17:33 BUN 24 mg/dL (6-20) H 12/21/22 17: Creatinine 0.9 mg/dL (0.6-1.3) 12/21/22 17: Estimated GFR (MDRD) 82 (>89) L 12/21/22 17:33 Glucose 101 mg/dL (74-104) 12/21/22 17:33 Calcium 9.3 mg/dL (8.5-10.3) 12/21/22 17:33 Phosphorus 2.6 mg/dL (2.5-5.0) 12/21/22 17:33 Magnesium 2.0 mg/dL (1.7-2.3) 12/21/22 17:33 Total Bilirubin 0.3 mg/dL (0.2-1.0) 12/21/22 17:33 AST 17 IU/L (10-42) 12/21/22 17:33 ALT 19 IU/L (10-60) 12/21/22 17:33 Alkaline Phosphatase 73 IU/L (42-121) 12/21/22 17:33 Troponin I High Sens 10.1 ng/L (2.3-19.7) 12/21/22 17:33 B-Natriuretic Peptide 385 pg/mL (5-100) H 12/21/22 17:33 Total Protein 7.1 g/dL (6.4-8.9) 12/21/22 17:33 Albumin 3.8 g/dL (3.2-5.5) 12/21/22 17:33 Globulin 3.3 g/dL (2.1-4.2) 12/21/22 17:33 Albumin/Globulin Ratio 1.2 (1.0-2.2) 12/21/22 17:33 Nasal Adenovirus (PCR) NOT DETECTED 12/21/22 17:44 Nasal B. parapertussis DNA (PCR) NOT DETECTED 12/21/22 17:44 Nasal Coronavir 229E PCR NOT DETECTED 12/21/22 17:44 Nasal Coronavir HKU1 PCR NOT DETECTED 12/21/22 17:44 Nasal Coronavir NL63 PCR NOT DETECTED 12/21/22 17:44 Nasal Coronavir OC43 PCR NOT DETECTED 12/21/22 17:44 Nasal Enterovir/Rhinovir PCR NOT DETECTED 12/21/22 17:44 Nasal Influenza B PCR NOT DETECTED 12/21/22 17:44 Nasal Influenza A PCR NOT DETECTED 12/21/22 17:44 Nasal Parainfluen 1 PCR NOT DETECTED 12/21/22 17:44 Nasal Parainfluen 2 PCR NOT DETECTED 12/21/22 17:44 Nasal Parainfluen 3 PCR NOT DETECTED 12/21/22 17:44 Nasal Parainfluen 4 PCR NOT DETECTED 12/21/22 17:44 Nasal RSV (PCR) NOT DETECTED 12/21/22 17:44 Nasal B.pertussis DNA PCR NOT DETECTED 12/21/22 17:44 Nasal C.pneumoniae (PCR) NOT DETECTED 12/21/22 17:44 Aj Human Metapneumo PCR NOT DETECTED 12/21/22 17:44 Nasal M.pneumoniae (PCR) NOT DETECTED 12/21/22 17:44 Nasal SARS-CoV-2 (PCR) NOT DETECTED 12/21/22 17:44 - Procedures Procedures: Procedures DRAINAGE OF RIGHT PLEURAL CAVITY, PERCUTANEOUS APPROACH (12/17/22) RESPIRATORY VENTILATION, 24-96 CONSECUTIVE HOURS (11/25/22)
[2022-12-22] MEDS: FUROSEMIDE 20 MG/2 ML VIAL IVP SCH (18:16)
[2022-12-22] MEDS ORDERED: DIGOXIN 500 MCG/2 ML AMP IVP ONE (20:00)
[2022-12-22] MEDS: MONTELUKAST 10 MG TABLET PO SCH (22:09)
[2022-12-22] MEDS: NYSTATIN POWDER 15 GM TOP SCH (22:09)
[2022-12-23] MEDS: SODIUM CHLORIDE FLUSH 0.9% 10 ML SYRINGE IVP SCH ×3 (00:45→16:36)
--- NOTE | 2022-12-23 04:40 | PROVIDER PROGRESS NOTE ---
Hospitalist Cross-cover Note - Cross-Cover Note Cross-Cover Note: Consult Information Member Facility: [facility] Facility Requesting Clinician: Audrey Stoner RN Patient Name: Kin Lang Date of : 1945 Gender: Male Reason for Consult Reason for Consult: Other non-Emergent Clinical Note Clinical Note: per rn - "Pt on 2LNC dyspneic with any activity, can I have an order for PRN morphine? Thank you" morphine 2 mg iv x 1
[2022-12-23 04:50] LABS: BASOPHILS % (AUTO) 0.1 %; HCT - HEMATOCRIT 26.2 % (42.0-52.0); HGB - HEMOGLOBIN 7.8 g/dL (14.0-18.0); LYMPHOCYTES # (AUTO) 0.2 10^3/uL (1.5-3.5); LYMPHOCYTES % (AUTO) 2.5 %; MEAN CORPUSCULAR HEMOGLOBIN 27.4 pg (27.0-31.0); MEAN CORPUSCULAR HGB CONC 29.8 g/dL (32.0-36.0); MEAN CORPUSCULAR VOLUME 91.9 fL (80.0-94.0); MEAN PLATELET VOLUME 9.6 fL (7.4-11.4); MONOCYTES # (AUTO) 0.7 10^3/uL (0.0-1.0); NEUTROPHILS # (AUTO) 7.8 10^3/uL (1.5-6.6); PLT - PLATELET COUNT 333 10^3/uL (130-450); RED BLOOD COUNT 2.85 10^6/uL (4.70-6.10); RED CELL DISTRIBUTION WIDTH 18.4 % (12.0-15.0); WHITE BLOOD COUNT 8.9 x10^3/uL (4.8-10.8)
[2022-12-23] MEDS ORDERED: MORPHINE 2 MG/ML CARPUJECT IVP STA (04:53)
[2022-12-23 05:06] LABS: MAGNESIUM 1.9 mg/dL (1.7-2.3); PHOSPHORUS 3.6 mg/dL (2.5-5.0)
[2022-12-23 05:26] LABS: CALCIUM 8.9 mg/dL (8.5-10.3); CREATININE 0.9 mg/dL (0.6-1.3); POTASSIUM 4.6 mmol/L (3.5-4.5)
[2022-12-23] MEDS: methylPREDNISolone SUCCINATE 40 MG/ML VIAL IVP SCH ×3 (05:52→21:31)
[2022-12-23] MEDS: FUROSEMIDE 20 MG/2 ML VIAL IVP SCH ×2 (05:52→16:37)
[2022-12-23] MEDS: ACETAMINOPHEN 325 MG TABLET PO PRN ×3 (06:07→23:49)
[2022-12-23] MEDS: BUDESONIDE 0.5 MG/2 ML NEB INH SCH ×2 (06:37→19:57)
[2022-12-23] MEDS: IPRATROPIUM/ALBUTEROL 3 ML NEB INH SCH ×3 (06:38→17:58)
[2022-12-23] MEDS: FORMOTEROL FUMARATE NEB 20 MCG/2 ML INH SCH ×2 (06:38→19:51)
[2022-12-23] MEDS: PANTOPRAZOLE 40 MG TABLET PO SCH ×2 (07:41→21:31)
--- NOTE | 2022-12-23 07:56 | PROVIDER PROGRESS NOTE ---
Assessment/Plan - Problem List (1) COPD exacerbation Assessment/Plan: He has end-stage COPD, was on home O2 2L matt n.c. when admitted here 2 mos ago, then 4 L/min at the last DC to SNF from here 2 weeks ago. He now needs 5 L/min I put in a referral for hospice care after discharge, the patient and I discu ssed that in the past, and now that he is needing re-hospitalization the 3rd time in 2 mos, for CHF and end-stage COPD, Hospice referral is appropriate. Plan: Cont IV Solumedrol 80 mg TID Cont DuoNeb inhaled neb and order it schedule 4 times daily plus every 4 hours as needed. Continue with montelukast at night I will order morphine IV as needed severe respiratory distress Referral to Hospice done (2) Acute on chronic respiratory failure with hypoxia He was on home O2 2L NC when admitted here 2 mos ago, then 4 L/min at the last DCh to SNF from here 2 weeks ago. He now needs 5 L/min. Plan: Continue O2 support, target O2 sat 88% or above in a COPDer Continue to treat his COPD, CHF and anemia I will order morphine IV as needed severe respiratory distress (3) Acute on Chronic Diastolic Heart Failure CXR showed mild diffuse interstitial prominence, Cardiomegaly. He has HFpEF, the last Echo was done <1 mo ago. The first time he went to SNF he was discharged on no Lasix due to low BP and CLARK. Then when he left 2 weeks ago, he was on Lasix daily. Plan: Continue with IV twice daily Lasix I changed the IV empiric Levaquin to p.o. Levaquin, to decrease his fluid loading Follow I's and O's and daily weights Continue his meds for rate control Cont a low salt to his diet restriction and he needs minced and moist diet since he has many lost teeth (4) Anemia Hgb 8.4 has dropped to 7.8 today (all labs were reviewed), despite being on a diuretic. He had heme positive stool on his November hospitalization and has not yet had a work-up for source of GI bleeding. He is not stable enough to undergo any endoscopies currently. Plan: Because of his severe respiratory distress and end-stage COPD, I will order a transfusion of 1 unit of blood and a Lasix IV dose to follow that. Monitor hemoglobin daily. I will make his target hemoglobin 8, because he is so symptomatic w/ his COPD and CHF exacerbation Continue iron, MVI supplements (5) Cor Pulmonale As per Echo done <1 mo ago. Without dilated and weak RV, he will be very sensitive to fluid status, if he is over diuresed he will drop his pressure. If he is under diuresed he will have pulmonary edema. Plan: Continue with meds as a #2 watching for low BP (6) Apical Pneumothorax Patient has now had about 3 thoracentesis. They have given him a small pneumothorax. CXR: Small apical Pneumothorax decreased from 12/17/22, trace B/L pleural effusion, Plan: I discussed this situation with hospice lpn or medical assistant, Dr. Saenz yesterday. She was advised that when his pleural effusion reaccumulates he needs consid ered for a Pleur-ex, placed by IR. (7) Chronic Atrial Fibrillation He presented tachycardic due to resp distress. His HR is still tachy around 100. Plan: Continue with his usual heart rate-slowing med Diltiazem. He cannot be on aspirin or anticoagulation given the heme positive stool that was found when he was first admitted at the first hospitalization 2 months ago. (8) Hyperkalemia K 5.0 at admission Plan: Cont to hold home medications: KCl Monitor BMP daily (9) Poor Memory This complicates his care (10) Weakness and Deconditioning Pt reported he has not been able to do much PT since he arrived at the SNF d/t his shortness of breath. He uses a walker at baseline. Plan: PT/OT to [facility] working with him. Social work and I spoke today, that he could go back to the SNF and then be transitioned to prison care there at that long term, if he can no longer ambulate because of his end-stage lung disease. Referral to Hospice done - Current Meds Current Meds: Current Medications Generic Name Dose Route Start Last Admin Trade Name Freq PRN Reason Stop Dose Admin Acetaminophen 650 mg 12/21/22 19:40 12/23/22 06:07 Acetaminophen 325 Mg Tablet PO 650 mg Q4HR PRN Administration Pain or Fever > 38C (100.4F) Albuterol/Ipratropium 3 ml 12/21/22 19:40 12/21/22 22:00 Ipratropium/Albuterol 3 Ml Neb INH 3 ml Q4HR PRN Administration Shortness of Air/Wheezing Albuterol/Ipratropium 3 ml 12/22/22 11:00 12/23/22 06:38 Ipratropium/Albuterol 3 Ml Neb INH 3 ml RTQID FRANCISCO Administration Budesonide 0.5 mg 12/22/22 07:00 12/23/22 06:37 Budesonide 0.5 Mg/2 Ml Neb INH 0.5 mg RTBID FRANCISCO Administration Diltiazem HCl 120 mg 12/22/22 08:00 12/22/22 18:00 Diltiazem Cd 120 Mg Capsule PO 120 mg 0800,1800 FRANCISCO Administration Ferrous Sulfate 325 mg 12/22/22 17:00 12/22/22 16:55 Ferrous Sulfate 325 Mg Tablet PO 325 mg BIDWM FRANCISCO Administration Formoterol Fumarate 20 mcg 12/22/22 07:00 12/23/22 06:38 Formoterol Fumarate Neb 20 Mcg/2 Ml INH 20 mcg RTBID FRANCISCO Administration Furosemide 20 mg 12/22/22 18:20 12/23/22 05:52 Furosemide 20 Mg/2 Ml Vial IVP 20 mg BIDDIURETIC FRANCISCO Administration Guaifenesin 600 mg 12/22/22 09:00 12/22/22 22:09 Guaifenesin 600 Mg Tablet PO 600 mg BID FRANCISCO Administration Methylprednisolone 80 mg 12/22/22 14:00 12/23/22 05:52 Methylprednisolone Succinate 40 Mg/Ml Vial IVP 80 mg TID FRANCISCO Administration Montelukast Sodium 10 mg 12/21/22 21:00 12/22/22 22:09 Montelukast 10 Mg Tablet PO 10 mg QPM FRANCISCO Administration Multi-Ingredient Ointment 1 applic 12/22/22 08:09 12/22/22 13:32 Zinc Oxide 20% Oint 30 Gm Tube TOP 1 applic PRN PRN Administration Skin Care Nystatin 1 applic 12/22/22 21:00 12/22/22 22:09 Nystatin Powder 15 Gm TOP Not Given BID FRANCISCO Pantoprazole Sodium 40 mg 12/21/22 22:00 12/23/22 07:41 Pantoprazole 40 Mg Tablet PO 40 mg 0700,2200 FRANCISCO Administration Miconazole Nitrate 1 each 12/22/22 09:00 12/22/22 22:09 [Miconazole Nitrate TOP Not Given ] 10 Gm Powder BID FRANCISCO Saccharomyces Boulardii 250 mg 12/22/22 09:00 12/22/22 16:55 Saccharomyces Boulardii 250 Mg Capsule PO 250 mg BIDWM FRANCISCO Administration Sodium Chloride 10 ml 12/22/22 01:00 12/23/22 00:45 Sodium Chloride Flush 0.9% 10 Ml Syringe IVP 10 ml 0100,0900,1700 FRANCISCO Administration Thiamine HCl 100 mg 12/22/22 09:00 12/22/22 08:29 Thiamine 100 Mg Tablet PO 100 mg DAILY FRANCISCO Administration - Lab Result Fish Bone Diagrams: 12/23/22 04:33 12/23/22 04:33 - Additional Planning My Orders: My Active Orders 12/22/22 08:09 Zinc Oxide 20% Oint [Zinc Oxide] 1 applic TOP PRN PRN 12/22/22 09:00 Saccharomyces Boulardii [Florastor] 250 mg PO BIDWM guaiFENesin [Mucinex] 600 mg PO BID 12/22/22 11:00 Ipratropium/Albuterol [Duoneb] 3 ml INH RTQID 12/22/22 Lunch Dysphagia - Minced and Moist [DIET] 12/22/22 14:00 methylPREDNISolone SUCCINATE [SOLU-Medrol (40MG VIAL)] 80 mg IVP TID 12/22/22 17:00 Ferrous Sulfate [Feosol] 325 mg PO BIDWM 12/22/22 17:34 Telemetry- [RC] Q4HR 12/22/22 21:00 Nystatin [Nystop] 1 applic TOP BID 12/23/22 RBC, LEUKOREDUCED Stat TYPE AND SCREEN Stat 12/23/22 07:48 Miscellaenous Nursing Order [RC] QSHIFT 12/23/22 07:49 Transfuse RBCs Leukoreduced [RC] .ONCE 12/23/22 09:00 levoFLOXacin [Levaquin] 750 mg PO DAILY 12/23/22 11:00 FUROSEMIDE INJ 20mg VIAL [LASIX INJ 20mg VIAL] 20 mg IVP ONCE ONE 12/24/22 05:00 BMP - BASIC METABOLIC PANEL [CHEM] DAILYLAB CBC - COMP BLD CT W/AUTO DIFF [HEME] DAILYLAB 12/25/22 05:00 BMP - BASIC METABOLIC PANEL [CHEM] DAILYLAB CBC - COMP BLD CT W/AUTO DIFF [HEME] DAILYLAB Subjective - Subjective Patient Reports: Shortness of Breath (Severe tachypnea overnight, almost sounded like a panic attack, needed morphine IV, ordered x1 by the Telemedicine night doctor) Objective Vital Signs: Vital Signs - 24 hr 12/22/22 12/22/22 12/22/22 11:31 15:28 15:45 Temperature 36.8 C Heart Rate 110 H 90 Heart Rate [ 95 Brachial] Heart Rate [ Monitoring electrodes] Respiratory 22 20 20 Rate Blood Pressure 122/79 [Right Brachial artery] O2 Saturation 96 If not protocol 2 2 2 : Oxygen Flow, liters/minute 12/22/22 12/22/22 12/22/22 19:35 19:52 20:34 Temperature Heart Rate 118 H 121 H Heart Rate [ Brachial] Heart Rate [ Monitoring electrodes] Respiratory 24 Rate Blood Pressure [Right Brachial artery] O2 Saturation If not protocol 2 2 : Oxygen Flow, liters/minute 12/22/22 12/22/22 12/23/22 21:30 23:59 06:14 Temperature 36.7 C 36.7 C 36.8 C Heart Rate Heart Rate [ 104 H Brachial] Heart Rate [ 102 H 97 Monitoring electrodes] Respiratory 20 16 12 Rate Blood Pressure 123/81 H 122/74 133/90 H [Right Brachial artery] O2 Saturation 97 94 92 If not protocol 2 3 3 : Oxygen Flow, liters/minute 12/23/22 12/23/22 12/23/22 06:48 07:13 07:19 Temperature 36.6 C Heart Rate 107 H Heart Rate [ 97 Brachial] Heart Rate [ Monitoring electrodes] Respiratory 16 17 Rate Blood Pressure 111/56 L [Right Brachial artery] O2 Saturation 96 If not protocol 3 2 2 : Oxygen Flow, liters/minute Oxygen O2 Source Nasal cannula Oxygen Flow Rate 8 I&O (Last 24 Hrs): Intake and Output Totals x24h 12/21/22 12/22/22 12/23/22 23:59 23:59 23:59 Intake Total 150 1457 550 Output Total 150 150 675 Balance 0 1307 -125 General: Alert, No acute distress, Other (Cushingoid appearing) HEENT: Mucous membr. moist/pink Neck: Supple Neuro: Alert, Non Focal, Other (Poor memory) Cardiovascular: No murmurs Respiratory: Other (Poor air movement in all lung) Abdomen: Normal bowel sounds, Soft Extremities: No clubbing, Other (1+ edema) - Results Results: Laboratory Results WBC 8.9 x10^3/uL (4.8-10.8) 12/23/22 04:33 RBC 2.85 10^6/uL (4.70-6.10) L 12/23/22 04:33 Hgb 7.8 g/dL (14.0-18.0) L 12/23/22 04:33 Hct 26.2 % (42.0-52.0) L 12/23/22 04:33 MCV 91.9 fL (80.0-94.0) 12/23/22 04:33 MCH 27.4 pg (27.0-31.0) 12/23/22 04:33 MCHC 29.8 g/dL (32.0-36.0) L 12/23/22 04:33 RDW 18.4 % (12.0-15.0) H 12/23/22 04:33 Plt Count 333 10^3/uL (130-450) 12/23/22 04:33 MPV 9.6 fL (7.4-11.4) 12/23/22 04:33 Neut # (Auto) 7.8 10^3/uL (1.5-6.6) H 12/23/22 04:33 Lymph # (Auto) 0.2 10^3/uL (1.5-3.5) L 12/23/22 04:33 Zavala # (Auto) 0.7 10^3/uL (0.0-1.0) 12/23/22 04:33 Eos # (Auto) 0.0 10^3/uL (0.0-0.7) 12/23/22 04:33 Baso # (Auto) 0.0 10^3/uL (0.0-0.1) 12/23/22 04:33 Absolute Nucleated RBC 0.00 x10^3/uL 12/23/22 04:33 Nucleated RBC % 0.0 /100WBC 12/23/22 04:33 Sodium 135 mmol/L (135-145) 12/23/22 04:33 Potassium 4.6 mmol/L (3.5-4.5) H 12/23/22 04:33 Chloride 92 mmol/L (101-111) L 12/23/22 04:33 Carbon Dioxide 39 mmol/L (21-32) H* 12/23/22 04:33 Anion Gap 4.0 (6-13) L 12/23/22 04:33 BUN 28 mg/dL (6-20) H 12/23/22 04:33 Creatinine 0.9 mg/dL (0.6-1.3) 12/23/22 04:33 Estimated GFR (MDRD) 82 (>89) L 12/23/22 04:33 Glucose 137 mg/dL (74-104) H 12/23/22 04:33 Calcium 8.9 mg/dL (8.5-10.3) 12/23/22 04:33 Phosphorus 3.6 mg/dL (2.5-5.0) 12/23/22 04:33 Magnesium 1.9 mg/dL (1.7-2.3) 12/23/22 04:33 Total Bilirubin 0.3 mg/dL (0.2-1.0) 12/21/22 17:33 AST 17 IU/L (10-42) 12/21/22 17:33 ALT 19 IU/L (10-60) 12/21/22 17:33 Alkaline Phosphatase 73 IU/L (42-121) 12/21/22 17:33 Troponin I High Sens 10.1 ng/L (2.3-19.7) 12/21/22 17:33 B-Natriuretic Peptide 635 pg/mL (5-100) H 12/23/22 04:33 Total Protein 7.1 g/dL (6.4-8.9) 12/21/22 17:33 Albumin 3.8 g/dL (3.2-5.5) 12/21/22 17:33 Globulin 3.3 g/dL (2.1-4.2) 12/21/22 17:33 Albumin/Globulin Ratio 1.2 (1.0-2.2) 12/21/22 17:33 Nasal Adenovirus (PCR) NOT DETECTED 12/21/22 17:44 Nasal B. parapertussis DNA (PCR) NOT DETECTED 12/21/22 17:44 Nasal Coronavir 229E PCR NOT DETECTED 12/21/22 17:44 Nasal Coronavir HKU1 PCR NOT DETECTED 12/21/22 17:44 Nasal Coronavir NL63 PCR NOT DETECTED 12/21/22 17:44 Nasal Coronavir OC43 PCR NOT DETECTED 12/21/22 17:44 Nasal Enterovir/Rhinovir PCR NOT DETECTED 12/21/22 17:44 Nasal Influenza B PCR NOT DETECTED 12/21/22 17:44 Nasal Influenza A PCR NOT DETECTED 12/21/22 17:44 Nasal Parainfluen 1 PCR NOT DETECTED 12/21/22 17:44 Nasal Parainfluen 2 PCR NOT DETECTED 12/21/22 17:44 Nasal Parainfluen 3 PCR NOT DETECTED 12/21/22 17:44 Nasal Parainfluen 4 PCR NOT DETECTED 12/21/22 17:44 Nasal RSV (PCR) NOT DETECTED 12/21/22 17:44 Nasal B.pertussis DNA PCR NOT DETECTED 12/21/22 17:44 Nasal C.pneumoniae (PCR) NOT DETECTED 12/21/22 17:44 Aj Human Metapneumo PCR NOT DETECTED 12/21/22 17:44 Nasal M.pneumoniae (PCR) NOT DETECTED 12/21/22 17:44 Nasal SARS-CoV-2 (PCR) NOT DETECTED 12/21/22 17:44 - Procedures Procedures: Procedures DRAINAGE OF RIGHT PLEURAL CAVITY, PERCUTANEOUS APPROACH (12/17/22) RESPIRATORY VENTILATION, 24-96 CONSECUTIVE HOURS (11/25/22)
[2022-12-23] MEDS: SACCHAROMYCES BOULARDII 250 MG CAPSULE PO SCH ×2 (08:11→16:33)
[2022-12-23] MEDS: FERROUS SULFATE 325 MG TABLET PO SCH ×2 (08:11→16:33)
[2022-12-23] MEDS: NYSTATIN POWDER 15 GM TOP SCH ×2 (08:11→20:04)
[2022-12-23] MEDS: THIAMINE 100 MG TABLET PO SCH (08:11)
[2022-12-23] MEDS: guaiFENesin 600 MG TABLET PO SCH ×2 (08:11→20:04)
[2022-12-23] MEDS: diltiaZEM CD 120 MG CAPSULE PO SCH ×2 (08:11→20:04)
[2022-12-23] MEDS: MICONAZOLE NITRATE TOP SCH ×2 (08:15→20:05)
[2022-12-23] MEDS ORDERED: levoFLOXacin 250 MG TABLET PO SCH (09:00)
[2022-12-23] MEDS ORDERED: MORPHINE 2 MG/ML CARPUJECT IVP PRN (10:18)
[2022-12-23] MEDS ORDERED: FUROSEMIDE 20 MG/2 ML VIAL IVP ONE (11:00)
[2022-12-23] MEDS ORDERED: CALCIUM CARB (OYSTER SHELL) 500 MG TABLET PO SCH (12:00)
[2022-12-23] MEDS ORDERED: FERROUS SULFATE 325 MG TABLET PO SCH (17:00)
[2022-12-23] MEDS ORDERED: ALBUTEROL NEB 2.5 MG/3 ML INH PRN (19:00)
[2022-12-23] MEDS ORDERED: ONDANSETRON ODT 4 MG TABLET TL PRN (19:02)
[2022-12-23] MEDS ORDERED: ONDANSETRON 4 MG/2 ML VIAL IVP PRN (19:03)
[2022-12-23] MEDS ORDERED: IPRATROPIUM/ALBUTEROL 3 ML NEB INH PRN (19:03)
[2022-12-23] MEDS ORDERED: BUDESONIDE 0.5 MG/2 ML NEB INH ONE (19:55)
[2022-12-23] MEDS ORDERED: FORMOTEROL FUMARATE NEB 20 MCG/2 ML INH ONE (19:55)
[2022-12-23] MEDS ORDERED: diltiaZEM CD 120 MG CAPSULE PO ONE (19:59)
[2022-12-23] MEDS ORDERED: guaiFENesin 600 MG TABLET PO ONE (20:00)
[2022-12-23] MEDS: MONTELUKAST 10 MG TABLET PO SCH (23:37)
[2022-12-24] MEDS: FUROSEMIDE 20 MG/2 ML VIAL IVP SCH ×2 (06:15→13:36)
[2022-12-24] MEDS: PANTOPRAZOLE 40 MG TABLET PO SCH ×2 (06:16→21:09)
[2022-12-24] MEDS: SODIUM CHLORIDE FLUSH 0.9% 10 ML SYRINGE IVP SCH ×3 (06:16→16:57)
[2022-12-24] MEDS: methylPREDNISolone SUCCINATE 40 MG/ML VIAL IVP SCH ×3 (06:16→21:09)
[2022-12-24] MEDS: FORMOTEROL FUMARATE NEB 20 MCG/2 ML INH SCH ×2 (07:43→18:47)
[2022-12-24] MEDS: BUDESONIDE 0.5 MG/2 ML NEB INH SCH ×2 (07:43→18:47)
[2022-12-24] MEDS: IPRATROPIUM/ALBUTEROL 3 ML NEB INH SCH ×4 (07:44→18:47)
[2022-12-24] MEDS: guaiFENesin 600 MG TABLET PO SCH ×2 (08:13→21:09)
[2022-12-24] MEDS: FERROUS SULFATE 325 MG TABLET PO SCH ×2 (08:13→16:56)
[2022-12-24] MEDS: THIAMINE 100 MG TABLET PO SCH (08:14)
[2022-12-24] MEDS: SACCHAROMYCES BOULARDII 250 MG CAPSULE PO SCH ×2 (08:14→16:57)
[2022-12-24] MEDS: CALCIUM CARB (OYSTER SHELL) 500 MG TABLET PO SCH (08:14)
[2022-12-24] MEDS: NYSTATIN POWDER 15 GM TOP SCH ×2 (08:14→21:09)
[2022-12-24] MEDS: diltiaZEM CD 120 MG CAPSULE PO SCH ×2 (08:14→16:57)
[2022-12-24] MEDS: ACETAMINOPHEN 325 MG TABLET PO PRN ×2 (08:14→21:10)
[2022-12-24] MEDS: MICONAZOLE NITRATE TOP SCH ×2 (08:15→21:02)
[2022-12-24] MEDS ORDERED: levoFLOXacin 250 MG TABLET PO SCH (09:00)
--- NOTE | 2022-12-24 16:58 | PROVIDER PROGRESS NOTE ---
Assessment/Plan - Problem List (1) COPD exacerbation Assessment/Plan: He has end-stage COPD, was on home O2 2L matt n.c. when admitted here 2 mos ago, then 4 L/min at the last [facility] to SNF from here 2 weeks ago. He now needs 5 L/min I put in a referral for Hospice care after discharge, the patient and I discu ssed that in the past, and now that he is needing re-hospitalization the 3rd time in 2 mos, for CHF and end-stage COPD, Hospice referral is appropriate. Plan: Cont IV Solumedrol 80 mg TID Cont DuoNeb inhaled neb and order it schedule 4 times daily plus every 4 hours as needed. Continue with montelukast at night Cont morphine IV as needed for severe respiratory distress Referral to Hospice done (2) Acute on chronic respiratory failure with hypoxia He was on home O2 2L NC when admitted here 2 mos ago, then 4 L/min at the last [facility] to SNF from here 2 weeks ago. He now needs 5 L/min. Plan: Continue O2 support, target O2 sat 88% or above in a COPDer Continue to treat his COPD, CHF and anemia Cont morphine IV as needed for severe respiratory distress (3) Acute on Chronic Diastolic Heart Failure CXR showed mild diffuse interstitial prominence, Cardiomegaly. He has HFpEF, the last Echo was done <1 mo ago. The first time he went to SNF he was discharged on no Lasix due to low BP and CLARK. Then when he left 2 weeks ago, he was on Lasix daily. Plan: Continue with IV twice daily Lasix I changed the IV empiric Levaquin to p.o. Levaquin, to decrease his fluid loading Follow I's and O's and daily weights Continue his meds for rate control Cont a low salt to his diet restriction and he needs minced and moist diet since he has many lost teeth (4) Anemia Hgb 8.4 has dropped to 7.8 yesterday 12/23 (all labs were reviewed), despite being on a diuretic. He had heme positive stool on his November hospitalization and has not yet had a work-up for source of GI bleeding. He is not stable enough to undergo any endoscopies currently. Because of his severe respiratory distress and end-stage COPD, I ordered 1 U PRBCs be transfused and a Lasix IV dose to follow that. Plan: Monitor hemoglobin daily. I will make his target hemoglobin 8, because he is so symptomatic w/ his COPD and CHF exacerbation Continue iron, MVI supplements (5) Cor Pulmonale As per Echo done <1 mo ago. Without dilated and weak RV, he will be very sensitive to fluid status, if he is over diuresed he will drop his pressure. If he is under diuresed he will have pulmonary edema. Plan: Continue with meds as a #2 watching for low BP (6) Apical Pneumothorax Patient has now had about 3 thoracentesis. They have given him a small pneumothorax. CXR: Small apical Pneumothorax decreased from 12/17/22, trace B/L pleural effusion, Plan: I discussed this situation with hospice biomedical service engineer, Dr. Saenz yesterday. She was advised that when his pleural effusion reaccumulates he needs considered for a Pleur-ex, placed by IR. (7) Chronic Atrial Fibrillation He presented tachycardic due to resp distress. His HR is still tachy around 100. Plan: Continue with his usual heart rate-slowing med Diltiazem. He cannot be on aspirin or anticoagulation given the heme positive stool that was found when he was first admitted at the first hospitalization 2 months ago. (8) Hyperkalemia K 5.0 at admission Plan: Cont to hold home medications: KCl Monitor BMP daily (9) Poor Memory This complicates his care (10) Weakness and Deconditioning Pt reported he has not been able to do much PT since he arrived at the SNF d/t his shortness of breath. He uses a walker at baseline. Yesterday and today the patient refused to work with PT here, stating he is too weak. Plan: PT/OT to try to keep working with him. Per Social Work , he could go back to the SNF and then be transitioned to long term care phlebotomist care there at that senior care, or be on Hospice care there, if he can no longer ambulate because of his end-stage lung disease. - Current Meds Current Meds: Current Medications Generic Name Dose Route Start Last Admin Trade Name Freq PRN Reason Stop Dose Admin Acetaminophen 650 mg 12/23/22 19:00 12/24/22 08:14 Acetaminophen 325 Mg Tablet PO 650 mg Q4HR PRN Administration Pain or Fever > 38C (100.4F) Albuterol/Ipratropium 3 ml 12/23/22 19:03 12/23/22 19:53 Ipratropium/Albuterol 3 Ml Neb INH 3 ml Q4HR PRN Administration Shortness of Air/Wheezing Albuterol/Ipratropium 3 ml 12/24/22 07:00 12/24/22 15:16 Ipratropium/Albuterol 3 Ml Neb INH 3 ml RTQID FRANCISCO Administration Budesonide 0.5 mg 12/24/22 07:00 12/24/22 07:43 Budesonide 0.5 Mg/2 Ml Neb INH 0.5 mg RTBID FRANCISCO Administration Calcium Carbonate/Glycine 500 mg 12/24/22 09:00 12/24/22 08:14 Calcium Carb (Oyster Shell) 500 Mg Tablet PO 500 mg DAILY FRANCISCO Administration Diltiazem HCl 120 mg 12/24/22 08:00 12/24/22 08:14 Diltiazem Cd 120 Mg Capsule PO 120 mg 0800,1800 FRANCISCO Administration Ferrous Sulfate 325 mg 12/24/22 08:00 12/24/22 08:13 Ferrous Sulfate 325 Mg Tablet PO 325 mg BIDWM FRANCISCO Administration Formoterol Fumarate 20 mcg 12/24/22 07:00 12/24/22 07:43 Formoterol Fumarate Neb 20 Mcg/2 Ml INH 20 mcg RTBID FRANCISCO Administration Furosemide 20 mg 12/24/22 06:00 12/24/22 13:36 Furosemide 20 Mg/2 Ml Vial IVP 20 mg BIDDIURETIC FRANCISCO Administration Guaifenesin 600 mg 12/23/22 21:00 12/24/22 08:13 Guaifenesin 600 Mg Tablet PO 600 mg BID FRANCISCO Administration Methylprednisolone 80 mg 12/23/22 22:00 12/24/22 13:36 Methylprednisolone Succinate 40 Mg/Ml Vial IVP 80 mg TID FRANCISCO Administration Montelukast Sodium 10 mg 12/23/22 21:00 12/23/22 23:37 Montelukast 10 Mg Tablet PO 10 mg QPM FRANCISCO Administration Nystatin 1 applic 12/23/22 21:00 12/24/22 08:14 Nystatin Powder 15 Gm TOP 1 applic BID FRANCISCO Administration Pantoprazole Sodium 40 mg 12/23/22 22:00 12/24/22 06:16 Pantoprazole 40 Mg Tablet PO 40 mg 0700,2200 FRANCISCO Administration Miconazole Nitrate 1 each 12/22/22 09:00 12/24/22 08:15 [Miconazole Nitrate TOP Not Given ] 10 Gm Powder BID FRANCISCO Saccharomyces Boulardii 250 mg 12/24/22 08:00 12/24/22 08:14 Saccharomyces Boulardii 250 Mg Capsule PO 250 mg BIDWM FRANCISCO Administration Sodium Chloride 10 ml 12/24/22 01:00 12/24/22 08:14 Sodium Chloride Flush 0.9% 10 Ml Syringe IVP 10 ml 0100,0900,1700 FRANCISCO Administration Thiamine HCl 100 mg 12/24/22 09:00 12/24/22 08:14 Thiamine 100 Mg Tablet PO 100 mg DAILY FRANCISCO Administration - Lab Result Fish Bone Diagrams: 12/26/22 04:12 12/26/22 04:12 - Additional Planning My Orders: My Active Orders 12/23/22 18:59 Zinc Oxide 20% Oint [Zinc Oxide] 1 applic TOP PRN PRN 12/23/22 19:03 Morphine Inj (Carpuject) [Morphine (Carpuject)] 2 mg IVP Q6HR PRN 12/23/22 21:00 Nystatin [Nystop] 1 applic TOP BID guaiFENesin [Mucinex] 600 mg PO BID 12/23/22 22:00 methylPREDNISolone SUCCINATE [SOLU-Medrol (40MG VIAL)] 80 mg IVP TID 12/24/22 Breakfast DIET [Dysphagia - Minced and Moist] [DIET] 12/24/22 07:00 Ipratropium/Albuterol [Duoneb] 3 ml INH RTQID 12/24/22 08:00 Ferrous Sulfate [Feosol] 325 mg PO BIDWM Saccharomyces Boulardii [Florastor] 250 mg PO BIDWM 12/24/22 10:15 Miscellaenous Nursing Order [RC] QSHIFT 12/25/22 12:00 levoFLOXacin [Levaquin] 750 mg PO 1200 Subjective - Subjective Patient Reports: Shortness of Breath (Does not want to get OOB for PT and OT because tired and very SOB) Objective Vital Signs: Vital Signs - 24 hr 12/23/22 12/23/22 12/23/22 19:00 19:57 23:42 Temperature 36.6 C Heart Rate Heart Rate [ 97 Brachial] Respiratory 18 Rate Blood Pressure [Left Brachial artery] Blood Pressure 127/68 [Right Brachial artery] O2 Saturation 96 If not protocol 2 2 2 : Oxygen Flow, liters/minute 12/24/22 12/24/22 12/24/22 05:00 07:45 07:53 Temperature 36.5 C Heart Rate 94 Heart Rate [ 92 90 Brachial] Respiratory 18 18 18 Rate Blood Pressure 132/79 H [Left Brachial artery] Blood Pressure 102/66 [Right Brachial artery] O2 Saturation 96 92 If not protocol 2 2 2 : Oxygen Flow, liters/minute 12/24/22 12/24/22 12/24/22 11:10 12:21 15:17 Temperature 36.4 C L Heart Rate 103 H 96 Heart Rate [ Brachial] Respiratory 18 16 Rate Blood Pressure [Left Brachial artery] Blood Pressure [Right Brachial artery] O2 Saturation If not protocol 2 2 : Oxygen Flow, liters/minute 12/24/22 16:00 Temperature 36.5 C Heart Rate Heart Rate [ 100 Brachial] Respiratory 18 Rate Blood Pressure [Left Brachial artery] Blood Pressure 118/75 [Right Brachial artery] O2 Saturation 93 If not protocol 2 : Oxygen Flow, liters/minute Oxygen O2 Source [With Activity] Nasal cannula O2 Source [Without Activity] Nasal cannula O2 Source Nasal cannula Oxygen Flow Rate 8 I&O (Last 24 Hrs): Intake and Output Totals x24h 12/22/22 12/23/22 12/24/22 23:59 23:59 23:59 Intake Total 1457 1840 550 Output Total 150 2200 1350 Balance 1307 -360 -800 General: Alert, Other (Mostly in bed, naps alot or watches TV) HEENT: Other (Cushingoid) Neck: Other ((+) JVD) Neuro: Alert, Non Focal Cardiovascular: No murmurs Respiratory: Other (Poor air mvm) Abdomen: Soft Extremities: Other (1+ edema) - Results Results: Laboratory Results WBC 8.9 x10^3/uL (4.8-10.8) 12/23/22 04:33 RBC 2.85 10^6/uL (4.70-6.10) L 12/23/22 04:33 Hgb 7.8 g/dL (14.0-18.0) L 12/23/22 04:33 Hct 26.2 % (42.0-52.0) L 12/23/22 04:33 MCV 91.9 fL (80.0-94.0) 12/23/22 04:33 MCH 27.4 pg (27.0-31.0) 12/23/22 04:33 MCHC 29.8 g/dL (32.0-36.0) L 12/23/22 04:33 RDW 18.4 % (12.0-15.0) H 12/23/22 04:33 Plt Count 333 10^3/uL (130-450) 12/23/22 04:33 MPV 9.6 fL (7.4-11.4) 12/23/22 04:33 Neut # (Auto) 7.8 10^3/uL (1.5-6.6) H 12/23/22 04:33 Lymph # (Auto) 0.2 10^3/uL (1.5-3.5) L 12/23/22 04:33 [place] # (Auto) 0.7 10^3/uL (0.0-1.0) 12/23/22 04:33 Eos # (Auto) 0.0 10^3/uL (0.0-0.7) 12/23/22 04:33 Baso # (Auto) 0.0 10^3/uL (0.0-0.1) 12/23/22 04:33 Absolute Nucleated RBC 0.00 x10^3/uL 12/23/22 04:33 Nucleated RBC % 0.0 /100WBC 12/23/22 04:33 Sodium 135 mmol/L (135-145) 12/23/22 04:33 Potassium 4.6 mmol/L (3.5-4.5) H 12/23/22 04:33 Chloride 92 mmol/L (101-111) L 12/23/22 04:33 Carbon Dioxide 39 mmol/L (21-32) H* 12/23/22 04:33 Anion Gap 4.0 (6-13) L 12/23/22 04:33 BUN 28 mg/dL (6-20) H 12/23/22 04:33 Creatinine 0.9 mg/dL (0.6-1.3) 12/23/22 04:33 Estimated GFR (MDRD) 82 (>89) L 12/23/22 04:33 Glucose 137 mg/dL (74-104) H 12/23/22 04:33 Calcium 8.9 mg/dL (8.5-10.3) 12/23/22 04:33 Phosphorus 3.6 mg/dL (2.5-5.0) 12/23/22 04:33 Magnesium 1.9 mg/dL (1.7-2.3) 12/23/22 04:33 Total Bilirubin 0.3 mg/dL (0.2-1.0) 12/21/22 17:33 AST 17 IU/L (10-42) 12/21/22 17:33 ALT 19 IU/L (10-60) 12/21/22 17:33 Alkaline Phosphatase 73 IU/L (42-121) 12/21/22 17:33 Troponin I High Sens 10.1 ng/L (2.3-19.7) 12/21/22 17:33 B-Natriuretic Peptide 635 pg/mL (5-100) H 12/23/22 04:33 Total Protein 7.1 g/dL (6.4-8.9) 12/21/22 17:33 Albumin 3.8 g/dL (3.2-5.5) 12/21/22 17:33 Globulin 3.3 g/dL (2.1-4.2) 12/21/22 17:33 Albumin/Globulin Ratio 1.2 (1.0-2.2) 12/21/22 17:33 Nasal Adenovirus (PCR) NOT DETECTED 12/21/22 17:44 Nasal B. parapertussis DNA (PCR) NOT DETECTED 12/21/22 17:44 Nasal Coronavir 229E PCR NOT DETECTED 12/21/22 17:44 Nasal Coronavir HKU1 PCR NOT DETECTED 12/21/22 17:44 Nasal Coronavir NL63 PCR NOT DETECTED 12/21/22 17:44 Nasal Coronavir OC43 PCR NOT DETECTED 12/21/22 17:44 Nasal Enterovir/Rhinovir PCR NOT DETECTED 12/21/22 17:44 Nasal Influenza B PCR NOT DETECTED 12/21/22 17:44 Nasal Influenza A PCR NOT DETECTED 12/21/22 17:44 Nasal Parainfluen 1 PCR NOT DETECTED 12/21/22 17:44 Nasal Parainfluen 2 PCR NOT DETECTED 12/21/22 17:44 Nasal Parainfluen 3 PCR NOT DETECTED 12/21/22 17:44 Nasal Parainfluen 4 PCR NOT DETECTED 12/21/22 17:44 Nasal RSV (PCR) NOT DETECTED 12/21/22 17:44 Nasal B.pertussis DNA PCR NOT DETECTED 12/21/22 17:44 Nasal C.pneumoniae (PCR) NOT DETECTED 12/21/22 17:44 Aj Human Metapneumo PCR NOT DETECTED 12/21/22 17:44 Nasal M.pneumoniae (PCR) NOT DETECTED 12/21/22 17:44 Nasal SARS-CoV-2 (PCR) NOT DETECTED 12/21/22 17:44 Blood Type A NEGATIVE 12/23/22 08:05 Antibody Screen NEGATIVE 12/23/22 08:05 Crossmatch IS Only See Detail 12/23/22 08:05 - Procedures Procedures: Procedures DRAINAGE OF RIGHT PLEURAL CAVITY, PERCUTANEOUS APPROACH (12/17/22) RESPIRATORY VENTILATION, 24-96 CONSECUTIVE HOURS (11/25/22)
[2022-12-24] MEDS: MONTELUKAST 10 MG TABLET PO SCH (21:09)
[2022-12-24] MEDS: ZINC OXIDE 20% OINT 30 GM TUBE TOP PRN (22:08)
[2022-12-25] MEDS: MORPHINE 2 MG/ML CARPUJECT IVP PRN ×3 (00:04→12:37)
[2022-12-25] MEDS: SODIUM CHLORIDE FLUSH 0.9% 10 ML SYRINGE IVP SCH ×4 (00:05→23:59)
[2022-12-25] MEDS: ACETAMINOPHEN 325 MG TABLET PO PRN ×5 (03:13→22:01)
[2022-12-25] MEDS: FUROSEMIDE 20 MG/2 ML VIAL IVP SCH ×2 (06:46→14:09)
[2022-12-25] MEDS: methylPREDNISolone SUCCINATE 40 MG/ML VIAL IVP SCH ×3 (06:46→21:48)
[2022-12-25] MEDS: PANTOPRAZOLE 40 MG TABLET PO SCH ×2 (06:46→21:51)
[2022-12-25] MEDS: IPRATROPIUM/ALBUTEROL 3 ML NEB INH SCH ×4 (07:22→17:29)
[2022-12-25] MEDS: FORMOTEROL FUMARATE NEB 20 MCG/2 ML INH SCH ×2 (07:22→17:29)
[2022-12-25] MEDS: BUDESONIDE 0.5 MG/2 ML NEB INH SCH ×2 (07:22→17:30)
[2022-12-25] MEDS: CALCIUM CARB (OYSTER SHELL) 500 MG TABLET PO SCH (08:13)
[2022-12-25] MEDS: FERROUS SULFATE 325 MG TABLET PO SCH ×2 (08:13→17:29)
[2022-12-25] MEDS: diltiaZEM CD 120 MG CAPSULE PO SCH ×2 (08:13→17:29)
[2022-12-25] MEDS: guaiFENesin 600 MG TABLET PO SCH ×2 (08:13→21:51)
[2022-12-25] MEDS: DOCUSATE SODIUM 250 MG CAPSULE PO SCH (08:13)
[2022-12-25] MEDS: THIAMINE 100 MG TABLET PO SCH (08:13)
[2022-12-25] MEDS: SACCHAROMYCES BOULARDII 250 MG CAPSULE PO SCH ×2 (08:13→17:29)
[2022-12-25] MEDS: polyethylene glycoL 3350 17 GM PACKET PO SCH (08:14)
[2022-12-25] MEDS: MICONAZOLE NITRATE TOP SCH ×2 (08:18→21:52)
[2022-12-25] MEDS: NYSTATIN POWDER 15 GM TOP SCH ×2 (10:22→21:52)
--- NOTE | 2022-12-25 12:27 | PROVIDER PROGRESS NOTE ---
Subjective - Prog Note Date Prog Note Date: 12/25/22 - Subjective Subjective: Hospice Fig Washer consult will be performed on 12/28/22. For now, would recommend adding oral morphine 5 mg q2 hours as needed for dyspnea and scheduling a dose three times daily. Would hold IV morphine. Would obtain f/u CXR to reassess pleural effusion to determine if he's had recurrence and would benefit from tunneled pleural drain (PleurX). Please call for any further recommendations. Objective - Vital Signs/Intake & Output Vital Signs: Vital Signs x48h Temp Pulse Pulse Resp BP Pulse Ox O2 Flow Rate 12/25/22 10:56 90 16 12/25/22 08:00 36.7 C 89 20 123/69 92 2 12/25/22 07:23 89 22 2 Intake & Output: Intake & Output 12/22/22 12/23/22 12/24/22 12/25/22 23:59 23:59 23:59 23:59 Intake Total 1457 1840 1020 560 Output Total 150 2200 2150 300 Balance 1307 360 -1130 260 - Lab Results Fish Bones: 12/23/22 04:33 12/23/22 04:33
[2022-12-25] MEDS: levoFLOXacin 250 MG TABLET PO SCH (12:36)
[2022-12-25] MEDS: SODIUM CHLORIDE FLUSH 0.9% 10 ML SYRINGE IVP PRN ×3 (12:37→21:48)
[2022-12-25] MEDS ORDERED: ALBUTEROL NEB 2.5 MG/3 ML INH PRN (12:43)
[2022-12-25] MEDS: MORPHINE SOL 10 MG/0.5 ML ORAL SYRINGE PO SCH ×2 (14:09→21:56)
--- NOTE | 2022-12-25 15:49 | PROVIDER PROGRESS NOTE ---
Assessment/Plan - Problem List (1) COPD exacerbation Assessment/Plan: He has end-stage COPD, was on home O2 2L matt n.c. when admitted here 2 mos ago, then 4 L/min at the last [facility] to SNF from here 2 weeks ago. He now needs 5 L/min I put in a referral for Hospice care after discharge, the patient and I discu ssed that in the past, and now that he is needing re-hospitalization the 3rd time in 2 mos, for CHF and end-stage COPD, Hospice referral is appropriate. Plan: Will start to taper IV Solumedrol 80 mg TID to 40 TID Cont DuoNeb inhaled neb and order it schedule 4 times daily plus every 4 hours as needed. Continue with montelukast at night Cont morphine IV as needed for severe respiratory distress Referral to Hospice done (2) Acute on chronic respiratory failure with hypoxia He was on home O2 2L NC when admitted here 2 mos ago, then 4 L/min at the last [facility] to SNF from here 2 weeks ago. He now needs 5 L/min. Plan: Continue O2 support, target O2 sat 88% or above in a COPDer Continue to treat his COPD, CHF and anemia Cont morphine IV as needed for severe respiratory distress (3) Acute on Chronic Diastolic Heart Failure CXR showed mild diffuse interstitial prominence, Cardiomegaly. He has HFpEF, the last Echo was done <1 mo ago. The first time he went to SNF he was discharged on no Lasix due to low BP and CLARK. Then when he left 2 weeks ago, he was on Lasix daily. Plan: Continue with IV twice daily Lasix I changed the IV empiric Levaquin to p.o. Levaquin, to decrease his fluid loading Follow I's and O's and daily weights Continue his meds for rate control Cont a low salt to his diet restriction and he needs minced and moist diet since he has many lost teeth (4) Anemia Hgb 8.4 has dropped to 7.8 yesterday 12/23 (all labs were reviewed), despite being on a diuretic. He had heme positive stool on his November hospitalization and has not yet had a work-up for source of GI bleeding. He is not stable enough to undergo any endoscopies currently. Because of his severe respiratory distress and end-stage COPD, I ordered 1 U PRBCs be transfused and a Lasix IV dose to follow that. Plan: Monitor hemoglobin daily. I will make his target hemoglobin 8, because he is so symptomatic w/ his COPD and CHF exacerbation Continue iron, MVI supplements (5) Cor Pulmonale As per Echo done <1 mo ago. Without dilated and weak RV, he will be very sensitive to fluid status, if he is over diuresed he will drop his pressure. If he is under diuresed he will have pulmonary edema. Plan: Continue with meds as a #2 watching for low BP (6) Apical Pneumothorax Patient has now had about 3 thoracentesis. They have given him a small pneumothorax. CXR: Small apical Pneumothorax decreased from 12/17/22, trace B/L pleural effusion, Plan: I discussed this situation with hospice medical office asst, Dr. Saenz. She advised that when his pleural effusion reaccumulates he needs considered for a Pleur-ex, placed by IR. (7) Chronic Atrial Fibrillation He presented tachycardic due to resp distress. His HR is 90-100. Plan: Continue with his usual heart rate-slowing med Diltiazem. He cannot be on aspirin or anticoagulation given the heme positive stool that was found when he was first admitted at the first hospitalization 2 months ago. (8) Hyperkalemia K 5.0 at admission Plan: Cont to hold home medications: KCl Monitor BMP daily (9) Poor Memory This complicates his care (10) Weakness and Deconditioning Pt reported he has not been able to do much PT since he arrived at the SNF d/t his shortness of breath. He uses a walker at baseline. Yesterday and today the patient refused to work with PT here, stating he is too weak. Plan: PT/OT have tried to keep working with him, but he now refuses and they have discharged him. He is not rehabable. Per Social Work , he could go back to the SNF and then be transitioned to [facility] care there at that [facility], or be on Hospice care there, if he can no longer ambulate because of his end-stage lung disease. - Current Meds Current Meds: Current Medications Generic Name Dose Route Start Last Admin Trade Name Freq PRN Reason Stop Dose Admin Acetaminophen 650 mg 12/23/22 19:00 12/25/22 12:36 Acetaminophen 325 Mg Tablet PO 650 mg Q4HR PRN Administration Pain or Fever > 38C (100.4F) Albuterol/Ipratropium 3 ml 12/24/22 07:00 12/25/22 10:55 Ipratropium/Albuterol 3 Ml Neb INH 3 ml RTQID FRANCISCO Administration Budesonide 0.5 mg 12/24/22 07:00 12/25/22 07:22 Budesonide 0.5 Mg/2 Ml Neb INH 0.5 mg RTBID FRANCISCO Administration Calcium Carbonate/Glycine 500 mg 12/24/22 09:00 12/25/22 08:13 Calcium Carb (Oyster Shell) 500 Mg Tablet PO 500 mg DAILY FRANCISCO Administration Diltiazem HCl 120 mg 12/24/22 08:00 12/25/22 08:13 Diltiazem Cd 120 Mg Capsule PO 120 mg 0800,1800 FRANCISCO Administration Docusate Sodium 250 - 500 mg 12/25/22 09:00 12/25/22 08:13 Docusate Sodium 250 Mg Capsule PO 250 mg DAILY FRANCISCO Administration Ferrous Sulfate 325 mg 12/24/22 08:00 12/25/22 08:13 Ferrous Sulfate 325 Mg Tablet PO 325 mg BIDWM FRANCISCO Administration Formoterol Fumarate 20 mcg 12/24/22 07:00 12/25/22 07:22 Formoterol Fumarate Neb 20 Mcg/2 Ml INH 20 mcg RTBID FRANCISCO Administration Furosemide 20 mg 12/24/22 06:00 12/25/22 14:09 Furosemide 20 Mg/2 Ml Vial IVP 20 mg BIDDIURETIC FRANCISCO Administration Guaifenesin 600 mg 12/23/22 21:00 12/25/22 08:13 Guaifenesin 600 Mg Tablet PO 600 mg BID FRANCISCO Administration Levofloxacin 750 mg 12/25/22 12:00 12/25/22 12:36 Levofloxacin 250 Mg Tablet PO 750 mg 1200 FRANCISCO Administration Methylprednisolone 80 mg 12/23/22 22:00 12/25/22 14:10 Methylprednisolone Succinate 40 Mg/Ml Vial IVP 80 mg TID FRANCISCO Administration Montelukast Sodium 10 mg 12/23/22 21:00 12/24/22 21:09 Montelukast 10 Mg Tablet PO 10 mg QPM FRANCISCO Administration Morphine Sulfate 5 mg 12/25/22 14:00 12/25/22 14:09 Morphine Nicole 10 Mg/0.5 Ml Oral Syringe PO 5 mg TID FRANCISCO Administration Multi-Ingredient Ointment 1 applic 12/23/22 18:59 12/24/22 22:08 Zinc Oxide 20% Oint 30 Gm Tube TOP 1 applic PRN PRN Administration Skin Care Nystatin 1 applic 12/23/22 21:00 12/25/22 10:22 Nystatin Powder 15 Gm TOP 1 applic BID FRANCISCO Administration Pantoprazole Sodium 40 mg 12/23/22 22:00 12/25/22 06:46 Pantoprazole 40 Mg Tablet PO 40 mg 0700,2200 FRANCISCO Administration Miconazole Nitrate 1 each 12/22/22 09:00 12/25/22 08:18 [Miconazole Nitrate TOP Not Given ] 10 Gm Powder BID FRANCISCO Polyethylene Glycol 17 gm 12/25/22 09:00 12/25/22 08:14 Polyethylene Glycol 3350 17 Gm Packet PO 17 gm DAILY FRANCISCO Administration Saccharomyces Boulardii 250 mg 12/24/22 08:00 12/25/22 08:13 Saccharomyces Boulardii 250 Mg Capsule PO 250 mg BIDWM FRANCISCO Administration Sodium Chloride 10 ml 12/24/22 01:00 12/25/22 08:14 Sodium Chloride Flush 0.9% 10 Ml Syringe IVP 10 ml 0100,0900,1700 FRANCISCO Administration Sodium Chloride 10 ml 12/23/22 19:01 12/25/22 14:09 Sodium Chloride Flush 0.9% 10 Ml Syringe IVP 10 ml PRN PRN Administration NEEDED PER PROVIDER ORDERS Thiamine HCl 100 mg 12/24/22 09:00 12/25/22 08:13 Thiamine 100 Mg Tablet PO 100 mg DAILY FRANCISCO Administration - Lab Result Fish Bone Diagrams: 12/26/22 04:12 12/26/22 04:12 - Additional Planning My Orders: My Active Orders 12/25/22 Hospice Qc Analyst Consult [CONS] Routine 12/25/22 09:00 Docusate Sodium 250Mg Capsule [Colace 250Mg Capsule] 250 - 500 mg PO DAILY polyethylene glycoL 3350 [Miralax] 17 gm PO DAILY 12/25/22 12:00 levoFLOXacin [Levaquin] 750 mg PO 1200 12/25/22 12:42 Morphine Oral Soln [Roxanol] 5 mg PO Q2HR PRN 12/25/22 12:43 Albuterol 2.5 mg INH RTQ4H PRN 12/25/22 14:00 Morphine Oral Soln [Roxanol] 5 mg PO TID Subjective - Subjective Patient Reports: Shortness of Breath (He again refused to work with PT/OT, does not want to get OOB) Objective Vital Signs: Vital Signs - 24 hr 12/24/22 12/24/22 12/24/22 16:00 18:52 18:54 Temperature 36.5 C Heart Rate 78 Heart Rate [ 100 Brachial] Heart Rate [ Monitoring electrodes] Respiratory 18 18 Rate Blood Pressure 118/75 [Right Brachial artery] O2 Saturation 93 If not protocol 2 4 2 : Oxygen Flow, liters/minute 12/24/22 12/24/22 12/25/22 22:13 23:51 07:23 Temperature 36.4 C L Heart Rate 89 Heart Rate [ 92 Brachial] Heart Rate [ Monitoring electrodes] Respiratory 20 22 Rate Blood Pressure 124/72 [Right Brachial artery] O2 Saturation 94 91 L If not protocol 2 2 2 : Oxygen Flow, liters/minute 12/25/22 12/25/22 12/25/22 08:00 10:56 14:00 Temperature 36.7 C Heart Rate 90 Heart Rate [ Brachial] Heart Rate [ 89 Monitoring electrodes] Respiratory 20 16 Rate Blood Pressure 123/69 [Right Brachial artery] O2 Saturation 92 85 L If not protocol 2 2 : Oxygen Flow, liters/minute 12/25/22 12/25/22 14:02 14:14 Temperature Heart Rate Heart Rate [ Brachial] Heart Rate [ 99 Monitoring electrodes] Respiratory Rate Blood Pressure 121/73 [Right Brachial artery] O2 Saturation 91 L 92 If not protocol 2.5 2.5 : Oxygen Flow, liters/minute Oxygen O2 Source [With Activity] Nasal cannula O2 Source [Without Activity] Nasal cannula O2 Source Nasal cannula Oxygen Flow Rate 8 I&O (Last 24 Hrs): Intake and Output Totals x24h 12/23/22 12/24/22 12/25/22 23:59 23:59 23:59 Intake Total 1840 1020 560 Output Total 2200 2150 1300 Balance -360 -1130 -740 General: Alert, Oriented x3 HEENT: Other (Cushingoid) Neck: Supple, Other ((+) JVD) Neuro: Alert, Non Focal Cardiovascular: No murmurs Respiratory: Other (Poor air mvm) Abdomen: Soft, No tenderness Extremities: Other (1+ edema) - Results Results: Laboratory Results WBC 8.9 x10^3/uL (4.8-10.8) 12/23/22 04:33 RBC 2.85 10^6/uL (4.70-6.10) L 12/23/22 04:33 Hgb 7.8 g/dL (14.0-18.0) L 12/23/22 04:33 Hct 26.2 % (42.0-52.0) L 12/23/22 04:33 MCV 91.9 fL (80.0-94.0) 12/23/22 04:33 MCH 27.4 pg (27.0-31.0) 12/23/22 04:33 MCHC 29.8 g/dL (32.0-36.0) L 12/23/22 04:33 RDW 18.4 % (12.0-15.0) H 12/23/22 04:33 Plt Count 333 10^3/uL (130-450) 12/23/22 04:33 MPV 9.6 fL (7.4-11.4) 12/23/22 04:33 Neut # (Auto) 7.8 10^3/uL (1.5-6.6) H 12/23/22 04:33 Lymph # (Auto) 0.2 10^3/uL (1.5-3.5) L 12/23/22 04:33 Grand # (Auto) 0.7 10^3/uL (0.0-1.0) 12/23/22 04:33 Eos # (Auto) 0.0 10^3/uL (0.0-0.7) 12/23/22 04:33 Baso # (Auto) 0.0 10^3/uL (0.0-0.1) 12/23/22 04:33 Absolute Nucleated RBC 0.00 x10^3/uL 12/23/22 04:33 Nucleated RBC % 0.0 /100WBC 12/23/22 04:33 Sodium 135 mmol/L (135-145) 12/23/22 04:33 Potassium 4.6 mmol/L (3.5-4.5) H 12/23/22 04:33 Chloride 92 mmol/L (101-111) L 12/23/22 04:33 Carbon Dioxide 39 mmol/L (21-32) H* 12/23/22 04:33 Anion Gap 4.0 (6-13) L 12/23/22 04:33 BUN 28 mg/dL (6-20) H 12/23/22 04:33 Creatinine 0.9 mg/dL (0.6-1.3) 12/23/22 04:33 Estimated GFR (MDRD) 82 (>89) L 12/23/22 04:33 Glucose 137 mg/dL (74-104) H 12/23/22 04:33 Calcium 8.9 mg/dL (8.5-10.3) 12/23/22 04:33 Phosphorus 3.6 mg/dL (2.5-5.0) 12/23/22 04:33 Magnesium 1.9 mg/dL (1.7-2.3) 12/23/22 04:33 Total Bilirubin 0.3 mg/dL (0.2-1.0) 12/21/22 17:33 AST 17 IU/L (10-42) 12/21/22 17:33 ALT 19 IU/L (10-60) 12/21/22 17:33 Alkaline Phosphatase 73 IU/L (42-121) 12/21/22 17:33 Troponin I High Sens 10.1 ng/L (2.3-19.7) 12/21/22 17:33 B-Natriuretic Peptide 635 pg/mL (5-100) H 12/23/22 04:33 Total Protein 7.1 g/dL (6.4-8.9) 12/21/22 17:33 Albumin 3.8 g/dL (3.2-5.5) 12/21/22 17:33 Globulin 3.3 g/dL (2.1-4.2) 12/21/22 17:33 Albumin/Globulin Ratio 1.2 (1.0-2.2) 12/21/22 17:33 Nasal Adenovirus (PCR) NOT DETECTED 12/21/22 17:44 Nasal B. parapertussis DNA (PCR) NOT DETECTED 12/21/22 17:44 Nasal Coronavir 229E PCR NOT DETECTED 12/21/22 17:44 Nasal Coronavir HKU1 PCR NOT DETECTED 12/21/22 17:44 Nasal Coronavir NL63 PCR NOT DETECTED 12/21/22 17:44 Nasal Coronavir OC43 PCR NOT DETECTED 12/21/22 17:44 Nasal Enterovir/Rhinovir PCR NOT DETECTED 12/21/22 17:44 Nasal Influenza B PCR NOT DETECTED 12/21/22 17:44 Nasal Influenza A PCR NOT DETECTED 12/21/22 17:44 Nasal Parainfluen 1 PCR NOT DETECTED 12/21/22 17:44 Nasal Parainfluen 2 PCR NOT DETECTED 12/21/22 17:44 Nasal Parainfluen 3 PCR NOT DETECTED 12/21/22 17:44 Nasal Parainfluen 4 PCR NOT DETECTED 12/21/22 17:44 Nasal RSV (PCR) NOT DETECTED 12/21/22 17:44 Nasal B.pertussis DNA PCR NOT DETECTED 12/21/22 17:44 Nasal C.pneumoniae (PCR) NOT DETECTED 12/21/22 17:44 Aj Human Metapneumo PCR NOT DETECTED 12/21/22 17:44 Nasal M.pneumoniae (PCR) NOT DETECTED 12/21/22 17:44 Nasal SARS-CoV-2 (PCR) NOT DETECTED 12/21/22 17:44 Blood Type A NEGATIVE 12/23/22 08:05 Antibody Screen NEGATIVE 12/23/22 08:05 Crossmatch IS Only See Detail 12/23/22 08:05 - Procedures Procedures: Procedures DRAINAGE OF RIGHT PLEURAL CAVITY, PERCUTANEOUS APPROACH (12/17/22) RESPIRATORY VENTILATION, 24-96 CONSECUTIVE HOURS (11/25/22)
[2022-12-25] MEDS: MORPHINE SOL 10 MG/0.5 ML ORAL SYRINGE PO PRN ×2 (17:59→20:06)
[2022-12-25] MEDS: MONTELUKAST 10 MG TABLET PO SCH (21:51)
[2022-12-25] MEDS: SENNA 8.6 MG TABLET PO SCH (21:54)
[2022-12-26 05:45] LABS: BASOPHILS # (AUTO) 0.1 10^3/uL (0.0-0.1); BASOPHILS % (AUTO) 0.3 %; HCT - HEMATOCRIT 32.4 % (42.0-52.0); HGB - HEMOGLOBIN 9.7 g/dL (14.0-18.0); LYMPHOCYTES # (AUTO) 0.3 10^3/uL (1.5-3.5); LYMPHOCYTES % (AUTO) 1.6 %; MEAN CORPUSCULAR HEMOGLOBIN 27.7 pg (27.0-31.0); MEAN CORPUSCULAR HGB CONC 29.9 g/dL (32.0-36.0); MEAN CORPUSCULAR VOLUME 92.6 fL (80.0-94.0); MEAN PLATELET VOLUME 10.1 fL (7.4-11.4); MONOCYTES # (AUTO) 1.2 10^3/uL (0.0-1.0); MONOCYTES % (AUTO) 7.7 %; NEUTROPHILS # (AUTO) 13.1 10^3/uL (1.5-6.6); NEUTROPHILS % (AUTO) 86.1 %; PLT - PLATELET COUNT 479 10^3/uL (130-450); RED CELL DISTRIBUTION WIDTH 17.2 % (12.0-15.0); WHITE BLOOD COUNT 15.2 x10^3/uL (4.8-10.8)
[2022-12-26 05:50] LABS: PLATELET ESTIMATE, MANUAL NORMAL (130-450,000) (NORMAL); PLATELET MORPHOLOGY NORMAL APPEARANCE (NORMAL); RBC MORPHOLOGY (MULTIPLE) NORMAL APPEARANCE (NORMAL); SLIDE REVIEW? Indicated; WBC MORPHOLOGY (MULTIPLE) NORMAL APPEARANCE (NORMAL)
[2022-12-26 06:17] LABS: CALCIUM 8.9 mg/dL (8.5-10.3); POTASSIUM 4.8 mmol/L (3.5-4.5)
[2022-12-26] MEDS: MORPHINE SOL 10 MG/0.5 ML ORAL SYRINGE PO SCH ×3 (06:37→21:55)
[2022-12-26] MEDS: methylPREDNISolone SUCCINATE 40 MG/ML VIAL IVP SCH ×3 (06:37→21:44)
[2022-12-26] MEDS: FUROSEMIDE 20 MG/2 ML VIAL IVP SCH (06:37)
[2022-12-26] MEDS: PANTOPRAZOLE 40 MG TABLET PO SCH ×2 (06:37→21:44)
[2022-12-26] MEDS: SODIUM CHLORIDE FLUSH 0.9% 10 ML SYRINGE IVP PRN (06:38)
[2022-12-26] MEDS: SODIUM CHLORIDE FLUSH 0.9% 10 ML SYRINGE IVP SCH ×2 (06:38→17:06)
[2022-12-26] MEDS: ACETAMINOPHEN 325 MG TABLET PO PRN ×4 (06:50→21:55)
[2022-12-26] MEDS: BUDESONIDE 0.5 MG/2 ML NEB INH SCH ×2 (08:09→11:09)
[2022-12-26] MEDS: FORMOTEROL FUMARATE NEB 20 MCG/2 ML INH SCH ×2 (08:09→11:08)
[2022-12-26] MEDS: IPRATROPIUM/ALBUTEROL 3 ML NEB INH SCH ×4 (08:09→23:10)
[2022-12-26] MEDS: THIAMINE 100 MG TABLET PO SCH (08:53)
[2022-12-26] MEDS: SACCHAROMYCES BOULARDII 250 MG CAPSULE PO SCH ×2 (08:53→17:06)
[2022-12-26] MEDS: diltiaZEM CD 120 MG CAPSULE PO SCH ×2 (08:53→18:02)
[2022-12-26] MEDS: CALCIUM CARB (OYSTER SHELL) 500 MG TABLET PO SCH (08:53)
[2022-12-26] MEDS: FERROUS SULFATE 325 MG TABLET PO SCH ×2 (08:53→17:06)
[2022-12-26] MEDS: guaiFENesin 600 MG TABLET PO SCH ×2 (08:53→21:44)
[2022-12-26] MEDS: DOCUSATE SODIUM 250 MG CAPSULE PO SCH (08:53)
[2022-12-26] MEDS: NYSTATIN POWDER 15 GM TOP SCH ×2 (08:55→22:23)
[2022-12-26] MEDS: polyethylene glycoL 3350 17 GM PACKET PO SCH (08:55)
[2022-12-26] MEDS: MICONAZOLE NITRATE TOP SCH ×2 (08:55→22:22)
[2022-12-26] MEDS: SENNA 8.6 MG TABLET PO SCH (08:55)
--- NOTE | 2022-12-26 09:56 | XRAY Report ---
PROCEDURE: Chest 1 View X-Ray INDICATIONS: Hypoxia, F/U any pleural effusion re-accumulating TECHNIQUE: One view of the chest was acquired. COMPARISON: 12/21/2022. FINDINGS: Surgical changes and devices: None. Lungs and pleura: Worsening of pulmonary edema and increase in a right pleural effusion, mild to mode rate, with right basilar atelectasis. Mediastinum: Mediastinal contours appear normal. Mild cardiomegaly. Bones and chest wall: No suspicious bony lesions. Overlying soft tissues appear unremarkable. IMPRESSION: Worsening of congestive heart failure. Reviewed by: Jay De Jesus MD on 12/26/2022 9:55 AM PDT Approved by: Jay De Jesus MD on 12/26/2022 9:55 AM PDT Station ID: [id number]
[2022-12-26] MEDS: ZINC OXIDE 20% OINT 30 GM TUBE TOP PRN (11:01)
[2022-12-26] MEDS: levoFLOXacin 250 MG TABLET PO SCH (11:25)
[2022-12-26] MEDS: FUROSEMIDE 40 MG TABLET PO SCH (14:11)
--- NOTE | 2022-12-26 14:19 | PROVIDER PROGRESS NOTE ---
Assessment/Plan - Problem List (1) COPD exacerbation Assessment/Plan: He has end-stage COPD, was on home O2 2L matt n.c. when admitted here 2 mos ago, then 4 L/min at the last [facility] to SNF from here 2 weeks ago. He now needs 5 L/min I put in a referral for Hospice care after discharge, the patient and I discu ssed that in the past, and now that he is needing re-hospitalization the 3rd time in 2 mos, for CHF and end-stage COPD, Hospice referral is appropriate. Plan: Will change his IV Solumedrol to oral Prednisone 40 mg daily Cont DuoNeb inhaled nebs Continue with montelukast at night Cont morphine IV as needed for severe respiratory distress PT/OT have tried to keep working with him, but he now refuses and they have discharged him. He is not rehabable. Per Social Work , he could go back to the SNF and then be transitioned to halfway care there at that longterm, or be on Hospice care there, since he can no longer ambulate because of his end-stage lung disease. Anticipate discharge tomorrow (2) Acute on chronic respiratory failure with hypoxia He was on home O2 2L NC when admitted here 2 mos ago, then 4 L/min at the last [facility] to SNF from here 2 weeks ago. He now needs 5 L/min. Plan: Continue O2 support, target O2 sat 88% or above in a COPDer Continue to treat his COPD, CHF and anemia Cont morphine IV as needed for severe respiratory distress (3) Acute on Chronic Diastolic Heart Failure CXR showed mild diffuse interstitial prominence, Cardiomegaly. He has HFpEF, the last Echo was done <1 mo ago. The first time he went to SNF he was discharged on no Lasix due to low BP and CLARK. Then when he left 2 weeks ago, he was on Lasix daily. Plan: Continue with IV twice daily Lasix I changed the IV empiric Levaquin to p.o. Levaquin, to decrease his fluid loading Follow I's and O's and daily weights Continue his meds for rate control Cont a low salt to his diet restriction and he needs minced and moist diet since he has many lost teeth (4) Anemia Hgb 8.4 has dropped to 7.8 yesterday 12/23 (all labs were reviewed), despite being on a diuretic. He had heme positive stool on his November hospitalization and has not yet had a work-up for source of GI bleeding. He is not stable enough to undergo any endoscopies currently. Because of his severe respiratory distress and end-stage COPD, I ordered 1 U PRBCs be transfused and a Lasix IV dose to follow that. Plan: Monitor hemoglobin daily. I will make his target hemoglobin 8, because he is so symptomatic w/ his COPD and CHF exacerbation Continue iron, MVI supplements (5) Cor Pulmonale As per Echo done <1 mo ago. Without dilated and weak RV, he will be very sensitive to fluid status, if he is over diuresed he will drop his pressure. If he is under diuresed he will have pulmonary edema. Plan: Continue with meds as a #2 watching for low BP (6) Apical Pneumothorax Patient has now had about 3 thoracentesis. They have given him a small pneumothorax. CXR: Small apical Pneumothorax decreased from 12/17/22, trace B/L pleural effusion, Plan: I discussed this situation with hospice director biomedical engineering, Dr. Saenz. She advised that when his pleural effusion reaccumulates he needs considered for a Pleur-ex, placed by IR. (7) Chronic Atrial Fibrillation He presented tachycardic due to resp distress. His HR is 90-100. Plan: Continue with his usual heart rate-slowing med Diltiazem. He cannot be on aspirin or anticoagulation given the heme positive stool that was found when he was first admitted at the first hospitalization 2 months ago. (8) Hyperkalemia K 5.0 at admission Plan: Cont to hold home medications: KCl Monitor BMP daily (9) Poor Memory This complicates his care (10) Weakness and Deconditioning Pt reported he has not been able to do much PT since he arrived at the SNF d/t his shortness of breath. He uses a walker at baseline. Yesterday and today the patient refused to work with PT here, stating he is too weak. Plan: PT/OT have tried to keep working with him, but he now refuses and they have discharged him. He is not rehabable. Per Social Work , he could go back to the SNF and then be transitioned to halfway care there at that longterm, or be on Hospice care there, if he can no longer ambulate because of his end-stage lung disease. - Current Meds Current Meds: Current Medications Generic Name Dose Route Start Last Admin Trade Name Freq PRN Reason Stop Dose Admin Acetaminophen 650 mg 12/23/22 19:00 12/26/22 14:11 Acetaminophen 325 Mg Tablet PO 650 mg Q4HR PRN Administration Pain or Fever > 38C (100.4F) Albuterol/Ipratropium 3 ml 12/24/22 07:00 12/26/22 11:09 Ipratropium/Albuterol 3 Ml Neb INH 3 ml RTQID FRANCISCO Administration Budesonide 0.5 mg 12/24/22 07:00 12/26/22 11:09 Budesonide 0.5 Mg/2 Ml Neb INH 0.5 mg RTBID FRANCISCO Administration Calcium Carbonate/Glycine 500 mg 12/24/22 09:00 12/26/22 08:53 Calcium Carb (Oyster Shell) 500 Mg Tablet PO 500 mg DAILY FRANCISCO Administration Diltiazem HCl 120 mg 12/24/22 08:00 12/26/22 08:53 Diltiazem Cd 120 Mg Capsule PO 120 mg 0800,1800 FRANCISCO Administration Docusate Sodium 250 - 500 mg 12/25/22 09:00 12/26/22 08:53 Docusate Sodium 250 Mg Capsule PO 250 mg DAILY FRANCISCO Administration Ferrous Sulfate 325 mg 12/24/22 08:00 12/26/22 08:53 Ferrous Sulfate 325 Mg Tablet PO 325 mg BIDWM FRANCISCO Administration Formoterol Fumarate 20 mcg 12/24/22 07:00 12/26/22 11:08 Formoterol Fumarate Neb 20 Mcg/2 Ml INH 20 mcg RTBID FRANCISCO Administration Furosemide 40 mg 12/26/22 15:00 12/26/22 14:11 Furosemide 40 Mg Tablet PO 40 mg 0800,1500 FRANCISCO Administration Guaifenesin 600 mg 12/23/22 21:00 12/26/22 08:53 Guaifenesin 600 Mg Tablet PO 600 mg BID FRANCISCO Administration Levofloxacin 750 mg 12/25/22 12:00 12/26/22 11:25 Levofloxacin 250 Mg Tablet PO 750 mg 1200 FRANCISCO Administration Methylprednisolone 40 mg 12/26/22 14:00 12/26/22 14:04 Methylprednisolone Succinate 40 Mg/Ml Vial IVP 12/28/22 00:01 40 mg TID FRANCISCO Administration Montelukast Sodium 10 mg 12/23/22 21:00 12/25/22 21:51 Montelukast 10 Mg Tablet PO 10 mg QPM FRANCISCO Administration Morphine Sulfate 5 mg 12/25/22 12:42 12/26/22 00:00 Morphine Nicole 10 Mg/0.5 Ml Oral Syringe PO 5 mg Q2HR PRN Administration Dyspnea Morphine Sulfate 5 mg 12/25/22 14:00 12/26/22 14:04 Morphine Nicole 10 Mg/0.5 Ml Oral Syringe PO 5 mg TID FRANCISCO Administration Multi-Ingredient Ointment 1 applic 12/23/22 18:59 12/26/22 11:01 Zinc Oxide 20% Oint 30 Gm Tube TOP 1 applic PRN PRN Administration Skin Care Nystatin 1 applic 12/23/22 21:00 12/26/22 08:55 Nystatin Powder 15 Gm TOP 1 applic BID FRANCISCO Administration Ondansetron HCl 4 mg 12/23/22 19:03 12/26/22 14:04 Ondansetron 4 Mg/2 Ml Vial IVP 4 mg Q6HR PRN Administration Nausea / Vomiting Pantoprazole Sodium 40 mg 12/23/22 22:00 12/26/22 06:37 Pantoprazole 40 Mg Tablet PO 40 mg 0700,2200 FRANCISCO Administration Miconazole Nitrate 1 each 12/22/22 09:00 12/26/22 08:55 [Miconazole Nitrate TOP Not Given ] 10 Gm Powder BID FRANCISCO Polyethylene Glycol 17 gm 12/25/22 09:00 12/26/22 08:55 Polyethylene Glycol 3350 17 Gm Packet PO 17 gm DAILY FRANCISCO Administration Saccharomyces Boulardii 250 mg 12/24/22 08:00 12/26/22 08:53 Saccharomyces Boulardii 250 Mg Capsule PO 250 mg BIDWM FRANCISCO Administration Senna 8.6 - 17.2 mg 12/25/22 21:00 12/26/22 08:55 Senna 8.6 Mg Tablet PO Not Given DAILY FRANCISCO Sodium Chloride 10 ml 12/24/22 01:00 12/26/22 06:38 Sodium Chloride Flush 0.9% 10 Ml Syringe IVP 10 ml 0100,0900,1700 FRANCISCO Administration Sodium Chloride 10 ml 12/23/22 19:01 12/26/22 06:38 Sodium Chloride Flush 0.9% 10 Ml Syringe IVP 10 ml PRN PRN Administration NEEDED PER PROVIDER ORDERS Thiamine HCl 100 mg 12/24/22 09:00 12/26/22 08:53 Thiamine 100 Mg Tablet PO 100 mg DAILY FRANCISCO Administration - Lab Result Fish Bone Diagrams: 12/26/22 04:12 12/26/22 04:12 - Additional Planning My Orders: My Active Orders 12/25/22 14:00 Morphine Oral Soln [Roxanol] 5 mg PO TID 12/25/22 21:00 Senna [Senokot] 8.6 - 17.2 mg PO DAILY 12/26/22 14:00 methylPREDNISolone SUCCINATE [SOLU-Medrol (40MG VIAL)] 40 mg IVP TID 12/26/22 15:00 Furosemide [Lasix] 40 mg PO 0800,1500 12/28/22 08:00 predniSONE [Deltasone] 40 mg PO DAILYWM Subjective - Subjective Patient Reports: Shortness of Breath Nursing Reports: Other (He cannot get OOB, too SOB) Objective Vital Signs: Vital Signs - 24 hr 12/25/22 12/25/22 12/25/22 16:00 17:33 23:52 Temperature 36.5 C 36.5 C Heart Rate 92 Heart Rate [ 89 94 Brachial] Respiratory 16 22 18 Rate Blood Pressure 110/64 [Left Brachial artery] Blood Pressure 137/79 H [Right Brachial artery] O2 Saturation 90 L 93 If not protocol 2 2 2 : Oxygen Flow, liters/minute 12/26/22 12/26/22 07:46 11:11 Temperature 36.4 C L Heart Rate 88 Heart Rate [ 83 Brachial] Respiratory 18 22 Rate Blood Pressure [Left Brachial artery] Blood Pressure 117/71 [Right Brachial artery] O2 Saturation 93 If not protocol 2 : Oxygen Flow, liters/minute Oxygen O2 Source [With Activity] Nasal cannula O2 Source [Without Activity] Nasal cannula O2 Source Nasal cannula Oxygen Flow Rate 8 I&O (Last 24 Hrs): Intake and Output Totals x24h 12/24/22 12/25/22 12/26/22 23:59 23:59 23:59 Intake Total 1020 1230 990 Output Total 2150 1800 1325 Balance -1130 -570 -405 General: Alert, Oriented x3 HEENT: EOMI, Mucous membr. moist/pink, Other (Cushingoid) Neuro: Alert, Non Focal Cardiovascular: No murmurs Respiratory: Other (Poor air mvm) Abdomen: No tenderness Extremities: Other (1+ edema) - Results Results: Laboratory Results WBC 15.2 x10^3/uL (4.8-10.8) H 12/26/22 04:12 RBC 3.50 10^6/uL (4.70-6.10) L 12/26/22 04:12 Hgb 9.7 g/dL (14.0-18.0) L 12/26/22 04:12 Hct 32.4 % (42.0-52.0) L 12/26/22 04:12 MCV 92.6 fL (80.0-94.0) 12/26/22 04:12 MCH 27.7 pg (27.0-31.0) 12/26/22 04:12 MCHC 29.9 g/dL (32.0-36.0) L 12/26/22 04:12 RDW 17.2 % (12.0-15.0) H 12/26/22 04:12 Plt Count 479 10^3/uL (130-450) H 12/26/22 04:12 MPV 10.1 fL (7.4-11.4) 12/26/22 04:12 Neut # (Auto) 13.1 10^3/uL (1.5-6.6) H 12/26/22 04:12 Lymph # (Auto) 0.3 10^3/uL (1.5-3.5) L 12/26/22 04:12 Imperial # (Auto) 1.2 10^3/uL (0.0-1.0) H 12/26/22 04:12 Eos # (Auto) 0.0 10^3/uL (0.0-0.7) 12/26/22 04:12 Baso # (Auto) 0.1 10^3/uL (0.0-0.1) 12/26/22 04:12 Absolute Nucleated RBC 0.00 x10^3/uL 12/26/22 04:12 Nucleated RBC % 0.0 /100WBC 12/26/22 04:12 Manual Slide Review Indicated 12/26/22 04:12 WBC Morphology NORMAL APPEARANCE (NORMAL) 12/26/22 04:12 Platelet Estimate NORMAL (130-450,000) (NORMAL) 12/26/22 04:12 Platelet Morphology NORMAL APPEARANCE (NORMAL) 12/26/22 04:12 RBC Morph Micro Appear NORMAL APPEARANCE (NORMAL) 12/26/22 04:12 Sodium 132 mmol/L (135-145) L 12/26/22 04:12 Potassium 4.8 mmol/L (3.5-4.5) H 12/26/22 04:12 Chloride 89 mmol/L (101-111) L 12/26/22 04:12 Carbon Dioxide 40 mmol/L (21-32) H* 12/26/22 04:12 Anion Gap 3.0 (6-13) L 12/26/22 04:12 BUN 46 mg/dL (6-20) H 12/26/22 04:12 Creatinine 1.0 mg/dL (0.6-1.3) 12/26/22 04:12 Estimated GFR (MDRD) 73 (>89) L 12/26/22 04:12 Glucose 157 mg/dL (74-104) H 12/26/22 04:12 Calcium 8.9 mg/dL (8.5-10.3) 12/26/22 04:12 Phosphorus 3.6 mg/dL (2.5-5.0) 12/23/22 04:33 Magnesium 1.9 mg/dL (1.7-2.3) 12/23/22 04:33 Total Bilirubin 0.3 mg/dL (0.2-1.0) 12/21/22 17:33 AST 17 IU/L (10-42) 12/21/22 17:33 ALT 19 IU/L (10-60) 12/21/22 17:33 Alkaline Phosphatase 73 IU/L (42-121) 12/21/22 17:33 Troponin I High Sens 10.1 ng/L (2.3-19.7) 12/21/22 17:33 B-Natriuretic Peptide 635 pg/mL (5-100) H 12/23/22 04:33 Total Protein 7.1 g/dL (6.4-8.9) 12/21/22 17:33 Albumin 3.8 g/dL (3.2-5.5) 12/21/22 17:33 Globulin 3.3 g/dL (2.1-4.2) 12/21/22 17:33 Albumin/Globulin Ratio 1.2 (1.0-2.2) 12/21/22 17:33 Nasal Adenovirus (PCR) NOT DETECTED 12/21/22 17:44 Nasal B. parapertussis DNA (PCR) NOT DETECTED 12/21/22 17:44 Nasal Coronavir 229E PCR NOT DETECTED 12/21/22 17:44 Nasal Coronavir HKU1 PCR NOT DETECTED 12/21/22 17:44 Nasal Coronavir NL63 PCR NOT DETECTED 12/21/22 17:44 Nasal Coronavir OC43 PCR NOT DETECTED 12/21/22 17:44 Nasal Enterovir/Rhinovir PCR NOT DETECTED 12/21/22 17:44 Nasal Influenza B PCR NOT DETECTED 12/21/22 17:44 Nasal Influenza A PCR NOT DETECTED 12/21/22 17:44 Nasal Parainfluen 1 PCR NOT DETECTED 12/21/22 17:44 Nasal Parainfluen 2 PCR NOT DETECTED 12/21/22 17:44 Nasal Parainfluen 3 PCR NOT DETECTED 12/21/22 17:44 Nasal Parainfluen 4 PCR NOT DETECTED 12/21/22 17:44 Nasal RSV (PCR) NOT DETECTED 12/21/22 17:44 Nasal B.pertussis DNA PCR NOT DETECTED 12/21/22 17:44 Nasal C.pneumoniae (PCR) NOT DETECTED 12/21/22 17:44 Aj Human Metapneumo PCR NOT DETECTED 12/21/22 17:44 Nasal M.pneumoniae (PCR) NOT DETECTED 12/21/22 17:44 Nasal SARS-CoV-2 (PCR) NOT DETECTED 12/21/22 17:44 Blood Type A NEGATIVE 12/23/22 08:05 Antibody Screen NEGATIVE 12/23/22 08:05 Crossmatch IS Only See Detail 12/23/22 08:05 - Procedures Procedures: Procedures DRAINAGE OF RIGHT PLEURAL CAVITY, PERCUTANEOUS APPROACH (12/17/22) RESPIRATORY VENTILATION, 24-96 CONSECUTIVE HOURS (11/25/22)
[2022-12-26] MEDS: MORPHINE SOL 10 MG/0.5 ML ORAL SYRINGE PO PRN ×3 (18:03→20:06)
[2022-12-26] MEDS: MONTELUKAST 10 MG TABLET PO SCH (21:44)
[2022-12-27] MEDS: MORPHINE SOL 10 MG/0.5 ML ORAL SYRINGE PO PRN ×2 (00:43→04:04)
[2022-12-27] MEDS: SODIUM CHLORIDE FLUSH 0.9% 10 ML SYRINGE IVP SCH ×2 (01:06→06:44)
[2022-12-27] MEDS: ACETAMINOPHEN 325 MG TABLET PO PRN ×2 (04:05→09:31)
[2022-12-27] MEDS: methylPREDNISolone SUCCINATE 40 MG/ML VIAL IVP SCH (06:43)
[2022-12-27] MEDS: MORPHINE SOL 10 MG/0.5 ML ORAL SYRINGE PO SCH (06:43)
[2022-12-27] MEDS: PANTOPRAZOLE 40 MG TABLET PO SCH (06:44)
[2022-12-27] MEDS: IPRATROPIUM/ALBUTEROL 3 ML NEB INH SCH ×2 (07:09→12:06)
[2022-12-27] MEDS: FORMOTEROL FUMARATE NEB 20 MCG/2 ML INH SCH (07:09)
[2022-12-27] MEDS: BUDESONIDE 0.5 MG/2 ML NEB INH SCH (07:09)
[2022-12-27] MEDS: FERROUS SULFATE 325 MG TABLET PO SCH (08:36)
[2022-12-27] MEDS: CALCIUM CARB (OYSTER SHELL) 500 MG TABLET PO SCH (08:36)
[2022-12-27] MEDS: diltiaZEM CD 120 MG CAPSULE PO SCH (08:37)
[2022-12-27] MEDS: THIAMINE 100 MG TABLET PO SCH (08:37)
[2022-12-27] MEDS: SENNA 8.6 MG TABLET PO SCH (08:37)
[2022-12-27] MEDS: SACCHAROMYCES BOULARDII 250 MG CAPSULE PO SCH (08:37)
[2022-12-27] MEDS: guaiFENesin 600 MG TABLET PO SCH (08:37)
[2022-12-27] MEDS: FUROSEMIDE 40 MG TABLET PO SCH (08:37)
[2022-12-27] MEDS: NYSTATIN POWDER 15 GM TOP SCH (08:37)
[2022-12-27] MEDS: polyethylene glycoL 3350 17 GM PACKET PO SCH (08:37)
[2022-12-27] MEDS: DOCUSATE SODIUM 250 MG CAPSULE PO SCH (08:37)
[2022-12-27] MEDS: MICONAZOLE NITRATE TOP SCH (08:38)
[2022-12-27] MEDS ORDERED: FUROSEMIDE 40 MG TABLET PO SCH (09:00)
--- NOTE | 2022-12-27 11:01 | Discharge Plan ---
"Discharge Plan for SNF / [facility] - Discharge Plan And Transition Orders Problem Reviewed?: Yes Disposition: 03 SNF DC/Xfer Condition: Poor Allergies and Adverse Reactions: Allergies Allergy/AdvReac Type Severity Reaction Status Date / Time Penicillins Allergy Unknown Verified 12/21/22 16:47 Health Concerns: You were hospitalized to treat respiratory failure, caused by COPD exacerbation and heart failure exacerbation. Your medications were adjusted. You now cannot tolerate physical activity so PT and OT have been stopped. Unfortunately this means you are now bedbound. You have been seen by the Hospice team and they will be now in charge of your orders starting tomorrow 12/28/2022. Plan of Treatment: As above. Care Goals: Your comfort and dying with dignity are now the goals. Assessment: Patient is aware of the plan. - SNF / RESIDENTIAL Transition Orders Admit to (Facility): [facility] Under the care of (Name): Dr Beard on 12/27/22, then Dr Saenz (Hospice) starting 12/28/22 Medicare Certification Statement: I certify that [facility] care is medically necessary on a continuing basis for any of the conditions for which she/he is receiving care during hospitalization. Notify PCP of admission and forward orders to primary provider for signature. Other Notification Orders: Call PCP immediately if patient develops dyspnea, chest pain/tightness or edema. House Bowel Program: Yes Additional Bowel Program Orders: If no BM after 2 days, nurse may give M.O.M. 30ml PO PRN and/or ducolax Supp 1 DC and/or BEBE 250mg P.O., and/or senna 1-2 tabs PO. On day 3 nurse may give repeat above order until residents constipation is resolved. Annual Influenza Vaccine (between Jan 08 and August 07): Yes Two-step PPD per [facility] [phone] or approved exception documents: Yes Treatments & Other Orders: Stop the PT and OT. Patient is now bedbound. Oxygen Orders: 2-4 L/min continuous. Medication Orders: PLEASE REFER TO THE DISCHARGE MEDICATION LIST. Insulin Orders?: No - Medications New Prescriptions: Morphine Oral Soln [Roxanol] 5 mg PO Q2HR PRN #30 ml PRN Reason: Dyspnea LORazepam [Ativan] 0.5 mg PO Q6H PRN #20 tablet PRN Reason: Anxiety predniSONE [Deltasone] 40 mg PO DAILY #60 tab Furosemide [Lasix] 40 mg PO 0800,1500 #60 tab Morphine Oral Soln [Roxanol] 5 mg PO TID #30 ml - Diet Type: Geriatric Texture: Mech soft Liquids: Thin May have monthly special meal: Yes - Therapies | Activity Activity: Bedbound Follow Up: Starting on 12/28/2022, he will be under Hospice service and their care."
--- NOTE | 2022-12-27 11:20 | DISCHARGE SUMMARY ---
Discharge Summary Admit Date: 12/21/22 Discharge Date: 12/27/22 Discharging Provider: Dr Jess Rojas Primary Care Provider: Dr Jericho Beard Condition at Discharge: Poor Discharge Disposition: [facility] DC/Xfer - HPI History of Present Illness: H&P was conducted via video remotely, using Access Cart. [place] is in [place]. Physician is in [place]. RN is at bedside. 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 Pt was hospitalized at [facility] from 12/17/22-12/19/22 for COPD and CHF Exacerbation. He was discharged to SNF. Pt says that he has c/o Shortness of breath x weeks, but it increased today. They increased his O2 from 2L to 5L NC O2 at the [facility] prior to calling EMS. +cough, no sputum. No F/C. No CP. No N/V/D. No Dizziness. No swelling of ankles. Pt has not been able to do much PT since he arrived at the SNF d/t his Shortness of breath. He uses a walker at baseline. In the ER, BP 145/95, HR 102, RR 24, SpO2 93% on 4L NC O2, Na 134, K 5.0, CO2 39, BNP 385, Iron nl, Hgb 8.4, MCV 95.4, Resp panel neg. CXR: Small apical Pneumothorax decreased from 12/17/22, trace B/L pleural effusion, mild diffuse interstitial prominence, CMG. Pt was given Duonebs, Albuterol, SoluMedrol, Lasix 20 mg IV in the ER. - HOSPITAL COURSE Hospital Course: 1) Acute on chronic respiratory failure with hypoxia He needed more than his 2L/min at admission. Through hospitaliztion, he is again at 2L/min at rest but needs 4-6L/min with any movement. (2) COPD exacerbation He is now on oral prednisone 40 mg daily, and a very slow taper over months could be considered. All his nebulized bronchodilators and inhaled steroids and Montelukast continue. (3) Acute on Chronic Diastolic Heart Failure He now requires twice daily Lasix (4) Cor Pulmonale As per last Echo (5) Pleural effusion He has had 3 paracenteses in his Hx. Dr. Saenz recommends the next time there is a large pleural effusion that needs tapping, to insert a Pleur-ex catheter (6) Apical Pneumothorax This has been stable (7) Chronic Atrial Fibrillation His rapid HR tsabilized as his COPD was treated. (8) Anemia Iron supplements have been stopped (9) Poor Memory As per Hx. (10) Weakness He can no longer participate with PT and OT, he is now bedbound (11) Bedbound Due to endstage COPD. He will be admitted under Hospice care in the next few days. - ALLERGIES Allergies/Adverse Reactions: Allergies Allergy/AdvReac Type Severity Reaction Status Date / Time Penicillins Allergy Unknown Verified 12/21/22 16:47 - MEDICATIONS Home Medications: Ambulatory Orders Medication Instructions Recorded Confirmed Albuterol Sulf [Ventolin Hfa 2 puffs INH QID PRN 11/25/22 12/22/22 Inhaler] Fluticasone Propion/Salmeterol 1 puffs INH BID 11/25/22 12/22/22 [Wixela 500-50 Inhub] Tiotropium Lynch [Spiriva 2 puffs PO BID 11/25/22 12/22/22 Respimat] Acetaminophen [Tylenol] 650 mg PO Q4HR PRN tab 12/02/22 12/22/22 Budesonide [Pulmicort] 0.5 mg INH RTBID ml 12/02/22 12/22/22 Pantoprazole [Protonix] 40 mg PO 0700,2200 #30 tab 12/02/22 12/22/22 Potassium Chloride [K-Tab ER] 10 meq PO DAILY #30 tab 12/02/22 12/22/22 Thiamine [Vitamin B-1] 100 mg PO DAILY #30 tab 12/02/22 12/22/22 diltiaZEM CD [Cardizem Cd] 120 mg PO 0800,1800 #60 cap 12/02/22 12/22/22 Ipratropium/Albuterol [Duoneb] 3 ml INH Q4HR PRN 12/17/22 12/22/22 Miconazole Nitrate 1 applic TOP BID 12/17/22 12/22/22 guaiFENesin [Guaifenesin ER] 600 mg PO BID PRN #10 tab 12/18/22 12/22/22 Montelukast [Singulair] 10 mg PO QPM #30 tablet 12/19/22 12/22/22 Bisacodyl Supp [Dulcolax Supp] 10 mg VT DAILY PRN 12/22/22 12/22/22 Mineral Oil [Mineral Oil Enema] 1 unit VT DAILY PRN 12/22/22 12/22/22 Senna [Senokot] 17.2 mg PO DAILY PRN 12/22/22 12/22/22 polyethylene glycoL 3350 [Miralax] 17 g PO DAILY PRN 12/22/22 12/22/22 Furosemide [Lasix] 40 mg PO 0800,1500 #60 tab 12/27/22 LORazepam [Ativan] 0.5 mg PO Q6H PRN #20 tablet 12/27/22 Morphine Oral Soln [Roxanol] 5 mg PO Q2HR PRN #30 ml 12/27/22 Morphine Oral Soln [Roxanol] 5 mg PO TID #30 ml 12/27/22 Zinc Oxide 20% Oint [Zinc Oxide] 1 applic TOP PRN PRN each 12/27/22 predniSONE [Deltasone] 40 mg PO DAILY #60 tab 12/27/22 - PHYSICAL EXAM AT DISCHARGE General Appearance: positive: Alert, Mild distress (He is tachypneic with any activity in bed, starts ursed ip breathing), Anxious Eyes Bilateral: positive: Normal inspection, EOMI ENT: positive: No signs of dehydration, Other (Cushingoid) Neck: positive: Other ((+) JVD) Respiratory: positive: Other (Poor air movement in all lung [place]) Cardiovascular: positive: Irregularly irregular (distant heart sounds) Abdomen: positive: Non-tender, No distention Skin: positive: Warm, Dry Extremities: positive: Non-tender, Other (1+ edema to thighs) Neurologic/Psychiatric: positive: Oriented x3, Motor nml - LABS Result Diagrams: 12/26/22 04:12 12/26/22 04:12 - DIAGNOSTIC IMAGING Diagnostic Imaging Results: Final report reviewed - FOLLOW UP Follow Up: Upon return to [facility], he will no longer need PT and OT rehab, and he will be admitted under Hospice Care in several days. - TIME SPENT Time Spent in Discharge (Minutes): 45
[2022-12-27] MEDS: levoFLOXacin 250 MG TABLET PO SCH (11:40)
[2022-12-27] MEDS: ZINC OXIDE 20% OINT 30 GM TUBE TOP PRN (13:53)
[2022-12-27 14:04] VITALS: BP 117/69; O2SAT 95
[2022-12-28] MEDS ORDERED: predniSONE 20 MG TABLET PO SCH (08:00)
== END 2022-12-27 14:15 | DRG 189 ==
LOC: EDUNIT# → ED 16:38 → MS2 19:45 → UNDODISIN 12-23 18:30
PROVIDERS: ADMIT Internal Medicine; ATTEND Internal Medicine
PROC: 30233N1 Transfusion of Nonautologous Red Blood Cells into Peripheral Vein, Percutaneous Approach (ICD-10-PCS; principal; 2022-12-23)
DX: J96.21 Acute and chronic respiratory failure with hypoxia (principal); I50.33 Acute on chronic diastolic (congestive) heart failure; J44.1 Chronic obstructive pulmonary disease with (acute) exacerbation; J93.9 Pneumothorax, unspecified; I48.20 Chronic atrial fibrillation, unspecified; E87.1 Hypo-osmolality and hyponatremia; I27.81 Cor pulmonale (chronic); I11.0 Hypertensive heart disease with heart failure; J96.22 Acute and chronic respiratory failure with hypercapnia; I48.0 Paroxysmal atrial fibrillation; E87.5 Hyperkalemia; D53.9 Nutritional anemia, unspecified; N40.0 Benign prostatic hyperplasia without lower urinary tract symptoms; R41.3 Other amnesia; R53.1 Weakness; Z20.822 Contact with and (suspected) exposure to COVID-19; Z74.01 Bed confinement status; Z79.899 Other long term (current) drug therapy; Z87.891 Personal history of nicotine dependence; Z87.898 Personal history of other specified conditions; Z88.0 Allergy status to penicillin
CPT/HCPCS: 36415; 71045; 80048; 80053; 83735; 83880; 84100; 84484; 85025; 86850; 86900; 86901; 86920; 87070; 87205; 87633; 93005; 94640; 96374; 96375; 97110; 97163; 97166; 99284; 99285; A9270; J7626; P9016

== ENCOUNTER 2022-12-27 14:26 | Outpatient (CLI) | payer OTHER | END 2022-12-27 14:27 | LOC: EMS 14:26 | PROVIDERS: ATTEND Internal Medicine | DX: J44.1 Chronic obstructive pulmonary disease with (acute) exacerbation (principal); I50.9 Heart failure, unspecified; Z74.01 Bed confinement status | CPT/HCPCS: A0425; A0428 ==

== ENCOUNTER 2022-12-29 07:31 | Outpatient (CLI) | payer OTHER | END 2022-12-29 23:59 | disposition critical access hospital (66) | LOC: EMS 07:31 | DX: J44.1 Chronic obstructive pulmonary disease with (acute) exacerbation (principal) | CPT/HCPCS: A0425; A0427 ==

== ENCOUNTER 2022-12-29 08:00 | Emergency (ER) | payer OTHER ==
[2022-12-29] MEDS ORDERED: MORPHINE SOL 10 MG/0.5 ML ORAL SYRINGE PO STA (08:15)
--- NOTE | 2022-12-29 08:28 | ED Physician Documentation ---
PD HPI DYSPNEA - Stated complaint Stated Complaint: SOA - Chief complaint Chief Complaint: Resp - History obtained from History obtained from: Patient, EMS, Other (Recent Hospitalization) - Additional information Additional information: Patient is a 77-year-old male with end-stage COPD and congestive heart failure who was recently admitted to our hospital and discharged 2 days ago presenting for evaluation of worsening shortness of air. On discharge patient was noted to be in poor condition on December 27. He had been seen by research group director with plans for admission to hospice earlier this week. Is unclear whether that has occurred or not. Per EMS staff at [facility] found him slumped down in his bed this morning with increased work of breathing. The medics pulled him up and gave him a breathing treatment and reported that his breathing seems to be improved. He has normally on 5 L of oxygen. History is limited from the patient as but he becomes very dyspneic during conversation. He does indicate though that he wants care focused on his comfort and is asking for morphine to help with his breathing. Per Dr. Saenz's note on 12/25: Hospice medical unit secretary consult will be performed on 12/28/2022. Would recommend adding oral morphine 5 mg every 2 hours as needed for dyspnea and scheduling a dose 3 times daily. Review of Systems Constitutional: denies: Fever Cardiac: denies: Chest pain / pressure Respiratory: reports: Dyspnea, Cough PD PAST MEDICAL HISTORY - Past Medical History Cardiovascular: Congestive heart failure, Hypertension, Atrial fibrillation Respiratory: COPD Neuro: None Endocrine/Autoimmune: None GI: None : Benign prostate hypertrophy HEENT: None Psych: None Musculoskeletal: None Derm: None - Past Surgical History Past Surgical History: Yes General: Other - Present Medications Home Medications: Ambulatory Orders Medication Instructions Recorded Confirmed Albuterol Sulf [Ventolin Hfa 2 puffs INH QID PRN 11/25/22 12/22/22 Inhaler] Fluticasone Propion/Salmeterol 1 puffs INH BID 11/25/22 12/22/22 [Wixela 500-50 Inhub] Tiotropium [place] [Spiriva 2 puffs PO BID 11/25/22 12/22/22 Respimat] Acetaminophen [Tylenol] 650 mg PO Q4HR PRN tab 12/02/22 12/22/22 Budesonide [Pulmicort] 0.5 mg INH RTBID ml 12/02/22 12/22/22 Pantoprazole [Protonix] 40 mg PO 0700,2200 #30 tab 12/02/22 12/22/22 Potassium Chloride [K-Tab ER] 10 meq PO DAILY #30 tab 12/02/22 12/22/22 Thiamine [Vitamin B-1] 100 mg PO DAILY #30 tab 12/02/22 12/22/22 diltiaZEM CD [Cardizem Cd] 120 mg PO 0800,1800 #60 cap 12/02/22 12/22/22 Ipratropium/Albuterol [Duoneb] 3 ml INH Q4HR PRN 12/17/22 12/22/22 Miconazole Nitrate 1 applic TOP BID 12/17/22 12/22/22 guaiFENesin [Guaifenesin ER] 600 mg PO BID PRN #10 tab 12/18/22 12/22/22 Montelukast [Singulair] 10 mg PO QPM #30 tablet 12/19/22 12/22/22 Bisacodyl Supp [Dulcolax Supp] 10 mg CO DAILY PRN 12/22/22 12/22/22 Mineral Oil [Mineral Oil Enema] 1 unit CO DAILY PRN 12/22/22 12/22/22 Senna [Senokot] 17.2 mg PO DAILY PRN 12/22/22 12/22/22 polyethylene glycoL 3350 [Miralax] 17 g PO DAILY PRN 12/22/22 12/22/22 Furosemide [Lasix] 40 mg PO 0800,1500 #60 tab 12/27/22 LORazepam [Ativan] 0.5 mg PO Q6H PRN #20 tablet 12/27/22 Morphine Oral Soln [Roxanol] 5 mg PO Q2HR PRN #30 ml 12/27/22 Morphine Oral Soln [Roxanol] 5 mg PO TID #30 ml 12/27/22 Zinc Oxide 20% Oint [Zinc Oxide] 1 applic TOP PRN PRN each 12/27/22 predniSONE [Deltasone] 40 mg PO DAILY #60 tab 12/27/22 - Allergies Allergies/Adverse Reactions: Allergies Allergy/AdvReac Type Severity Reaction Status Date / Time Penicillins Allergy Unknown Verified 12/29/22 08:15 - Social History Does the pt smoke?: No Smoking Status: Never smoker Does the pt drink ETOH?: No Does the pt have substance abuse?: No - Immunizations Immunizations are current?: Yes - POLST Patient has POLST: No PD ED PE NORMAL - General General: Alert and oriented X 3, Well developed/nourished, Other (Distressed, tachypneic) - HEENT HEENT: Atraumatic - Neck Neck: Supple, no meningeal sign - Respiratory Respiratory: Other (Tachypneic, increased work of breathing during conversation, coarse breath sounds bilaterally, diminished on the right base) - Abdomen Abdomen: Soft, Non tender - Derm Derm: Warm and dry Results - Vitals Vitals: Vital Signs - 24 hr 12/29/22 12/29/22 12/29/22 08:09 08:36 10:15 Temperature 35.9 C L Heart Rate 112 H 112 H 104 H Respiratory 20 40 H 16 Rate Blood Pressure 134/86 H 134/86 H 119/75 O2 Saturation 91 L 90 L 90 L If not protocol 5 : Oxygen Flow, liters/minute 12/29/22 12:15 Temperature Heart Rate 100 Respiratory 16 Rate Blood Pressure 118/74 O2 Saturation 99 If not protocol 5 : Oxygen Flow, liters/minute Oxygen O2 Source [With Activity] Nasal cannula O2 Source [Without Activity] Nasal cannula O2 Source Nasal cannula Oxygen Flow Rate 4 - EKG (time done) 0828 EKG releavant findings:: EKG personally interpreted by author of this note. Relevant findings are: Rate 107, sinus tachycardia, no STEMI Rate: Rate (enter#) (107) Rhythm: Sinus tachycardia Ischemia: No: ST elevation c/w ischemia - Labs Labs: Laboratory Tests 12/29/22 12/29/22 12/29/22 08:31 08:31 08:31 WBC 27.0 H RBC 3.77 L Hgb 10.6 L Hct 35.1 L MCV 93.1 MCH 28.1 MCHC 30.2 L RDW 17.5 H Plt Count 429 MPV 9.6 Neut # (Auto) Not Reportable Lymph # (Auto) Not Reportable Howard # (Auto) Not Reportable Eos # (Auto) Not Reportable Baso # (Auto) Not Reportable Absolute Nucleated RBC Not Reportable Total Counted 100 Band Neuts % (Manual) 2 Abnorm Lymph % (Manual) 0 Metamyelocytes % 3 H Nucleated RBC % Not Reportable Neutrophils # (Manual) 23.0 H Lymphocytes # (Manual) 0.5 L Monocytes # (Manual) 2.7 H Eosinophils # (Manual) 0.0 Basophils # (Manual) 0.0 Differential Comment MANUAL DIFFERENTIAL Manual Slide Review Indicated Platelet Estimate NORMAL (130-450,000) Platelet Morphology NORMAL APPEARANCE RBC Morph Micro Appear 1+ ANISOCYTOSIS Sodium 142 Potassium 4.0 Chloride 94 L Carbon Dioxide > 45 H* Anion Gap TNP BUN 45 H Creatinine 0.9 Estimated GFR (MDRD) 82 L Glucose 98 Calcium 8.8 Total Bilirubin 0.6 AST 15 ALT 32 Alkaline Phosphatase 60 B-Natriuretic Peptide 312 H Total Protein 5.8 L Albumin 3.2 Globulin 2.6 Albumin/Globulin Ratio 1.2 PD Medical Decision Making - ED course Complexity details: reviewed results, re-evaluated patient, d/w patient ED course: Patient is a 77-year-old male with a history of end-stage COPD, congestive heart failure with multiple admissions this month and recently discharged home with plans for hospice. Unfortunately he has not been admitted to hospice yet and this morning was noted to have increased work of breathing prompting [facility] to call 911. Patient appears significantly improved after EMS repositioned him and gave him a neb treatment. I also administered his oral morphine which he is scheduled to have. Reviewed CBC, chemistries, chest x-ray. WBC elevated which could be related to current prednisone. CO2 is elevated on his chemistry. He does have a pleural effusion that is been there but I do not think that this is the cause of his symptoms this is morning as he again Feels much better with minimal interventions. Patient states that his does not want to be admitted to the hospital. His goals are for comfort. He does appear comfortable currently and has medications written for him for the [facility]. I also discussed the case with Dr. Saenz who will be seeing the patient tomorrow to get him admitted to hospice. Patient is agreeable with returning to his penitentiary. 1129 - D/ - She was planning on admitting the patient to hospice yesterday but patient was discharged over the weekend prior to her being able to see the patient. She has checked their schedule and they have now given him an appointment for tomorrow at 4 PM for their intake at [facility] for hospice. Departure - Departure Disposition: Home, Self Care Clinical Impression: End stage COPD Condition: Poor Follow-Up: Sue Sanez MD [Provider Admit Priv/Credential] - Comments: Please continue with your medications as prescribed including morphine to help with your symptoms. You are scheduled for a hospice intake tomorrow 12/30/2022 at 4 PM. Return to the emergency department with any new concerns. Forms: PCP List Discharge Date/Time: 12/29/22 14:09
[2022-12-29] MEDS ORDERED: predniSONE 20 MG TABLET PO STA (08:31)
[2022-12-29 08:39] LABS: BASOPHILS % (AUTO) 0.4 %; EOSINOPHILS % (AUTO) 0.3 %; HCT - HEMATOCRIT 35.1 % (42.0-52.0); HGB - HEMOGLOBIN 10.6 g/dL (14.0-18.0); MEAN CORPUSCULAR HEMOGLOBIN 28.1 pg (27.0-31.0); MEAN CORPUSCULAR HGB CONC 30.2 g/dL (32.0-36.0); MEAN CORPUSCULAR VOLUME 93.1 fL (80.0-94.0); MEAN PLATELET VOLUME 9.6 fL (7.4-11.4); MONOCYTES % (AUTO) 12.4 %; NEUTROPHILS % (AUTO) 80.2 %; PLT - PLATELET COUNT 429 10^3/uL (130-450); RED BLOOD COUNT 3.77 10^6/uL (4.70-6.10); RED CELL DISTRIBUTION WIDTH 17.5 % (12.0-15.0)
[2022-12-29 08:44] LABS: SLIDE REVIEW? Indicated
--- NOTE | 2022-12-29 08:45 | XRAY Report ---
PROCEDURE: Chest 1 View X-Ray INDICATIONS: SOA TECHNIQUE: One view of the chest was acquired. COMPARISON: None. FINDINGS: Surgical changes and devices: None. Lungs and pleura: Moderate right-sided pleural effusion, which is loculated. Right basilar atelectas is/consolidation. Diffuse interstitial opacities. Mediastinum: Mediastinal contours appear normal. Heart size is normal. Bones and chest wall: No suspicious bony lesions. Overlying soft tissues appear unremarkable. IMPRESSION: Moderate right pleural effusion with right basilar atelectasis/consolidation. Diffuse interstitial opacities, favoring pulmonary edema. Reviewed by: Jj Pink on 12/29/2022 8:43 AM PDT Approved by: Jj Pink on 12/29/2022 8:43 AM PDT Station ID: [id number]
[2022-12-29 08:51] LABS: ABNORMAL LYMPHS % (MANUAL) 0 %
[2022-12-29 08:54] LABS: BAND NEUTROPHILS % (MANUAL) 2 %; LYMPHOCYTES # (MANUAL) 0.5 10^3/uL (1.5-3.5); LYMPHOCYTES % (MANUAL) 2 %; METAMYELOCYTES % (MANUAL) 3 %; MONOCYTES # (MANUAL) 2.7 10^3/uL (0.0-1.0)
[2022-12-29 08:55] LABS: DIFFERENTIAL COMMENT MANUAL DIFFERENTIAL; PLATELET ESTIMATE, MANUAL NORMAL (130-450,000) (NORMAL); PLATELET MORPHOLOGY NORMAL APPEARANCE (NORMAL)
[2022-12-29 09:03] LABS: ALBUMIN 3.2 g/dL (3.2-5.5)
[2022-12-29 09:10] LABS: ALBUMIN/GLOBULIN RATIO 1.2 (1.0-2.2); ALKALINE PHOSPHATASE 60 IU/L (42-121); ALT ALANINE AMINOTRANSFERASE 32 IU/L (10-60); AST ASPARTATE AMINOTRANSFERASE 15 IU/L (10-42); BILIRUBIN,TOTAL 0.6 mg/dL (0.2-1.0); BUN - BLOOD UREA NITROGEN 45 mg/dL (6-20); CALCIUM 8.8 mg/dL (8.5-10.3); CARBON DIOXIDE - CO2 > 45 mmol/L (21-32); CHLORIDE 94 mmol/L (101-111); CREATININE 0.9 mg/dL (0.6-1.3); GFR - MDRD 82 (>89); GLUCOSE 98 mg/dL (74-104); SODIUM 142 mmol/L (135-145); TOTAL PROTEIN 5.8 g/dL (6.4-8.9)
[2022-12-29 13:53] VITALS: BP 118/74; O2SAT 99
== END 2022-12-29 14:09 | disposition home or self-care (01) ==
LOC: EDUNIT# → ED 08:00
DX: J44.9 Chronic obstructive pulmonary disease, unspecified (principal); Z99.81 Dependence on supplemental oxygen; I11.0 Hypertensive heart disease with heart failure; I50.9 Heart failure, unspecified; I48.91 Unspecified atrial fibrillation; Z79.51 Long term (current) use of inhaled steroids; Z79.899 Other long term (current) drug therapy
CPT/HCPCS: 36415; 71045; 80053; 83880; 85025; 93005; 99283; 99284; A9270; J7512

== ENCOUNTER 2022-12-29 14:10 | Outpatient (CLI) | payer OTHER | END 2022-12-29 23:59 | disposition home or self-care (01) | LOC: EMS 14:10 | PROVIDERS: ATTEND Emergency Medicine | DX: J44.9 Chronic obstructive pulmonary disease, unspecified (principal) | CPT/HCPCS: A0425; A0428 ==